=== PATIENT | female | born 1965 | race Caucasian/White ===

== ENCOUNTER 2024-02-28 16:25 | Inpatient (IN) | payer MEDICAID, SELFPAY ==
[2024-02-28] VITALS (52 sets, daily range): BP systolic 127–161; BP diastolic 83–102; PULSE 94–124; RESP 15–41; TEMP 36.7–37.4; O2SAT 88–98; BMI 26.1
--- NOTE | 2024-02-28 16:35 | XRR_ITS ---
PROCEDURE INFORMATION: Exam: XR Chest Exam date and time: 02/28/2024 4:40 PM Age: 58 years old Clinical indication: Shortness of breath; Additional info: SOB TECHNIQUE: Imaging protocol: Radiologic exam of the chest. Views: 1 view. COMPARISON: No relevant prior studies available. FINDINGS: Tubes, catheters and devices: PEG tube in the left abdomen. Lungs: Shallow inspiration. Consolidation in the medial left lung base. The right lung is clear. Pleural spaces: Unremarkable. No pleural effusion. No pneumothorax. Heart/Mediastinum: Unremarkable. No cardiomegaly. Bones/joints: Mild thoracolumbar curvature. No fracture. XR/XR chest 1V portable [id number] IMPRESSION: 1. Atelectasis and possible pneumonia in the left lung base.
[2024-02-28 16:54] LABS: ABG PCO2 46.6 mmHg (35-45); ABG PH Result 7.42 (7.35-7.45); Base Excess ABG 4.8 mmol/L (-2.0-2.0); Blood Gas Operator Identificat GD; Blood Gas Sample Site Brachial, right; Blood Gas Sample Type Arterial; Carboxyhemoglobin 1.2 %THgb (0.4-20.1); HCO3 ABG 30.1 mmol/L (22-26); HGB O2 Sat 91.9 % (95-100); Methemoglobin 0.9 % (0.4-1.5); Oxygen Device ROOM AIR; PO2 ABG 67.4 mmHg (80.0-100.0); Total Hemoglobin 12.4 g/dL (12-16)
--- NOTE | 2024-02-28 17:00 | W.ED.AMS ---
HPI - Altered Mental Status General: Chief Complaint: Altered Mental Status Stated Complaint: ams Time Seen by Provider: 02/28/24 16:29 Source: EMS Mode of arrival: EMS Limitations: altered mental status History of Present Illness: 58-year-old female that had a history of a stroke in the past patient's bedbound mute only mouths words currently is on hospice patient was sent here due to the fact that she seemed to have a slightly lower level of consciousness and possible upper respiratory infection. Patient is nonverbal not able to get any history from here she is awake and alert here Related Data Allergies Allergy/AdvReac Type Severity Reaction Status Date / Time Penicillins Allergy Unknown Verified 02/28/24 18:23 Review of Systems General: Reports: ROS unobtainable due to mental status Physical Exam Const: COMMON NORMALS: negative for patient oriented x3 HENMT: COMMON NORMALS: normocephalic and atraumatic HEAD & SCALP: normocephalic and atraumatic Eye: COMMON NORMALS: Equal, round and reactive pupils present and EOMs intact bilaterally PUPIL: Yes Equal, round and reactive pupils present Neck/C-Spine: COMMON NORMALS: full ROM and supple Chest: COMMONS NORMALS: normal inspection of the chest Resp: COMMON NORMALS: normal respiratory effort, No retractions, No use of accessory muscles and clear to auscultation bilaterally AUSCULTATION: clear to auscultation bilaterally Cardio: COMMON NORMALS: regular rhythm and No murmurs present (Cardio) RATE: tachycardic RHYTHM: regular rhythm GI: COMMON NORMALS: Normal to inspection, nondistended, normoactive bowel sounds present, Soft to palpation, non-tender and no masses PALPATION: Yes Soft to palpation Extremity: COMMON NORMALS: normal to inspection and full ROM Neuro: COMMON NORMALS: negative for patient oriented x3 Psych: COMMON NORMALS: negative for mental status grossly normal Skin: COMMON NORMALS: no rashes or lesions noted and no wounds GENERAL SKIN EXAM: no rashes or lesions noted Course Vital Signs: Vital signs: Vital Signs Temperature 98.1 F 02/28/24 16:29 Pulse Rate 115 H 02/28/24 19:00 Respiratory Rate 22 H 02/28/24 19:00 Blood Pressure 139/89 02/28/24 19:00 Pulse Oximetry 95 02/28/24 19:00 Oxygen Delivery Me thod Room Air 02/28/24 17:30 MDM - Altered Mental Status Medical Decision Making Patient presents here with pneumonia she does have an elevated lactate and white count as well patient given sepsis bolus down here along with antibiotics. I spoke to the hospitalist will admit at this time. Medical Records I reviewed the patient's medical records. Lab Data I reviewed the patient's lab results. 02/28/24 17:10 02/28/24 17:10 Radiology Impressions Chest X-Ray 02/28/24 16:35 IMPRESSION: 1. Atelectasis and possible pneumonia in the left lung base. Laboratory Results WBC 16.08 10^3/uL (3.29-11.43) H 02/28/24 17:10 RBC 4.57 10^6/uL (3.85-5.65) 02/28/24 17:10 Hgb 12.20 g/dL (11.27-16.99) 02/28/24 17:10 Hct 41.3 % (36-47) 02/28/24 17:10 MCV 90.4 fl (85-98) 02/28/24 17:10 MCH 26.7 pg (27-33) L 02/28/24 17:10 MCHC 29.5 g/dL (30-55) L 02/28/24 17:10 RDW 17.1 % (12.1-15.1) H 02/28/24 17:10 Plt Count 252 10^3/cmm (157-399) 02/28/24 17:10 MPV 13.6 fL (7.4-10.4) H 02/28/24 17:10 Neut % (Auto) 74.0 % 02/28/24 17:10 Lymph % (Auto) 11.3 % 02/28/24 17:10 Bibb % (Auto) 13.4 % 02/28/24 17:10 Eos % (Auto) 0.5 % 02/28/24 17:10 Baso % (Auto) 0.4 % 02/28/24 17:10 Neut # (Auto) 11.89 10^3/uL (1.8-7.7) H 02/28/24 17:10 Lymph # (Auto) 1.8 10^3/uL (0.8-4.8) 02/28/24 17:10 Bibb # (Auto) 2.2 10^3/uL (0.2-0.9) H 02/28/24 17:10 Eos # (Auto) 0.1 10^3/uL (0.0-0.8) 02/28/24 17:10 Baso # (Auto) 0.1 10^3/uL (0.0-0.1) 02/28/24 17:10 Nucleated RBC % (auto) 0 % 02/28/24 17:10 Nucleated RBCs # 0.0 /100WBC 02/28/24 17:10 Specimen Type Arterial 02/28/24 16:40 Sample Site Brachial, right 02/28/24 16:40 ABG pH 7.42 (7.35-7.45) 02/28/24 16:40 ABG pCO2 46.6 mmHg (35-45) H 02/28/24 16:40 ABG pO2 67.4 mmHg (80.0-100.0) L 02/28/24 16:40 ABG HCO3 30.1 mmol/L (22-26) H 02/28/24 16:40 ABG Base Excess 4.8 mmol/L (-2.0-2.0) H 02/28/24 16:40 Aditya Test N/a 02/28/24 16:40 Hematocrit 38.0 % (37-47) 02/28/24 16:40 Hgb O2 Saturation 91.9 % (95-100) L 02/28/24 16:40 Carboxyhemoglobin 1.2 %THgb (0.4-20.1) 02/28/24 16:40 Methemoglobin 0.9 % (0.4-1.5) 02/28/24 16:40 Total Hemoglobin 12.4 g/dL (12-16) 02/28/24 16:40 O2 Delivery Device Room air 02/28/24 16:40 Director Of Labor Relations ID Gd 02/28/24 16:40 Sodium 145 mmol/L (136-145) 02/28/24 17:10 Potassium 5.4 mmol/L (3.5-5.1) H 02/28/24 17:10 Chloride 100 mmol/L (98-107) 02/28/24 17:10 Carbon Dioxide 31 mmol/L (22-29) H 02/28/24 17:10 Anion Gap 19.4 (5-19) H 02/28/24 17:10 BUN 40 mg/dL (6-20) H 02/28/24 17:10 Creatinine 0.9 mg/dL (0.5-0.9) 02/28/24 17:10 GFR Calculation 64.3 mL/min (90-130) L 02/28/24 17:10 Glucose 112 mg/dL (65-115) 02/28/24 17:10 Calculated Osmolality 311 mOsm/kg (285-295) H 02/28/24 17:10 Lactic Acid 5.3 mmol/L (0.5-2.2) H* 02/28/24 17:10 Calcium 10.5 mg/dL (8.5-10.5) 02/28/24 17:10 Total Bilirubin 0.3 mg/dL (0.15-1.2) 02/28/24 17:10 AST 10 U/L (0-32) 02/28/24 17:10 ALT 8 U/L (0-33) 02/28/24 17:10 Alkaline Phosphatase 42 U/L (35-105) 02/28/24 17:10 NT-Pro-B Natriuret Pep 269 pg/mL (0-125) H 02/28/24 17:10 Total Protein 7.5 g/dL (6.6-8.7) 02/28/24 17:10 Albumin 4.1 g/dL (3.5-5.2) 02/28/24 17:10 Globulin 3.4 g/dL (1.3-4.6) 02/28/24 17:10 Coronavirus (PCR) Negative (Negative) 02/28/24 17:12 Influenza A (PCR) Negative (Negative) 02/28/24 17:12 Influenza Type B (PCR) Negative (Negative) 02/28/24 17:12 RSV (PCR) Negative (Negative) 02/28/24 17:12 All radiology interpretation(s) finalized by discharge Critical Care Time Critical Care Time: Critical Care Time: Yes Total Critical Care Time: 40 Attestation: The high probability of a clinically significant, sudden or life threatening deterioration of the patient's resp system(s) required my full and direct attention, intervention and personal management. The critical care time is as shown. This time is in addition to time spent performing any reported procedures but includes the following: [x] Data and vital sign review and interpretation [x] Patient assessment, examination and intervention [x] Documentation [x] Medication orders and management Discharge Plan Discharge Patient Disposition: Admitted As Inpatient Clinical Impression: Pneumonia Condition: Stable Patient Instructions: Altered Mental Status (ED) Coding Level of Care Code ED Associate Director Of Biostatistics for Tasha Alva
[2024-02-28 17:19] LABS: Basophils # 0.1 10^3/uL (0.0-0.1); Basophils % 0.4 %; Eosinophils # 0.1 10^3/uL (0.0-0.8); Eosinophils % 0.5 %; Hematocrit 41.3 % (36-47); Lymphocytes # 1.8 10^3/uL (0.8-4.8); Lymphocytes % 11.3 %; Mean Corpuscular HGB Conc 29.5 g/dL (30-55); Mean Corpuscular Hemoglobin 26.7 pg (27-33); Mean Corpuscular Volume 90.4 fl (85-98); Mean Platelet Volume 13.6 fL (7.4-10.4); Monocytes # 2.2 10^3/uL (0.2-0.9); Monocytes % 13.4 %; Neutrophils # 11.89 10^3/uL (1.8-7.7); Nucleated Red Blood Cells % 0 %; Platelet Count 252 10^3/cmm (157-399); Red Blood Count 4.57 10^6/uL (3.85-5.65); Red Cell Distribution Width 17.1 % (12.1-15.1); White Blood Count 16.08 10^3/uL (3.29-11.43)
[2024-02-28 17:27] LABS: Slide Review Slide Review Perform
[2024-02-28 17:52] LABS: Alanine Aminotransferase 8 U/L (0-33); Albumin Level 4.1 g/dL (3.5-5.2); Alkaline Phosphatase 42 U/L (35-105); Anion Gap 19.4 (5-19); Aspartate Amino Transferase 10 U/L (0-32); Blood Urea Nitrogen 40 mg/dL (6-20); Calcium 10.5 mg/dL (8.5-10.5); Carbon Dioxide 31 mmol/L (22-29); Chloride 100 mmol/L (98-107); Globulin 3.4 g/dL (1.3-4.6); Glomerular Filtration Rate 64.3 mL/min (90-130); Glucose 112 mg/dL (65-115); NT Pro B Type Natriuretic Pept 269 pg/mL (0-125); Osmolality Calculated 311 mOsm/kg (285-295); Potassium 5.4 mmol/L (3.5-5.1); Sodium 145 mmol/L (136-145); Total Bilirubin 0.3 mg/dL (0.15-1.2); Total Protein 7.5 g/dL (6.6-8.7)
[2024-02-28 18:10] LABS: Covid PCR NEGATIVE (Negative); Influenza A NEGATIVE (Negative); Influenza B NEGATIVE (Negative); Respiratory Syncytial Virus Ce NEGATIVE (Negative)
[2024-02-28] MEDS: sodium chloride 0.9% 1,000 ML 999 ML IV ×2 (18:27→20:33)
[2024-02-28] MEDS: cefTRIAXone 1,000 mg SDV 1000 MG IVP (18:29)
[2024-02-28] MEDS: azithromycin 500 MG in sodium chloride 0.9% 250 ML 250 MG IV (18:40)
[2024-02-28 18:51] LABS: Lactic Sepsis W/Reflex 5.3 mmol/L (0.5-2.2)
[2024-02-28] MEDS: sodium chloride 0.9% 500 ML 999 ML IV (19:49)
--- NOTE | 2024-02-28 19:56 | CTR_ITS ---
PROCEDURE INFORMATION: Exam: CT Head Without Contrast Exam date and time: 02/28/2024 8:11 PM Age: 58 years old Clinical indication: Altered mental status/memory loss; Additional info: AMS TECHNIQUE: Imaging protocol: Computed tomography of the head without contrast. Radiation optimization: All CT scans at this facility use at least one of these dose optimization techniques: automated exposure control; mA and/or kV adjustment per patient size (includes targeted exams where dose is matched to clinical indication); or iterative reconstruction. COMPARISON: No relevant prior studies available. RADIATION DOSE METRICS: Total DLP (mGy-cm): 1263 FINDINGS: Brain: Large region of encephalomalacia involving the right frontal, temporal, and parietal lobes. Encephalomalacia in the right basal ganglia. Severe patchy hypodensities throughout supratentorial white matter. No intracranial hemorrhage. Wallerian degeneration in the right cerebral peduncle. Cerebral ventricles: Ex vacuo dilatation of the right lateral ventricle. Mild dilatation of the left lateral ventricle and 3rd and 4th ventricles. Paranasal sinuses: Mucosal thickening in the right maxillary and bilateral ethmoid sinuses. No fluid level. Mastoid air cells: Visualized mastoid air cells are well aerated. Bones: Large right temporoparietal craniectomy defect. No acute fracture. Soft tissues: Unremarkable. CT/CT head wo con* [id number] IMPRESSION: 1. No acute intracranial abnormality. 2. Enlargement of the ventricles is a combination of ex vacuo dilatation on the right and central volume loss on the left. 3. 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
--- NOTE | 2024-02-28 19:56 | CTR_ITS ---
PROCEDURE INFORMATION: Exam: CT Abdomen And Pelvis Without Contrast Exam date and time: 02/28/2024 8:14 PM Age: 58 years old Clinical indication: Other: Distention; Additional info: Abdominal distetion, peg tub TECHNIQUE: Imaging protocol: Computed tomography of the abdomen and pelvis without contrast. Radiation optimization: All CT scans at this facility use at least one of these dose optimization techniques: automated exposure control; mA and/or kV adjustment per patient size (includes targeted exams where dose is matched to clinical indication); or iterative reconstruction. COMPARISON: CR XR chest 1V portable [id number] 02/28/2024 4:40 PM RADIATION DOSE METRICS: Total DLP (mGy-cm): 961 FINDINGS: Limitations: Streak artifact in the abdomen due to the patient's arms which were left in the field of view. Tubes, catheters and devices: Peg tube in the anterior mid stomach. Liver: Normal. No mass. Gallbladder and biliary ducts: Layering sludge and/or small calcified stones in the gallbladder. No visible wall thickening. The bile ducts are normal. Pancreas: Normal. No ductal dilation. Spleen: Calcified granulomas in the spleen. Adrenal glands: Adrenal hyperplasia. Kidneys and ureters: Large staghorn calculus in the central left kidney. 2 mm and 3 mm right renal calculi. No ureteral calculus or hydronephrosis. Stomach and bowel: The stomach is decompressed. The small bowel and colon are unremarkable. No obstruction. Appendix: The appendix is visualized and is normal. Intraperitoneal space: Unremarkable. No free air. No significant fluid collection. Vasculature: Mild calcified arterial plaque. No aneurysm. Lymph nodes: Unremarkable. No enlarged lymph nodes. Urinary bladder: Unremarkable as visualized. Reproductive: Unremarkable as visualized. Bones/joints: Mild curvature of the lumbar spine with degenerative changes. No acute fracture. Soft tissues: Unremarkable. CT/CT abdomen pelvis wo con [id number] IMPRESSION: 1. No acute findings. 2. Large left renal staghorn calculus and small right renal calculi. 3. Sludge and/or small stones in the gallbladder.
--- NOTE | 2024-02-28 19:56 | CTR_ITS ---
PROCEDURE INFORMATION: Exam: CTA Chest With Contrast Exam date and time: 02/28/2024 8:16 PM Age: 58 years old Clinical indication: Shortness of breath TECHNIQUE: Imaging protocol: Computed tomographic angiography of the chest with contrast. Exam focused on the arteries. 3D rendering (Not supervised by radiologist): MIP and/or 3D reconstructed images were created by the technologist. Radiation optimization: All CT scans at this facility use at least one of these dose optimization techniques: automated exposure control; mA and/or kV adjustment per patient size (includes targeted exams where dose is matched to clinical indication); or iterative reconstruction. Contrast material: OMNI 350; Contrast volume: 60 ml; Contrast route: INTRAVENOUS (IV); COMPARISON: CR XR chest 1V portable [id number] 02/28/2024 4:40 PM RADIATION DOSE METRICS: Total DLP (mGy-cm): 384 FINDINGS: Pulmonary arteries: Normal. No pulmonary emboli. Aorta: Unremarkable. No aortic aneurysm. No aortic dissection. Thyroid: Possible 1.7 cm right thyroid nodule. Ultrasound follow up suggested. Lungs: Soft tissue density in the left hilum, extending into the infrahilar left lower lobe. Right upper lobe calcified granuloma. Narrowing of the left hilar bronchi involving both the upper and lower lobes. Consolidation and volume loss in the basilar segments of the left lower lobe with loss of air bronchograms. Bronchial wall thickening in the central left upper lobe bronchi. Dependent consolidation in the right lower lobe. 4 mm right lower lobe nodule. Calcified granulomas in the left lower lobe. Pleural spaces: Unremarkable. No pneumothorax. No pleural effusion. Heart: Unremarkable. No cardiomegaly. No pericardial effusion. Lymph nodes: No mediastinal lymphadenopathy. Calcified right hilar lymph node. Bones/joints: Degenerative changes and curvature in the thoracic spine. No acute fracture. Soft tissues: Unremarkable. CT/CT angio chest PE protcl [id number] IMPRESSION: 1. No evidence of pulmonary embolus. 2. Consolidation and volume loss in the left lower lobe extending with loss of bronchi. This could represent bronchial collapse and atelectasis. An obstructing infrahilar left lower lobe neoplasm cannot be excluded. 3. Soft tissue density in the left hilum with narrowing and wall thickening of the left upper and lower lobe central bronchi. A malignant neoplastic process cannot be excluded. Consider follow-up bronchoscopy. 4. Dependent consolidation in the right lower lobe is most likely atelectasis. COMMENTS: Consistent with the [employer]'s Incidental Findings Committee white paper (J Am Anjana Radiol 2015): In patients aged 35 years and older with an incidental thyroid nodule equal to or greater than 1.[address], MRI or extrathyroidal US, further evaluation with dedicated thyroid US is recommended for patients with normal life expectancy and without comorbidities. For smaller nodules without suspicious features, no further evaluation or follow up is recommended.
--- NOTE | 2024-02-28 20:02 | P.HP_ITS ---
Providers/Chief Complaint 2 Chief Complaint: ams History of Present Illness Charito Tse is a 58 year old female with a past medical history of CVA, with residual right-sided Jarocho plegia we will reports improving right arm strength, significant right lower extremity weakness, has movement of left upper and left lower extremity, can carry out conversations, is normally alert oriented x 3, can feed herself, has a PEG tube in place, gets continuous tube feeds bedbound, currently on hospice more for pain control, but is a full code according to lifelong partner and caregiver and guardian at bedside, history of decompressive craniectomy for cerebral edema, continues to have 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 Currently patient is alert oriented x 0, she does open her eyes, but does not speak, she does not follow commands, tells me that she is significantly altered, her GCS score is 8, according to patient's partner, patient has had complaints of cough, fatigue, malaise, for the last few weeks. She has been on multiple rounds of antibiotics and steroids, she has complained of cough, shortness of breath, no chest pain. No complaints of headache or blurry vision, no neck pain complaints. She has intermittently complained of abdominal pain had 1 episode of vomiting, but has had bowel movements, had a bowel movement this morning, she has had decreased oral intake, increased confusion, less responsive according. She is bedbound so no falls, he is not sure if she has any bedsores, her sugars have been running on the lower end for her type 2 diabetes mellitus. No reported fevers. No sick contacts. Blood pressure 144/89, heart rate 105, respiratory rate 20, temperature 98.1, she is 95% on 2 L Review of Systems 2 General: Reports: ROS unobtainable due to medical condition and ROS unobtainable due to mental status Medications/Allergies Allergies Allergy/AdvReac Type Severity Reaction Status Date / Time Penicillins Allergy Unknown Verified 02/28/24 18:23 PFSH Acute 2 PFSH: Medical History (Updated 02/28/24 @ 20:44 by David Hinojosa MD) History of CAD (coronary artery disease) History of type 2 diabetes mellitus History of CVA with residual deficit Surgical History (Updated 02/28/24 @ 20:41 by David Hinojosa MD) Hx of craniotomy Social History (Updated 02/28/24 @ 20:41 by David Hinojosa MD) Smoking and tobacco/nicotine status: never used tobacco/nicotine Alcohol intake: never Substance/Drug Use: never Vitals/I&O/Wt Last Vital Signs Temp 98.1 F 02/28/24 16:29 Pulse 115 H 02/28/24 19:00 Resp 22 H 02/28/24 19:00 BP 139/89 02/28/24 19:00 Pulse Ox 95 02/28/24 19:00 O2 Del Method Room Air 02/28/24 17:30 Weight last 48 hrs Weight 77.111 kg Physical Exam 2 Const: COMMON NORMALS: no acute distress HENMT: OTHER: Right skull has been removed, skin flap on top, right parietal Eye: OTHER: Pupils equal round reactive to light, does withdraw from pain, does spontaneously open her eyes to her name Resp: COMMON NORMALS: normal respiratory effort, No retractions and No use of accessory muscles AUSCULTATION: crackles and wheezes Cardio: COMMON NORMALS: no JVD, regular rate, regular rhythm, S1 normal heart sound present and S2 normal heart sound present RATE: regular rate RHYTHM: regular rhythm HEART SOUNDS: S1 normal heart sound present and S2 normal heart sound present GI: COMMON NORMALS: Normal to inspection, nondistended, normoactive bowel sounds present, Soft to palpation and non-tender OTHER: PEG tube in place Extremity: COMMON NORMALS: no pedal edema Neuro: OTHER: Does not follow neurologic testing Sepsis: Is patient septic: Yes Focused sepsis exam performed: Yes F ocused sepsis exam: DP PT pulses diminished, bilaterally, cap refill greater than 2 seconds no mottling Date exam was performed: 02/28/24 Time exam was performed: 20:42 Data 02/28/24 17:10 02/28/24 17:10 Micro: Microbiology 02/28/24 17:10 Blood Culture - Preliminary Blood SPECIMEN COLLECTED 02/28/24 16:50 Blood Culture - Preliminary Blood SPECIMEN COLLECTED A&P Assessment and plan (1) Acute hypoxic respiratory failure: (2) Altered mental status: (3) Pneumonia: (4) Elevated lactic acid level: (5) Sepsis: Plan Altered mental status ? Likely secondary to sepsis, pneumonia -With underlying CVA -Neurochecks # Aspiration precautions Acute hypoxic respiratory failure ? Secondary to pneumonia ? Plan ? Monitor respiratory status closely in the ICU ? Low threshold for intubation ? Broaden antibiotic coverage, with failure of outpatient antibiotics and steroids ? Start vancomycin ? Start meropenem ? CT angiogram of the chest ? DuoNeb ? Blood cultures ? Sputum cultures ? Monitor respiratory status closely Pneumonia as above Sepsis secondary to pneumonia ? Sepsis features met given altered mental status, respiratory failure, lactic acid 5.3, leukocytosis, elevated CRP ? Await urinalysis ? Await CT chest abdomen pelvis ? Follow blood cultures, urine cultures Type 2 diabetes mellitus, low-dose sliding scale History of CVA ? History of craniectomy ? Right hemiplegia ? PEG tube in place, will await CT scan abdomen pelvis, if within normal limits will start on PEG tube feeds, patient receives continuous PEG tube feeds at 15 mL an hour Full code # Lovenox for DVT prophylaxis Attestations 2 Medical Necessity Statement*: Patient requires hospitalization, for pneumonia, acute hypoxic respiratory failure, sepsis, altered mental status, inpatient, greater than 2 midnights Diagnoses Acute hypoxic respiratory failure J96.01 Altered mental status R41.82 Pneumonia J18.9 Elevated lactic acid level R79.89 Sepsis A41.9
[2024-02-28 20:05] LABS: Reflex Lactate Order REFLEX LACTIC ORDERD
[2024-02-28 20:21] LABS: Erythrocyte Sedimentation Rate 77 mm/hr (0-15)
[2024-02-28] MEDS: iohexol 350 mg/mL 500 mL Btl (per mL) IV (20:26)
--- NOTE | 2024-02-28 20:35 | ECG_ITS ---
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 Measurements Intervals [place] Rate: 104 P: 62 [place]: 197 QRS: -40 QRSD: 82 T: 24 QT: 355 QTc: 467 Interpretive Statements SINUS TACHYCARDIA LOW QRS VOLTAGE IN PRECORDIAL LEADS [QRS DEFLECTION < 1.0 mV IN CHEST LEADS] MINIMAL VOLTAGE CRITERIA FOR LVH, CONSIDER NORMAL VARIANT [MEETS CRITERIA IN ONE OF: R(aVL), S(V1), R(V5), R(V5/V6)+S(V1)] INFERIOR MYOCARDIAL INFARCTION , PROBABLY OLD [40+ ms Q WAVE AND/OR ST/T ABNORMALITY IN II/aVF] ANTEROLATERAL MYOCARDIAL INFARCTION , PROBABLY OLD [40+ ms Q WAVE IN I/aVL/V3-V6] No previous ECG available for comparison Electronically Signed On 02-28-2024 22:14:54 CDT by Aubrie Roberts M.D. [id number]
[2024-02-28 20:40] LABS: C Reactive Protein 13.8 mg/L (0.0-4.9)
[2024-02-28 20:46] LABS: Procalcitonin 0.34 ng/mL (0-0.5)
[2024-02-28] MEDS: vancomycin 1,500 MG/300 ML PIGGYBACK 200 MG IV (21:00)
[2024-02-28 21:08] LABS: INR 1.43 (0.8-1.2)
[2024-02-28 21:11] LABS: Troponin(5th) Baseline 53 ng/L (0-10)
[2024-02-28 21:12] LABS: Lactic Acid level (Lactate) 2.4 mmol/L (0.5-2.2)
--- NOTE | 2024-02-28 21:58 | ECG_ITS ---
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 Measurements Intervals [place] Rate: 103 P: 79 [place]: 210 QRS: -31 QRSD: 77 T: 22 QT: 360 QTc: 473 Interpretive Statements SINUS TACHYCARDIA WITH FIRST DEGREE AV BLOCK WITH OCCASIONAL VENTRICULAR PREMATURE COMPLEXES LOW QRS VOLTAGE IN PRECORDIAL LEADS [QRS DEFLECTION < 1.0 mV IN CHEST LEADS] INFERIOR MYOCARDIAL INFARCTION , PROBABLY OLD [40+ ms Q WAVE AND/OR ST/T ABNORMALITY IN II/aVF] ANTEROSEPTAL MYOCARDIAL INFARCTION , PROBABLY OLD [40+ ms Q WAVE IN V1-V4] Compared to ECG 02/28/2024 20:35:37 Ventricular premature complex(es) now present First degree AV block now present Myocardial infarct finding still present Electronically Signed On 02-28-2024 22:22:28 CDT by Aubrie Roberts M.D. [id number]
[2024-02-28 22:20] LABS: Bilirubin Urine Negative (Negative); Blood Urine 3+ (Negative); Glucose Urine UA Negative (Normal); Ketones Urine Negative (Negative); Leukocyte Esterase Urine 3+ (Negative); Nitrate Urine Positive (Negative); Protein Urine 1+ (Negative); Urine Appearance Cloudy (CLEAR); Urine Color Yellow (Yellow)
[2024-02-28 22:22] LABS: Add Urine Microscopic? YES; Bacteria Urine 1+ /hpf; Hyaline Casts Urine 34.74 /lpf; RBC Urine >100 /hpf (0-2); Squamous Epithelial Cell Urine 0-5 /hpf (0-5); WBC Urine >100 /hpf (0-5)
[2024-02-28] MEDS: pantoprazole 40 mg SDV IVP (22:22)
[2024-02-28] MEDS: enoxaparin 40 mg/0.4 mL Syringe SUBCUT (22:22)
[2024-02-28] MEDS: meropenem 500 mg SDV IVP (22:22)
[2024-02-28] MEDS: sodium chloride 0.9% 1,000 ML 50 ML IV (22:23)
[2024-02-28 22:30] LABS: Chol HDL Ratio 4.72 mg/dL (0.0-4.40); Cholesterol 137 mg/dL (0-200); HDL Cholesterol 29 mg/dL (60-100); LDL Cholesterol Calculated 73 mg/dL (50-129); LDL HDL Ratio 2.52 RATIO (0.00-3.22); Thyroid Stimulating Hormone 0.14 uIU/mL (0.27-4.20); Triglycerides 175 mg/dL (0-150)
[2024-02-28 22:38] LABS: Add Urine Culture? Yes; Specific Gravity, Urine 1.039 (1.005-1.030); UA Slide Review UA Slide Review Perf
[2024-02-29] VITALS (28 sets, daily range): BP systolic 125–160; BP diastolic 78–103; PULSE 79–96; RESP 0–27; TEMP 36.6–37.4; O2SAT 90–100; BMI 26.9
[2024-02-29 00:43] LABS: MRSA PCR OZH (swab) NOT DETECTED (Not Detecte)
--- NOTE | 2024-02-29 02:06 | ECG_ITS ---
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 Measurements Intervals [place] Rate: 95 P: 64 [place]: 203 QRS: -31 QRSD: 86 T: 30 QT: 375 QTc: 473 Interpretive Statements SINUS RHYTHM WITH FREQUENT VENTRICULAR PREMATURE COMPLEXES LEFT AXIS DEVIATION [QRS AXIS < -30] ANTEROSEPTAL MYOCARDIAL INFARCTION , PROBABLY OLD [40+ ms Q WAVE IN V1-V4] Compared to ECG 02/28/2024 22:13:17 Left-axis deviation now present Sinus tachycardia no longer present First degree AV block no longer present Myocardial infarct finding still present Electronically Signed On 02-29-2024 08:38:30 CDT by Jeffy Maldonado M.D. [id number]
[2024-02-29 02:58] LABS: Basophils # 0.1 10^3/uL (0.0-0.1); Basophils % 0.5 %; Eosinophils # 0.1 10^3/uL (0.0-0.8); Eosinophils % 0.9 %; Hematocrit 34.8 % (36-47); Lymphocytes # 1.7 10^3/uL (0.8-4.8); Lymphocytes % 11.5 %; Mean Platelet Volume 13.4 fL (7.4-10.4); Monocytes # 2.1 10^3/uL (0.2-0.9); Monocytes % 13.8 %; Neutrophils # 10.86 10^3/uL (1.8-7.7); Neutrophils % 72.8 %; Nucleated Red Blood Cells % 0 %; Platelet Count 174 10^3/cmm (157-399); Red Blood Count 3.74 10^6/uL (3.85-5.65); Red Cell Distribution Width 16.9 % (12.1-15.1); White Blood Count 14.92 10^3/uL (3.29-11.43)
[2024-02-29 03:16] LABS: Anion Gap 11.1 (5-19); Blood Urea Nitrogen 34 mg/dL (6-20); Calcium 8.8 mg/dL (8.5-10.5); Carbon Dioxide 28 mmol/L (22-29); Chloride 109 mmol/L (98-107); Creatinine Clr Calc Pharmacy 89.8632; Glomerular Filtration Rate 85.9 mL/min (90-130); Glucose 68 mg/dL (65-115); Osmolality Calculated 304 mOsm/kg (285-295); Potassium 4.1 mmol/L (3.5-5.1); Sodium 144 mmol/L (136-145)
[2024-02-29 03:28] LABS: Estmated Average Glucose 94; Hemoglobin A1C 4.9 % (4.0-6.0)
[2024-02-29 05:17] LABS: Troponin 5 6HR 61.01 ng/L (0-10); Troponin 5 6HR Delta 8.01 ng/L (0-12)
[2024-02-29] MEDS: meropenem 500 mg SDV IVP (06:37)
--- NOTE | 2024-02-29 07:24 | PHA.VACGOAL ---
Vancomycin Goal - Goal Vancomycin Goal:: 15-20 mg/L Vancomycin Indication:: Pneumonia - Therapy Current therapy:: Meropenem (500 mg q8h) Day of therpy:: Day []of [] . Actual body weight (kg): 75.5 kg [place] body weight: 59.3 kg Dosing weight (kg): 75.5 kg - Data Labs: WBC 14.92 10^3/uL (3.29-11.43) H 02/29/24 02:27 RBC 3.74 10^6/uL (3.85-5.65) L 02/29/24 02:27 Hgb 10.10 g/dL (11.27-16.99) L 02/29/24 02:27 Hct 34.8 % (36-47) L 02/29/24 02:27 MCV 93.0 fl (85-98) 02/29/24 02:27 MCH 27.0 pg (27-33) 02/29/24 02:27 MCHC 29.0 g/dL (30-55) L 02/29/24 02:27 RDW 16.9 % (12.1-15.1) H 02/29/24 02:27 Sodium 144 mmol/L (136-145) 02/29/24 02:27 Potassium 4.1 mmol/L (3.5-5.1) 02/29/24 02:27 Chloride 109 mmol/L (98-107) H 02/29/24 02:27 Carbon Dioxide 28 mmol/L (22-29) 02/29/24 02:27 Anion Gap 11.1 (5-19) 02/29/24 02:27 BUN 34 mg/dL (6-20) H 02/29/24 02:27 Creatinine 0.7 mg/dL (0.5-0.9) 02/29/24 02:27 GFR Calculation 85.9 mL/min (90-130) L 02/29/24 02:27 Last dialysis session:: N/A Drug administration history:: Medications Meropenem (Meropenem 500 Mg Sdv) 500 mg IVP Q8H FAVIOLA; Protocol Last Admin: 02/29/24 06:37 Dose: 500 mg Vancomycin HCl 1,000 mg/ (Sodium Chloride) 250 mls @ 250 mls/hr IV Q12H FAVIOLA Discontinued Medications Vancomycin HCl (Vancocin) 1,500 mg in 300 mls @ 200 mls/hr IV ONCE ONE Stop: 02/28/24 22:59 Last Admin: 02/28/24 21:00 Dose: 200 mls/hr Treatment plan:: new consult Regimen:: Vancomycin load 1500mg IVPB Vancomycin 1gm Q12h Follow up:: will monitory SCR daily in the AM Vancomycin Trough before 4th dose Additional Comments:: dosed by Telepharmacy
[2024-02-29 08:10] LABS: Glucose Point of Care 73 mg/dL (70-110)
--- NOTE | 2024-02-29 08:27 | PC.PHAR ---
Pt unable to verify medications. Will follow up with [facility] and request current med list from Bayron Davila 02/29/24
--- NOTE | 2024-02-29 09:04 | USCV_ITS ---
Charito Tse Age: 58 Gender: F : 1965 Exam Date: 02/29/2024 14:33 Ordering Phys: Bret Weaver MD Technologist: Exam Location: [facility] [place] Indication: sob cp BP: 158 / 94 HR: 77 Rhythm: Sinus Technical Quality: Adequate MEASUREMENTS (Male / Female) Normal Values 2D ECHO LV Diastolic Diameter PLAX 3.3 cm 4.2 - 5.9 / 3.9 - 5.3 cm IVS Diastolic Thickness 1.0 cm 0.6 - 1.0 / 0.6 - 0.9 cm IVS Systolic Thickness 1.1 cm LVPW Diastolic Thickness 1.1 cm 0.6 - 1.0 / 0.6 - 0.9 cm LVPW Systolic Thickness 1.2 cm LVOT Diameter 2.1 cm LV Ejection Fraction 2D Teich 62.2 % LV Ejection Fraction MOD 4C 44.9 % LV Ejection Fraction MOD 2C 61.8 % LV Ejection Fraction 2C AL 59.8 % LA Diameter 3.6 cm RA Systolic Volume 4C AL 71.1 ml RA Systolic Volume 4C MOD 66.6 ml Aorta at Sinotubular Diameter 2.4 cm M-MODE LA Ao Ratio MM 1.4 AV Cusp Separation MM 1.7 cm DOPPLER AV Peak Velocity 160.0 cm/s LVOT Peak Velocity 111.0 cm/s AV Area Cont Eq vti 2.5 cm squared AV Area Cont Eq pk 2.3 cm squared MV Area PHT 4.9 cm squared Mitral E to A Ratio 0.9 TV Peak Velocity 232.5 cm/s TR Peak Velocity 251.0 cm/s TR Peak Gradient 25.2 mmHg TV Peak E Velocity 81.0 cm/s Right Atrial Pressure 3.0 mmHg Pulmonary Artery Systolic Pressu 28.2 mmHg PV Peak Velocity 95.0 cm/s FINDINGS Left Ventricle Normal left ventricular size and systolic function, EF 62%. Mild left ventricular hypertrophy. No regional wall motion abnormalities. Right Ventricle The right ventricle is normal in size and function. Right Atrium The right atrium is normal in size. Left Atrium The left atrium is normal in size. Mitral Valve No gross abnormalities noted Aortic Valve Minimally thickened noncoronary cusp of the aortic valve Tricuspid Valve Trace tricuspid valve regurgitation. Pulmonic Valve No gross abnormalities noted Pericardium Normal pericardium without effusion. Aorta Normal ascending aorta dimension. IVC Inferior vena cava not visualized. CONCLUSIONS Normal left ventricular size and systolic function, EF 62%. Mild left ventricular hypertrophy. No regional wall motion abnormalities. Minimally thickened noncoronary cusp of the aortic valve. Trace tricuspid valve regurgitation. There is no pericardial effusion. There are no intracardiac masses. No similar previous studies are available for comparison Dr Aubrie Roberts MD FAC (Electronically Signed) Final Date: 29 February 2024 17:54 S
[2024-02-29] MEDS: ipratropium-albuterol 3 mL Neb INHALATION ×3 (09:10→21:20)
--- NOTE | 2024-02-29 09:41 | P.PN_ITS ---
Subjective 2 Subjective: Admitted overnight. H&P and labs appreciated. Examination patient is awake and alert. Seems to be back to her baseline. She is speaking very softly but is able to reply yes or no she is able to tell me her name and being in the hospital. She denies any abdominal pain. Complaining of mild difficulty in breathing. Vitals/I&O/Wt Last Vital Signs Temp 98.2 F 02/29/24 08:00 Pulse 83 02/29/24 09:14 Resp 16 02/29/24 09:12 BP 146/96 02/29/24 08:00 Pulse Ox 94 02/29/24 09:12 O2 Del Method Nasal Cannula 02/29/24 09:12 O2 Flow Rate 2 02/29/24 09:12 02/28/24 02/29/24 02/29/24 22:59 06:59 14:59 Intake Total 250 / 250 Output Total 750 / 750 Balance 250 / 250 -750 / -500 Weight last 48 hrs Weight 75.5 kg Weight 73.5 kg Weight 77.111 kg Physical Exam 2 Const: COMMON NORMALS: no acute distress HENMT: OTHER: Right skull has been removed, skin flap on top, right parietal Eye: OTHER: Pupils equal round reactive to light, does withdraw from pain, does spontaneously open her eyes to her name Neck/C-Spine: COMMON NORMALS: no JVD Resp: COMMON NORMALS: normal respiratory effort, No retractions and No use of accessory muscles AUSCULTATION: crackles and wheezes Cardio: COMMON NORMALS: no JVD, regular rate, regular rhythm, S1 normal heart sound present and S2 normal heart sound present RATE: regular rate RHYTHM: regular rhythm HEART SOUNDS: S1 normal heart sound present and S2 normal heart sound present GI: COMMON NORMALS: Normal to inspection, nondistended, normoactive bowel sounds present, Soft to palpation and non-tender PALPATION: Yes Soft to palpation OTHER: PEG tube in place Extremity: COMMON NORMALS: no pedal edema Neuro: OTHER: Does not follow neurologic testing Urinary Catheter Management: Ford: Cath Placed During This Visit: yes Reason for Continuing Indwelling Catheter: Accurate Measurement of Urinary Output in Critically Ill Patients Urinary Catheter Date of Insertion: 02/28/24 Urinary Catheter Time of Insertion: 21:45 Quick SOFA Score: Respiratory Rate: 16 Blood Pressure: 159/86 [place] Coma Scale: 15 qSOFA Score: 0 If qSOFA score 2 or greater, continue: Blood Pressure Mean: 110 Bilirubin (mg/dl): 0.3 Platelets (x10?/ml): 174 Creatinine (mg/dl): 0.7 Evaluation: Current stage of sepsis: sepsis Sepsis stage criteria used: [facility] Sep-1 and Sepsis-3 Focused Exam: Vital signs: Temp Pulse Resp BP Pulse Ox O2 Del Method O2 Flow Rate 02/29/24 09:14 83 02/29/24 09:12 84 16 94 Nasal Cannula 2 02/29/24 08:00 98.2 F 84 27 H 146/96 100 Nasal Cannula 2 02/29/24 08:00 84 02/29/24 07:00 87 24 H 150/90 100 Nasal Cannula 3 02/29/24 06:00 84 02/29/24 04:00 99.1 F 87 139/80 98 Nasal Cannula 3 02/29/24 03:00 91 133/84 98 02/29/24 02:00 143/103 02/29/24 01:00 95 6 L 134/83 96 Nasal Cannula 3 02/29/24 00:00 99.3 F 96 15 150/87 90 Nasal Cannula 3 02/28/24 23:00 94 20 H 161/93 97 Nasal Cannula 3 02/28/24 22:30 96 22 H 158/98 96 Nasal Cannula 3 02/28/24 22:15 99.4 F 99 25 H 158/98 97 Nasal Cannula 3 02/28/24 22:06 107 H 15 144/89 96 02/28/24 22:02 Nasal Cannula 2 02/28/24 22:02 Nasal Cannula 02/28/24 22:00 96 02/28/24 22:00 98 41 H 158/95 88 L 02/28/24 21:51 91 Respiratory exam: crackles present and positive wheezes Cardiovascular exam: regular rate, regular rhythm, S1 normal heart sound and S2 normal heart sound Date exam was performed: 02/29/24 Time exam was performed: 16:33 2 Sepsis Screen No Definite Risk 02/28/24 22:00 Respiratory Rate 16 breaths/min (12 - 18) 02/29/24 13:32 Blood Pressure 159/86 mmHg 02/29/24 12:00 Nany Coma Scale Score 15 02/29/24 11:49 Quick SOFA Score 0 02/29/24 15:11 SOFA Score: 2 Nany Coma Scale Score 15 02/29/24 11:49 Blood Pressure Mean 110 mmHg 02/29/24 12:00 Total Bilirubin 0.3 mg/dL (0.15-1.2) 02/28/24 17:10 Platelet Count 174 10^3/cmm (157-399) 02/29/24 02:27 Creatinine 0.7 mg/dL (0.5-0.9) 02/29/24 02:27 SOFA Score 4 02/29/24 09:42 Data 02/29/24 02:27 02/29/24 02:27 Micro: Microbiology 02/28/24 17:10 Blood Culture - Preliminary Blood SPECIMEN COLLECTED 02/28/24 16:50 Blood Culture - Preliminary Blood SPECIMEN COLLECTED A&P Assessment and plan (1) Sepsis: SIRS: Tachycardic, Leukocytosis Source: Pneumonia End organ damage: Acute infectious encephalopathy Elevated lactate patient did receive a full 30 mg Did receive 30 mL/kg body weight fluid bolus in the ER. Continue normal saline 75 cc/h. Repeat lactate. Monitor blood pressures. Keep mean artery pressure 65 mmHg. Follow-up blood culture, urine culture, trend procalcitonin, check urine Legionella, bacterial antigen. Check MRSA swab. For now continue with broad-spectrum IV antibiotics with IV vancomycin, dosed meropenem for Pseudomonas, add azithromycin 500 mg IV daily for atypical coverage. De-escalate antibiotics as per culture results. (2) Acute hypoxic respiratory failure: In setting of left lower lobe pneumonia with concerns for postobstructive pneumonia. Appreciate CTA chest results. No pulm embolism. Concern for left hilar mass with postobstructive changes. Patient would most likely need a bronchoscopy for further evaluation of possible mass to rule out malignancy. Will discuss further with patient's caregiver. Maintain oxygen saturation over 90%. Start on Pulmicort twice daily, DuoNeb every 6 hour. Chest vest if needed. (3) Altered mental status: Most likely infectious encephalopathy. Resolving. Monitor regularly. Frequent redirection. Sitter if needed. (4) S/P percutaneous endoscopic gastrostomy (PEG) tube placement: Restart tube feeds as per home settings. Dietary consultation. Patient having frequent episodes of hypoglycemia. Most likely need to change from Osmolite to a higher calorie tube feeds. (5) Type 2 diabetes mellitus: A1c- 4.9 Hypoglycemic protocol Due to frequent hypoglycemia hold off on any insulin for now. (6) Hypoglycemia: (7) Postobstructive pneumonia: (8) Hilar mass: (9) Hospice care: As a family member she is on hospice care for pain control. Otherwise she is full code. (10) Elevated lactic acid level: Most likely in setting of sepsis. Recheck. Continue with IV fluid as above. Plan Hypertension: Goal blood pressure less than 140/90 mmHg. At home she is on amlodipine 10 mg daily, labetalol 200 mg twice daily, lisinopril 20 mg oral daily. For now hold off on antihypertensive. Monitor blood pressures. Will restart as per goal blood pressures. Paroxysmal A-fib: Continue with home dose of amiodarone. Currently in sinus rhythm. Continue with home dose of Eliquis 5 mg twice daily. Check echocardiogram ? History of craniectomy ? Right hemiplegia ? PEG tube in place, will await CT scan abdomen pelvis, if within normal limits will start on PEG tube feeds, patient receives continuous PEG tube feeds at 15 mL an hour Full code Eliquis will be sufficient for DVT prophylaxis Restart tube feeds Protonix OPD prophylaxis Restart other home medications including amiodarone, baclofen, duloxetine, gabapentin, trazodone. Medical reconciliation appreciated. [facility] Attestations 2 Medical Necessity Statement*: Requires further hospitalization for management of hypoxic respiratory failure, sepsis in setting of postobstructive pneumonia with left hilar mass in a patient with PEG tube in place postcraniotomy for CVA Diagnoses Acute hypoxic respiratory failure J96.01 Altered mental status R41.82 Elevated lactic acid level R79.89 Sepsis A41.9 S/P percutaneous endoscopic gastrostomy (PEG) tube placement Z93.1 Hospice care Z51.5 Type 2 diabetes mellitus E11.9 Hypoglycemia E16.2 Postobstructive pneumonia J18.9 Hilar mass R91.8
[2024-02-29 09:44] LABS: T3 Free 1.1 PG/ML (2.0-4.4)
[2024-02-29] MEDS: vancomycin 1,000 MG in sodium chloride 0.9% 250 ML 250 MG IV ×2 (09:57→21:09)
[2024-02-29] MEDS: duloxetine 60 mg Capsule PO (09:58)
[2024-02-29] MEDS: amiodarone 200 mg Tablet PO (09:58)
[2024-02-29 10:03] LABS: Iron 17 ug/dL (37-145); Percent Saturation 12.4 % (20-50); Total Iron Binding Capacity 137 mcg/dl; Unsaturated Iron Binding 120 ug/dL (112-347)
[2024-02-29 10:20] LABS: Procalcitonin 0.31 ng/mL (0-0.5); Vitamin B12 559 pg/mL (232-1245)
[2024-02-29 12:49] LABS: Glucose Point of Care 68 mg/dL (70-110)
--- NOTE | 2024-02-29 12:57 | PC.NURSE ---
Blood sugar 68mg/dl. Pt denies nausea, dizziness or other sysmptoms with shaking head no. Admin. OJ 40z per PEG as previously discussed with Dr Lorenz, if her sugar should go lower than the 73mg/dl it was earlier this am.
[2024-02-29 13:31] LABS: Glucose Point of Care 72 mg/dL (70-110)
--- NOTE | 2024-02-29 13:56 | PC.NURSE ---
Blood sugar recheck 72mg/dl. Pt nodded head yes to feeling better. Notified Dr Lorenz , via secure messaging, of blood sugars and OJ . Orders to consult lead miner blasting for tube feeding type received.
--- NOTE | 2024-02-29 14:35 | PC.NUTR ---
switch TF regimen of osmolite 1.2 @50 ml/hr to Jevity 1.5 @ 40 ml/hr x24hrs -FWF of 120 ml q4 (provides 1440 kcals (100% of needs) and 61 g/pro (100% of needs) daily) see most recent RD note for full details.
--- NOTE | 2024-02-29 15:17 | PC.NURSE ---
Tube feeding switched to Jevity 1.2 at 40ml/hr as [employer] footballer recommended, due to her low blood sugars.
[2024-02-29] MEDS: baclofen 10 mg Tablet PO ×2 (15:20→21:03)
[2024-02-29] MEDS: gabapentin 300 mg Capsule PO ×2 (15:20→21:03)
[2024-02-29] MEDS: meropenem 1,000 mg SDV 1000 MG IVP ×2 (15:20→23:34)
[2024-02-29 16:26] LABS: Lactic Sepsis W/Reflex 1.4 mmol/L (0.5-2.2)
--- NOTE | 2024-02-29 17:25 | PC.NURSE ---
Mr Henry Viera called and notified of tube feeding changes, blood sugars and impending transfer to [facility]
[2024-02-29] MEDS: sodium chloride 0.9% 1,000 ML 50 ML IV (18:00)
[2024-02-29] MEDS: azithromycin 500 MG in sodium chloride 0.9% 250 ML 250 MG IV (18:00)
[2024-02-29 18:19] LABS: Glucose Point of Care 161 mg/dL (70-110)
--- NOTE | 2024-02-29 18:20 | PC.NURSE ---
Report called to [facility] for bed 276-2. Report given to SANDRA Brown.
--- NOTE | 2024-02-29 18:43 | PC.NURSE ---
Pt transferred to [facility].
[2024-02-29] MEDS: trazodone 100 mg Tablet PO (21:03)
[2024-02-29] MEDS: apixaban 5 mg Tablet PO (21:03)
[2024-02-29] MEDS: budesonide 0.5 mg/2 mL Neb INHALATION (21:21)
[2024-02-29] MEDS: pantoprazole 40 mg SDV IVP (21:51)
[2024-02-29 23:43] LABS: Glucose Point of Care 139 mg/dL (70-110)
[2024-03-01] VITALS (14 sets, daily range): BP systolic 99–136; BP diastolic 65–84; PULSE 72–97; RESP 14–18; TEMP 36.6–37; O2SAT 91–98
[2024-03-01] MEDS: ipratropium-albuterol 3 mL Neb INHALATION ×4 (02:22→20:14)
[2024-03-01 05:37] LABS: Basophils # 0.1 10^3/uL (0.0-0.1); Basophils % 0.5 %; Eosinophils # 0.5 10^3/uL (0.0-0.8); Eosinophils % 4.7 %; Hematocrit 32.3 % (36-47); Lymphocytes # 0.8 10^3/uL (0.8-4.8); Lymphocytes % 7.7 %; Mean Corpuscular HGB Conc 29.4 g/dL (30-55); Mean Corpuscular Hemoglobin 26.8 pg (27-33); Mean Platelet Volume 13.8 fL (7.4-10.4); Monocytes # 1.1 10^3/uL (0.2-0.9); Monocytes % 10.3 %; Neutrophils # 8.19 10^3/uL (1.8-7.7); Neutrophils % 76.4 %; Nucleated Red Blood Cells % 0 %; Platelet Count 145 10^3/cmm (157-399); Red Blood Count 3.55 10^6/uL (3.85-5.65); Red Cell Distribution Width 17.1 % (12.1-15.1)
[2024-03-01 05:55] LABS: Alanine Aminotransferase < 5 U/L (0-33); Alkaline Phosphatase 34 U/L (35-105); Aspartate Amino Transferase 7 U/L (0-32); Blood Urea Nitrogen 25 mg/dL (6-20); Calcium 9.2 mg/dL (8.5-10.5); Carbon Dioxide 29 mmol/L (22-29); Chloride 110 mmol/L (98-107); Creatinine Clr Calc Pharmacy 109.3296; Globulin 2.3 g/dL (1.3-4.6); Glomerular Filtration Rate 102.7 mL/min (90-130); Glucose 212 mg/dL (65-115); Magnesium 1.9 mg/dL (1.7-2.3); Osmolality Calculated 313 mOsm/kg (285-295); Sodium 146 mmol/L (136-145); Total Bilirubin 0.2 mg/dL (0.15-1.2); Total Protein 5.3 g/dL (6.6-8.7)
[2024-03-01] MEDS: meropenem 1,000 mg SDV 1000 MG IVP ×3 (06:11→22:48)
[2024-03-01 06:24] LABS: Folate Level 13.8 ng/mL (4.8-37.3)
[2024-03-01] MEDS: budesonide 0.5 mg/2 mL Neb INHALATION ×2 (07:47→20:14)
[2024-03-01 08:11] LABS: Vancomycin Trough 24.8 ug/mL (10-15)
[2024-03-01] MEDS: gabapentin 300 mg Capsule PO ×3 (09:31→20:37)
[2024-03-01] MEDS: duloxetine 60 mg Capsule PO (09:31)
[2024-03-01] MEDS: apixaban 5 mg Tablet PO (09:31)
[2024-03-01] MEDS: amiodarone 200 mg Tablet PO (09:31)
[2024-03-01] MEDS: baclofen 10 mg Tablet PO ×3 (09:31→20:37)
[2024-03-01 11:40] LABS: Glucose Point of Care 258 mg/dL (70-110)
--- NOTE | 2024-03-01 14:16 | P.PN_ITS ---
Subjective 2 Subjective: Admitted overnight. H&P and labs appreciated. Examination patient is awake and alert. Seems to be back to her baseline. She is speaking very softly but is able to reply yes or no she is able to tell me her name and being in the hospital. She denies any abdominal pain. Complaining of mild difficulty in breathing. Vitals/I&O/Wt Last Vital Signs Temp 98.3 F 03/01/24 12:00 Pulse 97 03/01/24 12:00 Resp 16 03/01/24 12:00 BP 132/84 03/01/24 12:00 Pulse Ox 98 03/01/24 12:00 O2 Del Method Room Air 03/01/24 12:00 O2 Flow Rate 2 02/29/24 14:00 FiO2 21 02/29/24 21:24 02/29/24 03/01/24 03/01/24 22:59 06:59 14:59 Intake Total 1888.833 / 2288.833 1000 / 1000 Output Total 750 / 750 550 / 1300 Balance 1138.833 / 1538.833 -550 / 978.025 2194 / 1000 Weight last 48 hrs Weight 80.456 kg Weight 75.5 kg Weight 73.5 kg Weight 77.111 kg Physical Exam 2 Const: COMMON NORMALS: no acute distress HENMT: OTHER: Right skull has been removed, skin flap on top, right parietal Eye: OTHER: Pupils equal round reactive to light, does withdraw from pain, does spontaneously open her eyes to her name Neck/C-Spine: COMMON NORMALS: no JVD Resp: COMMON NORMALS: normal respiratory effort, No retractions and No use of accessory muscles AUSCULTATION: crackles and wheezes Cardio: COMMON NORMALS: no JVD, regular rate, regular rhythm, S1 normal heart sound present and S2 normal heart sound present RATE: regular rate RHYTHM: regular rhythm HEART SOUNDS: S1 normal heart sound present and S2 normal heart sound present GI: COMMON NORMALS: Normal to inspection, nondistended, normoactive bowel sounds present, Soft to palpation and non-tender PALPATION: Yes Soft to palpation OTHER: PEG tube in place Extremity: COMMON NORMALS: no pedal edema Neuro: OTHER: Does not follow neurologic testing Urinary Catheter Management: Ford: Cath Placed During This Visit: yes Reason for Continuing Indwelling Catheter: Chronic Indwelling Urinary Catheter on Admission Urinary Catheter Date of Insertion: 02/28/24 Urinary Catheter Time of Insertion: 21:45 Data 03/01/24 05:29 03/01/24 05:29 Micro: Microbiology 02/28/24 09:03 Urine Culture - Preliminary Urine,Clean Catch Gram Negative Rods 02/28/24 17:10 Blood Culture - Preliminary Blood NEGATIVE TO DATE 02/28/24 16:50 Blood Culture - Preliminary Blood NEGATIVE TO DATE 02/28/24 09:03 Legionella Urinary Antigen - Final Unknown Source A&P Assessment and plan (1) Acute hypoxic respiratory failure: In setting of left lower lobe pneumonia with concerns for postobstructive pneumonia. Appreciate CTA chest results. No pulm embolism. Concern for left hilar mass with postobstructive changes. Patient would most likely need a bronchoscopy for further evaluation of possible mass to rule out malignancy. Will discuss further with patient's caregiver. Maintain oxygen saturation over 90%. Start on Pulmicort twice daily, DuoNeb every 6 hour. Chest vest if needed. (2) Altered mental status: Most likely infectious encephalopathy. Resolving. Monitor regularly. Frequent redirection. Sitter if needed. (3) Elevated lactic acid level: Most likely in setting of sepsis. Recheck. Continue with IV fluid as above. (4) Sepsis: SIRS: Tachycardic, Leukocytosis Source: Pneumonia End organ damage: Acute infectious encephalopathy Elevated lactate patient did receive a full 30 mg Did receive 30 mL/kg body weight fluid bolus in the ER. Continue normal saline 75 cc/h. Repeat lactate. Monitor blood pressures. Keep mean artery pressure 65 mmHg. Follow-up blood culture, urine culture, trend procalcitonin, check urine Legionella, bacterial antigen. Check MRSA swab. For now continue with broad-spectrum IV antibiotics with IV vancomycin, dosed meropenem for Pseudomonas, add azithromycin 500 mg IV daily for atypical coverage. De-escalate antibiotics as per culture results. (5) S/P percutaneous endoscopic gastrostomy (PEG) tube placement: Restart tube feeds as per home settings. Dietary consultation. Patient having frequent episodes of hypoglycemia. Most likely need to change from Osmolite to a higher calorie tube feeds. (6) Hospice care: As a family member she is on hospice care for pain control. Otherwise she is full code. (7) Type 2 diabetes mellitus: A1c- 4.9 Hypoglycemic protocol Due to frequent hypoglycemia hold off on any insulin for now. (8) Hypoglycemia: (9) Postobstructive pneumonia: (10) Hilar mass: Plan Hypertension: Goal blood pressure less than 140/90 mmHg. At home she is on amlodipine 10 mg daily, labetalol 200 mg twice daily, lisinopril 20 mg oral daily. For now hold off on antihypertensive. Monitor blood pressures. Will restart as per goal blood pressures. Paroxysmal A-fib: Continue with home dose of amiodarone. Currently in sinus rhythm. Continue with home dose of Eliquis 5 mg twice daily. Check echocardiogram ? History of craniectomy ? Right hemiplegia ? PEG tube in place, will await CT scan abdomen pelvis, if within normal limits will start on PEG tube feeds, patient receives continuous PEG tube feeds at 15 mL an hour Full code Eliquis will be sufficient for DVT prophylaxis Restart tube feeds Protonix OPD prophylaxis Plan for the day: Patient is back on room air. Follow-up blood culture. Sputum culture not available. MRSA swab negative. Discontinue vancomycin. Continue with meropenem. Continue with 3-day course of azithromycin. Most likely will need to continue long course of antibiotic for at least 10 days given concerns for postobstructive pneumonia. Patient did fail multiple antibiotics as an outpatient. Should get bronchoscopy for further evaluation of the left hilar mass. Will need to see if pulmonary team is available next week for possible inpatient bronchoscopy. Continue with current tube feeds. Goal blood pressure less than 140/90 mmHg. Continue to hold off on antihypertensives for now. If needed will restart amlodipine and then lisinopril. Patient has mild hypernatremia today. Increase free water flushes to 250 every 6 hours. Repeat BMP in evening. Discontinue IV fluids. Possible history of paroxysmal A-fib. Continue with amiodarone. Holding off on Eliquis to see if pulmonary team is available early next week for bronchoscopy. Last dose on 03/01 morning. Patient's care discussed in detail with caregiver Mr. Figueroa over the phone. All the questions were answered. Attestations 2 Medical Necessity Statement*: Requires further hospitalization for management of hypoxic respiratory failure in setting of postobstructive pneumonia, left hilar mass while further evaluation is needed in a patient on peg tube feeds in setting of CVA postcraniotomy Diagnoses Acute hypoxic respiratory failure J96.01 Altered mental status R41.82 Elevated lactic acid level R79.89 Sepsis A41.9 S/P percutaneous endoscopic gastrostomy (PEG) tube placement Z93.1 Hospice care Z51.5 Type 2 diabetes mellitus E11.9 Hypoglycemia E16.2 Postobstructive pneumonia J18.9 Hilar mass R91.8
[2024-03-01] MEDS: vancomycin 1,250 MG/250 ML PIGGYBACK 166.67 MG IV (15:15)
[2024-03-01] MEDS: azithromycin 500 MG in sodium chloride 0.9% 250 ML 250 MG IV (17:57)
[2024-03-01 18:39] LABS: Anion Gap 11.1 (5-19); Blood Urea Nitrogen 22 mg/dL (6-20); Carbon Dioxide 27 mmol/L (22-29); Chloride 108 mmol/L (98-107); Creatinine Clr Calc Pharmacy 109.3296; Glomerular Filtration Rate 102.7 mL/min (90-130); Glucose 240 mg/dL (65-115); Osmolality Calculated 305 mOsm/kg (285-295); Potassium 4.1 mmol/L (3.5-5.1); Sodium 142 mmol/L (136-145)
[2024-03-01 19:13] LABS: Glucose Point of Care 259 mg/dL (70-110)
[2024-03-01] MEDS: trazodone 100 mg Tablet PO (20:37)
[2024-03-01] MEDS: pantoprazole 40 mg SDV IVP (21:40)
[2024-03-02] VITALS (13 sets, daily range): BP systolic 105–165; BP diastolic 72–88; PULSE 68–90; RESP 13–19; TEMP 36.4–36.8; O2SAT 94–97
[2024-03-02] MEDS: ipratropium-albuterol 3 mL Neb INHALATION ×4 (02:34→20:12)
[2024-03-02 04:41] LABS: Basophils # 0.1 10^3/uL (0.0-0.1); Basophils % 0.7 %; Eosinophils # 0.6 10^3/uL (0.0-0.8); Eosinophils % 7.3 %; Hematocrit 31.7 % (36-47); Lymphocytes # 1.2 10^3/uL (0.8-4.8); Lymphocytes % 15.9 %; Mean Corpuscular HGB Conc 28.7 g/dL (30-55); Mean Corpuscular Hemoglobin 26.6 pg (27-33); Mean Corpuscular Volume 92.7 fl (85-98); Mean Platelet Volume 13.8 fL (7.4-10.4); Monocytes # 0.8 10^3/uL (0.2-0.9); Monocytes % 10.8 %; Neutrophils # 4.98 10^3/uL (1.8-7.7); Nucleated Red Blood Cells % 0 %; Platelet Count 149 10^3/cmm (157-399); Red Blood Count 3.42 10^6/uL (3.85-5.65); Red Cell Distribution Width 17.2 % (12.1-15.1); White Blood Count 7.66 10^3/uL (3.29-11.43)
[2024-03-02 05:01] LABS: Alanine Aminotransferase 6 U/L (0-33); Alkaline Phosphatase 37 U/L (35-105); Anion Gap 12.2 (5-19); Aspartate Amino Transferase 12 U/L (0-32); Blood Urea Nitrogen 19 mg/dL (6-20); Calcium 9.2 mg/dL (8.5-10.5); Carbon Dioxide 27 mmol/L (22-29); Chloride 109 mmol/L (98-107); Creatinine Clr Calc Pharmacy 109.3296; Globulin 2.4 g/dL (1.3-4.6); Glomerular Filtration Rate 102.7 mL/min (90-130); Glucose 226 mg/dL (65-115); Magnesium 2.1 mg/dL (1.7-2.3); Osmolality Calculated 307 mOsm/kg (285-295); Potassium 4.2 mmol/L (3.5-5.1); Sodium 144 mmol/L (136-145); Total Bilirubin 0.2 mg/dL (0.15-1.2); Total Protein 5.4 g/dL (6.6-8.7)
[2024-03-02 05:24] LABS: Slide Review Slide Review Perform
[2024-03-02] MEDS: meropenem 1,000 mg SDV 1000 MG IVP ×3 (06:00→22:06)
[2024-03-02 06:30] LABS: Glucose Point of Care 228 mg/dL (70-110)
[2024-03-02 06:46] LABS: Glucose Point of Care 260 mg/dL (70-110)
[2024-03-02] MEDS: budesonide 0.5 mg/2 mL Neb INHALATION ×2 (08:02→20:12)
[2024-03-02] MEDS: amiodarone 200 mg Tablet PO (10:06)
[2024-03-02] MEDS: baclofen 10 mg Tablet PO ×3 (10:06→20:01)
[2024-03-02] MEDS: gabapentin 300 mg Capsule PO ×3 (10:06→20:01)
[2024-03-02] MEDS: duloxetine 60 mg Capsule PO (10:06)
[2024-03-02 11:50] LABS: Glucose Point of Care 223 mg/dL (70-110)
[2024-03-02 11:50] LABS: Glucose Point of Care 213 mg/dL (70-110)
--- NOTE | 2024-03-02 13:24 | P.PN_ITS ---
Subjective 2 Subjective: No acute events overnight. Today morning patient seen comfortably sitting up in bed. Remains on room air. Blood pressures better than mildly elevated. Patient asking when can she start eating by mouth. Vitals/I&O/Wt Last Vital Signs Temp 97.5 F L 03/02/24 12:07 Pulse 69 03/02/24 12:07 Resp 19 H 03/02/24 12:07 BP 146/83 03/02/24 12:07 Pulse Ox 97 03/02/24 12:07 O2 Del Method Room Air 03/02/24 12:07 O2 Flow Rate 2 02/29/24 14:00 FiO2 21 02/29/24 21:24 03/01/24 03/02/24 03/02/24 22:59 06:59 14:59 Intake Total 750 / 1750 Output Total 500 / 500 350 / 850 Balance 250 / 1250 -350 / 900 Weight last 48 hrs Weight 81.964 kg Weight 80.456 kg Physical Exam 2 Const: COMMON NORMALS: no acute distress HENMT: OTHER: Right skull has been removed, skin flap on top, right parietal Eye: OTHER: Pupils equal round reactive to light, does withdraw from pain, does spontaneously open her eyes to her name Neck/C-Spine: COMMON NORMALS: no JVD Resp: COMMON NORMALS: normal respiratory effort, No retractions and No use of accessory muscles AUSCULTATION: crackles and wheezes Cardio: COMMON NORMALS: no JVD, regular rate, regular rhythm, S1 normal heart sound present and S2 normal heart sound present RATE: regular rate RHYTHM: regular rhythm HEART SOUNDS: S1 normal heart sound present and S2 normal heart sound present GI: COMMON NORMALS: Normal to inspection, nondistended, normoactive bowel sounds present, Soft to palpation and non-tender PALPATION: Yes Soft to palpation OTHER: PEG tube in place Extremity: COMMON NORMALS: no pedal edema Neuro: OTHER: Does not follow neurologic testing Urinary Catheter Management: Ford: Cath Placed During This Visit: yes Reason for Continuing Indwelling Catheter: Chronic Indwelling Urinary Catheter on Admission Urinary Catheter Date of Insertion: 02/28/24 Urinary Catheter Time of Insertion: 21:45 Data 03/02/24 04:22 03/02/24 04:22 Micro: Microbiology 02/28/24 09:03 Urine Culture - Final Urine,Clean Catch A&P Assessment and plan (1) Acute hypoxic respiratory failure: In setting of left lower lobe pneumonia with concerns for postobstructive pneumonia. Appreciate CTA chest results. No pulm embolism. Concern for left hilar mass with postobstructive changes. Patient would most likely need a bronchoscopy for further evaluation of possible mass to rule out malignancy. Will discuss further with patient's caregiver. Maintain oxygen saturation over 90%. Start on Pulmicort twice daily, DuoNeb every 6 hour. Chest vest if needed. (2) Altered mental status: Most likely infectious encephalopathy. Resolving. Monitor regularly. Frequent redirection. Sitter if needed. (3) Elevated lactic acid level: Most likely in setting of sepsis. Recheck. Continue with IV fluid as above. (4) Sepsis: SIRS: Tachycardic, Leukocytosis Source: Pneumonia End organ damage: Acute infectious encephalopathy Elevated lactate patient did receive a full 30 mg Did receive 30 mL/kg body weight fluid bolus in the ER. Continue normal saline 75 cc/h. Repeat lactate. Monitor blood pressures. Keep mean artery pressure 65 mmHg. Follow-up blood culture, urine culture, trend procalcitonin, check urine Legionella, bacterial antigen. Check MRSA swab. For now continue with broad-spectrum IV antibiotics with IV vancomycin, dosed meropenem for Pseudomonas, add azithromycin 500 mg IV daily for atypical coverage. De-escalate antibiotics as per culture results. (5) S/P percutaneous endoscopic gastrostomy (PEG) tube placement: Restart tube feeds as per home settings. Dietary consultation. Patient having frequent episodes of hypoglycemia. Most likely need to change from Osmolite to a higher calorie tube feeds. (6) Hospice care: As a family member she is on hospice care for pain control. Otherwise she is full code. (7) Type 2 diabetes mellitus: A1c- 4.9 Hypoglycemic protocol Due to frequent hypoglycemia hold off on any insulin for now. (8) Hypoglycemia: (9) Postobstructive pneumonia: (10) Hilar mass: Plan Hypertension: Goal blood pressure less than 140/90 mmHg. At home she is on amlodipine 10 mg daily, labetalol 200 mg twice daily, lisinopril 20 mg oral daily. For now hold off on antihypertensive. Monitor blood pressures. Will restart as per goal blood pressures. Paroxysmal A-fib: Continue with home dose of amiodarone. Currently in sinus rhythm. Continue with home dose of Eliquis 5 mg twice daily. Echocardiogram showed a normal EF of 62% with mild LVH ? History of craniectomy ? Right hemiplegia ? PEG tube in place, will await CT scan abdomen pelvis, if within normal limits will start on PEG tube feeds, patient receives continuous PEG tube feeds at 15 mL an hour Full code Eliquis will be sufficient for DVT prophylaxis Restart tube feeds Protonix OPD prophylaxis Plan for the day: Follow-up blood culture. Continue with IV meropenem. Azithromycin last day today. Urine Legionella and bacterial [place] negative. Concern for postobstructive pneumonia. Most likely will need a longer IV antibiotic course given failure of multiple outpatient oral antibiotic treatment. Discussed in detail with patient's caregiver yesterday and patient at bedside today about possible left hilar mass for which she would need a bronchoscopy for further evaluation. Both of them are agreeable and want to go ahead with the procedure. Patient's caregiver states given her condition it is difficult for him to transport her and requesting if it could be done while hospitalized. We discussed we will have to see if pulmonary team is available tomorrow or next week for the procedure. For now continue to hold off on Eliquis. Last dose on 03/01. Can restart Eliquis if no plans for bronchoscopy. Blood pressure is better. Goal blood pressure less than 146/90 mmHg. Restart home dose of amlodipine for now. Hold off on all other antihypertensive. Uptitrate as per goal blood pressure. Speech evaluation and advance oral diet accordingly. Continue with current PEG tube feeds. Restart home dose of Protonix. Oral care. Patient's care discussed in detail with caregiver Mr. Figueroa over the phone. All the questions were answered. Attestations 2 Medical Necessity Statement*: Requires further hospitalization for management of left-sided postobstructive pneumonia, new left hilar mass in a patient postcraniotomy, CVA on PEG tube feeds while further evaluation Diagnoses Acute hypoxic respiratory failure J96.01 Altered mental status R41.82 Elevated lactic acid level R79.89 Sepsis A41.9 S/P percutaneous endoscopic gastrostomy (PEG) tube placement Z93.1 Hospice care Z51.5 Type 2 diabetes mellitus E11.9 Hypoglycemia E16.2 Postobstructive pneumonia J18.9 Hilar mass R91.8
[2024-03-02] MEDS: amlodipine 10 mg Tablet PO (16:00)
[2024-03-02 16:18] LABS: Glucose Point of Care 199 mg/dL (70-110)
[2024-03-02] MEDS: chlorhexidine gluconate 0.12% Btl 473 mL 15 ML MUCOUS MEM (17:34)
[2024-03-02] MEDS: azithromycin 500 MG in sodium chloride 0.9% 250 ML 250 MG IV (17:34)
[2024-03-02] MEDS: pantoprazole DR 40 mg Tablet PO (17:34)
[2024-03-02] MEDS: trazodone 100 mg Tablet PO (20:01)
[2024-03-02 21:03] LABS: Glucose Point of Care 178 mg/dL (70-110)
[2024-03-03] VITALS (13 sets, daily range): BP systolic 108–168; BP diastolic 70–95; PULSE 63–78; RESP 16–19; TEMP 36.5–37.2; O2SAT 93–98
[2024-03-03 04:00] LABS: Alanine Aminotransferase 7 U/L (0-33); Alkaline Phosphatase 37 U/L (35-105); Aspartate Amino Transferase 11 U/L (0-32); Blood Urea Nitrogen 16 mg/dL (6-20); Calcium 9.2 mg/dL (8.5-10.5); Carbon Dioxide 29 mmol/L (22-29); Chloride 107 mmol/L (98-107); Creatinine Clr Calc Pharmacy 132.3634; Globulin 2.1 g/dL (1.3-4.6); Glomerular Filtration Rate 126.7 mL/min (90-130); Glucose 183 mg/dL (65-115); Magnesium 2.1 mg/dL (1.7-2.3); Osmolality Calculated 302 mOsm/kg (285-295); Sodium 143 mmol/L (136-145); Total Bilirubin 0.2 mg/dL (0.15-1.2); Total Protein 5.1 g/dL (6.6-8.7)
[2024-03-03 04:23] LABS: Basophils % 0.5 %; Eosinophils # 0.6 10^3/uL (0.0-0.8); Eosinophils % 7.4 %; Hematocrit 30.3 % (36-47); Lymphocytes # 1.3 10^3/uL (0.8-4.8); Lymphocytes % 15.9 %; Mean Corpuscular Hemoglobin 26.5 pg (27-33); Mean Corpuscular Volume 91.3 fl (85-98); Mean Platelet Volume 14.1 fL (7.4-10.4); Monocytes # 0.9 10^3/uL (0.2-0.9); Monocytes % 11.8 %; Neutrophils # 5.07 10^3/uL (1.8-7.7); Neutrophils % 63.9 %; Nucleated Red Blood Cells % 0 %; Platelet Count 151 10^3/cmm (157-399); Red Blood Count 3.32 10^6/uL (3.85-5.65); Red Cell Distribution Width 17.1 % (12.1-15.1); White Blood Count 7.94 10^3/uL (3.29-11.43)
[2024-03-03 04:58] LABS: Slide Review Slide Review Perform
[2024-03-03] MEDS: meropenem 1,000 mg SDV 1000 MG IVP ×2 (06:00→16:16)
[2024-03-03 06:20] LABS: Glucose Point of Care 203 mg/dL (70-110)
[2024-03-03] MEDS: gabapentin 300 mg Capsule PO ×3 (08:03→21:18)
[2024-03-03] MEDS: amiodarone 200 mg Tablet PO (08:03)
[2024-03-03] MEDS: duloxetine 60 mg Capsule PO (08:03)
[2024-03-03] MEDS: baclofen 10 mg Tablet PO ×3 (08:03→21:18)
[2024-03-03] MEDS: pantoprazole DR 40 mg Tablet PO ×2 (08:03→17:55)
[2024-03-03] MEDS: amlodipine 10 mg Tablet PO (08:03)
[2024-03-03] MEDS: chlorhexidine gluconate 0.12% Btl 473 mL 15 ML MUCOUS MEM (08:04)
[2024-03-03] MEDS: ipratropium-albuterol 3 mL Neb INHALATION ×3 (08:07→20:28)
[2024-03-03] MEDS: budesonide 0.5 mg/2 mL Neb INHALATION ×2 (08:07→20:24)
--- NOTE | 2024-03-03 18:49 | PM.PN ---
Subjective Subjective: - Spoke to patient, she is alert to person, not to place, not to time she can answer basic questions, but does most of the answering ? would like me to talk to him outside the room, or not in Charito's present as the news of her hilar mass has significantly impacted Charito - would like us to try to do her bronchoscopy here as he has issues transporting her to the hospital -We unfortunately do not have coverage of pulmonary here at [facility] -Discussed with that as patient is on room air, currently her respiratory status is stable, we can have her follow-up with pulmonary as outpatient likely in [place] for consideration of bronchoscopy Vitals/I&O/Wt Last Vital Signs Temp 98.5 F 03/03/24 17:15 Pulse 76 03/03/24 17:15 Resp 18 03/03/24 17:15 BP 154/87 03/03/24 17:15 Pulse Ox 95 03/03/24 17:15 O2 Del Method Room Air 03/03/24 17:15 O2 Flow Rate 2 02/29/24 14:00 FiO2 21 02/29/24 21:24 03/03/24 03/03/24 03/03/24 06:59 14:59 22:59 Intake Total 980 / 1480 Output Total 150 / 1250 1000 / 1000 Balance 830 / 230 -1000 / -1000 Weight last 48 hrs Weight 83.036 kg Weight 81.964 kg Physical Exam Const: COMMON NORMALS: no acute distress ORIENTATION/CONSCIOUSNESS: Yes awake and Yes oriented to person Resp: COMMON NORMALS: normal respiratory effort, No retractions, No use of accessory muscles and clear to auscultation bilaterally AUSCULTATION: clear to auscultation bilaterally Cardio: COMMON NORMALS: regular rate, regular rhythm, S1 normal heart sound present and S2 normal heart sound present RATE: regular rate RHYTHM: regular rhythm HEART SOUNDS: S1 normal heart sound present and S2 normal heart sound present GI: COMMON NORMALS: Normal to inspection, nondistended, normoactive bowel sounds present and non-tender Extremity: COMMON NORMALS: no pedal edema Neuro: SENSORIUM/ORIENTATION: Yes oriented to person Psych: COMMON NORMALS: mental status grossly normal Urinary Catheter Management: Ford: Cath Placed During This Visit: yes Reason for Continuing Indwelling Catheter: Other Urinary Catheter Date of Insertion: 02/28/24 Urinary Catheter Time of Insertion: 21:45 Data 03/03/24 03:17 03/03/24 03:17 Micro: Microbiology 03/03/24 02:16 Bacterial Antigens - Final Urine Kidney A&P Assessment and plan (1) Acute hypoxic respiratory failure: left lower lobe pneumonia with concerns for postobstructive pneumonia. Concern for left hilar mass with postobstructive changes. Will need to follow-up with pulmonary as outpatient for bronchoscopy Maintain oxygen saturation over 90%. Start on Pulmicort twice daily, DuoNeb every 6 hour. Chest vest if needed. (2) Altered mental status: Resolved Monitor regularly. Frequent redirection. Sitter if needed. (3) Elevated lactic acid level: Resolved (4) Sepsis: SIRS: Tachycardic, Leukocytosis Source: Pneumonia End organ damage: Acute infectious encephalopathy Elevated lactate patient did receive a full 30 mg Did receive 30 mL/kg body weight fluid bolus in the ER. Continue normal saline 75 cc/h. Repeat lactate. Monitor blood pressures. Keep mean artery pressure 65 mmHg. Follow-up blood culture, urine culture, trend procalcitonin, check urine Legionella, bacterial antigen. Check MRSA swab. For now continue with broad-spectrum IV antibiotics with IV vancomycin, dosed meropenem for Pseudomonas, add azithromycin 500 mg IV daily for atypical coverage. (5) S/P percutaneous endoscopic gastrostomy (PEG) tube placement: Restart tube feeds as per home settings. Dietary consultation. Patient having frequent episodes of hypoglycemia. Most likely need to change from Osmolite to a higher calorie tube feeds. (6) Hospice care: As a family member she is on hospice care for pain control. Otherwise she is full code. (7) Type 2 diabetes mellitus: A1c- 4.9 Hypoglycemic protocol Due to frequent hypoglycemia hold off on any insulin for now. (8) Hypoglycemia: (9) Postobstructive pneumonia: (10) Hilar mass: Plan Hypertension: Goal blood pressure less than 140/90 mmHg. At home she is on amlodipine 10 mg daily, labetalol 200 mg twice daily, lisinopril 20 mg oral daily. For now hold off on antihypertensive. Monitor blood pressures. Will restart as per goal blood pressures. Paroxysmal A-fib: Continue with home dose of amiodarone. Currently in sinus rhythm. Continue with home dose of Eliquis 5 mg twice daily. Echocardiogram showed a normal EF of 62% with mild LVH ? History of craniectomy ? Right hemiplegia ? PEG tube in place, Full code Eliquis will be sufficient for DVT prophylaxis Restart tube feeds Protonix OPD prophylaxis Plan for the day: Plan for today continue IV antibiotics Patient's care discussed in detail with caregiver Mr. Figueroa over the phone. All the questions were answered. Attestations Medical Necessity Statement*: Patient requires hospitalization for postobstructive pneumonia Diagnoses Acute hypoxic respiratory failure J96.01 Altered mental status R41.82 Elevated lactic acid level R79.89 Sepsis A41.9 S/P percutaneous endoscopic gastrostomy (PEG) tube placement Z93.1 Hospice care Z51.5 Type 2 diabetes mellitus E11.9 Hypoglycemia E16.2 Postobstructive pneumonia J18.9 Hilar mass R91.8
[2024-03-03] MEDS: trazodone 100 mg Tablet PO (21:18)
[2024-03-03] MEDS: acetaminophen 325 mg Tablet 650 MG PEG-TUBE (21:18)
[2024-03-04] VITALS (8 sets, daily range): BP systolic 136–158; BP diastolic 82–97; PULSE 65–80; RESP 15–19; TEMP 36.4–36.6; O2SAT 92–98
[2024-03-04] MEDS: meropenem 1,000 mg SDV 1000 MG IVP ×2 (00:06→06:40)
[2024-03-04] MEDS: ipratropium-albuterol 3 mL Neb INHALATION ×2 (02:19→07:49)
[2024-03-04 05:30] LABS: Basophils # 0.1 10^3/uL (0.0-0.1); Basophils % 0.8 %; Eosinophils # 0.7 10^3/uL (0.0-0.8); Eosinophils % 6.7 %; Lymphocytes # 1.1 10^3/uL (0.8-4.8); Lymphocytes % 11.5 %; Mean Corpuscular HGB Conc 29.4 g/dL (30-55); Mean Corpuscular Hemoglobin 26.6 pg (27-33); Mean Corpuscular Volume 90.7 fl (85-98); Mean Platelet Volume 13.8 fL (7.4-10.4); Neutrophils # 6.75 10^3/uL (1.8-7.7); Neutrophils % 70.2 %; Nucleated Red Blood Cells % 0 %; Platelet Count 164 10^3/cmm (157-399); Red Blood Count 3.64 10^6/uL (3.85-5.65); White Blood Count 9.63 10^3/uL (3.29-11.43)
[2024-03-04 05:55] LABS: Blood Urea Nitrogen 17 mg/dL (6-20); C Reactive Protein 5.1 mg/L (0.0-4.9); Calcium 9.7 mg/dL (8.5-10.5); Carbon Dioxide 30 mmol/L (22-29); Chloride 99 mmol/L (98-107); Creatinine Clr Calc Pharmacy 110.1273; Glomerular Filtration Rate 102.7 mL/min (90-130); Glucose 186 mg/dL (65-115); Osmolality Calculated 294 mOsm/kg (285-295); Sodium 139 mmol/L (136-145)
[2024-03-04 05:56] LABS: Anion Gap 13.9 (5-19); Potassium 3.9 mmol/L (3.5-5.1); Procalcitonin 0.41 ng/mL (0-0.5)
[2024-03-04 06:03] LABS: Slide Review Slide Review Perform
[2024-03-04] MEDS: budesonide 0.5 mg/2 mL Neb INHALATION (07:49)
[2024-03-04] MEDS: amiodarone 200 mg Tablet PO (09:27)
[2024-03-04] MEDS: baclofen 10 mg Tablet PO (09:28)
[2024-03-04] MEDS: duloxetine 60 mg Capsule PO (09:28)
[2024-03-04] MEDS: gabapentin 300 mg Capsule PO (09:28)
[2024-03-04] MEDS: amlodipine 10 mg Tablet PO (09:37)
[2024-03-04] MEDS: chlorhexidine gluconate 0.12% Btl 473 mL 15 ML MUCOUS MEM (09:40)
--- NOTE | 2024-03-04 11:47 | PM.DCS ---
Discharge Providers Date of Admission: 02/28/24 21:08 Date of Discharge: March 04, 2024 Attending Provider at Admission: David Hinojosa MD Attending Provider at Discharge: David Hinojosa MD Diagnoses at Discharge Discharge Diagnosis (1) Acute hypoxic respiratory failure: Status: Acute (2) Altered mental status: Status: Acute (3) Elevated lactic acid level: Status: Acute (4) Sepsis: Status: Acute (5) S/P percutaneous endoscopic gastrostomy (PEG) tube placement: Status: Acute (6) Hospice care: Status: Acute (7) Type 2 diabetes mellitus: Status: Acute (8) Hypoglycemia: Status: Acute (9) Postobstructive pneumonia: Status: Acute (10) Hilar mass: Status: Acute Permanent problem details: Left-sided with possible pneumonia. CTA on 02/27 Reason for Visit Reason for Visit: [facility] Hospital Course Hospital Course Charito Tse is a 58 year old female with a past medical history of CVA, with residual right-sided Jarocho plegia we will reports improving right arm strength, significant right lower extremity weakness, has movement of left upper and left lower extremity, can carry out conversations, is normally alert oriented x 3, can feed herself, has a PEG tube in place, gets continuous tube feeds bedbound, currently on hospice more for pain control, but is a full code according to lifelong partner and caregiver and guardian at bedside, history of decompressive craniectomy for cerebral edema, 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 Currently patient is alert oriented x 0, she does open her eyes, but does not speak, she does not follow commands, tells me that she is significantly altered, her GCS score is 8, according to patient's partner, patient has had complaints of cough, fatigue, malaise, for the last few weeks. She has been on multiple rounds of antibiotics and steroids, she has complained of cough, shortness of breath, no chest pain. No complaints of headache or blurry vision, no neck pain complaints. She has intermittently complained of abdominal pain had 1 episode of vomiting, but has had bowel movements, had a bowel movement this morning, she has had decreased oral intake, increased confusion, less responsive according. She is bedbound so no falls, he is not sure if she has any bedsores, her sugars have been running on the lower end for her type 2 diabetes mellitus. No reported fevers. No sick contacts. Blood pressure 144/89, heart rate 105, respiratory rate 20, temperature 98.1, she is 95% on 2 L Patient was admitted to [facility] for acute hypoxic respiratory failure secondary to left lower lobe pneumonia with concern for postobstructive pneumonia, received IV antibiotics, required ICU level care due to sepsis, overall patient clinically improved, moved to medical floors, will be discharged on 7 remaining days of p.o. Levaquin Patient was found to have a postobstructive pneumonia with concerns for left hilar mass, will refer patient to follow-up with pulmonary as outpatient, for consideration of bronchoscopy or repeat imaging Patient is on hospice care for pain control, which she will resume For history of craniectomy, right hemiplegia, PEG tube in place, continue her in-home services Patient had altered mental status on admission, likely sec to sepsis, respiratory failure, pneumonia, resolved. On discharge she is alert to person, to place, not to time she can follow commands. Physical Exam Const: COMMON NORMALS: no acute distress ORIENTATION/CONSCIOUSNESS: Yes awake, Yes oriented to person and Yes oriented to place; not oriented to time Resp: COMMON NORMALS: normal respiratory effort, No retractions, No use of accessory muscles and clear to auscultation bilaterally AUSCULTATION: clear to auscultation bilaterally Cardio: COMMON NORMALS: regular rate, regular rhythm, S1 normal heart sound present and S2 normal heart sound present RATE: regular rate RHYTHM: regular rhythm HEART SOUNDS: S1 normal heart sound present and S2 normal heart sound present GI: COMMON NORMALS: Normal to inspection, nondistended, normoactive bowel sounds present and non-tender Extremity: COMMON NORMALS: no pedal edema Neuro: SENSORIUM/ORIENTATION: Yes oriented to person, Yes oriented to place and No oriented to time Urinary Catheter Management: Ford: Cath Placed During This Visit: yes Reason for Continuing Indwelling Catheter: Other Urinary Catheter Date of Insertion: 02/28/24 Urinary Catheter Time of Insertion: 21:45 Discharge Data Studies Completed and Pending Completed Studies During Hospitalization Category Date Time Status CT abdomen pelvis wo con [id number] Stat Cat Scan 02/28/24 19:[address] angio chest PE protcl [id number] Stat Cat Scan 02/28/24 19:[address] head wo con* [id number] Stat Cat Scan 02/28/24 19:56 Completed XR chest 1V portable [id number] Stat Exams 02/28/24 16:35 Completed CV. echo complete* [id number] Routine Ultrasound 02/29/24 09:04 Completed Pending at discharge Category Date Time Status Basic Metabolic Panel AM LABS Lab 03/05/24 04:00 Ordered Basic Metabolic Panel AM LABS Lab 03/06/24 04:00 Ordered Blood Culture Stat Lab 02/28/24 17:10 Results C Reactive Protein AM LABS Lab 03/05/24 04:00 Ordered C Reactive Protein AM LABS Lab 03/06/24 04:00 Ordered Complete Blood Count w/Auto AM LABS Lab 03/05/24 04:00 Ordered Complete Blood Count w/Auto AM LABS Lab 03/06/24 04:00 Ordered Procalcitonin AM LABS Lab 03/05/24 04:00 Ordered Procalcitonin AM LABS Lab 03/06/24 04:00 Ordered Sputum Culture and Gram Stain Stat Lab 02/28/24 19:56 Uncollected Radiology Impressions Chest X-Ray 02/28/24 16:35 IMPRESSION: 1. Atelectasis and possible pneumonia in the left lung base. Abdomen/Pelvis CT 02/28/24 19:56 IMPRESSION: 1. No acute findings. 2. Large left renal staghorn calculus and small right renal calculi. 3. Sludge and/or small stones in the gallbladder. Chest CTA 02/28/24 19:56 IMPRESSION: 1. No evidence of pulmonary embolus. 2. Consolidation and volume loss in the left lower lobe extending with loss of bronchi. This could represent bronchial collapse and atelectasis. An obstructing infrahilar left lower lobe neoplasm cannot be excluded. 3. Soft tissue density in the left hilum with narrowing and wall thickening of the left upper and lower lobe central bronchi. A malignant neoplastic process cannot be excluded. Consider follow-up bronchoscopy. 4. Dependent consolidation in the right lower lobe is most likely atelectasis. COMMENTS: Consistent with the [place] [employer]'s Incidental Findings Committee white paper (J Am Anjana Radiol 2015): In patients aged 35 years and older with an incidental thyroid nodule equal to or greater than 1.[address], MRI or extrathyroidal US, further evaluation with dedicated thyroid US is recommended for patients with normal life expectancy and without comorbidities. For smaller nodules without suspicious features, no further evaluation or follow up is recommended. Head CT 02/28/24 19:56 IMPRESSION: 1. No acute intracranial abnormality. 2. Enlargement of the ventricles is a combination of ex vacuo dilatation on the right and central volume loss on the left. 3. 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 Laboratory Results WBC 9.63 10^3/uL (3.29-11.43) 03/04/24 04:29 RBC 3.64 10^6/uL (3.85-5.65) L 03/04/24 04:29 Hgb 9.70 g/dL (11.27-16.99) L 03/04/24 04:29 Hct 33.0 % (36-47) L 03/04/24 04:29 MCV 90.7 fl (85-98) 03/04/24 04:29 MCH 26.6 pg (27-33) L 03/04/24 04:29 MCHC 29.4 g/dL (30-55) L 03/04/24 04:29 RDW 17.0 % (12.1-15.1) H 03/04/24 04:29 Plt Count 164 10^3/cmm (157-399) 03/04/24 04:29 MPV 13.8 fL (7.4-10.4) H 03/04/24 04:29 Neut % (Auto) 70.2 % 03/04/24 04:29 Lymph % (Auto) 11.5 % 03/04/24 04:29 [place] % (Auto) 10.0 % 03/04/24 04:29 Eos % (Auto) 6.7 % 03/04/24 04:29 Baso % (Auto) 0.8 % 03/04/24 04:29 Neut # (Auto) 6.75 10^3/uL (1.8-7.7) 03/04/24 04:29 Lymph # (Auto) 1.1 10^3/uL (0.8-4.8) 03/04/24 04:29 [place] # (Auto) 1.0 10^3/uL (0.2-0.9) H 03/04/24 04:29 Eos # (Auto) 0.7 10^3/uL (0.0-0.8) 03/04/24 04:29 Baso # (Auto) 0.1 10^3/uL (0.0-0.1) 03/04/24 04:29 Nucleated RBC % (auto) 0 % 03/04/24 04:29 Nucleated RBCs # 0.0 /100WBC 03/04/24 04:29 ESR 77 mm/hr (0-15) H 02/28/24 17:10 PT 17.90 SECONDS (12.1-14.9) H 02/28/24 20:50 INR 1.43 (0.8-1.2) H 02/28/24 20:50 Specimen Type Arterial 02/28/24 16:40 Sample Site Brachial, right 02/28/24 16:40 ABG pH 7.42 (7.35-7.45) 02/28/24 16:40 ABG pCO2 46.6 mmHg (35-45) H 02/28/24 16:40 ABG pO2 67.4 mmHg (80.0-100.0) L 02/28/24 16:40 ABG HCO3 30.1 mmol/L (22-26) H 02/28/24 16:40 ABG Base Excess 4.8 mmol/L (-2.0-2.0) H 02/28/24 16:40 Aditya Test N/a 02/28/24 16:40 Hematocrit 38.0 % (37-47) 02/28/24 16:40 Hgb O2 Saturation 91.9 % (95-100) L 02/28/24 16:40 Carboxyhemoglobin 1.2 %THgb (0.4-20.1) 02/28/24 16:40 Methemoglobin 0.9 % (0.4-1.5) 02/28/24 16:40 Total Hemoglobin 12.4 g/dL (12-16) 02/28/24 16:40 O2 Delivery Device Room air 02/28/24 16:40 Plc Controls Engineer ID [id number] 02/28/24 16:40 Sodium 139 mmol/L (136-145) 03/04/24 04:29 Potassium 3.9 mmol/L (3.5-5.1) 03/04/24 04:29 Chloride 99 mmol/L (98-107) 03/04/24 04:29 Carbon Dioxide 30 mmol/L (22-29) H 03/04/24 04:29 Anion Gap 13.9 (5-19) 03/04/24 04:29 BUN 17 mg/dL (6-20) 03/04/24 04:29 Creatinine 0.6 mg/dL (0.5-0.9) 03/04/24 04:29 GFR Calculation 102.7 mL/min (90-130) 03/04/24 04:29 Glucose 186 mg/dL (65-115) H 03/04/24 04:29 POC Glucose 203 mg/dL (70-110) H 03/03/24 06:17 Estimat Average Glucose 94 02/29/24 02:27 Hemoglobin A1c 4.9 % (4.0-6.0) 02/29/24 02:27 Calculated Osmolality 294 mOsm/kg (285-295) 03/04/24 04:29 Lactic Acid 1.4 mmol/L (0.5-2.2) 02/29/24 15:31 Lactic Acid (Sepsis) 2.4 mmol/L (0.5-2.2) H 02/28/24 20:50 Calcium 9.7 mg/dL (8.5-10.5) 03/04/24 04:29 Magnesium 2.1 mg/dL (1.7-2.3) 03/03/24 03:17 Iron 17 ug/dL (37-145) L 02/29/24 02:27 TIBC 137 mcg/dl 02/29/24 02:27 % Saturation 12.4 % (20-50) L 02/29/24 02:27 Unsat Iron Binding 120 ug/dL (112-347) 02/29/24 02:27 Total Bilirubin 0.2 mg/dL (0.15-1.2) 03/03/24 03:17 AST 11 U/L (0-32) 03/03/24 03:17 ALT 7 U/L (0-33) 03/03/24 03:17 Alkaline Phosphatase 37 U/L (35-105) 03/03/24 03:17 Troponin T Baseline 53 ng/L (0-10) H 02/28/24 20:50 Troponin T Hi Sens 6Hr 61.01 ng/L (0-10) H 02/29/24 02:27 Troponin T Hi Sens 6Hr Delta 8.01 ng/L (0-12) 02/29/24 02:27 C-Reactive Protein 5.1 mg/L (0.0-4.9) H 03/04/24 04:29 NT-Pro-B Natriuret Pep 269 pg/mL (0-125) H 02/28/24 17:10 Total Protein 5.1 g/dL (6.6-8.7) L 03/03/24 03:17 Albumin 3.0 g/dL (3.5-5.2) L 03/03/24 03:17 Globulin 2.1 g/dL (1.3-4.6) 03/03/24 03:17 Triglycerides 175 mg/dL (0-150) H 02/28/24 20:50 Cholesterol 137 mg/dL (0-200) 02/28/24 20:50 LDL Cholesterol, Calc 73 mg/dL (50-129) 02/28/24 20:50 HDL Cholesterol 29 mg/dL (60-100) L 02/28/24 20:50 LDL/HDL Ratio 2.52 RATIO (0.00-3.22) 02/28/24 20:50 Cholesterol/HDL Ratio 4.72 mg/dL (0.0-4.40) H 02/28/24 20:50 Vitamin B12 559 pg/mL (232-1245) 02/29/24 02:27 Folate 13.8 ng/mL (4.8-37.3) 03/01/24 05:29 Procalcitonin 0.41 ng/mL (0-0.5) 03/04/24 04:29 TSH 0.14 uIU/mL (0.27-4.20) L 02/28/24 20:50 Free T4 1.20 ng/dL (0.82-1.77) 02/29/24 02:27 Free T3 1.1 PG/ML (2.0-4.4) L 02/29/24 02:27 Urine Color Yellow (Yellow) 02/28/24 22:00 Urine Appearance Cloudy (CLEAR) A 02/28/24 22:00 Urine pH 8.0 (5-7) A 02/28/24 22:00 Ur Specific [place] 1.039 (1.005-1.030) H 02/28/24 22:00 Urine Protein 1+ (Negative) A 02/28/24 22:00 Urine Glucose (UA) Negative (Normal) 02/28/24 22:00 Urine Ketones Negative (Negative) 02/28/24 22:00 Urine Blood 3+ (Negative) A 02/28/24 22:00 Urine Nitrate Positive (Negative) A 02/28/24 22:00 Urine Bilirubin Negative (Negative) 02/28/24 22:00 Urine Urobilinogen 1.0 mg/dL (Negative) 02/28/24 22:00 Ur Leukocyte Esterase 3+ (Negative) A 02/28/24 22:00 Urine RBC >100 /hpf (0-2) H 02/28/24 22:00 Urine WBC >100 /hpf (0-5) H 02/28/24 22:00 Ur Squamous Epith Cells 0-5 /hpf (0-5) 02/28/24 22:00 Amorphous Sediment Not Reportable 02/28/24 22:00 Urine Bacteria 1+ /hpf (NONE) H 02/28/24 22:00 Hyaline Casts 34.74 /lpf 02/28/24 22:00 Nasal MRSA (PCR) Not detected (Not Detecte) 02/28/24 22:50 Vancomycin Trough 24.8 ug/mL (10-15) H 03/01/24 07:48 Coronavirus (PCR) Negative (Negative) 02/28/24 17:12 Influenza A (PCR) Negative (Negative) 02/28/24 17:12 Influenza Type B (PCR) Negative (Negative) 02/28/24 17:12 RSV (PCR) Negative (Negative) 02/28/24 17:12 MRSA (PCR) Cancelled 02/28/24 22:50 Vitals Last Vital Signs Temp 97.7 F 03/04/24 07:54 Pulse 71 03/04/24 10:02 Resp 18 03/04/24 07:54 BP 154/89 03/04/24 10:02 Pulse Ox 96 03/04/24 10:02 O2 Del Method Room Air 03/04/24 10:02 O2 Flow Rate 2 02/29/24 14:00 FiO2 21 02/29/24 21:24 Discharge Plan Discharge Patient Disposition: Home Condition: Stable Prescriptions: New levofloxacin 750 mg tablet 750 mg PO DAILY 7 Days Qty: 7 0RF albuterol sulfate 90 mcg/actuation HFA aerosol inhaler 1 inh inhalation Q6H PRN (Reason: shortness of breath or wheezing) Qty: 8.5 0RF Continued trazodone 50 mg tablet 100 mg PO BEDTIME morphine concentrate 100 mg/5 mL (20 mg/mL) solution 50 mg PO Q2H MDD 120mg PRN (Reason: Pain, Moderate) amiodarone 200 mg tablet 200 mg PO DAILY benzonatate 200 mg capsule 200 mg PO TID PRN (Reason: Cough) hydrocodone-acetaminophen 5-325 mg tablet 1 tab PO QID PRN (Reason: Pain, Moderate) lisinopril 20 mg tablet 20 mg PO DAILY baclofen 10 mg tablet 10 mg PO TID amlodipine 10 mg tablet 10 mg PO DAILY pantoprazole 40 mg tablet,delayed release (DR/EC) 40 mg PO BID gabapentin 300 mg capsule 300 mg PO TID atropine 1 % drops 2 - 4 drp PO Q2H PRN (Reason: Secretions) lorazepam 2 mg/mL concentrate 0.5 mg PO Q2H PRN (Reason: anxiety or discomfort) desipramine 10 mg tablet 10 mg PO DAILY duloxetine 60 mg capsule,delayed release(DR/EC) 60 mg PO DAILY Jentadueto 2.5-1,000 mg tablet 1 tab PO BID Eliquis 5 mg tablet 5 mg PO BID Discontinued labetalol 200 mg tablet 200 mg PO BID metronidazole 500 mg tablet 500 mg PO TID famotidine 20 mg tablet 20 mg PO BID Discharge Orders: Discharge Order (Routine); Ordered 03/04/24 Ordered By: David Hinojosa Referrals: Denilson Stafford MD, MBBS, MPH [Referring] - 1 week Discharge Diet: As Directed Discharge Activity: Resume usual activity Patient Instructions: Altered Mental Status (ED), Opioid Safety Activity Restrictions/Additional Instructions: - Please take antibiotics as prescribed -See primary care provider in 1 week -Follow-up with pulmonary at [facility] in [place] Discharge Attestations Time Spent in Discharge Care*: greater than 30 min Quality Metrics Clinical Quality Measures [ No reported AMI, CVA or VTE this stay] Coding Level of Care Code 82389 Total time (in minutes) for Discharge: 45 Diagnoses Acute hypoxic respiratory failure J96.01 Altered mental status R41.82 Elevated lactic acid level R79.89 Sepsis A41.9 S/P percutaneous endoscopic gastrostomy (PEG) tube placement Z93.1 Hospice care Z51.5 Type 2 diabetes mellitus E11.9 Hypoglycemia E16.2 Postobstructive pneumonia J18.9 Hilar mass R91.8
== END 2024-03-04 18:23 | disposition hospice, home (50) | DRG 871 ==
LOC: ER 20:09 → ICU 21:11 → MEDSURG 02-29 18:54
PROVIDERS: Student in an Organized Health Care Education/Training Program; Admitting Provider Family Medicine; Emergency Provider Emergency Medicine; Visit Provider Family Medicine
DX: A41.9 Sepsis, unspecified organism (principal); J18.1 Lobar pneumonia, unspecified organism; J96.01 Acute respiratory failure with hypoxia; G93.49 Other encephalopathy; I69.951 Hemiplegia and hemiparesis following unspecified cerebrovascular disease affecting right dominant side; E11.649 Type 2 diabetes mellitus with hypoglycemia without coma; R91.8 Other nonspecific abnormal finding of lung field; I25.10 Atherosclerotic heart disease of native coronary artery without angina pectoris; I48.0 Paroxysmal atrial fibrillation; Z96.89 Presence of other specified functional implants; Z79.84 Long term (current) use of oral hypoglycemic drugs; Z79.01 Long term (current) use of anticoagulants; Z51.5 Encounter for palliative care; Z74.01 Bed confinement status
CPT/HCPCS: 0241U; 36415; 36416; 36600; 51702; 70450; 71045; 71275; 74176; 80048; 80053; 80061; 80202; 81001; 82607; 82746; 82805; 82962; 83036; 83540; 83550; 83605; 83735; 83880; 84145; 84439; 84443; 84481; 84484; 85025; 85610; 85651; 86140; 86403; 87040; 87086; 87449; 92507; 92523; 92526; 92610; 93005; 93306; 94640; 94664; 96365; 96367; 96372; 96375; 99285; J0456; J0696; J1650; J2185; J2470; J3370; J7030; J7040; J7050; J7626

== ENCOUNTER 2024-03-13 10:51 | Inpatient (IN) | payer MEDICAID, SELFPAY ==
[2024-03-13] VITALS (32 sets, daily range): BP systolic 66–142; BP diastolic 38–88; PULSE 90–102; RESP 16–23; TEMP 37.7–38.3; O2SAT 92–100; BMI 29.0; BMI 25.6
--- NOTE | 2024-03-13 11:07 | XR_ITS ---
WS: [id number] Exam: XR chest 1V portable [id number] Date/Time of Exam: 03/13/2024 11:39 AM Reason For Exam: dyspnea/cough Comparison 02/28/2024. Again noted is consolidation in the LEFT lower lobe in the retrocardiac region. Remaining lung mohr are clear no pneumothorax. No pleural effusion. Heart size is normal for technique. The mediastinum is normal in contour. A gastrotomy tube visualized over the upper LEFT abdomen. Bony structures are i ntact. XR/XR chest 1V portable [id number] IMPRESSION: 1. Consolidation of the LEFT lower lobe demonstrating little change since prior study. The remaining lung mohr are clear.
--- NOTE | 2024-03-13 11:15 | PC.NURSE ---
pt family member states pt was dropped from hospice care from [facility] when pt was admitted to hospital.
--- NOTE | 2024-03-13 11:21 | ED_ITS ---
HPI - SOB/Dyspnea 2 General: Chief Complaint: Fever Stated Complaint: resp distress Time Seen by Provider: 03/13/24 11:06 History of Present Illness: HPI Narrative: 58-year-old female with a history of pre vious stroke and craniotomy. She was recently on hospice was admitted for respiratory distress had a postobstructive pneumonia. According to discharge summary from 919 when she was discharged home she went home on hospice according to this family member today at the bedside she is no longer on hospice. She presents complaining of fever and shortness of breath. She is requiring 3 L by nasal cannula to maintain her oxygen sat. Associated symptoms: Deny abdominal pain, chest pain or fever(s) Related Data Home Medications Medication Instructions Recorded Confirmed amiodarone 200 mg tablet 200 mg PO DAILY 02/29/24 03/13/24 amlodipine 10 mg tablet 10 mg PO DAILY 02/29/24 03/13/24 apixaban 5 mg tablet (Eliquis) 5 mg PO BID 02/29/24 03/13/24 atropine 1 % eye drops 2 - 4 drp PO Q2H PRN Secretions 02/29/24 03/13/24 baclofen 10 mg tablet 10 mg PO TID 02/29/24 03/13/24 benzonatate 200 mg capsule 200 mg PO TID PRN Cough 02/29/24 03/13/24 desipramine 10 mg tablet 10 mg PO DAILY 02/29/24 03/13/24 duloxetine 60 mg capsule,delayed 60 mg PO DAILY 02/29/24 03/13/24 release gabapentin 300 mg capsule 300 mg PO TID 02/29/24 03/13/24 hydrocodone 5 mg-acetaminophen 325 1 tab PO QID PRN Pain, Moderate 02/29/24 03/13/24 mg tablet linagliptin 2.5 mg-metformin 1,000 1 tab PO BID 02/29/24 03/13/24 mg tablet (Jentadueto) lisinopril 20 mg tablet 20 mg PO DAILY 02/29/24 03/13/24 lorazepam 2 mg/mL oral concentrate 0.5 mg PO Q2H PRN anxiety or 02/29/24 03/13/24 discomfort morphine concentrate 100 mg/5 mL 50 mg PO Q2H PRN Pain, Moderate 02/29/24 03/13/24 (20 mg/mL) oral solution pantoprazole 40 mg tablet,delayed 40 mg PO BID 02/29/24 03/13/24 release trazodone 50 mg tablet 100 mg PO BEDTIME 02/29/24 03/13/24 Previous Rx's Medication Instructions Recorded albuterol sulfate 90 mcg/actuation 1 inh inhalation Q6H PRN shortness 03/04/24 aerosol inhaler of breath or wheezing #8.5 grams Allergies Allergy/AdvReac Type Severity Reaction Status Date / Time Penicillins Allergy Unknown Verified 02/28/24 18:23 Review of Systems 2 Const: Denies: fever(s) or chills Card: Denies: chest pain Resp: Reports: dyspnea and wheezing GI: Denies: abdominal pain : Denies: dysuria, urinary frequency or urinary urgency Musc: Denies: neck pain or back pain Skin/Breast: Denies: rash PFSH ED 2 PFSH: Medical History Type 2 diabetes mellitus Hospice care History of CAD (coronary artery disease) History of type 2 diabetes mellitus History of CVA with residual deficit Surgical History Hx of craniotomy S/P percutaneous endoscopic gastrostomy (PEG) tube placement Social History Smoking and tobacco/nicotine status: never used tobacco/nicotine Alcohol intake: never Substance/Drug Use: never Physical Exam 2 Const: GENERAL APPEARANCE: lethargic ORIENTATION/CONSCIOUSNESS: Yes lethargic HENMT: COMMON NORMALS: normocephalic, atraumatic and hearing grossly normal bilaterally HEAD & SCALP: normocephalic and atraumatic Resp: COMMON NORMALS: normal respiratory effort, No retractions, No use of accessory muscles and clear to auscultation bilaterally AUSCULTATION: clear to auscultation bilaterally Cardio: COMMON NORMALS: regular rate, regular rhythm and No murmurs present (Cardio) RATE: regular rate RHYTHM: regular rhythm GI: COMMON NORMALS: Soft to palpation and No hepatosplenomegaly present A USCULTATION: Yes normoactive bowel sounds PALPATION: Yes Soft to palpation, No Tenderness to palpation present (GI), No Guarding due to palpation present (GI) and Yes No hepatosplenomegaly present Extremity: COMMON NORMALS: normal to inspection, capillary refill normal, no clubbing, cyanosis or edema, no calf tenderness and no pedal edema Neuro: SENSORIUM/ORIENTATION: Yes lethargic Skin: OTHER: Varicella rash along the pelvis on the left side in the T11 L1 distribution Course 2 Vital Signs: Vital signs: Vital Signs Temperature 97.1 F L 03/15/24 16:00 Pulse Rate 70 03/15/24 16:00 Respiratory Rate 12 03/15/24 16:00 Blood Pressure 103/56 03/15/24 16:00 Pulse Oximetry 100 03/15/24 16:00 Oxygen Delivery Me thod Nasal Cannula 03/15/24 16:00 Oxygen Flow Rate 2 03/15/24 16:00 MDM - SOB/Dyspnea Medical Decision Making Admit for sepsis with recurrent pneumonia as well as anemia. There is also signs of cystitis on the UA. Antibiotics initiated. Reviewed with hospitalist orders written Lab Data 03/15/24 03:09 03/15/24 03:09 Labs/Radiology: Radiology Impressions Abdomen/Pelvis CT 03/13/24 12:36 IMPRESSION: 1. Increased fluid in the small bowel and colon. More extensive liquid feces. May be due to an enterocolitis. No obstruction. 2. Bilateral renal calcifications with no obstruction. Bilateral lower lobe areas of consolidation are most likely areas of atelectasis. Underlying pneumonia not excluded. 3. Osteopenia. Very subtle lucency of the LEFT femoral head is probably related to osteopenia. Appear to be present on the study also from 02/28/2024. With no history of trauma this is not likely a fracture. Head CT 03/14/24 11:51 IMPRESSION: 1. No acute intracranial hemorrhage or edema. 2. Severe volume loss and encephalomalacia involving the RIGHT brain. Overlying craniectomy. 3. Advanced small vessel ischemic disease and multiple lacunar infarcts on the LEFT. 4. Severe ex vacuo dilatation RIGHT lateral ventricle and mild dilatation of the LEFT lateral ventricle. Chest X-Ray 03/14/24 14:03 IMPRESSION: 1. Right-sided PICC line appearing to end in the region of the lower one third of the SVC. 2. No acute process identified. Laboratory Results WBC 18.70 10^3/uL (3.29-11.43) H 03/13/24 12:05 RBC 3.80 10^6/uL (3.85-5.65) L 03/13/24 12:05 Hgb 10.40 g/dL (11.27-16.99) L 03/13/24 12:05 Hct 33.7 % (36-47) L 03/13/24 12:05 MCV 88.7 fl (85-98) 03/13/24 12:05 MCH 27.4 pg (27-33) 03/13/24 12:05 MCHC 30.9 g/dL (30-55) 03/13/24 12:05 RDW 16.5 % (12.1-15.1) H 03/13/24 12:05 Plt Count 197 10^3/cmm (157-399) 03/13/24 12:05 MPV 12.9 fL (7.4-10.4) H 03/13/24 12:05 Neut % (Auto) 86.9 % 03/13/24 12:05 Lymph % (Auto) 6.5 % 03/13/24 12:05 Alcorn % (Auto) 5.5 % 03/13/24 12:05 Eos % (Auto) 0.1 % 03/13/24 12:05 Baso % (Auto) 0.6 % 03/13/24 12:05 Neut # (Auto) 16.24 10^3/uL (1.8-7.7) H 03/13/24 12:05 Lymph # (Auto) 1.2 10^3/uL (0.8-4.8) 03/13/24 12:05 Alcorn # (Auto) 1.0 10^3/uL (0.2-0.9) H 03/13/24 12:05 Eos # (Auto) 0.0 10^3/uL (0.0-0.8) 03/13/24 12:05 Baso # (Auto) 0.1 10^3/uL (0.0-0.1) 03/13/24 12:05 Nucleated RBC % (auto) 0 % 03/13/24 12:05 Nucleated RBCs # 0.0 /100WBC 03/13/24 12:05 Specimen Type Arterial 03/13/24 11:18 Sample Site Brachial, right 03/13/24 11:18 ABG pH 7.43 (7.35-7.45) 03/13/24 11:18 ABG pCO2 45.9 mmHg (35-45) H 03/13/24 11:18 ABG pO2 66.3 mmHg (80.0-100.0) L 03/13/24 11:18 ABG PO2/FiO2 Ratio 195 03/13/24 11:18 ABG HCO3 30.7 mmol/L (22-26) H 03/13/24 11:18 ABG O2 Saturation 94.0 03/13/24 11:18 ABG Base Excess 5.7 mmol/L (-2.0-2.0) H 03/13/24 11:18 Aditya Test N/a 03/13/24 11:18 A-a O2 Gradient 15.6 mmHg (5-10) H 03/13/24 11:18 Hematocrit 34.3 % (37-47) L 03/13/24 11:18 Hgb O2 Saturation 92.7 % (95-100) L 03/13/24 11:18 Carboxyhemoglobin 1.2 %THgb (0.4-20.1) 03/13/24 11:18 Methemoglobin 0.2 % (0.4-1.5) L 03/13/24 11:18 Total Hemoglobin 11.2 g/dL (12-16) L 03/13/24 11:18 Sodium 141.0 mmol/L (131-143) 03/13/24 11:18 Potassium 3.8 mmol/L (3.5-5.0) 03/13/24 11:18 Glucose 113.0 mg/dL (70-115) 03/13/24 11:18 Ionized Calcium 1.3 mmol/L (1.1-1.4) 03/13/24 11:18 O2 Delivery Device Nc 03/13/24 11:18 O2 Liters/Min 3.5 % 03/13/24 11:18 FiO2 34.0 % 03/13/24 11:18 Financing Analyst ID Amh 03/13/24 11:18 Sodium 141 mmol/L (136-145) 03/13/24 12:05 Potassium 4.2 mmol/L (3.5-5.1) 03/13/24 12:05 Chloride 102 mmol/L (98-107) 03/13/24 12:05 Carbon Dioxide 28 mmol/L (22-29) 03/13/24 12:05 Anion Gap 15.2 (5-19) 03/13/24 12:05 BUN 23 mg/dL (6-20) H 03/13/24 12:05 Creatinine 1.0 mg/dL (0.5-0.9) H 03/13/24 12:05 GFR Calculation 56.9 mL/min (90-130) L 03/13/24 12:05 Glucose 111 mg/dL (65-115) 03/13/24 12:05 Calculated Osmolality 296 mOsm/kg (285-295) H 03/13/24 12:05 Lactic Acid 1.7 mmol/L (0.5-2.2) 03/13/24 12:05 Calcium 9.6 mg/dL (8.5-10.5) 03/13/24 12:05 Total Bilirubin 0.3 mg/dL (0.15-1.2) 03/13/24 12:05 AST 11 U/L (0-32) 03/13/24 12:05 ALT < 5 U/L (0-33) 03/13/24 12:05 Alkaline Phosphatase 44 U/L (35-105) 03/13/24 12:05 Total Protein 6.6 g/dL (6.6-8.7) 03/13/24 12:05 Albumin 3.5 g/dL (3.5-5.2) 03/13/24 12:05 Globulin 3.1 g/dL (1.3-4.6) 03/13/24 12:05 Urine Color Yellow (Yellow) 03/13/24 11:42 Urine Appearance Slightly cloudy (CLEAR) 03/13/24 11:42 Urine pH Not Reportable 03/13/24 11:42 Ur Specific Delta Not Reportable 03/13/24 11:42 Urine Protein Not Reportable 03/13/24 11:42 Urine Glucose (UA) Not Reportable 03/13/24 11:42 Urine Ketones Not Reportable 03/13/24 11:42 Urine Blood Not Reportable 03/13/24 11:42 Urine Nitrate Not Reportable 03/13/24 11:42 Urine Bilirubin Not Reportable 03/13/24 11:42 Urine Urobilinogen Not Reportable 03/13/24 11:42 Ur Leukocyte Esterase Not Reportable 03/13/24 11:42 Urine RBC 80-100 /hpf (0-2) H 03/13/24 11:42 Urine WBC 10-15 /hpf (0-5) H 03/13/24 11:42 Ur Squamous Epith Cells 0-4 /hpf (0-5) H 03/13/24 11:42 Amorphous Sediment Not Reportable 03/13/24 11:42 Urine Bacteria Trace /hpf (NONE) 03/13/24 11:42 Hyaline Casts 0-4 /lpf H 03/13/24 11:42 Urine Mucus Trace /hpf 03/13/24 11:42 Coronavirus (PCR) Negative (Negative) 03/13/24 11:15 Influenza A (PCR) Negative (Negative) 03/13/24 11:15 Influenza Type B (PCR) Negative (Negative) 03/13/24 11:15 RSV (PCR) Negative (Negative) 03/13/24 11:15 All radiology interpretation(s) finalized by discharge Discharge Plan Discharge Patient Disposition: Admitted As Inpatient Admit Provider: Yessica Calvo Clinical Impression: Pneumonia, Type 2 diabetes mellitus, Postobstructive pneumonia, VZV (varicella- zoster virus) infection, History of CVA with residual deficit, Acute hypoxemic respiratory failure Condition: Stable Coding Level of Care Code ED Senior Research Project Manager for Tasha Alva
[2024-03-13 11:30] LABS: ABG PCO2 45.9 mmHg (35-45); ABG PH Result 7.43 (7.35-7.45); Alveolar-Arterial Oxygen Gradi 15.6 mmHg (5-10); Arterial Blood Gas Hematocrit 34.3 % (37-47); Base Excess ABG 5.7 mmol/L (-2.0-2.0); Blood Gas LPM 3.5 %; Blood Gas Operator Identificat AMH; Blood Gas Sample Site Brachial, right; Blood Gas Sample Type Arterial; Carboxyhemoglobin 1.2 %THgb (0.4-20.1); HCO3 ABG 30.7 mmol/L (22-26); HGB O2 Sat 92.7 % (95-100); Ionized Calcium Level - ABG 1.3 mmol/L (1.1-1.4); Methemoglobin 0.2 % (0.4-1.5); Oxygen Device NC; PO2 ABG 66.3 mmHg (80.0-100.0); PO2 FiO2 Ratio Arterial Blood 195; Potassium Level - ABG 3.8 mmol/L (3.5-5.0); Total Hemoglobin 11.2 g/dL (12-16)
[2024-03-13 12:10] LABS: Covid PCR NEGATIVE (Negative); Influenza A NEGATIVE (Negative); Influenza B NEGATIVE (Negative); Respiratory Syncytial Virus Ce NEGATIVE (Negative)
[2024-03-13 12:20] LABS: Urine Appearance Slightly Cloudy (CLEAR); Urine Color Yellow (Yellow)
[2024-03-13 12:22] LABS: Add Urine Microscopic? YES; UA Manual Slide Review YES; UA Slide Review UA Slide Review Perf
[2024-03-13 12:24] LABS: Bacteria Urine TRACE /hpf; Mucus Urine TRACE /hpf; RBC Urine 80-100 /hpf (0-2); Squamous Epithelial Cell Urine 0-4 /hpf (0-5)
[2024-03-13 12:25] LABS: Add Urine Culture? Yes; Hyaline Casts Urine 0-4 /lpf
[2024-03-13 12:33] LABS: Basophils # 0.1 10^3/uL (0.0-0.1); Basophils % 0.6 %; Eosinophils % 0.1 %; Hematocrit 33.7 % (36-47); Lymphocytes # 1.2 10^3/uL (0.8-4.8); Lymphocytes % 6.5 %; Mean Corpuscular HGB Conc 30.9 g/dL (30-55); Mean Corpuscular Hemoglobin 27.4 pg (27-33); Mean Corpuscular Volume 88.7 fl (85-98); Mean Platelet Volume 12.9 fL (7.4-10.4); Monocytes % 5.5 %; Neutrophils # 16.24 10^3/uL (1.8-7.7); Neutrophils % 86.9 %; Nucleated Red Blood Cells % 0 %; Platelet Count 197 10^3/cmm (157-399); Red Cell Distribution Width 16.5 % (12.1-15.1)
--- NOTE | 2024-03-13 12:36 | CT_ITS ---
WS: [id number] CT ABDOMEN AND PELVIS NONCONTRAST HISTORY: Abdominal pain TECHNIQUE: Imaging performed through the abdomen and pelvis. Coronal and sagittal reformats are submi tted. All CT scans at [facility] use at least one of these dose optimization techniques: auto mated exposure control; mA and/or kV adjustment per patient size (includes targeted exams where dose is matched to clinical indication); or iterative reconstruction. DLP: 914.06 mGy.cm COMPARISON: 02/28/2024 Lower thorax: Wedge-shaped area of consolidation LEFT lower lobe with mild volume loss. This consolid ation has been previously described in thought to represent atelectasis. There has been no improvemen t. Additional atelectasis at the RIGHT lung base. Heart is slightly enlarged. Liver: Normal size liver. No mass or bile duct dilatation. Gallbladder: Increased density layering the gallbladder from vicarious excretion of contrast. No defi nite stones are identified. No adjacent inflammation. Normal bile duct. Pancreas: Normal size and attenuation. Normal pancreatic duct. No pancreatitis or mass. Spleen: Normal. Adrenal glands: Mild bilateral adrenal thickening. Right kidney: Nonobstructing renal calcifications. Left kidney: Staghorn calcification. No obstruction. Aorta: Mild atherosclerosis abdominal aorta with no aneurysm. No free fluid, intraperitoneal air or significant lymphadenopathy. GI tract: PEG tube present within the stomach in good position. Increased fluid in the small bowel. M ore prominent fluid and liquid feces throughout the colon. There is no obstruction or wall thickening . Normal appendix. Abdominal wall: Negative. No hernia. Pelvis: Atrophic uterus. No mass. Small amount of air in the urinary bladder is probably from recent catheterization. Osseous structures: Lumbar scoliosis. Bones are osteopenic. Very subtle lucency through the LEFT femo ral head was also present on the prior study. Probably related to osteopenia. Cannot confirm fracture . There is a small amount of edema in the soft tissues over the lateral LEFT hip. CT/CT abdomen pelvis wo con [id number] IMPRESSION: 1. Increased fluid in the small bowel and colon. More extensive liquid feces. May be due to an enterocolitis. No obstruction. 2. Bilateral renal calcifications with no obstruction. Bilateral lower lobe ar eas of consolidation are most likely areas of atelectasis. Underlying pneumonia not excluded. 3. Osteopenia. Very subtle lucency of the LEFT femoral head is probably relate d to osteopenia. Appear to be present on the study also from 02/28/2024. With no history of trauma this is not likely a fracture.
[2024-03-13 12:47] LABS: Lactic Sepsis W/Reflex 1.7 mmol/L (0.5-2.2)
[2024-03-13 12:48] LABS: Alanine Aminotransferase < 5 U/L (0-33); Albumin Level 3.5 g/dL (3.5-5.2); Alkaline Phosphatase 44 U/L (35-105); Aspartate Amino Transferase 11 U/L (0-32); Blood Urea Nitrogen 23 mg/dL (6-20); Calcium 9.6 mg/dL (8.5-10.5); Carbon Dioxide 28 mmol/L (22-29); Chloride 102 mmol/L (98-107); Globulin 3.1 g/dL (1.3-4.6); Glomerular Filtration Rate 56.9 mL/min (90-130); Glucose 111 mg/dL (65-115); Osmolality Calculated 296 mOsm/kg (285-295); Sodium 141 mmol/L (136-145); Total Bilirubin 0.3 mg/dL (0.15-1.2); Total Protein 6.6 g/dL (6.6-8.7)
[2024-03-13 12:54] LABS: Creatinine Clr Calc Pharmacy 66.0589
[2024-03-13 12:55] LABS: Anion Gap 15.2 (5-19); Potassium 4.2 mmol/L (3.5-5.1)
[2024-03-13] MEDS: meropenem 1,000 mg SDV 1000 MG IVP (14:52)
[2024-03-13] MEDS: vancomycin 1,000 MG in sodium chloride 0.9% 250 ML 250 MG IV (14:58)
--- NOTE | 2024-03-13 16:02 | PM.HP ---
Providers/Chief Complaint Admitting Physician: Yessica Calvo MD Primary Care Provider: Joleen Hines APN Chief Complaint: resp distress History of Present Illness Charito Tse is a 58 year old female with past medical history of CVA, with residual right-sided hemiplegia, type 2 diabetes mellitus, s/p PEG, gets continuous tube feeds, bedbound, history of decompressive craniectomy for cerebral edema, continues to have a portion of her right parietal skull removed, CAD, is normally alert oriented x 3, can carry out conversations, was brought in by for complaint of persistent worsening cough, fever with Tmax of 101 ?F, vomiting, fatigue, shortness of breath and generalized weakness. Her is the caregiver and guardian further reports that she has not been doing well since discharge 1 week ago. She usually is on 2 L nasal cannula but has been requiring 3-5L since last 2 days. She was recently hospitalized on 02/27 for acute hypoxic respiratory failure, altered mental status, pneumonia and sepsis. He also noticed a rash on the left flank and pelvic area that started during last admission. She is usually able to eat by mouth but since discharge she has been refusing to eat and vomiting her feeds. She has also been constipated and when given suppositories she has mucus discharge per rectum. She was on hospice care prior to last hospitalization, but has not been taking care off well hence she is off hospice and full code for now as per the . He further reports that her bilateral pupils have been dilated which is getting better for the last 2 days. She has been weak to talk but there is no history of altered mental status. Currently she is alert, oriented x 3, slow speech, responding appropriately to questions and following commands. In ER she was found to have WBC count of 18.7 with left shift, hemoglobin 10.4, creatinine of 1.0 lactic acid 1.7, UA showed RBC 8200, WBC 10-15. ABG was 7.4/45/66/30/94% on 3 L nasal cannula Chest x ray IMPRESSION: 1. Consolidation of the LEFT lower lobe demonstrating little change since prior study. The remaining lung mohr are clear. CT abdomen and pelvis without contrast showed 1. Increased fluid in the small bowel and colon. More extensive liquid feces. May be due to an enterocolitis. No obstruction. 2. Bilateral renal calcifications with no obstruction. Bilateral lower lobe areas of consolidation are most likely areas of atelectasis. Underlying pneumonia not excluded. 3. Osteopenia. Very subtle lucency of the LEFT femoral head is probably related to osteopenia. Appear to be present on the study also from 02/28/2024. With no history of trauma this is not likely a fracture. ECHO 02/28 Normal left ventricular size and systolic function, EF 62%. Mild left ventricular hypertrophy. No regional wall motion abnormalities. Minimally thickened noncoronary cusp of the aortic valve. Trace tricuspid valve regurgitation. There is no pericardial effusion. There are no intracardiac masses. No similar previous studies are available for comparison Review of Systems General: Reports: 10 or more systems reviewed and unremarkable except in HPI and below Medications/Allergies Home Medications Medication Instructions Recorded Confirmed Last Taken Type amiodarone 200 mg tablet 200 mg PO DAILY 02/29/24 03/13/24 Unknown History amlodipine 10 mg tablet 10 mg PO DAILY 02/29/24 03/13/24 Unknown History apixaban 5 mg tablet (Eliquis) 5 mg PO BID 02/29/24 03/13/24 Unknown History atropine 1 % eye drops 2 - 4 drp PO Q2H PRN Secretions 02/29/24 03/13/24 Unknown History baclofen 10 mg tablet 10 mg PO TID 02/29/24 03/13/24 Unknown History benzonatate 200 mg capsule 200 mg PO TID PRN Cough 02/29/24 03/13/24 Unknown History desipramine 10 mg tablet 10 mg PO DAILY 02/29/24 03/13/24 Unknown History duloxetine 60 mg capsule,delayed 60 mg PO DAILY 02/29/24 03/13/24 Unknown History release gabapentin 300 mg capsule 300 mg PO TID 02/29/24 03/13/24 Unknown History hydrocodone 5 mg-acetaminophen 325 1 tab PO QID PRN Pain, Moderate 02/29/24 03/13/24 Unknown History mg tablet linagliptin 2.5 mg-metformin 1,000 1 tab PO BID 02/29/24 03/13/24 Unknown History mg tablet (Jentadueto) lisinopril 20 mg tablet 20 mg PO DAILY 02/29/24 03/13/24 Unknown History lorazepam 2 mg/mL oral concentrate 0.5 mg PO Q2H PRN anxiety or 02/29/24 03/13/24 Unknown History discomfort morphine concentrate 100 mg/5 mL 50 mg PO Q2H PRN Pain, Moderate 02/29/24 03/13/24 Unknown History (20 mg/mL) oral solution pantoprazole 40 mg tablet,delayed 40 mg PO BID 02/29/24 03/13/24 Unknown History release trazodone 50 mg tablet 100 mg PO BEDTIME 02/29/24 03/13/24 Unknown History albuterol sulfate 90 mcg/actuation 1 inh inhalation Q6H PRN shortness 03/04/24 03/13/24 Unknown Rx aerosol inhaler of breath or wheezing #8.5 grams Allergies Allergy/AdvReac Type Severity Reaction Status Date / Time Penicillins Allergy Unknown Verified 02/28/24 18:23 PFSH Acute PFSH: Medical History (Updated 03/13/24 @ 16:53 by Yessica Calvo MD) Type 2 diabetes mellitus Hospice care History of CAD (coronary artery disease) History of type 2 diabetes mellitus History of CVA with residual deficit Surgical History S/P percutaneous endoscopic gastrostomy (PEG) tube placement Hx of craniotomy Social History Smoking and tobacco/nicotine status: never used tobacco/nicotine Alcohol intake: never Substance/Drug Use: never Vitals/I&O/Wt Last Vital Signs Temp 100.9 F H 03/13/24 10:54 Pulse 99 03/13/24 15:00 Resp 22 H 03/13/24 15:00 BP 130/88 03/13/24 15:00 Pulse Ox 95 03/13/24 15:00 O2 Del Method Nasal Cannula 03/13/24 15:00 O2 Flow Rate 3 03/13/24 15:00 Weight last 48 hrs Weight 81.647 kg Physical Exam Narrative: She is alert awake oriented x 3, not in acute distress, bilateral pupils dilated, slow speech but responding appropriately and following commands Chest clear to auscultation bilaterally except bases, crackles present Cardiovascular normal heart sounds Abdomen soft nondistended tender in left lumbar and iliac region, normal bowel sounds Extremities no edema noted bilateral lower extremity Skin maculopapular rash in variable stages present in left flank extending to left pelvic region, no signs of secondary infection Data 03/13/24 12:05 03/13/24 12:05 Micro: Microbiology 03/13/24 12:54 Blood Culture - Preliminary Blood SPECIMEN COLLECTED 03/13/24 12:05 Blood Culture - Preliminary Blood SPECIMEN COLLECTED A&P Assessment and plan (1) Enterocolitis: (2) VZV (varicella-zoster virus) infection: (3) Cough: (4) Hypoxia: (5) Hematuria: (6) Atrial fibrillation: (7) Type 2 diabetes mellitus: (8) Hypertension: (9) Depression: (10) Anxiety: (11) History of CVA with residual deficit: (12) S/P percutaneous endoscopic gastrostomy (PEG) tube placement: Plan Charito Tse is a 58 year old female with past medical history of CVA, with residual right-sided hemiplegia, type 2 diabetes mellitus, s/p PEG, gets continuous tube feeds, bedbound, history of decompressive craniectomy for cerebral edema, continues to have a portion of her right parietal skull removed, CAD, is normally alert oriented x 3, can carry out conversations, was brought in by for complaint of persistent worsening cough, fever with Tmax of 101 ?F, vomiting, fatigue, shortness of breath and generalized weakness and found to have skin rash in left flank and pelvic area, left lumbar and lower quadrant tenderness, CT abdomen pelvis consistent with enterocolitis. In ER she was found to have WBC count of 18.7 with left shift, hemoglobin 10.4, creatinine of 1.0 lactic acid 1.7, UA showed RBC 8200, WBC 10-15. ABG was 7.4/45/66/30/94% on 3 L nasal cannula #Acute enterocolitis-WBC count of 18.7 with fever, vomiting and abdominal tenderness We will continue IV vancomycin and meropenem. Admit to ICU Continue IV fluids normal saline at 100 cc/h Will hold PEG feeds for now N.p.o. for now except sips and meds. Will need nutrition and speech and swallow eval in a.m. Follow-up blood cultures # Varicella zoster virus infection-will do p.o. valacyclovir 1 g twice daily Skin care and calamine application 3 times a day Contact precautions # Hematuria-likely secondary to history of renal stones Continue IV fluids for now Mild UTI, continue antibiotics as above Will follow-up urine culture # Hypoxia-likely secondary to generalized weakness Chest x-ray not consistent with improving pneumonia Continue supplemental oxygen to keep saturation more than 90% DuoNebs every 6 hours #Worsening cough- likely secondary to GERD Will do IV Pepcid 20 mg twice daily P.o. Maalox 10 mL 3 times daily Elevate head of bed to 30 degrees Po mucinex 600mg bid Hold PEG feeds for now Nutrition and speech and swallow eval as above # Atrial fibrillation-currently in sinus rhythm, rate controlled Continue TAR DISTRIBUTOR OPERATOR amiodarone and Eliquis # Hypertension-continue TAR DISTRIBUTOR OPERATOR amlodipine and lisinopril #CVA with residual right-sided hemiplegia-no signs of new stroke Continue TAR DISTRIBUTOR OPERATOR baclofen. #Depression/anxiety-continue TAR DISTRIBUTOR OPERATOR duloxetine, lorazepam, trazodone and desipramine. #Type 2 diabetes mellitus-will hold TAR DISTRIBUTOR OPERATOR Jentadueto Do insulin correction scale for now GI prophylaxis with IV Pepcid DVT prophylaxis, she is already on Eliquis CODE STATUS discussed with , who is the science manager and guardian, she is full code for now. Attestations Medical Necessity Statement*: She needs continued hospitalization anticipating crossing 2 midnights for management of acute enterocolitis, herpes zoster virus infection, pneumonia, with IV fluids, antibiotics, antivirals and supportive care. Time Spent in Patient Care: 60 minutes Coding Level of Care Code Acute Code for [facility] Fwd Diagnoses Enterocolitis K52.9 VZV (varicella-zoster virus) infection B02.9 Cough R05.9 Hypoxia R09.02 Hematuria R31.9 Atrial fibrillation I48.91 Type 2 diabetes mellitus E11.9 Hypertension I10 Depression F32.A Anxiety F41.9 History of CVA with residual deficit I69.30 S/P percutaneous endoscopic gastrostomy (PEG) tube placement Z93.1 Time Spent (min) 60
[2024-03-13] MEDS: acyclovir 1,000 MG in sodium chloride 0.9% 250 ML 270 MG IV (17:22)
--- NOTE | 2024-03-13 18:34 | PHA.VACGOAL ---
Vancomycin Goal - Goal Vancomycin Goal:: 15-20 mg/L Vancomycin Indication:: Other - Therapy Day of therpy:: Day []of [] . Actual body weight (kg): 180 lb - Data Labs: WBC 18.70 10^3/uL (3.29-11.43) H 03/13/24 12:05 RBC 3.80 10^6/uL (3.85-5.65) L 03/13/24 12:05 Hgb 10.40 g/dL (11.27-16.99) L 03/13/24 12:05 Hct 33.7 % (36-47) L 03/13/24 12:05 MCV 88.7 fl (85-98) 03/13/24 12:05 MCH 27.4 pg (27-33) 03/13/24 12:05 MCHC 30.9 g/dL (30-55) 03/13/24 12:05 RDW 16.5 % (12.1-15.1) H 03/13/24 12:05 Sodium 141 mmol/L (136-145) 03/13/24 12:05 Potassium 4.2 mmol/L (3.5-5.1) 03/13/24 12:05 Chloride 102 mmol/L (98-107) 03/13/24 12:05 Carbon Dioxide 28 mmol/L (22-29) 03/13/24 12:05 Anion Gap 15.2 (5-19) 03/13/24 12:05 BUN 23 mg/dL (6-20) H 03/13/24 12:05 Creatinine 1.0 mg/dL (0.5-0.9) H 03/13/24 12:05 GFR Calculation 56.9 mL/min (90-130) L 03/13/24 12:05 Treatment plan:: new consult Regimen:: 2500 MG LOAD (1000 MG IN ER 1500MG IN ICU) 1000 MG Q12 H PER PROTOCOL
[2024-03-13] MEDS: sodium chloride 0.9% 1,000 ML 100 ML IV (20:25)
[2024-03-13] MEDS: ipratropium-albuterol 3 mL Neb INHALATION (20:25)
[2024-03-13] MEDS: famotidine 20 mg/2 mL INJ IVP (20:32)
[2024-03-13] MEDS: alum-mag-hydroxide-sime 30 mL UDC 15 ML PO (20:39)
[2024-03-13] MEDS: apixaban 5 mg Tablet PO (20:42)
[2024-03-13] MEDS: baclofen 10 mg Tablet PO (20:42)
[2024-03-13] MEDS: valACYclovir 1,000 mg Tablet 1000 MG PO (20:42)
[2024-03-13] MEDS: vancomycin 1,500 MG/300 ML PIGGYBACK 200 MG IV (20:43)
[2024-03-13 22:12] LABS: Glucose Point of Care 105 mg/dL (70-110)
[2024-03-13] MEDS: trazodone 50 mg Tablet 100 MG PO (22:22)
[2024-03-13] MEDS: gabapentin 300 mg Capsule PO (22:22)
--- NOTE | 2024-03-13 23:14 | PC.NURSE ---
Hypotension Patient's blood pressure slowly decreasing, currently 66/[address] Wood contacted and order received for levophed IV titratable. Additional order received for a mensah catheter.
[2024-03-14] VITALS (90 sets, daily range): BP systolic 87–156; BP diastolic 49–96; PULSE 66–98; RESP 11–22; TEMP 36.2–37.1; O2SAT 95–100; BMI 25.9
[2024-03-14] MEDS: meropenem 1,000 mg SDV 1000 MG IVP ×3 (00:35→15:53)
[2024-03-14] MEDS: ipratropium-albuterol 3 mL Neb INHALATION ×4 (01:31→19:41)
[2024-03-14] MEDS: vancomycin 1,000 MG in sodium chloride 0.9% 250 ML 250 MG IV ×2 (04:47→16:35)
[2024-03-14] MEDS: alum-mag-hydroxide-sime 30 mL UDC 15 ML PO ×3 (04:48→22:56)
[2024-03-14 06:27] LABS: Albumin Level 3.2 g/dL (3.5-5.2); Alkaline Phosphatase 39 U/L (35-105); Blood Urea Nitrogen 25 mg/dL (6-20); Calcium 9.1 mg/dL (8.5-10.5); Carbon Dioxide 24 mmol/L (22-29); Chloride 101 mmol/L (98-107); Creatinine Clr Calc Pharmacy 69.6785; Globulin 3.3 g/dL (1.3-4.6); Glomerular Filtration Rate 64.3 mL/min (90-130); Glucose 93 mg/dL (65-115); Osmolality Calculated 294 mOsm/kg (285-295); Sodium 140 mmol/L (136-145); Total Bilirubin 0.4 mg/dL (0.15-1.2); Total Protein 6.5 g/dL (6.6-8.7)
[2024-03-14] MEDS: sodium chloride 0.9% 1,000 ML 100 ML IV ×2 (06:33→16:36)
[2024-03-14 06:44] LABS: Alanine Aminotransferase 6 U/L (0-33); Anion Gap 19.2 (5-19); Aspartate Amino Transferase 15 U/L (0-32); Potassium 4.2 mmol/L (3.5-5.1)
--- NOTE | 2024-03-14 06:49 | PC.NURSE ---
Robitussin Mucinex unable to be crushed for peg tube; Dr. Wood contacted and order received for 600 mg robitussin liquid through peg tube BID scheduled.
[2024-03-14] MEDS: gabapentin 300 mg Capsule PO ×3 (09:21→21:30)
[2024-03-14] MEDS: baclofen 10 mg Tablet PO ×3 (09:21→21:30)
[2024-03-14] MEDS: apixaban 5 mg Tablet PO ×2 (09:21→17:00)
[2024-03-14] MEDS: duloxetine 60 mg Capsule PO (09:21)
[2024-03-14] MEDS: valACYclovir 1,000 mg Tablet 1000 MG PO ×2 (09:21→17:00)
[2024-03-14] MEDS: amiodarone 200 mg Tablet PO (09:21)
[2024-03-14] MEDS: famotidine 20 mg/2 mL INJ IVP ×2 (09:22→19:32)
[2024-03-14] MEDS: guaiFENesin 100 mg/5 mL UDC 10 mL 600 MG PO ×2 (09:22→17:00)
[2024-03-14 09:27] LABS: Glucose Point of Care 84 mg/dL (70-110)
--- NOTE | 2024-03-14 11:51 | CT_ITS ---
WS: [id number] CT HEAD NONCONTRAST HISTORY: pupillary dilatation, h/o CVA and decompressive craniectomy TECHNIQUE: Contiguous axial imaging performed through the brain. Bone and soft tissue windows. Sagitt al and coronal reformats reviewed. All CT scans at [facility] use at least one of these dose optimization techniques: automated exposure control; mA and/or kV adjustment per patient size (includ es targeted exams where dose is matched to clinical indication); or iterative reconstruction. DLP: 1164.48 mGy.cm COMPARISON: 02/28/2024 There is significant volume loss of the RIGHT brain with marked encephalomalacia and ex vacuo dilatat ion of the RIGHT lateral ventricle. There is very little RIGHT brain tissue is identified. Extensive bilateral small vessel ischemic disease and prior lacunar infarcts on the LEFT. Extent of the white m atter disease is similar to the most recent study of 02/28/2024. No acute area of ischemia. There is a lso moderate cerebellar atrophy. No inferior displacement of the cerebellar tonsils. Paranasal sinuses: RIGHT maxillary sinus disease. Mastoid air cells: Well pneumatized. Calvarium and scalp: Large RIGHT craniectomy. No acute adverse changes along the frontotemporoparieta l craniectomy. CT/CT head wo con* [id number] IMPRESSION: 1. No acute intracranial hemorrhage or edema. 2. Severe volume loss and encephalomalacia involving the RIGHT brain. Overlying craniectomy. 3. Advanced small vessel ischemic disease and multiple lacunar infarcts on the LEFT. 4. Severe ex vacuo dilatation RIGHT lateral ventricle and mild dilatation of th e LEFT lateral ventricle.
--- NOTE | 2024-03-14 11:54 | P.PN_ITS ---
Subjective 2 Subjective: Overnight events noted. Seen at bedside this morning, she is still soft-spoken not able to hear but answering questions appropriately. Denies any complaint of chest pain, or abdominal pain Medications: Reviewed: Yes Vitals/I&O/Wt Last Vital Signs Temp 98.5 F 03/14/24 09:00 Pulse 83 03/14/24 10:30 Resp 17 03/14/24 10:30 BP 147/83 03/14/24 10:30 Pulse Ox 100 03/14/24 10:30 O2 Del Method Nasal Cannula 03/14/24 08:15 O2 Flow Rate 2 03/14/24 08:15 03/13/24 03/14/24 03/14/24 22:59 06:59 14:59 Intake Total 620 / 620 1580 / 2200 Output Total 475 / 475 Balance 620 / 620 1105 / 1725 Weight last 48 hrs Weight 73 kg Weight 72 kg Weight 81.647 kg Physical Exam 2 Narrative: She is alert awake oriented x 3, not in acute distress, bilateral pupils dilated, slow speech but responding appropriately and following commands Chest clear to auscultation bilaterally except bases, crackles present Cardiovascular normal heart sounds Abdomen soft nondistended tender in left lumbar and iliac region, normal bowel sounds Extremities no edema noted bilateral lower extremity Skin maculopapular rash in variable stages present in left flank extending to left pelvic region, no signs of secondary infection Urinary Catheter Management: Ford: Cath Placed During This Visit: yes Reason for Continuing Indwelling Catheter: Accurate Measurement of Urinary Output in Critically Ill Patients Urinary Catheter Date of Insertion: 03/14/24 Urinary Catheter Time of Insertion: 00:30 Data 03/13/24 12:05 03/14/24 05:56 Micro: Microbiology 03/13/24 12:54 Blood Culture - Preliminary Blood SPECIMEN COLLECTED 03/13/24 12:05 Blood Culture - Preliminary Blood SPECIMEN COLLECTED A&P Assessment and plan (1) Enterocolitis: (2) VZV (varicella-zoster virus) infection: (3) Cough: (4) Hypoxia: (5) Hematuria: (6) Atrial fibrillation: (7) Type 2 diabetes mellitus: (8) Hypertension: (9) Depression: (10) Anxiety: (11) History of CVA with residual deficit: (12) S/P percutaneous endoscopic gastrostomy (PEG) tube placement: Plan Charito Tse is a 58 year old female with past medical history of CVA, with residual right-sided hemiplegia, type 2 diabetes mellitus, s/p PEG, gets continuous tube feeds, bedbound, history of decompressive craniectomy for cerebral edema, continues to have a portion of her right parietal skull removed, CAD, is normally alert oriented x 3, can carry out conversations, was brought in by for complaint of persistent worsening cough, fever with Tmax of 101 ?F, vomiting, fatigue, shortness of breath and generalized weakness and found to have skin rash in left flank and pelvic area, left lumbar and lower quadrant tenderness, CT abdomen pelvis consistent with enterocolitis. In ER she was found to have WBC count of 18.7 with left shift, hemoglobin 10.4, creatinine of 1.0 lactic acid 1.7, UA showed RBC 8200, WBC 10-15. ABG was 7.4/45/66/30/94% on 3 L nasal cannula #Acute enterocolitis-WBC count of 18.7 with fever, vomiting and abdominal tenderness We will continue IV vancomycin and meropenem. Admit to ICU Continue IV fluids normal saline at 100 cc/h Will hold PEG feeds for now N.p.o. for now except sips and meds. Will need nutrition and speech and swallow eval in a.m. Follow-up blood cultures # Varicella zoster virus infection-will do p.o. valacyclovir 1 g twice daily Skin care and calamine application 3 times a day Contact precautions # Hematuria-likely secondary to history of renal stones Continue IV fluids for now Mild UTI, continue antibiotics as above Will follow-up urine culture # Hypoxia-likely secondary to generalized weakness Chest x-ray not consistent with improving pneumonia Continue supplemental oxygen to keep saturation more than 90% DuoNebs every 6 hours #Worsening cough- likely secondary to GERD Will do IV Pepcid 20 mg twice daily P.o. Maalox 10 mL 3 times daily Elevate head of bed to 30 degrees Po mucinex 600mg bid Hold PEG feeds for now Nutrition and speech and swallow eval as above # Atrial fibrillation-currently in sinus rhythm, rate controlled Continue BREEDER SERVICE TECHNICIAN amiodarone and Eliquis # Hypertension-continue BREEDER SERVICE TECHNICIAN amlodipine and lisinopril #CVA with residual right-sided hemiplegia-no signs of new stroke Continue BREEDER SERVICE TECHNICIAN baclofen. #Depression/anxiety-continue BREEDER SERVICE TECHNICIAN duloxetine, lorazepam, trazodone and desipramine. #Type 2 diabetes mellitus-will hold BREEDER SERVICE TECHNICIAN Jentadueto Do insulin correction scale for now GI prophylaxis with IV Pepcid DVT prophylaxis, she is already on Eliquis CODE STATUS discussed with , who is the logistics support and guardian, she is full code for now. 03/14--given history of stroke and decompressive craniectomy, in view of bilateral dilated pupils will check CT head to rule out any acute findings. She is hemodynamically and respiratory segovia stable. Continue current antibiotics vancomycin and meropenem. Continue valacyclovir and local skin care for zoster infection. Case management consulted for discharge planning. Follow-up nutrition and speech and swallow recommendations. Attestations 2 Medical Necessity Statement*: She needs continued hospitalization anticipating crossing 2 midnights for management of acute enterocolitis, herpes zoster virus infection, pneumonia, with IV fluids, antibiotics, antivirals and supportive care. Time Spent in Patient Care: 20 minutes Coding Level of Care Code Acute Code for [facility] Diagnoses Enterocolitis K52.9 VZV (varicella-zoster virus) infection B02.9 Cough R05.9 Hypoxia R09.02 Hematuria R31.9 Atrial fibrillation I48.91 Type 2 diabetes mellitus E11.9 Hypertension I10 Depression F32.A Anxiety F41.9 History of CVA with residual deficit I69.30 S/P percutaneous endoscopic gastrostomy (PEG) tube placement Z93.1 Time Spent (min) 20
[2024-03-14 13:19] LABS: Glucose Point of Care 99 mg/dL (70-110)
[2024-03-14 13:21] LABS: Basophils # 0.2 10^3/uL (0.0-0.1); Basophils % 0.8 %; Eosinophils # 0.2 10^3/uL (0.0-0.8); Eosinophils % 0.9 %; Hematocrit 29.1 % (36-47); Lymphocytes # 0.9 10^3/uL (0.8-4.8); Lymphocytes % 4.8 %; Mean Corpuscular HGB Conc 30.6 g/dL (30-55); Mean Corpuscular Hemoglobin 27.4 pg (27-33); Mean Corpuscular Volume 89.5 fl (85-98); Mean Platelet Volume 12.2 fL (7.4-10.4); Monocytes # 1.2 10^3/uL (0.2-0.9); Monocytes % 6.7 %; Neutrophils # 15.85 10^3/uL (1.8-7.7); Neutrophils % 86.4 %; Nucleated Red Blood Cells % 0 %; Platelet Count 146 10^3/cmm (157-399); Red Blood Count 3.25 10^6/uL (3.85-5.65); Red Cell Distribution Width 16.3 % (12.1-15.1); White Blood Count 18.36 10^3/uL (3.29-11.43)
--- NOTE | 2024-03-14 13:52 | PC.NUTR ---
Initiate Jevity 1.5 @ 20 ml/hr and adv 20 ml/hr q8 until goal of 40 ml/hr x24hrs FWF of 115 ml q4 (provides 1440 kcals (100% of needs) and 61 g/pro (100% of needs) daily) ---at last hospitalization and RD visit on 02/28, pt was switched home TF regimen of osmolite 1.2 @50 ml/hr to Jevity 1.5 due to hypoglycemic episodes. if hyperglycemia noted with Jevity this admission, will switch Glucerna 1.5 at same rate. See most recent RD note for details. RD remote. voalte or call [phone] for questions [ End ]
--- NOTE | 2024-03-14 14:03 | XR_ITS ---
WS: [id number] Exam: XR chest 1V portable [id number] Date/Time of Exam: 03/14/2024 2:43 PM Reason For Exam: Post PICC insertion Comparison 03/13/2024. A right-sided PICC line has been placed and appears to end in the lower one third of the SVC. The pamela gs are clear and fully inflated as visualized. Heart size is normal. No infiltrates or pleural effusi ons. Visualized bony structures are intact. XR/XR chest 1V portable [id number] IMPRESSION: 1. Right-sided PICC line appearing to end in the region of the lower one third of the SVC. 2. No acute process identified.
[2024-03-14 14:19] LABS: Bilirubin Urine Negative (Negative); Blood Urine 1+ (Negative); Glucose Urine UA Negative (Normal); Ketones Urine 1+ (Negative); Leukocyte Esterase Urine 2+ (Negative); Nitrate Urine Negative (Negative); Protein Urine Negative (Negative); Specific Gravity, Urine 1.014 (1.005-1.030); Urine Appearance Cloudy (CLEAR); Urine Color Yellow (Yellow); Urobilinogen Urine 0.2 mg/dL (Negative); pH Urine 5.5 (5-7)
[2024-03-14 14:24] LABS: Bacteria Urine None Seen /hpf; Hyaline Casts Urine 8.67 /lpf; Squamous Epithelial Cell Urine 0-5 /hpf (0-5); WBC Urine >100 /hpf (0-5)
[2024-03-14] MEDS: morphine 4 mg/mL SDV 1 mL 2 MG IVP (15:52)
--- NOTE | 2024-03-14 16:00 | PICC.NOTE ---
Double lumen PICC placed to right brachial vein. Referred to vascular access nurse for PICC placement due to poor access. Risks and benefits discussed and informed consent obtained from patient spouse. Right arm assessed with right brachial vein measuring 3.2 mm, straight, and apparent best choice for placement. Using sterile technique and MST, right brachial vein accessed x 1 stick. Unable to thread catheter. Needle removed. New needle used and access attempted proximal to original site. Access obtained and able to thread catheter. Mid-arm circumference measured 10 cm from right AC 33 cm. Trimmed cath 35 cm with 0 cm external length noted. CXR shows tip in distal third of the SVC, in good position for use per radiologist. Line secured with stat-lock. Insertion site covered with Biopatch and TSM. Report given to bedside nurse, SANDRA Shields.
[2024-03-14 17:28] LABS: Glucose Point of Care 73 mg/dL (70-110)
[2024-03-14] MEDS: trazodone 50 mg Tablet 100 MG PO (21:30)
[2024-03-14 23:42] LABS: Glucose Point of Care 96 mg/dL (70-110)
[2024-03-15] VITALS (56 sets, daily range): BP systolic 85–139; BP diastolic 48–85; PULSE 64–95; RESP 10–29; TEMP 36.2–36.8; O2SAT 95–100; BMI 27.0
[2024-03-15] MEDS: meropenem 1,000 mg SDV 1000 MG IVP ×4 (00:49→23:55)
[2024-03-15] MEDS: ipratropium-albuterol 3 mL Neb INHALATION ×4 (02:35→19:42)
[2024-03-15 02:41] LABS: Glucose Point of Care 100 mg/dL (70-110)
[2024-03-15] MEDS: sodium chloride 0.9% 1,000 ML 100 ML IV ×3 (03:10→22:55)
[2024-03-15 03:43] LABS: Basophils # 0.1 10^3/uL (0.0-0.1); Basophils % 0.9 %; Eosinophils # 0.5 10^3/uL (0.0-0.8); Eosinophils % 3.4 %; Lymphocytes # 1.1 10^3/uL (0.8-4.8); Lymphocytes % 8.1 %; Mean Corpuscular Hemoglobin 27.4 pg (27-33); Mean Corpuscular Volume 91.2 fl (85-98); Mean Platelet Volume 12.2 fL (7.4-10.4); Monocytes # 0.9 10^3/uL (0.2-0.9); Monocytes % 6.4 %; Neutrophils # 11.29 10^3/uL (1.8-7.7); Neutrophils % 80.8 %; Nucleated Red Blood Cells % 0 %; Platelet Count 125 10^3/cmm (157-399); Red Blood Count 2.85 10^6/uL (3.85-5.65); Red Cell Distribution Width 16.4 % (12.1-15.1); White Blood Count 13.97 10^3/uL (3.29-11.43)
[2024-03-15 04:09] LABS: Alanine Aminotransferase < 5 U/L (0-33); Albumin Level 2.9 g/dL (3.5-5.2); Alkaline Phosphatase 35 U/L (35-105); Blood Urea Nitrogen 16 mg/dL (6-20); Calcium 8.3 mg/dL (8.5-10.5); Carbon Dioxide 28 mmol/L (22-29); Chloride 109 mmol/L (98-107); Creatinine Clr Calc Pharmacy 104.5177; Globulin 2.2 g/dL (1.3-4.6); Glomerular Filtration Rate 102.7 mL/min (90-130); Glucose 124 mg/dL (65-115); Magnesium 1.8 mg/dL (1.7-2.3); Osmolality Calculated 303 mOsm/kg (285-295); Sodium 145 mmol/L (136-145); Total Bilirubin 0.2 mg/dL (0.15-1.2); Total Protein 5.1 g/dL (6.6-8.7)
[2024-03-15 04:10] LABS: Anion Gap 11.7 (5-19); Aspartate Amino Transferase 11 U/L (0-32); Potassium 3.7 mmol/L (3.5-5.1)
[2024-03-15] MEDS: vancomycin 1,000 MG in sodium chloride 0.9% 250 ML 250 MG IV (06:06)
[2024-03-15] MEDS: alum-mag-hydroxide-sime 30 mL UDC 15 ML PO ×3 (06:13→20:17)
[2024-03-15 06:49] LABS: C.Diff PCR (Lab) NEGATIVE (Negative)
[2024-03-15] MEDS: apixaban 5 mg Tablet PO ×2 (08:44→17:38)
[2024-03-15] MEDS: valACYclovir 1,000 mg Tablet 1000 MG PO ×2 (08:44→17:38)
[2024-03-15] MEDS: amiodarone 200 mg Tablet PO (08:44)
[2024-03-15] MEDS: baclofen 10 mg Tablet PO ×3 (08:44→20:18)
[2024-03-15] MEDS: duloxetine 60 mg Capsule PO (08:44)
[2024-03-15] MEDS: gabapentin 300 mg Capsule PO ×3 (08:44→20:18)
[2024-03-15] MEDS: guaiFENesin 100 mg/5 mL UDC 10 mL 600 MG PO ×2 (08:45→17:38)
[2024-03-15] MEDS: famotidine 20 mg/2 mL INJ IVP ×2 (08:45→20:18)
[2024-03-15] MEDS: insulin lispro 100 unit/1 mL SUBCUT ×4 (09:27→20:58)
[2024-03-15 10:54] LABS: Glucose Point of Care 157 mg/dL (70-110)
--- NOTE | 2024-03-15 11:27 | PM.PN ---
Subjective Subjective: No acute overnight events noted. Seen her at bedside this morning. Mental status still the same, nodding for answering the questions but denies any complaint of pain at this time. Medications: Reviewed: Yes Vitals/I&O/Wt Last Vital Signs Temp 98.2 F 03/15/24 08:30 Pulse 70 03/15/24 10:00 Resp 15 03/15/24 10:00 BP 118/65 03/15/24 10:00 Pulse Ox 100 03/15/24 10:00 O2 Del Method Nasal Cannula 03/15/24 08:30 O2 Flow Rate 2 03/15/24 08:30 03/14/24 03/15/24 03/15/24 22:59 06:59 14:59 Intake Total 1425 / 1425 1560 / 2985 350 / 350 Output Total 950 / 950 650 / 1600 Balance 475 / 475 910 / 1385 350 / 350 Weight last 48 hrs Weight 76 kg Weight 73 kg Weight 72 kg Physical Exam Narrative: She is alert awake oriented x 3, not in acute distress, bilateral pupils dilated, slow speech but responding appropriately and following commands Chest clear to auscultation bilaterally except bases, crackles present Cardiovascular normal heart sounds Abdomen soft nondistended tender in left lumbar and iliac region, normal bowel sounds Extremities no edema noted bilateral lower extremity Skin maculopapular rash in variable stages present in left flank extending to left pelvic region, no signs of secondary infection and flattening. Erythema improved as compared to admission Urinary Catheter Management: Ford: Cath Placed During This Visit: yes Reason for Continuing Indwelling Catheter: Accurate Measurement of Urinary Output in Critically Ill Patients Urinary Catheter Date of Insertion: 03/14/24 Urinary Catheter Time of Insertion: 00:30 Data 03/15/24 03:09 03/15/24 03:09 Micro: Microbiology 03/15/24 04:25 Stool Lactoferrin - Final Stool Occult Blood (FIT) - Final 03/13/24 12:54 Blood Culture - Preliminary Blood NEGATIVE TO DATE 03/13/24 12:05 Blood Culture - Preliminary Blood NEGATIVE TO DATE A&P Assessment and plan (1) Enterocolitis: (2) VZV (varicella-zoster virus) infection: (3) Cough: (4) Hypoxia: (5) Hematuria: (6) Atrial fibrillation: (7) Type 2 diabetes mellitus: (8) Hypertension: (9) Depression: (10) Anxiety: (11) History of CVA with residual deficit: (12) S/P percutaneous endoscopic gastrostomy (PEG) tube placement: (13) UTI (urinary tract infection): Plan Charito Tse is a 58 year old female with past medical history of CVA, with residual right-sided hemiplegia, type 2 diabetes mellitus, s/p PEG, gets continuous tube feeds, bedbound, history of decompressive craniectomy for cerebral edema, continues to have a portion of her right parietal skull removed, CAD, is normally alert oriented x 3, can carry out conversations, was brought in by for complaint of persistent worsening cough, fever with Tmax of 101 ?F, vomiting, fatigue, shortness of breath and generalized weakness and found to have skin rash in left flank and pelvic area, left lumbar and lower quadrant tenderness, CT abdomen pelvis consistent with enterocolitis. In ER she was found to have WBC count of 18.7 with left shift, hemoglobin 10.4, creatinine of 1.0 lactic acid 1.7, UA showed RBC 8200, WBC 10-15. ABG was 7.4/45/66/30/94% on 3 L nasal cannula #Acute enterocolitis-WBC count of 18.7 with fever, vomiting and abdominal tenderness We will continue IV vancomycin and meropenem. Admit to ICU Continue IV fluids normal saline at 100 cc/h Will hold PEG feeds for now N.p.o. for now except sips and meds. Will need nutrition and speech and swallow eval in a.m. Follow-up blood cultures # Varicella zoster virus infection-will do p.o. valacyclovir 1 g twice daily Skin care and calamine application 3 times a day Contact precautions # Hematuria-likely secondary to history of renal stones Continue IV fluids for now Mild UTI, continue antibiotics as above Will follow-up urine culture # Hypoxia-likely secondary to generalized weakness Chest x-ray not consistent with improving pneumonia Continue supplemental oxygen to keep saturation more than 90% DuoNebs every 6 hours #Worsening cough- likely secondary to GERD Will do IV Pepcid 20 mg twice daily P.o. Maalox 10 mL 3 times daily Elevate head of bed to 30 degrees Po mucinex 600mg bid Hold PEG feeds for now Nutrition and speech and swallow eval as above # Atrial fibrillation-currently in sinus rhythm, rate controlled Continue POLICE RADIO DISPATCHER amiodarone and Eliquis # Hypertension-continue POLICE RADIO DISPATCHER amlodipine and lisinopril #CVA with residual right-sided hemiplegia-no signs of new stroke Continue POLICE RADIO DISPATCHER baclofen. #Depression/anxiety-continue POLICE RADIO DISPATCHER duloxetine, lorazepam, trazodone and desipramine. #Type 2 diabetes mellitus-will hold POLICE RADIO DISPATCHER Jentadueto Do insulin correction scale for now GI prophylaxis with IV Pepcid DVT prophylaxis, she is already on Eliquis CODE STATUS discussed with , who is the ocean import representative and guardian, she is full code for now. 03/14--given history of stroke and decompressive craniectomy, in view of bilateral dilated pupils will check CT head to rule out any acute findings. She is hemodynamically and respiratory segovia stable. Continue current antibiotics vancomycin and meropenem. Continue valacyclovir and local skin care for zoster infection. Case management consulted for discharge planning. Follow-up nutrition and speech and swallow recommendations. 03/15--Labs reviewed this morning WBC count trended down from 18.3-13.9. VZV skin rash improving as compared to admission. UA strongly positive with WBC more than 50-100. Continue IV vancomycin and meropenem and valacyclovir with calamine as needed and skin care. Started on continuous tube feeds yesterday, tolerating well, had only 1 episode of vomiting overnight. Had extensive discussion with the case management about home hospice versus palliative care. Patient's who is the ocean import representative and guardian, does not want to opt for the same. He is willing to take care of her at home. Due to insurance issues, no option for home nurse or home health aide available at this time. Patient's understands, hence no social needs on discharge and she will be discharged home with no services on board. Will monitor him in ICU for day and transfer to medical floor in a.m. Attestations Medical Necessity Statement*: She needs continued hospitalization anticipating crossing 2 midnights for management of acute enterocolitis, herpes zoster virus infection, pneumonia, UTI with IV fluids, antibiotics, antivirals and supportive care. Time Spent in Patient Care: 25minutes Coding Level of Care Code Acute Code for g Fwd Diagnoses Enterocolitis K52.9 VZV (varicella-zoster virus) infection B02.9 Cough R05.9 Hypoxia R09.02 Hematuria R31.9 Atrial fibrillation I48.91 Type 2 diabetes mellitus E11.9 Hypertension I10 Depression F32.A Anxiety F41.9 History of CVA with residual deficit I69.30 S/P percutaneous endoscopic gastrostomy (PEG) tube placement Z93.1 UTI (urinary tract infection) N39.0 Time Spent (min) 25
[2024-03-15 13:04] LABS: Glucose Point of Care 159 mg/dL (70-110)
[2024-03-15 16:27] LABS: Vancomycin Trough 30.7 ug/mL (10-15)
[2024-03-15 18:10] LABS: Glucose Point of Care 171 mg/dL (70-110)
[2024-03-15] MEDS: trazodone 50 mg Tablet 100 MG PO (20:17)
[2024-03-15 20:53] LABS: Glucose Point of Care 150 mg/dL (70-110)
[2024-03-16] VITALS (31 sets, daily range): BP systolic 92–160; BP diastolic 59–96; PULSE 69–90; RESP 12–16; TEMP 36.3–37.2; O2SAT 97–100
[2024-03-16] MEDS: ipratropium-albuterol 3 mL Neb INHALATION ×4 (01:59→19:21)
[2024-03-16 03:33] LABS: Basophils # 0.1 10^3/uL (0.0-0.1); Basophils % 0.7 %; Eosinophils % 9.3 %; Hematocrit 27.9 % (36-47); Lymphocytes # 0.7 10^3/uL (0.8-4.8); Lymphocytes % 6.7 %; Mean Corpuscular HGB Conc 29.7 g/dL (30-55); Mean Corpuscular Hemoglobin 27.2 pg (27-33); Mean Corpuscular Volume 91.5 fl (85-98); Mean Platelet Volume 12.3 fL (7.4-10.4); Monocytes # 0.9 10^3/uL (0.2-0.9); Neutrophils # 8.19 10^3/uL (1.8-7.7); Neutrophils % 74.8 %; Nucleated Red Blood Cells % 0 %; Platelet Count 130 10^3/cmm (157-399); Red Blood Count 3.05 10^6/uL (3.85-5.65); Red Cell Distribution Width 16.4 % (12.1-15.1); White Blood Count 10.95 10^3/uL (3.29-11.43)
[2024-03-16 03:52] LABS: Alanine Aminotransferase < 5 U/L (0-33); Albumin Level 2.7 g/dL (3.5-5.2); Alkaline Phosphatase 47 U/L (35-105); Blood Urea Nitrogen 14 mg/dL (6-20); Calcium 8.5 mg/dL (8.5-10.5); Carbon Dioxide 28 mmol/L (22-29); Chloride 112 mmol/L (98-107); Creatinine Clr Calc Pharmacy 127.7446; Globulin 2.5 g/dL (1.3-4.6); Glomerular Filtration Rate 126.7 mL/min (90-130); Glucose 170 mg/dL (65-115); Magnesium 1.9 mg/dL (1.7-2.3); Osmolality Calculated 306 mOsm/kg (285-295); Sodium 146 mmol/L (136-145); Total Bilirubin 0.2 mg/dL (0.15-1.2); Total Protein 5.2 g/dL (6.6-8.7)
[2024-03-16 03:58] LABS: Anion Gap 10.6 (5-19); Aspartate Amino Transferase 19 U/L (0-32); Potassium 4.6 mmol/L (3.5-5.1)
[2024-03-16] MEDS: alum-mag-hydroxide-sime 30 mL UDC 15 ML PO ×3 (05:14→20:16)
[2024-03-16] MEDS: vancomycin 1,000 MG in sodium chloride 0.9% 250 ML 250 MG IV (05:14)
[2024-03-16 08:58] LABS: Glucose Point of Care 182 mg/dL (70-110)
[2024-03-16] MEDS: insulin lispro 100 unit/1 mL SUBCUT ×3 (08:58→20:16)
[2024-03-16] MEDS: famotidine 20 mg/2 mL INJ IVP ×2 (08:58→19:33)
[2024-03-16] MEDS: meropenem 1,000 mg SDV 1000 MG IVP ×2 (08:59→15:34)
[2024-03-16] MEDS: sodium chloride 0.9% 1,000 ML 100 ML IV (09:12)
[2024-03-16] MEDS: water for injection-sterile 20 ML 100 ML ×2 (09:19→15:35)
[2024-03-16] MEDS: guaiFENesin 100 mg/5 mL UDC 10 mL 600 MG PO ×2 (09:55→17:00)
[2024-03-16] MEDS: gabapentin 300 mg Capsule PO ×3 (09:55→20:16)
[2024-03-16] MEDS: amiodarone 200 mg Tablet PO (09:55)
[2024-03-16] MEDS: baclofen 10 mg Tablet PO ×3 (09:55→20:16)
[2024-03-16] MEDS: valACYclovir 1,000 mg Tablet 1000 MG PO ×2 (09:55→17:00)
[2024-03-16] MEDS: duloxetine 60 mg Capsule PO (09:55)
[2024-03-16] MEDS: apixaban 5 mg Tablet PO ×2 (09:55→17:00)
[2024-03-16] MEDS: DESIPRAMINE 10 MG 10 EACH PO (10:51)
--- NOTE | 2024-03-16 11:47 | P.PN_ITS ---
Subjective 2 Subjective: No acute overnight events noted. Seen her at bedside this morning, she looks more awake and alert. at bedside, educated and counseled about plan of care. As per the she looks better as compared to admission. Medications: Reviewed: Yes Vitals/I&O/Wt Last Vital Signs Temp 97.4 F L 03/16/24 08:00 Pulse 77 03/16/24 10:00 Resp 14 03/16/24 10:00 BP 144/92 03/16/24 10:00 Pulse Ox 100 03/16/24 10:00 O2 Del Method Nasal Cannula 03/16/24 08:00 O2 Flow Rate 2 03/16/24 08:00 03/15/24 03/16/24 03/16/24 22:59 06:59 14:59 Intake Total 1727 / 3045.333 910 / 3955.333 1000 / 1000 Output Total 375 / 375 450 / 825 Balance 1352 / 2670.333 460 / 3130.333 1000 / 1000 Weight last 48 hrs Weight 79.832 kg Weight 76 kg Physical Exam 2 Narrative: She is alert awake oriented x 3, not in acute distress, bilateral pupils dilated, slow speech but responding appropriately and following commands Chest clear to auscultation bilaterally except bases, crackles present Cardiovascular normal heart sounds Abdomen soft nondistended tender in left lumbar and iliac region, normal bowel sounds Extremities no edema noted bilateral lower extremity Skin maculopapular rash in variable stages present in left flank extending to left pelvic region, no signs of secondary infection and flattening. Erythema improved as compared to admission Urinary Catheter Management: Ford: Cath Placed During This Visit: yes Reason for Continuing Indwelling Catheter: Accurate Measurement of Urinary Output in Critically Ill Patients Urinary Catheter Date of Insertion: 03/14/24 Urinary Catheter Time of Insertion: 00:30 Data 03/16/24 03:03 03/16/24 03:03 Micro: Microbiology 03/13/24 11:42 Urine Culture - Preliminary Urine,Clean Catch Yeast species 03/15/24 04:25 Stool Lactoferrin - Final Stool Occult Blood (FIT) - Final A&P Assessment and plan (1) Enterocolitis: (2) VZV (varicella-zoster virus) infection: (3) Cough: (4) Hypoxia: (5) Hematuria: (6) Atrial fibrillation: (7) Type 2 diabetes mellitus: (8) Hypertension: (9) Depression: (10) Anxiety: (11) History of CVA with residual deficit: (12) S/P percutaneous endoscopic gastrostomy (PEG) tube placement: (13) UTI (urinary tract infection): Plan Charito Tse is a 58 year old female with past medical history of CVA, with residual right-sided hemiplegia, type 2 diabetes mellitus, s/p PEG, gets continuous tube feeds, bedbound, history of decompressive craniectomy for cerebral edema, continues to have a portion of her right parietal skull removed, CAD, is normally alert oriented x 3, can carry out conversations, was brought in by for complaint of persistent worsening cough, fever with Tmax of 101 ?F, vomiting, fatigue, shortness of breath and generalized weakness and found to have skin rash in left flank and pelvic area, left lumbar and lower quadrant tenderness, CT abdomen pelvis consistent with enterocolitis. In ER she was found to have WBC count of 18.7 with left shift, hemoglobin 10.4, creatinine of 1.0 lactic acid 1.7, UA showed RBC 8200, WBC 10-15. ABG was 7.4/45/66/30/94% on 3 L nasal cannula #Acute enterocolitis-WBC count of 18.7 with fever, vomiting and abdominal tenderness We will continue IV vancomycin and meropenem. Admit to ICU Continue IV fluids normal saline at 100 cc/h Will hold PEG feeds for now N.p.o. for now except sips and meds. Will need nutrition and speech and swallow eval in a.m. Follow-up blood cultures # Varicella zoster virus infection-will do p.o. valacyclovir 1 g twice daily Skin care and calamine application 3 times a day Contact precautions # Hematuria-likely secondary to history of renal stones Continue IV fluids for now Mild UTI, continue antibiotics as above Will follow-up urine culture # Hypoxia-likely secondary to generalized weakness Chest x-ray not consistent with improving pneumonia Continue supplemental oxygen to keep saturation more than 90% DuoNebs every 6 hours #Worsening cough- likely secondary to GERD Will do IV Pepcid 20 mg twice daily P.o. Maalox 10 mL 3 times daily Elevate head of bed to 30 degrees Po mucinex 600mg bid Hold PEG feeds for now Nutrition and speech and swallow eval as above # Atrial fibrillation-currently in sinus rhythm, rate controlled Continue MEDICAL SOCIAL CONSULTANT amiodarone and Eliquis # Hypertension-continue MEDICAL SOCIAL CONSULTANT amlodipine and lisinopril #CVA with residual right-sided hemiplegia-no signs of new stroke Continue MEDICAL SOCIAL CONSULTANT baclofen. #Depression/anxiety-continue MEDICAL SOCIAL CONSULTANT duloxetine, lorazepam, trazodone and desipramine. #Type 2 diabetes mellitus-will hold MEDICAL SOCIAL CONSULTANT Jentadueto Do insulin correction scale for now GI prophylaxis with IV Pepcid DVT prophylaxis, she is already on Eliquis CODE STATUS discussed with , who is the straight line press setter and guardian, she is full code for now. 03/14--given history of stroke and decompressive craniectomy, in view of bilateral dilated pupils will check CT head to rule out any acute findings. She is hemodynamically and respiratory [place] stable. Continue current antibiotics vancomycin and meropenem. Continue valacyclovir and local skin care for zoster infection. Case management consulted for discharge planning. Follow-up nutrition and speech and swallow recommendations. 03/15--Labs reviewed this morning WBC count trended down from 18.3-13.9. VZV skin rash improving as compared to admission. UA strongly positive with WBC more than 50-100. Continue IV vancomycin and meropenem and valacyclovir with calamine as needed and skin care. Started on continuous tube feeds yesterday, tolerating well, had only 1 episode of vomiting overnight. Had extensive discussion with the case management about home hospice versus palliative care. Patient's who is the straight line press setter and guardian, does not want to opt for the same. He is willing to take care of her at home. Due to insurance issues, no option for home nurse or home health aide available at this time. Patient's understands, hence no social needs on discharge and she will be discharged home with no services on board. Will monitor him in ICU for day and transfer to medical floor in a.m. 03/16--Labs reviewed, WBC count trending down to normal 10.9, platelets 130, hemoglobin 8.3 stable. Varicella-zoster virus skin rash improving. Continue current management. Needs probable discharge on Sunday. Will transfer to medical surgical floor for further care. aware of plan of care and all questions answered. Attestations 2 Medical Necessity Statement*: She needs continued hospitalization anticipating crossing 2 midnights for management of acute enterocolitis, herpes zoster virus infection, UTI with IV fluids, antibiotics, antivirals and supportive care. Medical condition improving as compared to admission and anticipating discharge on Sunday Time Spent in Patient Care: 25minutes Coding Level of Care Code Acute Code for Chg Fwd Diagnoses Enterocolitis K52.9 VZV (varicella-zoster virus) infection B02.9 Cough R05.9 Hypoxia R09.02 Hematuria R31.9 Atrial fibrillation I48.91 Type 2 diabetes mellitus E11.9 Hypertension I10 Depression F32.A Anxiety F41.9 History of CVA with residual deficit I69.30 S/P percutaneous endoscopic gastrostomy (PEG) tube placement Z93.1 UTI (urinary tract infection) N39.0 Time Spent (min) 25
[2024-03-16 12:54] LABS: Glucose Point of Care 155 mg/dL (70-110)
[2024-03-16 16:55] LABS: Glucose Point of Care 134 mg/dL (70-110)
[2024-03-16 19:43] LABS: Glucose Point of Care 160 mg/dL (70-110)
[2024-03-16] MEDS: trazodone 50 mg Tablet 100 MG PO (20:16)
[2024-03-17] VITALS (25 sets, daily range): BP systolic 112–174; BP diastolic 68–102; PULSE 73–99; RESP 14–18; TEMP 36.4–37.1; O2SAT 95–100
[2024-03-17] MEDS: vancomycin 1,000 MG in sodium chloride 0.9% 250 ML 250 MG IV (00:07)
[2024-03-17] MEDS: meropenem 1,000 mg SDV 1000 MG IVP ×3 (00:07→15:26)
[2024-03-17] MEDS: ipratropium-albuterol 3 mL Neb INHALATION ×4 (02:04→20:48)
[2024-03-17] MEDS: alum-mag-hydroxide-sime 30 mL UDC 15 ML PO ×3 (04:15→20:18)
[2024-03-17 06:02] LABS: Basophils # 0.1 10^3/uL (0.0-0.1); Basophils % 0.6 %; Eosinophils # 1.1 10^3/uL (0.0-0.8); Eosinophils % 9.4 %; Hematocrit 28.4 % (36-47); Lymphocytes % 9.1 %; Mean Corpuscular HGB Conc 29.2 g/dL (30-55); Mean Corpuscular Hemoglobin 26.8 pg (27-33); Mean Corpuscular Volume 91.6 fl (85-98); Mean Platelet Volume 12.2 fL (7.4-10.4); Monocytes % 8.5 %; Neutrophils # 8.26 10^3/uL (1.8-7.7); Nucleated Red Blood Cells % 0 %; Platelet Count 154 10^3/cmm (157-399); Red Cell Distribution Width 16.4 % (12.1-15.1); White Blood Count 11.48 10^3/uL (3.29-11.43)
[2024-03-17 06:20] LABS: Blood Urea Nitrogen 12 mg/dL (6-20); Calcium 8.4 mg/dL (8.5-10.5); Carbon Dioxide 31 mmol/L (22-29); Chloride 106 mmol/L (98-107); Creatinine Clr Calc Pharmacy 131.4852; Glomerular Filtration Rate 126.7 mL/min (90-130); Glucose 165 mg/dL (65-115); Osmolality Calculated 295 mOsm/kg (285-295); Sodium 141 mmol/L (136-145)
[2024-03-17 06:35] LABS: Anion Gap 7.7 (5-19); Potassium 3.7 mmol/L (3.5-5.1)
[2024-03-17] MEDS: guaiFENesin 100 mg/5 mL UDC 10 mL 600 MG PO ×2 (08:16→17:43)
[2024-03-17] MEDS: amiodarone 200 mg Tablet PO (08:17)
[2024-03-17] MEDS: famotidine 20 mg/2 mL INJ IVP ×2 (08:17→20:18)
[2024-03-17] MEDS: apixaban 5 mg Tablet PO ×2 (08:17→17:43)
[2024-03-17] MEDS: baclofen 10 mg Tablet PO ×3 (08:17→20:18)
[2024-03-17] MEDS: valACYclovir 1,000 mg Tablet 1000 MG PO ×2 (08:17→17:44)
[2024-03-17] MEDS: duloxetine 60 mg Capsule PO (08:17)
[2024-03-17] MEDS: gabapentin 300 mg Capsule PO ×3 (08:17→20:18)
[2024-03-17] MEDS: insulin lispro 100 unit/1 mL SUBCUT ×3 (08:31→17:44)
[2024-03-17] MEDS: DESIPRAMINE 10 MG 10 EACH PO (08:31)
[2024-03-17 11:51] LABS: Glucose Point of Care 153 mg/dL (70-110)
[2024-03-17 11:51] LABS: Glucose Point of Care 153 mg/dL (70-110)
--- NOTE | 2024-03-17 12:22 | P.PN_ITS ---
Subjective 2 Subjective: No overnight events Afebrile CBC BMP unremarkable On 2 L nasal cannula Vitals/I&O/Wt Last Vital Signs Temp 98.2 F 03/17/24 04:13 Pulse 83 03/17/24 09:17 Resp 15 03/17/24 09:17 BP 149/89 03/17/24 06:00 Pulse Ox 100 03/17/24 09:17 O2 Del Method Nasal Cannula 03/17/24 09:17 O2 Flow Rate 2 03/17/24 09:17 03/16/24 03/17/24 03/17/24 22:59 06:59 14:59 Intake Total 660.667 / 8693.623 5270 / 2746.333 Output Total 850 / 850 1000 / 1850 Balance -189.333 / 892.333 4 / 896.333 Weight last 48 hrs Weight 80.83 kg Weight 79.832 kg Physical Exam 2 Narrative: Sacral and ankle ulcers Buttocks ulcer present Upper extremity edema Left flank area crusting lesion not traversing the midline Indwelling catheter Looks lethargic and fatigued S1, S2 Urinary Catheter Management: Ford: Cath Placed During This Visit: yes Reason for Continuing Indwelling Catheter: Accurate Measurement of Urinary Output in Critically Ill Patients Urinary Catheter Date of Insertion: 03/14/24 Urinary Catheter Time of Insertion: 00:30 Data 03/17/24 05:07 03/17/24 05:07 A&P Assessment and plan (1) Enterocolitis: (2) VZV (varicella-zoster virus) infection: (3) Cough: (4) Hypoxia: (5) Hematuria: (6) Atrial fibrillation: (7) Type 2 diabetes mellitus: (8) Hypertension: (9) Depression: (10) Anxiety: (11) History of CVA with residual deficit: (12) S/P percutaneous endoscopic gastrostomy (PEG) tube placement: (13) UTI (urinary tract infection): Plan Charito Tse is a 58 year old female with past medical history of CVA, with residual right-sided hemiplegia, type 2 diabetes mellitus, s/p PEG, gets continuous tube feeds, bedbound, history of decompressive craniectomy for cerebral edema, continues to have a portion of her right parietal skull removed, CAD, is normally alert oriented x 3, can carry out conversations, was brought in by for complaint of persistent worsening cough, fever with Tmax of 101 ?F, vomiting, fatigue, shortness of breath and generalized weakness and found to have skin rash in left flank and pelvic area, left lumbar and lower quadrant tenderness, CT abdomen pelvis consistent with enterocolitis. Shingles Continue valacyclovir Contact isolation no need of airborne isolation as it is noted disseminated at this point Aspiration pneumonia? Will request dietitian to see if we can switch to bolus feed instead of continuous PEG tube feeding No signs of gastric retention as of now as per the nursing staff Enterocolitis Blood cultures negative, afebrile Continue meropenem antibiotics, discontinue vancomycin Hypoxia, acute related to hypoventilation and aspiration pneumonia Currently on 2 L Worsening cough: Aspiration Will follow podiatry recommendations Would most likely use bolus feed instead of continuous Most likely will be transferred out of ICU to [facility] today Possible discharge by Sunday to home I will try to get in touch with her Chronic anemia: Hemoglobin stable Chronic thrombocytopenia stable Hypernatremia related dehydration: Resolved A-fib without RVR continue Eliquis and amiodarone Attestations 2 Medical Necessity Statement*: Transfer out of ICU Diagnoses Enterocolitis K52.9 VZV (varicella-zoster virus) infection B02.9 Cough R05.9 Hypoxia R09.02 Hematuria R31.9 Atrial fibrillation I48.91 Type 2 diabetes mellitus E11.9 Hypertension I10 Depression F32.A Anxiety F41.9 History of CVA with residual deficit I69.30 S/P percutaneous endoscopic gastrostomy (PEG) tube placement Z93.1 UTI (urinary tract infection) N39.0
[2024-03-17] MEDS: lisinopril 20 mg Tablet PO (15:26)
[2024-03-17 17:16] LABS: Glucose Point of Care 176 mg/dL (70-110)
[2024-03-17] MEDS: amlodipine 10 mg Tablet PO (17:44)
[2024-03-17] MEDS: trazodone 50 mg Tablet 100 MG PO (20:18)
[2024-03-17 22:12] LABS: Glucose Point of Care 124 mg/dL (70-110)
[2024-03-18] VITALS (8 sets, daily range): BP systolic 122–157; BP diastolic 75–98; PULSE 82–109; RESP 12–17; TEMP 36.4–36.7; O2SAT 92–99
[2024-03-18] MEDS: meropenem 1,000 mg SDV 1000 MG IVP ×3 (00:29→16:14)
[2024-03-18] MEDS: ipratropium-albuterol 3 mL Neb INHALATION (02:22)
[2024-03-18] MEDS: alum-mag-hydroxide-sime 30 mL UDC 15 ML PO ×3 (04:45→20:45)
[2024-03-18 05:21] LABS: Basophils # 0.1 10^3/uL (0.0-0.1); Basophils % 0.6 %; Eosinophils # 0.7 10^3/uL (0.0-0.8); Eosinophils % 6.6 %; Hematocrit 28.5 % (36-47); Lymphocytes # 1.2 10^3/uL (0.8-4.8); Lymphocytes % 11.5 %; Mean Corpuscular HGB Conc 29.8 g/dL (30-55); Mean Corpuscular Hemoglobin 27.2 pg (27-33); Mean Corpuscular Volume 91.1 fl (85-98); Mean Platelet Volume 11.9 fL (7.4-10.4); Monocytes # 0.9 10^3/uL (0.2-0.9); Monocytes % 8.9 %; Neutrophils # 7.52 10^3/uL (1.8-7.7); Neutrophils % 71.5 %; Nucleated Red Blood Cells % 0 %; Platelet Count 161 10^3/cmm (157-399); Red Blood Count 3.13 10^6/uL (3.85-5.65); Red Cell Distribution Width 16.3 % (12.1-15.1); White Blood Count 10.51 10^3/uL (3.29-11.43)
[2024-03-18 05:44] LABS: Blood Urea Nitrogen 14 mg/dL (6-20); Calcium 8.3 mg/dL (8.5-10.5); Carbon Dioxide 33 mmol/L (22-29); Chloride 103 mmol/L (98-107); Creatinine Clr Calc Pharmacy 131.4852; Glomerular Filtration Rate 126.7 mL/min (90-130); Glucose 186 mg/dL (65-115); Osmolality Calculated 299 mOsm/kg (285-295); Sodium 142 mmol/L (136-145)
[2024-03-18 05:46] LABS: Anion Gap 10.4 (5-19); Potassium 4.4 mmol/L (3.5-5.1)
[2024-03-18 06:35] LABS: Glucose Point of Care 173 mg/dL (70-110)
[2024-03-18] MEDS: apixaban 5 mg Tablet PO ×2 (09:04→17:56)
[2024-03-18] MEDS: guaiFENesin 100 mg/5 mL UDC 10 mL 600 MG PO ×2 (09:04→17:56)
[2024-03-18] MEDS: famotidine 20 mg/2 mL INJ IVP ×2 (09:04→20:46)
[2024-03-18] MEDS: amiodarone 200 mg Tablet PO (09:04)
[2024-03-18] MEDS: lisinopril 20 mg Tablet PO (09:04)
[2024-03-18] MEDS: amlodipine 10 mg Tablet PO (09:04)
[2024-03-18] MEDS: baclofen 10 mg Tablet PO ×3 (09:05→20:46)
[2024-03-18] MEDS: insulin lispro 100 unit/1 mL SUBCUT ×4 (09:05→20:50)
[2024-03-18] MEDS: valACYclovir 1,000 mg Tablet 1000 MG PO ×2 (09:05→17:56)
[2024-03-18] MEDS: gabapentin 300 mg Capsule PO ×3 (09:05→20:46)
[2024-03-18] MEDS: duloxetine 60 mg Capsule PO (09:05)
[2024-03-18 11:35] LABS: Glucose Point of Care 180 mg/dL (70-110)
--- NOTE | 2024-03-18 12:50 | P.PN_ITS ---
Subjective 2 Subjective: Spoke with her legal guardian today who is planning to come in on Sunday he has recently got an access to a van with a wheelchair access, I did tell him that I am plan to discharge her by tomorrow He will be here by noon Patient was drowsy, Afebrile, Legal guardian is stating that he is not planning to put her back on hospice care and hospice company has fired them, he is planning to speak with Joleen Hines nurse practitioner in [place] to use palliative care instead I spoke with Joleen Hines to give her heads up, she has not seen this patient for a year but stating that Charito has very poor outcome and would help the family with palliative care Vitals/I&O/Wt Last Vital Signs Temp 97.6 F 03/18/24 11:32 Pulse 93 03/18/24 11:32 Resp 16 03/18/24 11:32 BP 130/80 03/18/24 11:32 Pulse Ox 96 03/18/24 11:32 O2 Del Method Room Air 03/18/24 11:32 O2 Flow Rate 2 03/17/24 09:17 03/17/24 03/18/24 03/18/24 22:59 06:59 14:59 Intake Total 746 / 746 Output Total 350 / 1250 1000 / 2250 550 / 550 Balance 396 / -504 -1000 / -1504 -550 / -550 Weight last 48 hrs Weight 84.595 kg Weight 80.83 kg Physical Exam 2 Narrative: Patient is drowsy Able to protect airway Currently on room air Hemodynamically stable Blisters noted flank area with minimal crusting of vesicles Ford catheter in place Feeding tube running at 40 mL/h Left gluteal and ankle ulcer without acute worsening S1, S2 No audible stridor or wheezing Urinary Catheter Management: Ford: Cath Placed During This Visit: yes Reason for Continuing Indwelling Catheter: Acute Urinary Retention or Obstruction Urinary Catheter Date of Insertion: 03/14/24 Urinary Catheter Time of Insertion: 00:30 Data 03/18/24 04:45 03/18/24 04:45 Micro: Microbiology 03/13/24 12:05 Blood Culture - Final Blood NO GROWTH AFTER 5 DAYS 03/13/24 11:42 Urine Culture - Final Urine,Clean Catch Rhodotorula glutinis A&P Assessment and plan (1) Enterocolitis: (2) VZV (varicella-zoster virus) infection: (3) Cough: (4) Hypoxia: (5) Hematuria: (6) Atrial fibrillation: (7) Type 2 diabetes mellitus: (8) Hypertension: (9) Depression: (10) Anxiety: (11) History of CVA with residual deficit: (12) S/P percutaneous endoscopic gastrostomy (PEG) tube placement: (13) UTI (urinary tract infection): Plan Charito Tse is a 58 year old female with past medical history of CVA, with residual right-sided hemiplegia, type 2 diabetes mellitus, s/p PEG, gets continuous tube feeds, bedbound, history of decompressive craniectomy for cerebral edema, continues to have a portion of her right parietal skull removed, CAD, is normally alert oriented x 3, can carry out conversations, was brought in by for complaint of persistent worsening cough, fever with Tmax of 101 ?F, vomiting, fatigue, shortness of breath and generalized weakness and found to have skin rash in left flank and pelvic area, left lumbar and lower quadrant tenderness, CT abdomen pelvis consistent with enterocolitis. Shingles Continue valacyclovir Contact isolation no need of airborne isolation as it is noted disseminated at this point Aspiration pneumonia Appreciate dietary recommendations Enterocolitis Switch to Augmentin discontinue IV antibiotics Hypoxia, acute related to hypoventilation and aspiration pneumonia currently doing well on room air Discharge tomorrow Chronic anemia: Hemoglobin stable Chronic thrombocytopenia stable Hypernatremia related dehydration: Resolved A-fib without RVR continue Eliquis and amiodarone Spoke with her nurse practitioner Joleen Hines, spoke with guardian today Attestations 2 Medical Necessity Statement*: Continue medical management Diagnoses Enterocolitis K52.9 VZV (varicella-zoster virus) infection B02.9 Cough R05.9 Hypoxia R09.02 Hematuria R31.9 Atrial fibrillation I48.91 Type 2 diabetes mellitus E11.9 Hypertension I10 Depression F32.A Anxiety F41.9 History of CVA with residual deficit I69.30 S/P percutaneous endoscopic gastrostomy (PEG) tube placement Z93.1 UTI (urinary tract infection) N39.0
[2024-03-18] MEDS: DESIPRAMINE 10 MG 10 EACH PO (12:55)
[2024-03-18 17:04] LABS: Glucose Point of Care 148 mg/dL (70-110)
[2024-03-18 20:24] LABS: Glucose Point of Care 172 mg/dL (70-110)
[2024-03-18] MEDS: trazodone 50 mg Tablet 100 MG PO (20:45)
[2024-03-19] VITALS (8 sets, daily range): BP systolic 114–151; BP diastolic 74–95; PULSE 80–100; RESP 16–22; TEMP 36.6–37.4; O2SAT 91–100
[2024-03-19] MEDS: meropenem 1,000 mg SDV 1000 MG IVP ×3 (00:16→16:19)
[2024-03-19] MEDS: alum-mag-hydroxide-sime 30 mL UDC 15 ML PO ×3 (04:23→22:13)
[2024-03-19 06:35] LABS: Glucose Point of Care 180 mg/dL (70-110)
[2024-03-19] MEDS: insulin lispro 100 unit/1 mL SUBCUT ×4 (08:25→22:13)
[2024-03-19] MEDS: famotidine 20 mg/2 mL INJ IVP ×2 (08:25→22:14)
[2024-03-19] MEDS: guaiFENesin 100 mg/5 mL UDC 10 mL 600 MG PO ×2 (10:46→18:25)
[2024-03-19] MEDS: gabapentin 300 mg Capsule PO ×3 (10:47→22:14)
[2024-03-19] MEDS: baclofen 10 mg Tablet PO (10:47)
[2024-03-19] MEDS: amlodipine 10 mg Tablet PO (10:47)
[2024-03-19] MEDS: amiodarone 200 mg Tablet PO (10:47)
[2024-03-19] MEDS: duloxetine 60 mg Capsule PO (10:47)
[2024-03-19] MEDS: valACYclovir 1,000 mg Tablet 1000 MG PO ×2 (10:47→18:25)
[2024-03-19] MEDS: lisinopril 20 mg Tablet PO (10:47)
[2024-03-19] MEDS: apixaban 5 mg Tablet PO ×2 (10:48→18:25)
--- NOTE | 2024-03-19 11:41 | PC.NUTR ---
Pt currently receiving Jevity 1.5 with goal rate of 40mls/hr and FWF 115mls Q4H. If initiating bolus feeds, recommend 4 cartons Jevity 1.5/ day, 1 carton to be given at 8am/ noon/ 4pm/ 8pm with 60mls FWF before and after feeds. If hyperglycemia noted with Jevity 1.5, recommend switching back to Glucerna 1.5 at same rate for both continuous and bolus feeds. Details in RD assessment.
[2024-03-19 11:49] LABS: Glucose Point of Care 186 mg/dL (70-110)
--- NOTE | 2024-03-19 12:41 | CT_ITS ---
WS: [id number] CT HEAD TECHNIQUE: Noncontrast CT of the head obtained from the skullbase to the vertex. CLINICAL INFORMATION: AMS COMPARISON: 03/14/2024 DLP: 1310.[address] scans at [facility] use at least one of these dose optimization techniques: automated e xposure control; mA and/or kV adjustment per patient size (includes targeted exams where dose is matc hed to clinical indication); or iterative reconstruction. FINDINGS: No evidence of intracranial hemorrhage or mass effect. Prior RIGHT craniectomy. Diffuse volume loss i n the RIGHT hemisphere with chronic encephalomalacia. Ex-vacuo dilatation RIGHT lateral ventricle is unchanged. Advanced small vessel changes with brainstem atrophy unchanged compared to the prior studi es. Moderate cerebellar parenchymal volume loss. Dystrophic calcification along the falx. Chronic inf arct LEFT rodriguez radiata. Overall no significant changes since 03/14/2024 RIGHT maxillary sinusitis. Mastoid air cells are well aerated. RIGHT sphenoid sinusitis. Mucosal thic kening in the frontal sinuses and ethmoid air cells. CT/CT head wo con* [id number] IMPRESSION: 1. No evidence of intracranial hemorrhage or mass effect. 2. RIGHT maxillary and sphenoid sinusitis 3. No significant changes since 03/14/2024
--- NOTE | 2024-03-19 12:45 | P.PN_ITS ---
Subjective 2 Subjective: Patient was examined twice today, spoke with the legal guardian This morning patient is very drowsy, needing sternal rub, I have requested ABG, CT head without contrast, I have discontinued her baclofen, trazodone and desipramine Henry stating that he will not be able to care for like this because he was more energetic and in good mood on Sunday when he saw her last time, Vitals/I&O/Wt Last Vital Signs Temp 98.3 F 03/19/24 11:42 Pulse 83 03/19/24 11:51 Resp 16 03/19/24 11:51 BP 151/95 03/19/24 11:42 Pulse Ox 96 03/19/24 11:51 O2 Del Method Room Air 03/19/24 11:51 O2 Flow Rate 2 03/17/24 09:17 03/18/24 03/19/24 03/19/24 22:59 06:59 14:59 Output Total 1550 / 2100 250 / 2350 200 / 200 Balance -1550 / -2100 -250 / -2350 -200 / -200 Weight last 48 hrs Weight 82.129 kg Weight 84.595 kg Physical Exam 2 Narrative: Patient is needing sternal rub to get a response She is aware that legal guardian is at the bedside but she was not able to give a thumbs up when he asked if she is willing to go home today Extremely fatigued and lethargic Feeding tube 40 mL/h No worsening of left ankle rash, left gluteal area rash Bilateral breath sounds with rhonchi Currently on room air She is not requiring oxygen Hypertensive Abdomen distended but soft Urinary Catheter Management: Ford: Cath Placed During This Visit: yes Reason for Continuing Indwelling Catheter: Acute Urinary Retention or Obstruction Urinary Catheter Date of Insertion: 03/14/24 Urinary Catheter Time of Insertion: 00:30 Data 03/18/24 04:45 03/18/24 04:45 Micro: Microbiology 03/13/24 12:54 Blood Culture - Final Blood NO GROWTH AFTER 5 DAYS 03/13/24 12:05 Blood Culture - Final Blood NO GROWTH AFTER 5 DAYS A&P Assessment and plan (1) Enterocolitis: (2) VZV (varicella-zoster virus) infection: (3) Cough: (4) Hypoxia: (5) Hematuria: (6) Atrial fibrillation: (7) Type 2 diabetes mellitus: (8) Hypertension: (9) Depression: (10) Anxiety: (11) History of CVA with residual deficit: (12) S/P percutaneous endoscopic gastrostomy (PEG) tube placement: (13) UTI (urinary tract infection): Plan Charito Tse is a 58 year old female with past medical history of CVA, with residual right-sided hemiplegia, type 2 diabetes mellitus, s/p PEG, gets continuous tube feeds, bedbound, history of decompressive craniectomy for cerebral edema, continues to have a portion of her right parietal skull removed, CAD, is normally alert oriented x 3, can carry out conversations, was brought in by for complaint of persistent worsening cough, fever with Tmax of 101 ?F, vomiting, fatigue, shortness of breath and generalized weakness and found to have skin rash in left flank and pelvic area, left lumbar and lower quadrant tenderness, CT abdomen pelvis consistent with enterocolitis. Shingles Continue antiviral medication Contact isolation only Metabolic encephalopathy Rule out hypercapnia will request ABG, request another CT head Patient has right-sided hemiplegia It is very hard to assess her neurologically She is aware that Henry is in the room but she is extremely fatigued and lethargic Hold off on baclofen, trazodone and desipramine PEG tube feeding 40 mL/h appreciate dietary recommendations Aspiration pneumonia Appreciate dietary recommendations Currently on meropenem and valacyclovir Enterocolitis Switch to Augmentin at discharge when we discontinue IV antibiotics Hypoxia, acute related to hypoventilation and aspiration pneumonia currently doing well on room air Chronic anemia: Hemoglobin stable Chronic thrombocytopenia stable Hypernatremia related dehydration: Resolved A-fib without RVR continue Eliquis and amiodarone Spoke with Henry legal guardian, she is stating that he would like to wait till Sunday to make final decision whether he will opt for palliative care in case there is no improvement at all Attestations 2 Medical Necessity Statement*: Wait till Sunday to assist family to make a decision Diagnoses Enterocolitis K52.9 VZV (varicella-zoster virus) infection B02.9 Cough R05.9 Hypoxia R09.02 Hematuria R31.9 Atrial fibrillation I48.91 Type 2 diabetes mellitus E11.9 Hypertension I10 Depression F32.A Anxiety F41.9 History of CVA with residual deficit I69.30 S/P percutaneous endoscopic gastrostomy (PEG) tube placement Z93.1 UTI (urinary tract infection) N39.0
--- NOTE | 2024-03-19 13:18 | XRR_ITS ---
PROCEDURE INFORMATION: Exam: XR Abdomen Exam date and time: 03/19/2024 2:02 PM Age: 58 years old Clinical indication: Abdominal pain; Generalized; Additional info: R/O obstruction TECHNIQUE: Imaging protocol: Radiologic exam of the abdomen. Views: Frontal supine view of the abdomen. 1 View. COMPARISON: CT abdomen pelvis con [id number] 03/13/2024 1:33 PM FINDINGS: Gastrointestinal tract: There is no obvious bowel obstruction or free air on this plain radiographic examination with the patient in the supine position. Organs: The known left staghorn renal calculus is not obvious on this plain x-ray, possibly obscured by overlying electrodes. Vasculature: Several small calcifications in the pelvis are highly likely to be phleboliths. However, in the proper clinical setting a distal ureteral calculus may need to be considered. Bones/joints: Mild scoliosis. Otherwise, unremarkable. XR/XR KUB portable [id number] IMPRESSION: 1. Several small calcifications in the pelvis are highly likely to be phleboliths. However, in the proper clinical setting a distal ureteral calculus may need to be considered. 2. No other acute findings.
[2024-03-19 13:24] LABS: ABG PCO2 49.8 mmHg (35-45); ABG PH Result 7.49 (7.35-7.45); Arterial Blood Gas Hematocrit 31.4 % (37-47); Base Excess ABG 12.9 mmol/L (-2.0-2.0); Blood Gas Allen Test Pos; Blood Gas Operator Identificat GD; Blood Gas Sample Site Radial, right; Blood Gas Sample Type Arterial; HCO3 ABG 37.9 mmol/L (22-26); Oxygen Device ROOM AIR; PO2 ABG 69.8 mmHg (80.0-100.0); PO2 FiO2 Ratio Arterial Blood 332
[2024-03-19] MEDS: lactulose oral liq 20 gm/30 mL UDC 10 GM PO (14:24)
[2024-03-19 16:58] LABS: Glucose Point of Care 145 mg/dL (70-110)
[2024-03-19 21:45] LABS: Glucose Point of Care 148 mg/dL (70-110)
[2024-03-20] VITALS (9 sets, daily range): BP systolic 142–151; BP diastolic 84–99; PULSE 85–113; RESP 17–18; TEMP 36.7–37.1; O2SAT 90–96
[2024-03-20] MEDS: meropenem 1,000 mg SDV 1000 MG IVP ×4 (00:08→23:50)
[2024-03-20] MEDS: alum-mag-hydroxide-sime 30 mL UDC 15 ML PO ×3 (04:29→20:25)
[2024-03-20 05:23] LABS: Basophils # 0.1 10^3/uL (0.0-0.1); Basophils % 0.7 %; Eosinophils # 0.9 10^3/uL (0.0-0.8); Eosinophils % 6.3 %; Hematocrit 32.1 % (36-47); Lymphocytes # 1.9 10^3/uL (0.8-4.8); Lymphocytes % 13.9 %; Mean Corpuscular HGB Conc 30.2 g/dL (30-55); Mean Corpuscular Hemoglobin 26.9 pg (27-33); Mean Corpuscular Volume 89.2 fl (85-98); Mean Platelet Volume 11.4 fL (7.4-10.4); Monocytes # 1.5 10^3/uL (0.2-0.9); Monocytes % 11.3 %; Neutrophils # 9.02 10^3/uL (1.8-7.7); Neutrophils % 66.8 %; Nucleated Red Blood Cells % 0 %; Platelet Count 227 10^3/cmm (157-399)
[2024-03-20 05:49] LABS: Blood Urea Nitrogen 19 mg/dL (6-20); Calcium 9.1 mg/dL (8.5-10.5); Carbon Dioxide 35 mmol/L (22-29); Chloride 97 mmol/L (98-107); Creatinine Clr Calc Pharmacy 93.4129; Glomerular Filtration Rate 85.9 mL/min (90-130); Glucose 171 mg/dL (65-115); Osmolality Calculated 290 mOsm/kg (285-295); Sodium 137 mmol/L (136-145)
[2024-03-20 05:52] LABS: Anion Gap 9.6 (5-19); Potassium 4.6 mmol/L (3.5-5.1)
[2024-03-20 06:32] LABS: Glucose Point of Care 195 mg/dL (70-110)
[2024-03-20] MEDS: valACYclovir 1,000 mg Tablet 1000 MG PO (08:41)
[2024-03-20] MEDS: lisinopril 20 mg Tablet PO (08:41)
[2024-03-20] MEDS: amiodarone 200 mg Tablet PO (08:41)
[2024-03-20] MEDS: gabapentin 300 mg Capsule PO ×3 (08:41→20:25)
[2024-03-20] MEDS: amlodipine 10 mg Tablet PO (08:41)
[2024-03-20] MEDS: duloxetine 60 mg Capsule PO (08:41)
[2024-03-20] MEDS: guaiFENesin 100 mg/5 mL UDC 10 mL 600 MG PO ×2 (08:41→17:20)
[2024-03-20] MEDS: apixaban 5 mg Tablet PO (08:41)
[2024-03-20] MEDS: insulin lispro 100 unit/1 mL SUBCUT ×4 (08:42→21:59)
[2024-03-20] MEDS: famotidine 20 mg/2 mL INJ IVP ×2 (09:02→20:25)
--- NOTE | 2024-03-20 12:03 | P.PN_ITS ---
Subjective 2 Subjective: Patient had 1 episode of vomiting yesterday after she came back from the CT scan of the head, head CT is unremarkable, KUB was requested which showed no signs of obstruction, She has been afebrile, creatinine has been normal, ABG did not show any signs of hypercapnia This morning patient open her eyes on verbal command She is not able to show any other response other than opening her eyes and blinking accordingly according to the verbal command Vitals/I&O/Wt Last Vital Signs Temp 98.3 F 03/20/24 11:53 Pulse 85 03/20/24 11:53 Resp 17 03/20/24 11:53 BP 148/88 03/20/24 11:53 Pulse Ox 93 03/20/24 11:53 O2 Del Method Room Air 03/20/24 09:16 O2 Flow Rate 2 03/17/24 09:17 03/19/24 03/20/24 03/20/24 22:59 06:59 14:59 Output Total 1300 / 1500 450 / 1950 Balance -1300 / -1500 -450 / -1950 Weight last 48 hrs Weight 79.917 kg Weight 82.129 kg Physical Exam 2 Narrative: Fatigued and lethargic Able to blink eyes appropriately to verbal command Extremity contractures Right-sided weakness more than the left according to the tone of the body Ford catheter in place Left ankle ulcer does not show any sign of worsening Left gluteal cleft ulcer no significant worsening PEG tube feeds running at 40 mL/h Hemodynamically stable Currently on room air Urinary Catheter Management: Ford: Cath Placed During This Visit: yes Reason for Continuing Indwelling Catheter: Chronic Indwelling Urinary Catheter on Admission Urinary Catheter Date of Insertion: 03/14/24 Urinary Catheter Time of Insertion: 00:30 Data 03/20/24 05:14 03/20/24 05:14 A&P Assessment and plan (1) Enterocolitis: (2) VZV (varicella-zoster virus) infection: (3) Cough: (4) Hypoxia: (5) Hematuria: (6) Atrial fibrillation: (7) Type 2 diabetes mellitus: (8) Hypertension: (9) Depression: (10) Anxiety: (11) History of CVA with residual deficit: (12) S/P percutaneous endoscopic gastrostomy (PEG) tube placement: (13) UTI (urinary tract infection): Plan Charito Tse is a 58 year old female with past medical history of CVA, with residual right-sided hemiplegia, type 2 diabetes mellitus, s/p PEG, gets continuous tube feeds, bedbound, history of decompressive craniectomy for cerebral edema, continues to have a portion of her right parietal skull removed, CAD, is normally alert oriented x 3, can carry out conversations, was brought in by for complaint of persistent worsening cough, fever with Tmax of 101 ?F, vomiting, fatigue, shortness of breath and generalized weakness and found to have skin rash in left flank and pelvic area, left lumbar and lower quadrant tenderness, CT abdomen pelvis consistent with enterocolitis. Shingles Will continue treatment for at least 2 weeks considering immunocompromise state, her vesicles are crusting now no signs of disseminated herpes/shingles Metabolic encephalopathy Patient opens her eyes and blinks according to the verbal command CT head unremarkable, ABG not showing hypercapnia No fever, leukocytosis noted, she had 1 episode of vomiting yesterday, aspiration pneumonitis? Patient is n.p.o. PEG tube feeding 40 mL/h appreciate dietary recommendations Aspiration pneumonia Appreciate dietary recommendations Currently on meropenem and valacyclovir Hypernatremia improved with hydration and PEG tube continuous feeds Enterocolitis Switch to levofloxacin Hypoxia, acute related to hypoventilation and aspiration pneumonia currently doing well on room air A-fib without RVR continue Eliquis and amiodarone At this point I do believe patient carries a guarded prognosis, Joleen Hines nurse practitioner also agreed with my assessment and stated that she would probably recommend palliative care if Herny is against hospice Attestations 2 Medical Necessity Statement*: Continue medical management Diagnoses Enterocolitis K52.9 VZV (varicella-zoster virus) infection B02.9 Cough R05.9 Hypoxia R09.02 Hematuria R31.9 Atrial fibrillation I48.91 Type 2 diabetes mellitus E11.9 Hypertension I10 Depression F32.A Anxiety F41.9 History of CVA with residual deficit I69.30 S/P percutaneous endoscopic gastrostomy (PEG) tube placement Z93.1 UTI (urinary tract infection) N39.0
[2024-03-20 12:07] LABS: Glucose Point of Care 168 mg/dL (70-110)
[2024-03-20] MEDS: acyclovir 800 MG in sodium chloride 0.9% (100 ml) 100 ML 110 MG IV ×2 (14:42→21:59)
[2024-03-20] MEDS: lactulose oral liq 20 gm/30 mL UDC 10 GM PEG-TUBE (14:43)
[2024-03-20] MEDS: levETIRAcetam 500 mg Tablet PEG-TUBE ×2 (14:43→17:21)
[2024-03-20 16:45] LABS: Glucose Point of Care 156 mg/dL (70-110)
[2024-03-20 21:25] LABS: Glucose Point of Care 176 mg/dL (70-110)
[2024-03-20 22:49] LABS: Prolactin 17.41 ng/mL (4.8-23.3)
[2024-03-21] VITALS (11 sets, daily range): BP systolic 125–165; BP diastolic 81–98; PULSE 87–118; RESP 16–26; TEMP 36.9–37.2; O2SAT 90–95
--- NOTE | 2024-03-21 | FL_ITS ---
WS: [id number] LUMBAR PUNCTURE CLINICAL INFORMATION: csf for herpes encephalitis TECHNIQUE: Informed consent: The procedure and its potential risk and complications were discussed with the cady ent's . Verbal and written consent was obtained. Timeout: A timeout was performed to confirm correct patient, procedure, and site. Patient was prepped and draped in the usual sterile fashion. Lidocaine 1% was used for local anesthes ia. Utilizing fluoroscopic guidance, a 3.5 inch 22-gauge spinal needle was advanced into the subarach noid space at L3-L4 via right oblique sublaminar approach. Free flow of clear CSF was obtained. 13 cc of CSF was collected and sent the lab for further analysis. FLUOROSCOPIC TIME: 0min [id number] # of spot films: 1 FL/FL guided lumbarpunc dx* [id number] IMPRESSION: Fluoroscopically guided lumbar puncture. No immediate complications
[2024-03-21] MEDS: acyclovir 800 MG in sodium chloride 0.9% (100 ml) 100 ML 110 MG IV ×3 (05:11→21:55)
[2024-03-21] MEDS: alum-mag-hydroxide-sime 30 mL UDC 15 ML PO ×2 (05:11→13:02)
[2024-03-21 06:00] LABS: Basophils # 0.1 10^3/uL (0.0-0.1); Basophils % 0.7 %; Eosinophils # 0.8 10^3/uL (0.0-0.8); Eosinophils % 4.2 %; Hematocrit 31.2 % (36-47); Lymphocytes # 1.8 10^3/uL (0.8-4.8); Lymphocytes % 9.7 %; Mean Corpuscular HGB Conc 30.4 g/dL (30-55); Mean Corpuscular Hemoglobin 26.9 pg (27-33); Mean Corpuscular Volume 88.4 fl (85-98); Mean Platelet Volume 11.4 fL (7.4-10.4); Monocytes # 1.9 10^3/uL (0.2-0.9); Monocytes % 10.2 %; Neutrophils # 13.46 10^3/uL (1.8-7.7); Neutrophils % 74.4 %; Nucleated Red Blood Cells % 0 %; Platelet Count 233 10^3/cmm (157-399); Red Blood Count 3.53 10^6/uL (3.85-5.65); Red Cell Distribution Width 16.2 % (12.1-15.1); White Blood Count 18.11 10^3/uL (3.29-11.43)
[2024-03-21 06:19] LABS: Blood Urea Nitrogen 21 mg/dL (6-20); Calcium 9.1 mg/dL (8.5-10.5); Carbon Dioxide 33 mmol/L (22-29); Chloride 98 mmol/L (98-107); Creatinine Clr Calc Pharmacy 81.0364; Glomerular Filtration Rate 73.7 mL/min (90-130); Glucose 199 mg/dL (65-115); Osmolality Calculated 293 mOsm/kg (285-295); Sodium 137 mmol/L (136-145)
[2024-03-21 06:20] LABS: Lactic Sepsis W/Reflex 1.9 mmol/L (0.5-2.2)
[2024-03-21 06:21] LABS: Anion Gap 10.2 (5-19); Potassium 4.2 mmol/L (3.5-5.1)
[2024-03-21 06:30] LABS: Glucose Point of Care 201 mg/dL (70-110)
[2024-03-21] MEDS: meropenem 1,000 mg SDV 1000 MG IVP ×3 (08:33→23:40)
[2024-03-21] MEDS: insulin lispro 100 unit/1 mL SUBCUT ×3 (08:33→18:06)
[2024-03-21] MEDS: famotidine 20 mg/2 mL INJ IVP ×2 (08:33→21:14)
[2024-03-21] MEDS: levETIRAcetam 500 mg Tablet PEG-TUBE (08:34)
[2024-03-21] MEDS: duloxetine 60 mg Capsule PO (08:34)
[2024-03-21] MEDS: guaiFENesin 100 mg/5 mL UDC 10 mL 600 MG PO ×2 (08:34→18:06)
[2024-03-21] MEDS: amlodipine 10 mg Tablet PO (08:34)
[2024-03-21] MEDS: lisinopril 20 mg Tablet PO (08:34)
[2024-03-21] MEDS: gabapentin 300 mg Capsule PO ×2 (08:34→16:40)
[2024-03-21] MEDS: amiodarone 200 mg Tablet PO (08:34)
--- NOTE | 2024-03-21 12:18 | PC.SLP ---
Patient not alert for therapy. Will continue to follow patient.
--- NOTE | 2024-03-21 12:31 | P.PN_ITS ---
Subjective 2 Subjective: Patient is snoring at the time of evaluation Tried to wake her up, she did not respond much at the bedside Spoke with Dr. Ambrocio for lumbar puncture and MRI Vitals/I&O/Wt Last Vital Signs Temp 98.4 F 03/21/24 08:00 Pulse 100 03/21/24 09:26 Resp 16 03/21/24 09:26 BP 165/98 03/21/24 08:00 Pulse Ox 94 03/21/24 09:26 O2 Del Method Room Air 03/21/24 09:26 O2 Flow Rate 2 03/17/24 09:17 03/20/24 03/21/24 03/21/24 22:59 06:59 14:59 Intake Total 116 / 116 116 / 232 116 / 116 Output Total 1050 / 1050 300 / 300 Balance 116 / 116 -934 / -818 -184 / -184 Weight last 48 hrs Weight 78.471 kg Weight 79.917 kg Physical Exam 2 Narrative: Patient not responding to verbal command and sternal rub Snoring at this point Crusting noted around visible rash left flank area Nondistended abdomen PEG tube feeding 40 mL/h Patient currently on room air Left venous stasis ulcer no significant worsening Hypertensive Urinary Catheter Management: Ford: Cath Placed During This Visit: yes Reason for Continuing Indwelling Catheter: Hospice/Comfort/Palliative Care Urinary Catheter Date of Insertion: 03/14/24 Urinary Catheter Time of Insertion: 00:30 Data 03/21/24 05:41 03/21/24 05:41 A&P Assessment and plan (1) Enterocolitis: (2) VZV (varicella-zoster virus) infection: (3) Cough: (4) Hypoxia: (5) Hematuria: (6) Atrial fibrillation: (7) Type 2 diabetes mellitus: (8) Hypertension: (9) Depression: (10) Anxiety: (11) History of CVA with residual deficit: (12) S/P percutaneous endoscopic gastrostomy (PEG) tube placement: (13) UTI (urinary tract infection): Plan Charito Tse is a 58 year old female with past medical history of CVA, with residual right-sided hemiplegia, type 2 diabetes mellitus, s/p PEG, gets continuous tube feeds, bedbound, history of decompressive craniectomy for cerebral edema, continues to have a portion of her right parietal skull removed, CAD, is normally alert oriented x 3, can carry out conversations, was brought in by for complaint of persistent worsening cough, fever with Tmax of 101 ?F, vomiting, fatigue, shortness of breath and generalized weakness and found to have skin rash in left flank and pelvic area, left lumbar and lower quadrant tenderness, CT abdomen pelvis consistent with enterocolitis. Shingles Patient has been switched to IV acyclovir Crusting noted on vesicles I do not see any midline crusting or more than 2 cutaneous dermatome involvement to suspect dissemination Altered mental status Start acyclovir Possibility for herpes and cephalitis Requested MRI and CSF panel Eliquis on hold Metabolic encephalopathy hard to establish baseline mental status, No fever, leukocytosis noted, she had 1 episode of vomiting , Patient is n.p.o. PEG tube feeding 40 mL/h appreciate dietary recommendations Will request chest x-ray Aspiration pneumonia Appreciate dietary recommendations Currently on meropenem and valacyclovir X-ray today Hypernatremia improved with hydration and PEG tube continuous feeds Enterocolitis Continue antibiotics Hypoxia, acute related to hypoventilation and aspiration pneumonia currently doing well on room air A-fib without RVR continue Eliquis and amiodarone At this point I do believe patient carries a guarded prognosis, Joleen Hines nurse practitioner also agreed with my assessment and stated that she would probably recommend palliative care if Henry is against hospice Attestations 2 Medical Necessity Statement*: Continue medical management Diagnoses Enterocolitis K52.9 VZV (varicella-zoster virus) infection B02.9 Cough R05.9 Hypoxia R09.02 Hematuria R31.9 Atrial fibrillation I48.91 Type 2 diabetes mellitus E11.9 Hypertension I10 Depression F32.A Anxiety F41.9 History of CVA with residual deficit I69.30 S/P percutaneous endoscopic gastrostomy (PEG) tube placement Z93.1 UTI (urinary tract infection) N39.0
--- NOTE | 2024-03-21 12:41 | XRR_ITS ---
PROCEDURE INFORMATION: Exam: XR Chest Exam date and time: 03/21/2024 1:23 PM Age: 58 years old Clinical indication: Shortness of breath; Additional info: Aspiration TECHNIQUE: Imaging protocol: Radiologic exam of the chest. Views: 1 view. COMPARISON: CR XR chest 1V portable [id number] 03/14/2024 3:21 PM FINDINGS: Tubes, catheters and devices: Right PICC line terminates near the atrial caval junction. Lungs: Unremarkable. No consolidation. Pleural spaces: Unremarkable. No pleural effusion. No pneumothorax. Heart/Mediastinum: Unremarkable. No cardiomegaly. Bones/joints: Unremarkable. XR/XR chest 1V portable [id number] IMPRESSION: No acute findings.
--- NOTE | 2024-03-21 13:05 | P.PHAVANC_ITS ---
Vancomycin Goal - Goal Vancomycin Goal:: 10-15 mg/L Vancomycin Indication:: Other (ENTEROCOLITIS) - Therapy Current therapy:: Meropenem, Other Antibiotic (ACYCLOVIR) Day of therpy:: Day []of [] . Actual body weight (kg): 173 lb [place] body weight: 59.3 Dosing weight (kg): 78.4 - Data Labs: WBC 18.11 10^3/uL (3.29-11.43) H 03/21/24 05:41 Corrected WBC Cancelled 03/14/24 03:58 RBC 3.53 10^6/uL (3.85-5.65) L 03/21/24 05:41 Hgb 9.50 g/dL (11.27-16.99) L 03/21/24 05:41 Hct 31.2 % (36-47) L 03/21/24 05:41 MCV 88.4 fl (85-98) 03/21/24 05:41 MCH 26.9 pg (27-33) L 03/21/24 05:41 MCHC 30.4 g/dL (30-55) 03/21/24 05:41 RDW 16.2 % (12.1-15.1) H 03/21/24 05:41 Sodium 137 mmol/L (136-145) 03/21/24 05:41 Potassium 4.2 mmol/L (3.5-5.1) 03/21/24 05:41 Chloride 98 mmol/L (98-107) 03/21/24 05:41 Carbon Dioxide 33 mmol/L (22-29) H 03/21/24 05:41 Anion Gap 10.2 (5-19) 03/21/24 05:41 BUN 21 mg/dL (6-20) H 03/21/24 05:41 Creatinine 0.8 mg/dL (0.5-0.9) 03/21/24 05:41 GFR Calculation 73.7 mL/min (90-130) L 03/21/24 05:41 Last dialysis session:: N/A Treatment plan:: new consult Regimen:: INITIAL DOSE 1250 MG Q12H Follow up:: WILL CONTINUE TO MONITOR AND FOLLOW UP DAILY
[2024-03-21 13:20] LABS: Glucose Point of Care 182 mg/dL (70-110)
[2024-03-21] MEDS: vancomycin 1,250 MG/250 ML PIGGYBACK 166.67 MG IV (13:32)
--- NOTE | 2024-03-21 13:45 | MR_ITS ---
WS: [id number] MRI HEAD WITHOUT CONTRAST TECHNIQUE: Sagittal T1, T2 axial, T2 axial FLAIR, axial and coronal T1 images, axial susceptibility w eighted imaging, axial diffusion weighted images, and coronal T2 images were obtained. CLINICAL INFORMATION: AMS, COMPARISON: CT 03/19/24 FINDINGS: No evidence of restricted diffusion to suggest acute ischemia. Prior postoperative changes RIGHT craniectomy with diffuse encephalomalacia and gliosis RIGHT hemisph ere. Ex vacuo dilatation RIGHT lateral ventricle. Moderate to advanced brainstem atrophy with chronic lacunar infarcts involving the midbrain and yusef. Wallerian degeneration RIGHT cerebral peduncle. Ch ronic lacunar infarcts in the LEFT centrum semiovale and rodriguez radiata extending into the LEFT basal ganglia. Tiny chronic lacunar infarct LEFT thalamus. Moderate parenchymal volume loss involving the cerebellum. Chronic scattered hemosiderin in the RIGHT hemisphere deep to the craniectomy. No acute appearing sig nal abnormalities in the mesial temporal lobes. Normal optic chiasm and pituitary infundibulum. Mucos al thickening with inspissated secretions in the RIGHT maxillary sinus. Mild mucosal thickening in th e paranasal sinuses. Partial opacification LEFT mastoid air cells. MR/MR head wo con* [id number] IMPRESSION: 1. No evidence of restricted diffusion to suggest acute ischemia. 2. Prior postoperative changes RIGHT frontal parietal craniectomy. Ex vacuo di latation RIGHT lateral ventricle with encephalomalacia in the RIGHT hemisphere. 3. Moderate to advanced small vessel changes with moderate parenchymal volume loss. 4. Moderate to advanced brainstem atrophy. Wallerian degeneration RIGHT midbra in. Multiple chronic lacunar infarcts involving the midbrain and yusef. 5. Chronic lacunar infarcts in the LEFT centrum semiovale and rodriguez radiata e xtending into the LEFT basal ganglia. 6. Diffuse opacification of the RIGHT maxillary sinus with inspissated secreti ons and mucosal thickening. 7. No acute appearing signal abnormalities in the mesial temporal lobes.
[2024-03-21] MEDS: levETIRAcetam 500 MG/100 ML PREMIX 400 MG IV (16:40)
[2024-03-21 16:50] LABS: Glucose CSF 93 mg/dL (40-70); Total Protein CSF 102 mg/dL (15-45)
[2024-03-21 17:50] LABS: Glucose Point of Care 141 mg/dL (70-110)
[2024-03-21] MEDS: lisinopril 20 mg Tablet PEG-TUBE (18:06)
[2024-03-21 21:08] LABS: Glucose Point of Care 134 mg/dL (70-110)
[2024-03-22] VITALS (9 sets, daily range): BP systolic 123–146; BP diastolic 73–81; PULSE 79–96; RESP 20–26; TEMP 36.8–37.2; O2SAT 91–95
[2024-03-22] MEDS: vancomycin 1,250 MG/250 ML PIGGYBACK 166.67 MG IV (01:40)
[2024-03-22] MEDS: levETIRAcetam 500 MG/100 ML PREMIX 400 MG IV ×2 (03:10→15:44)
[2024-03-22] MEDS: alum-mag-hydroxide-sime 30 mL UDC 15 ML PO ×3 (05:24→20:21)
[2024-03-22] MEDS: acyclovir 800 MG in sodium chloride 0.9% (100 ml) 100 ML 110 MG IV ×2 (05:25→17:29)
[2024-03-22 05:45] LABS: Basophils # 0.1 10^3/uL (0.0-0.1); Basophils % 0.7 %; Eosinophils # 1.1 10^3/uL (0.0-0.8); Eosinophils % 7.9 %; Hematocrit 30.4 % (36-47); Lymphocytes # 1.6 10^3/uL (0.8-4.8); Lymphocytes % 11.6 %; Mean Corpuscular HGB Conc 29.9 g/dL (30-55); Mean Corpuscular Hemoglobin 26.3 pg (27-33); Mean Corpuscular Volume 87.9 fl (85-98); Mean Platelet Volume 11.9 fL (7.4-10.4); Monocytes # 1.6 10^3/uL (0.2-0.9); Monocytes % 11.7 %; Neutrophils # 9.51 10^3/uL (1.8-7.7); Neutrophils % 67.5 %; Nucleated Red Blood Cells % 0 %; Platelet Count 191 10^3/cmm (157-399); Red Blood Count 3.46 10^6/uL (3.85-5.65); Red Cell Distribution Width 16.1 % (12.1-15.1); White Blood Count 14.07 10^3/uL (3.29-11.43)
[2024-03-22 06:43] LABS: Glucose Point of Care 182 mg/dL (70-110)
[2024-03-22 08:23] LABS: Anion Gap 13.5 (5-19); Blood Urea Nitrogen 28 mg/dL (6-20); Carbon Dioxide 32 mmol/L (22-29); Chloride 97 mmol/L (98-107); Creatinine Clr Calc Pharmacy 54.3173; Glomerular Filtration Rate 46.1 mL/min (90-130); Glucose 190 mg/dL (65-115); Osmolality Calculated 297 mOsm/kg (285-295); Potassium 4.5 mmol/L (3.5-5.1); Sodium 138 mmol/L (136-145)
--- NOTE | 2024-03-22 09:19 | P.PN_ITS ---
Subjective 2 Subjective: Afebrile Patient is still snoring at this point Not responding to sternal rub MRI did not show any temporal lobe signaling CSF received PEG tube running at 40 mL/h Vitals/I&O/Wt Last Vital Signs Temp 98.4 F 03/22/24 07:19 Pulse 80 03/22/24 07:19 Resp 23 H 03/22/24 04:00 BP 146/80 03/22/24 07:19 Pulse Ox 94 03/22/24 07:19 O2 Del Method Room Air 03/22/24 07:19 O2 Flow Rate 2 03/17/24 09:17 03/21/24 03/22/24 03/22/24 22:59 06:59 14:59 Intake Total 466 / 582 582 / 1164 Output Total 550 / 850 650 / 1500 Balance -84 / -268 -68 / -336 Weight last 48 hrs Weight 79.379 kg Weight 78.471 kg Physical Exam 2 Narrative: Patient snoring at the time of evaluation Currently on room air PEG tube in place 40 mL/h Lower extremity mild edema No worsening of pressure ulcer Abdomen distended but soft Neuroexam is limited Patient does not respond to sternal rub which has not changed in last 4 days Urinary Catheter Management: Ford: Cath Placed During This Visit: yes Reason for Continuing Indwelling Catheter: Chronic Indwelling Urinary Catheter on Admission Urinary Catheter Date of Insertion: 03/14/24 Urinary Catheter Time of Insertion: 00:30 Data 03/22/24 04:45 03/22/24 07:57 Micro: Microbiology 03/21/24 15:28 Gram Stain - Final Cerebrospinal Fluid A&P Assessment and plan (1) Enterocolitis: (2) VZV (varicella-zoster virus) infection: (3) Cough: (4) Hypoxia: (5) Hematuria: (6) Atrial fibrillation: (7) Type 2 diabetes mellitus: (8) Hypertension: (9) Depression: (10) Anxiety: (11) History of CVA with residual deficit: (12) S/P percutaneous endoscopic gastrostomy (PEG) tube placement: (13) UTI (urinary tract infection): Plan Charito Tse is a 58 year old female with past medical history of CVA, with residual right-sided hemiplegia, type 2 diabetes mellitus, s/p PEG, gets continuous tube feeds, bedbound, history of decompressive craniectomy for cerebral edema, continues to have a portion of her right parietal skull removed, CAD, is normally alert oriented x 3, can carry out conversations, was brought in by for complaint of persistent worsening cough, fever with Tmax of 101 ?F, vomiting, fatigue, shortness of breath and generalized weakness and found to have skin rash in left flank and pelvic area, left lumbar and lower quadrant tenderness, CT abdomen pelvis consistent with enterocolitis. Shingles Continue antibiotics and acyclovir CSF panel received MRI head did not show any acute CVA or temporal lobe signaling Crusting noted around her vesicles Altered mental status No significant improvement in last 6 days No hypercapnia No sign of stroke on MRI CSF received She was on hospice at 1 Metabolic encephalopathy hard to establish baseline mental status, No fever, leukocytosis noted, she had 1 episode of vomiting , Patient is n.p.o. PEG tube feeding 40 mL/h appreciate dietary recommendations Aspiration pneumonia Leukocytosis improved with antibiotics Hypernatremia improved with hydration and PEG tube continuous feeds Enterocolitis Continue antibiotics Hypoxia, acute related to hypoventilation and aspiration pneumonia currently doing well on room air A-fib without RVR continue Eliquis and amiodarone At this point I do believe patient carries a guarded prognosis, Attestations 2 Medical Necessity Statement*: Continue medical/current management for now Diagnoses Enterocolitis K52.9 VZV (varicella-zoster virus) infection B02.9 Cough R05.9 Hypoxia R09.02 Hematuria R31.9 Atrial fibrillation I48.91 Type 2 diabetes mellitus E11.9 Hypertension I10 Depression F32.A Anxiety F41.9 History of CVA with residual deficit I69.30 S/P percutaneous endoscopic gastrostomy (PEG) tube placement Z93.1 UTI (urinary tract infection) N39.0
[2024-03-22] MEDS: famotidine 20 mg/2 mL INJ IVP ×2 (09:20→20:21)
[2024-03-22] MEDS: amiodarone 200 mg Tablet PO (09:20)
[2024-03-22] MEDS: meropenem 1,000 mg SDV 1000 MG IVP ×2 (09:20→15:44)
[2024-03-22] MEDS: amlodipine 10 mg Tablet PO (09:20)
[2024-03-22] MEDS: insulin lispro 100 unit/1 mL SUBCUT ×3 (09:20→17:11)
[2024-03-22] MEDS: guaiFENesin 100 mg/5 mL UDC 10 mL 600 MG PO ×2 (09:20→17:12)
[2024-03-22] MEDS: duloxetine 60 mg Capsule PO (09:20)
[2024-03-22] MEDS: gabapentin 300 mg Capsule PO ×3 (09:20→20:22)
[2024-03-22] MEDS: lisinopril 20 mg Tablet PEG-TUBE ×2 (09:21→17:12)
[2024-03-22 09:28] LABS: Appearance CSF CLEAR (CLEAR); CSF Mononuclear # 0.235 10^3/uL (50-90); Mononuclear WBC CSF % 99 % (50-90); Polynuclear Cells ,CSF # 0.002 10^3/uL (0-10); Polynuclear WBC CSF % 1 % (0-10); Red Blood Cell CSF 0 10^3/uL (0-0); White Blood Cell CSF 237 /uL (0-5)
[2024-03-22 09:29] LABS: Color CSF COLORLESS (COLORLESS); Pathology Referral Yes
[2024-03-22] MEDS: ipratropium-albuterol 3 mL Neb INHALATION (11:38)
[2024-03-22 12:36] LABS: Glucose Point of Care 198 mg/dL (70-110)
[2024-03-22 14:02] LABS: Vancomycin Trough 36.4 ug/mL (10-15)
[2024-03-22 17:00] LABS: Glucose Point of Care 182 mg/dL (70-110)
[2024-03-22 21:05] LABS: Glucose Point of Care 139 mg/dL (70-110)
[2024-03-23] VITALS (10 sets, daily range): BP systolic 106–144; BP diastolic 52–88; PULSE 77–106; RESP 16–24; TEMP 36.8–37.1; O2SAT 92–96
[2024-03-23] MEDS: meropenem 1,000 mg SDV 1000 MG IVP ×4 (00:08→23:36)
[2024-03-23 01:18] LABS: Vancomycin Trough 31.5 ug/mL (10-15)
[2024-03-23] MEDS: levETIRAcetam 500 MG/100 ML PREMIX 400 MG IV ×2 (04:17→17:54)
[2024-03-23] MEDS: alum-mag-hydroxide-sime 30 mL UDC 15 ML PO ×3 (05:31→20:06)
[2024-03-23 05:38] LABS: Basophils # 0.1 10^3/uL (0.0-0.1); Basophils % 0.9 %; Eosinophils # 1.5 10^3/uL (0.0-0.8); Eosinophils % 11.8 %; Hematocrit 29.9 % (36-47); Lymphocytes # 1.6 10^3/uL (0.8-4.8); Lymphocytes % 12.5 %; Mean Corpuscular HGB Conc 29.4 g/dL (30-55); Mean Corpuscular Hemoglobin 26.2 pg (27-33); Mean Platelet Volume 12.1 fL (7.4-10.4); Monocytes # 1.3 10^3/uL (0.2-0.9); Monocytes % 10.2 %; Neutrophils # 8.22 10^3/uL (1.8-7.7); Neutrophils % 64.1 %; Nucleated Red Blood Cells % 0 %; Platelet Count 265 10^3/cmm (157-399); Red Blood Count 3.36 10^6/uL (3.85-5.65); Red Cell Distribution Width 16.2 % (12.1-15.1); White Blood Count 12.83 10^3/uL (3.29-11.43)
[2024-03-23 06:09] LABS: Blood Urea Nitrogen 31 mg/dL (6-20); Carbon Dioxide 33 mmol/L (22-29); Chloride 97 mmol/L (98-107); Creatinine Clr Calc Pharmacy 50.0985; Glomerular Filtration Rate 42.1 mL/min (90-130); Glucose 187 mg/dL (65-115); Osmolality Calculated 299 mOsm/kg (285-295); Sodium 139 mmol/L (136-145)
[2024-03-23 06:20] LABS: Glucose Point of Care 188 mg/dL (70-110)
[2024-03-23 06:20] LABS: Anion Gap 14.4 (5-19); Potassium 5.4 mmol/L (3.5-5.1)
[2024-03-23] MEDS: acyclovir 800 MG in sodium chloride 0.9% (100 ml) 100 ML 110 MG IV ×2 (06:27→17:53)
[2024-03-23] MEDS: insulin lispro 100 unit/1 mL SUBCUT ×3 (09:27→17:53)
[2024-03-23] MEDS: famotidine 20 mg/2 mL INJ IVP ×2 (09:28→20:07)
[2024-03-23] MEDS: amiodarone 200 mg Tablet PO (09:28)
[2024-03-23] MEDS: gabapentin 300 mg Capsule PO ×3 (09:28→20:07)
[2024-03-23] MEDS: duloxetine 60 mg Capsule PO (09:28)
[2024-03-23] MEDS: guaiFENesin 100 mg/5 mL UDC 10 mL 600 MG PO ×2 (09:28→17:53)
[2024-03-23] MEDS: amlodipine 10 mg Tablet PO (09:28)
[2024-03-23] MEDS: lisinopril 20 mg Tablet PEG-TUBE ×2 (09:28→17:53)
[2024-03-23 12:19] LABS: Glucose Point of Care 175 mg/dL (70-110)
[2024-03-23] MEDS: sodium chloride 0.9% 1,000 ML 50 ML IV (12:31)
--- NOTE | 2024-03-23 13:30 | P.PN_ITS ---
Subjective 2 Subjective: Not getting any response from the patient Sternal rub patient still no response Will request ABG Leukocytosis improving Creatinine worsening noted Added IV fluids along PEG tube feeding 40 mL/h Vitals/I&O/Wt Last Vital Signs Temp 98.5 F 03/23/24 12:22 Pulse 94 03/23/24 12:22 Resp 18 03/23/24 12:22 BP 128/76 03/23/24 12:22 Pulse Ox 96 03/23/24 12:22 O2 Del Method Room Air 03/23/24 12:22 O2 Flow Rate 2 03/17/24 09:17 03/22/24 03/23/24 03/23/24 22:59 06:59 14:59 Intake Total 216 / 216 100 / 316 116 / 116 Output Total 1000 / 1000 875 / 1875 Balance -784 / -784 -775 / -1559 116 / 116 Weight last 48 hrs Weight 79.243 kg Weight 79.379 kg Physical Exam 2 Narrative: I am not getting any response even on sternal rub Neuroexam is limited PEG tube running at 40 mL/h Patient is on room air Abdomen distended nontender Mild swelling of lower extremities/edema Urinary Catheter Management: Ford: Cath Placed During This Visit: yes Reason for Continuing Indwelling Catheter: Hospice/Comfort/Palliative Care Urinary Catheter Date of Insertion: 03/14/24 Urinary Catheter Time of Insertion: 00:30 Data 03/23/24 05:05 03/23/24 05:05 Micro: Microbiology 03/21/24 15:28 Gram Stain - Final Cerebrospinal Fluid CSF Culture - Preliminary A&P Assessment and plan (1) Enterocolitis: (2) VZV (varicella-zoster virus) infection: (3) Cough: (4) Hypoxia: (5) Hematuria: (6) Atrial fibrillation: (7) Type 2 diabetes mellitus: (8) Hypertension: (9) Depression: (10) Anxiety: (11) History of CVA with residual deficit: (12) S/P percutaneous endoscopic gastrostomy (PEG) tube placement: (13) UTI (urinary tract infection): Plan Charito Tse is a 58 year old female with past medical history of CVA, with residual right-sided hemiplegia, type 2 diabetes mellitus, s/p PEG, gets continuous tube feeds, bedbound, history of decompressive craniectomy for cerebral edema, continues to have a portion of her right parietal skull removed, CAD, is normally alert oriented x 3, can carry out conversations, was brought in by for complaint of persistent worsening cough, fever with Tmax of 101 ?F, vomiting, fatigue, shortness of breath and generalized weakness and found to have skin rash in left flank and pelvic area, left lumbar and lower quadrant tenderness, CT abdomen pelvis consistent with enterocolitis. Shingles No signs of dissemination Crusting of vesicles noted Altered mental status No significant improvement in last 7 days Will request another ABG Metabolic encephalopathy MRI did not show temporal lobe signaling Afebrile Leukocytosis improving Repeat ABG Patient is also on Keppra Aspiration pneumonia Leukocytosis improved with antibiotics Guarded prognosis, will discuss hospice care/palliative care with the guardian Attestations 2 Medical Necessity Statement*: Continue medical management Diagnoses Enterocolitis K52.9 VZV (varicella-zoster virus) infection B02.9 Cough R05.9 Hypoxia R09.02 Hematuria R31.9 Atrial fibrillation I48.91 Type 2 diabetes mellitus E11.9 Hypertension I10 Depression F32.A Anxiety F41.9 History of CVA with residual deficit I69.30 S/P percutaneous endoscopic gastrostomy (PEG) tube placement Z93.1 UTI (urinary tract infection) N39.0
[2024-03-23 13:44] LABS: ABG PCO2 50.3 mmHg (35-45); ABG PH Result 7.48 (7.35-7.45); Arterial Blood Gas Hematocrit 29.1 % (37-47); Base Excess ABG 12.7 mmol/L (-2.0-2.0); Blood Gas Allen Test Pos; Blood Gas Operator Identificat CAK; Blood Gas Sample Site Radial, left; Blood Gas Sample Type Arterial; HCO3 ABG 37.7 mmol/L (22-26); Oxygen Device ROOM AIR; PO2 FiO2 Ratio Arterial Blood 304
[2024-03-23 16:32] LABS: Glucose Point of Care 171 mg/dL (70-110)
--- NOTE | 2024-03-23 20:30 | ECG_ITS ---
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 Measurements Intervals [place] Rate: 106 P: 0 MO: 0 QRS: -29 QRSD: 86 T: 64 QT: 283 QTc: 377 Interpretive Statements ATRIAL FLUTTER/TACHYCARDIA WITH RAPID VENTRICULAR RESPONSE WITH ABERRANT CONDUCTION OR VENTRICULAR PREMATURE COMPLEXES LOW QRS VOLTAGE IN PRECORDIAL LEADS [QRS DEFLECTION < 1.0 mV IN CHEST LEADS] ANTEROSEPTAL MYOCARDIAL INFARCTION , PROBABLY OLD [40+ ms Q WAVE IN V1-V4] Compared to ECG 02/29/2024 02:06:11 Aberrant conduction of supraventricular beat(s) now present Low QRS voltage now present Sinus rhythm no longer present Left-axis deviation no longer present Myocardial infarct finding still present Electronically Signed On 03-24-2024 14:15:15 CDT by Jeffy Maldonado M.D. [id number]
[2024-03-23 20:54] LABS: Glucose Point of Care 120 mg/dL (70-110)
[2024-03-23 21:17] LABS: Magnesium 3.1 mg/dL (1.7-2.3)
[2024-03-24] VITALS (8 sets, daily range): BP systolic 141–166; BP diastolic 75–97; PULSE 86–103; RESP 16–26; TEMP 36.8–36.9; O2SAT 94–97
--- NOTE | 2024-03-24 02:00 | PC.NURSE ---
Patient had a nine beat run of v-tach on telemetry confirmed in multiple leads at 03/23. Patient appeared mostly asymptomatic, with flushing on her cheeks and some diaphoresis. Vitals at this time were HR 105, RR 22, BP 128/83. Notified Dr Ross via [employer] messenger at 1930, with patient status and pictures of telemetry strips. He ordered repeat magnesium test and EKG at 2030. EKG machine interpreted result as a-flutter with RVR. Mag level came back 3.1. Notified Dr. Ross of these results, received no new orders.
[2024-03-24] MEDS: sodium chloride 0.9% 1,000 ML 50 ML IV (05:00)
[2024-03-24] MEDS: levETIRAcetam 500 MG/100 ML PREMIX 400 MG IV ×2 (05:00→16:25)
[2024-03-24] MEDS: alum-mag-hydroxide-sime 30 mL UDC 15 ML PO ×2 (05:01→20:17)
[2024-03-24 06:36] LABS: Glucose Point of Care 164 mg/dL (70-110)
[2024-03-24 07:49] LABS: Basophils # 0.1 10^3/uL (0.0-0.1); Eosinophils # 1.3 10^3/uL (0.0-0.8); Eosinophils % 10.3 %; Hematocrit 29.7 % (36-47); Lymphocytes # 1.6 10^3/uL (0.8-4.8); Lymphocytes % 12.9 %; Mean Corpuscular HGB Conc 30.3 g/dL (30-55); Mean Corpuscular Hemoglobin 26.4 pg (27-33); Mean Corpuscular Volume 87.1 fl (85-98); Mean Platelet Volume 11.6 fL (7.4-10.4); Monocytes # 1.2 10^3/uL (0.2-0.9); Monocytes % 9.3 %; Neutrophils # 8.18 10^3/uL (1.8-7.7); Nucleated Red Blood Cells % 0 %; Platelet Count 237 10^3/cmm (157-399); Red Blood Count 3.41 10^6/uL (3.85-5.65); Red Cell Distribution Width 15.9 % (12.1-15.1); White Blood Count 12.39 10^3/uL (3.29-11.43)
[2024-03-24 08:08] LABS: Vancomycin Random 20.4 ug/mL (20.0-40.0)
[2024-03-24 08:10] LABS: Blood Urea Nitrogen 32 mg/dL (6-20); Calcium 9.7 mg/dL (8.5-10.5); Carbon Dioxide 34 mmol/L (22-29); Chloride 99 mmol/L (98-107); Creatinine Clr Calc Pharmacy 46.2188; Glomerular Filtration Rate 38.6 mL/min (90-130); Glucose 173 mg/dL (65-115); Osmolality Calculated 299 mOsm/kg (285-295); Sodium 139 mmol/L (136-145)
[2024-03-24] MEDS: gabapentin 300 mg Capsule PO ×3 (08:43→20:17)
[2024-03-24] MEDS: lisinopril 20 mg Tablet PEG-TUBE (08:43)
[2024-03-24] MEDS: duloxetine 60 mg Capsule PO (08:43)
[2024-03-24] MEDS: amlodipine 10 mg Tablet PO (08:43)
[2024-03-24] MEDS: famotidine 20 mg/2 mL INJ IVP ×2 (08:43→20:17)
[2024-03-24] MEDS: amiodarone 200 mg Tablet PO (08:43)
[2024-03-24] MEDS: acyclovir 800 MG in sodium chloride 0.9% (100 ml) 100 ML 110 MG IV (08:44)
[2024-03-24] MEDS: guaiFENesin 100 mg/5 mL UDC 10 mL 600 MG PO ×2 (08:44→18:11)
[2024-03-24] MEDS: meropenem 1,000 mg SDV 1000 MG IVP ×2 (08:44→16:25)
[2024-03-24] MEDS: insulin lispro 100 unit/1 mL SUBCUT ×3 (08:44→22:41)
--- NOTE | 2024-03-24 10:39 | P.PN_ITS ---
Subjective 2 Subjective: This morning patient is only able to shrug her right shoulder which she is doing intermittently, she is still not responding to verbal command, I was not able to get her to open her eyes even to sternal rub is stating that she responded to him better than the nursing staff We discussed prognostication of herpes and cephalitis which is about 30% mortality even with the treatment, we have decided to keep her on IV antibiotics until Sunday, guarding might be able to take her home on Sunday Leukocytosis improved Worsening of creatinine noted continue fluid hydration Vitals/I&O/Wt Last Vital Signs Temp 98.3 F 03/24/24 07:43 Pulse 92 03/24/24 07:51 Resp 19 H 03/24/24 07:43 BP 161/97 03/24/24 07:43 Pulse Ox 94 03/24/24 07:43 O2 Del Method Room Air 03/24/24 07:43 O2 Flow Rate 2 03/17/24 09:17 03/23/24 03/24/24 03/24/24 22:59 06:59 14:59 Intake Total 216 / 332 924.167 / 1256.167 359.333 / 359.333 Output Total 1200 / 1200 925 / 2125 Balance -984 / -868 -0.833 / -868.833 359.333 / 359.333 Weight last 48 hrs Weight 78.154 kg Weight 79.243 kg Physical Exam 2 Narrative: I do not get a significant response on sternal rub Distended abdomen PEG tube running at 40 mill per hour Lower extremity nonpitting edema Pressure ulcer left ankle does not seem to be worsening Currently patient is on room air Hemodynamically stable Hypertensive Urinary Catheter Management: Ford: Cath Placed During This Visit: yes Reason for Continuing Indwelling Catheter: Other Urinary Catheter Date of Insertion: 03/14/24 Urinary Catheter Time of Insertion: 00:30 Data 03/24/24 07:35 03/24/24 07:35 Micro: Microbiology 03/21/24 15:28 Gram Stain - Final Cerebrospinal Fluid CSF Culture - Preliminary A&P Assessment and plan (1) Enterocolitis: (2) VZV (varicella-zoster virus) infection: (3) Cough: (4) Hypoxia: (5) Hematuria: (6) Atrial fibrillation: (7) Type 2 diabetes mellitus: (8) Hypertension: (9) Depression: (10) Anxiety: (11) History of CVA with residual deficit: (12) S/P percutaneous endoscopic gastrostomy (PEG) tube placement: (13) UTI (urinary tract infection): Plan Charito Tse is a 58 year old female with past medical history of CVA, with residual right-sided hemiplegia, type 2 diabetes mellitus, s/p PEG, gets continuous tube feeds, bedbound, history of decompressive craniectomy for cerebral edema, continues to have a portion of her right parietal skull removed, CAD, is normally alert oriented x 3, can carry out conversations, was brought in by for complaint of persistent worsening cough, fever with Tmax of 101 ?F, vomiting, fatigue, shortness of breath and generalized weakness and found to have skin rash in left flank and pelvic area, left lumbar and lower quadrant tenderness, CT abdomen pelvis consistent with enterocolitis. 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 and IV hydralazine Discontinued lisinopril because of worsening creatinine Aspiration pneumonia Leukocytosis improved with antibiotics Guarded prognosis Attestations 2 Medical Necessity Statement*: Continue medical management till Sunday Diagnoses Enterocolitis K52.9 VZV (varicella-zoster virus) infection B02.9 Cough R05.9 Hypoxia R09.02 Hematuria R31.9 Atrial fibrillation I48.91 Type 2 diabetes mellitus E11.9 Hypertension I10 Depression F32.A Anxiety F41.9 History of CVA with residual deficit I69.30 S/P percutaneous endoscopic gastrostomy (PEG) tube placement Z93.1 UTI (urinary tract infection) N39.0
[2024-03-24 11:41] LABS: Glucose Point of Care 184 mg/dL (70-110)
[2024-03-24] MEDS: FUROsemide 10 mg/mL SDV 4mL 40 MG IVP (12:23)
[2024-03-24] MEDS: vancomycin 1,000 MG in sodium chloride 0.9% 250 ML 250 MG IV (12:24)
[2024-03-24] MEDS: sodium chloride 0.9% 1,000 ML 30 ML IV (12:25)
[2024-03-24 17:20] LABS: Glucose Point of Care 138 mg/dL (70-110)
[2024-03-24] MEDS: hyDRALAzine 25 mg Tablet PEG-TUBE (18:11)
[2024-03-24 22:35] LABS: Glucose Point of Care 150 mg/dL (70-110)
[2024-03-25] VITALS (10 sets, daily range): BP systolic 120–148; BP diastolic 76–88; PULSE 85–102; RESP 16–19; TEMP 36.5–36.9; O2SAT 94–100
--- NOTE | 2024-03-25 02:39 | PC.NURSE ---
This nurse and HADLEY Walker bathed the patient using warm water, soap, and washcloths. Her hair was washed with shampoo and water and braided. Linens were changed as well as telemetry stickers. Heel protectors and socks were applied and pillows used to support both arms and legs. Oral care performed with mouth swabs dipped in mouthwash. During this, the patient spontaneously opened her eyes, but did not track and follow staff around the room or respond to verbal commands. The patient did moan twice during movement.
[2024-03-25] MEDS: alum-mag-hydroxide-sime 30 mL UDC 15 ML PO ×3 (04:34→20:33)
[2024-03-25] MEDS: meropenem 1,000 mg SDV 1000 MG IVP ×2 (04:35→16:39)
[2024-03-25] MEDS: levETIRAcetam 500 MG/100 ML PREMIX 400 MG IV ×2 (04:36→16:38)
[2024-03-25 05:20] LABS: Basophils # 0.1 10^3/uL (0.0-0.1); Basophils % 0.7 %; Eosinophils # 1.1 10^3/uL (0.0-0.8); Eosinophils % 7.4 %; Hematocrit 29.7 % (36-47); Lymphocytes # 1.5 10^3/uL (0.8-4.8); Lymphocytes % 10.4 %; Mean Corpuscular HGB Conc 30.3 g/dL (30-55); Mean Corpuscular Hemoglobin 26.5 pg (27-33); Mean Corpuscular Volume 87.4 fl (85-98); Mean Platelet Volume 11.8 fL (7.4-10.4); Monocytes # 1.1 10^3/uL (0.2-0.9); Monocytes % 7.9 %; Neutrophils # 10.54 10^3/uL (1.8-7.7); Neutrophils % 73.3 %; Nucleated Red Blood Cells % 0 %; Platelet Count 273 10^3/cmm (157-399); White Blood Count 14.39 10^3/uL (3.29-11.43)
[2024-03-25 05:42] LABS: Anion Gap 13.3 (5-19); Blood Urea Nitrogen 34 mg/dL (6-20); Calcium 9.3 mg/dL (8.5-10.5); Carbon Dioxide 33 mmol/L (22-29); Chloride 96 mmol/L (98-107); Creatinine Clr Calc Pharmacy 46.2188; Glomerular Filtration Rate 38.6 mL/min (90-130); Glucose 165 mg/dL (65-115); Osmolality Calculated 295 mOsm/kg (285-295); Potassium 5.3 mmol/L (3.5-5.1); Sodium 137 mmol/L (136-145)
[2024-03-25] MEDS: guaiFENesin 100 mg/5 mL UDC 10 mL 600 MG PO ×2 (11:01→17:34)
[2024-03-25] MEDS: gabapentin 300 mg Capsule PO ×3 (11:03→20:33)
[2024-03-25] MEDS: hyDRALAzine 25 mg Tablet PEG-TUBE ×2 (11:03→17:35)
[2024-03-25] MEDS: famotidine 20 mg/2 mL INJ IVP ×2 (11:03→20:33)
[2024-03-25] MEDS: amlodipine 10 mg Tablet PO (11:03)
[2024-03-25] MEDS: amiodarone 200 mg Tablet PO (11:03)
[2024-03-25] MEDS: insulin lispro 100 unit/1 mL SUBCUT ×3 (11:04→23:17)
[2024-03-25] MEDS: acetaminophen 325 mg Tablet 650 MG PO (11:04)
[2024-03-25 11:48] LABS: Glucose Point of Care 195 mg/dL (70-110)
--- NOTE | 2024-03-25 12:09 | P.PN_ITS ---
Subjective 2 Subjective: Patient is still not responding to sternal rub Vitals/I&O/Wt Last Vital Signs Temp 98.3 F 03/25/24 07:40 Pulse 85 03/25/24 10:48 Resp 16 03/25/24 10:48 BP 127/81 03/25/24 07:40 Pulse Ox 95 03/25/24 10:48 O2 Del Method Room Air 03/25/24 10:48 O2 Flow Rate 2 03/17/24 09:17 03/24/24 03/25/24 03/25/24 22:59 06:59 14:59 Intake Total 366 / 975.333 100 / 1075.333 Output Total 3045 / 3045 650 / 3695 Balance -2679 / -2069.667 -550 / -2619.667 Weight last 48 hrs Weight 78.698 kg Weight 78.154 kg Physical Exam 2 Narrative: No significant change from Sunday She is not opening eyes to sternal rub PEG tube running 40 mL/h IV fluids running as well Ford catheter in place Shingles rash with crusting now Urinary Catheter Management: Ford: Cath Placed During This Visit: yes Reason for Continuing Indwelling Catheter: Other Urinary Catheter Date of Insertion: 03/14/24 Urinary Catheter Time of Insertion: 00:30 Data 03/25/24 04:23 03/25/24 04:23 Micro: Microbiology 03/21/24 15:28 Gram Stain - Final Cerebrospinal Fluid CSF Culture - Final A&P Assessment and plan (1) Enterocolitis: (2) VZV (varicella-zoster virus) infection: (3) Cough: (4) Hypoxia: (5) Hematuria: (6) Atrial fibrillation: (7) Type 2 diabetes mellitus: (8) Hypertension: (9) Depression: (10) Anxiety: (11) History of CVA with residual deficit: (12) S/P percutaneous endoscopic gastrostomy (PEG) tube placement: (13) UTI (urinary tract infection): Plan Charito Tse is a 58 year old female with past medical history of CVA, with residual right-sided hemiplegia, type 2 diabetes mellitus, s/p PEG, gets continuous tube feeds, bedbound, history of decompressive craniectomy for cerebral edema, continues to have a portion of her right parietal skull removed, CAD, is normally alert oriented x 3, can carry out conversations, was brought in by for complaint of persistent worsening cough, fever with Tmax of 101 ?F, vomiting, fatigue, shortness of breath and generalized weakness and found to have skin rash in left flank and pelvic area, left lumbar and lower quadrant tenderness, CT abdomen pelvis consistent with enterocolitis. Herpes encephalitis Continue acyclovir with IV fluids Plan to discharge her by Sunday I do not think patient will have a very good outcome considering her immunocompromise state and active herpes and cephalitis/meningitis BERNABE: Could be related to antimicrobials added IV fluids Hypertension: I have added p.o. and IV hydralazine Discontinued lisinopril because of worsening creatinine Aspiration pneumonia Leukocytosis improved with antibiotics Vancomycin discontinued Continue acyclovir and meropenem for aspiration Guarded prognosis Attestations 2 Medical Necessity Statement*: Discharge on Sunday Diagnoses Enterocolitis K52.9 VZV (varicella-zoster virus) infection B02.9 Cough R05.9 Hypoxia R09.02 Hematuria R31.9 Atrial fibrillation I48.91 Type 2 diabetes mellitus E11.9 Hypertension I10 Depression F32.A Anxiety F41.9 History of CVA with residual deficit I69.30 S/P percutaneous endoscopic gastrostomy (PEG) tube placement Z93.1 UTI (urinary tract infection) N39.0
[2024-03-25 16:57] LABS: Glucose Point of Care 208 mg/dL (70-110)
[2024-03-25] MEDS: sodium chloride 0.9% 1,000 ML 30 ML IV (20:35)
[2024-03-25 21:43] LABS: Glucose Point of Care 193 mg/dL (70-110)
--- NOTE | 2024-03-25 22:11 | CTR_ITS ---
PROCEDURE INFORMATION: Exam: CT Head Without Contrast Exam date and time: 03/25/2024 10:54 PM Age: 58 years old Clinical indication: Stroke-like symptoms; Left facial droop; Additional info: New facial droop, on treatment for encephalitis, new facial droop, assess for TECHNIQUE: Imaging protocol: Computed tomography of the head without contrast. Radiation optimization: All CT scans at this facility use at least one of these dose optimization techniques: automated exposure control; mA and/or kV adjustment per patient size (includes targeted exams where dose is matched to clinical indication); or iterative reconstruction. Other technique: STROKE PROTOCOL was implemented. COMPARISON: MR head wo con* [id number] 03/21/2024 3:46 PM RADIATION DOSE METRICS: Total DLP (mGy-cm): 1312.78 FINDINGS: Brain: Right cerebral hemispheric volume loss and chronic encephalomalacia is unchanged. Chronic left rodriguez radiata lacunar type infarct unchanged. Involutional white matter changes are stable. No midline shift. Chronic lacunar type infarcts in the yusef and midbrain are unchanged. No acute ischemic infarct visualized by CT. Cerebral ventricles: Ex vacuo dilatation of the right lateral ventricle is unchanged. Mild ex vacuo prominence of the left lateral ventricle is also unchanged. No significant interval enlargement. Paranasal sinuses: Unchanged chronic right maxillary sinus opacification. Mastoid air cells: No significant inflammation. Bones: Right-sided craniectomy changes are stable. Soft tissues: Unremarkable. CT/CT head wo con* [id number] IMPRESSION: No acute intracranial abnormality. ASSESSMENT: ASPECTS (Agnes Stroke Program Early CT Score) is 10.
[2024-03-25 22:24] LABS: Glucose Point of Care 212 mg/dL (70-110)
--- NOTE | 2024-03-25 23:50 | PC.NURSE ---
Received report from SANDRA Albright at 1909 and rounded on patient who was resting in bed. At 2029 this nurse to room to administer meds and perform assessment. Meds were administered at 2032 and the bottle of tube feed. water bag, and tubing were changed out. Assessment performed at 2099. This nurse noticed the patient's breathing pattern had changed from the last two nights, and was having periods of breathing very slowly and shallowly, and then quickly and sonorously. The patient's pupils were reactive to light but reactivity was barely detectable. The patient the previous two nights had been breathing with her mouth open and drooling out of the left side of the mouth, but now appeared to have a facial droop on the left side. This nurse notified charge nurse SANDRA Magdaleno of new findings, and SANDRA Magdaleno accompanied this nurse to the patient's room for further assessment. SANDRA Magdaleno agreed with findings, this nurse contacted Dr. Wood via phone call and notified her of findings. Dr. Wood requested repeat blood sugar check and head CT. This nurse and HADLEY Omalley transported patient to CT suite. Patient now returned to room.
[2024-03-26] VITALS (7 sets, daily range): BP systolic 125–147; BP diastolic 72–92; PULSE 94–100; RESP 15–18; TEMP 36.8–36.9; O2SAT 93–95
[2024-03-26] MEDS: meropenem 1,000 mg SDV 1000 MG IVP (04:55)
[2024-03-26] MEDS: levETIRAcetam 500 MG/100 ML PREMIX 400 MG IV (04:55)
[2024-03-26] MEDS: alum-mag-hydroxide-sime 30 mL UDC 15 ML PO (04:55)
[2024-03-26 06:18] LABS: Glucose Point of Care 189 mg/dL (70-110)
[2024-03-26] MEDS: gabapentin 300 mg Capsule PO (09:02)
[2024-03-26] MEDS: amiodarone 200 mg Tablet PO (09:02)
[2024-03-26] MEDS: amlodipine 10 mg Tablet PO (09:02)
[2024-03-26] MEDS: insulin lispro 100 unit/1 mL SUBCUT ×2 (09:03→12:13)
[2024-03-26] MEDS: famotidine 20 mg/2 mL INJ IVP (09:03)
[2024-03-26] MEDS: guaiFENesin 100 mg/5 mL UDC 10 mL 600 MG PO (09:03)
[2024-03-26] MEDS: hyDRALAzine 25 mg Tablet PEG-TUBE (09:03)
[2024-03-26] MEDS: acetaminophen 325 mg Tablet 650 MG PO (09:03)
--- NOTE | 2024-03-26 11:23 | P.DS_ITS ---
Discharge Providers Date of Admission: 03/13/24 15:08 Date of Discharge: March 26, 2024 Attending Provider at Admission: Yessica Calvo MD Attending Provider at Discharge: Yong Foss MD Primary Care Provider: Joleen Hines APN Diagnoses at Discharge Discharge Diagnosis (1) Enterocolitis: Status: Acute (2) VZV (varicella-zoster virus) infection: Status: Acute (3) Cough: Status: Acute (4) Hypoxia: Status: Acute (5) Hematuria: Status: Acute (6) Atrial fibrillation: Status: Acute (7) Type 2 diabetes mellitus: Status: Acute (8) Hypertension: Status: Acute (9) Depression: Status: Acute (10) Anxiety: Status: Acute (11) History of CVA with residual deficit: Status: Acute (12) S/P percutaneous endoscopic gastrostomy (PEG) tube placement: Status: Acute (13) UTI (urinary tract infection): Status: Acute Reason for Visit Reason for Visit: resp distress Hospital Course Hospital Course Charito Tse is a 58 year old female with past medical history of CVA, with residual right-sided hemiplegia, type 2 diabetes mellitus, s/p PEG, gets continuous tube feeds, bedbound, history of decompressive craniectomy for cerebral edema, continues to have a portion of her right parietal skull removed, CAD, is normally alert oriented x 3, can carry out conversations, was brought in by for complaint of persistent worsening cough, fever with Tmax of 101 ?F, vomiting, fatigue, shortness of breath and generalized weakness and found to have skin rash in left flank and pelvic area, left lumbar and lower quadrant tenderness, CT abdomen pelvis consistent with enterocolitis. Patient was kept in the ICU initially, she was put on valacyclovir, broad-spectrum antibiotics, dietary recommended PEG tube feeding continue to be at 40 mL/h, During hospitalization it was hard to define her baseline mentation however on further interviewing the legal guardian and reviewing previous charts we found out that she was able to carry out simple conversation which she was not able to do so, this prompted us to look for herpes and cephalitis, MRI head and CSF studies were done which were consistent with high lymphocyte high protein glucose and lymphocytes consistent with viral infection she was kept on IV acyclovir along IV fluids and PEG tube. Patient's mentation unfortunately did not improve despite use of antimicrobials and Keppra. She is not respond to sternal rub she is not hypercapnic, multiple brain imaging did not show any signs of stroke. I did discuss this case with ethics committee and nurse practitioner Joleen Hines, we do agree that at this point she carries guarded prognosis and palliative care might be more reasonable however legal guardian is against hospice care stating that she was strongly diagnosed by a hospice nurse and not willing to pursue hospice care at this point however he is open to discussion after getting in touch with Joleen Hines who is a nurse practitioner at [facility]. I have called Joleen Hines and discussed this case with her as well. She is also recommending palliative care at this point. Legal guardian is planning to take her home stating that he will pay 2 nurses to come help her out which he was doing since last March. Legal guardian is stating that he is optimistic for her full recovery because she does the same thing every time she gets sick she will take a lot of time to recover and then 1 day she will open eyes and start talking. He is not interesting in group home placement. At the time of discharge I will give patient Augmentin which she will take via PEG tube along acyclovir will do meds to beds Patient has received a lot of fluids she is in positive fluid balance we will also give her Lasix Patient spent 13 days and throughout her hospitalization she has remained on antiviral and antibiotics. Her cultures are negative to date, pending culture at this point his CSF herpes PCR Physical Exam Narrative: Left ankle ulcer without any sign of infection Left gluteal cleft ulcer no active infection Currently on room air Does not respond to sternal rub PEG tube running at 40 mL/h Urinary Catheter Management: Ford: Cath Placed During This Visit: yes Reason for Continuing Indwelling Catheter: Other Urinary Catheter Date of Insertion: 03/14/24 Urinary Catheter Time of Insertion: 00:30 Discharge Data Studies Completed and Pending Completed Studies During Hospitalization Category Date Time Status CT abdomen pelvis wo con [id number] Stat Cat Scan 03/13/24 12:[address] head wo con* [id number] Routine Cat Scan 03/19/24 12:[address] head wo con* [id number] Routine Cat Scan 03/25/24 22:[address] head wo con* [id number] Stat Cat Scan 03/14/24 11:51 Completed CXRP [XR chest 1V portable [id number]] Routine Exams 03/14/24 14:03 Completed FL guided lumbarpunc dx* [id number] Routine Exams 03/21/24 Completed XR KUB portable [id number] Stat Exams 03/19/24 13:18 Completed XR chest 1V portable [id number] Routine Exams 03/21/24 12:41 Completed XR chest 1V portable [id number] Stat Exams 03/13/24 11:07 Completed MR head wo con* [id number] Routine MRI 03/21/24 13:45 Completed Pending at discharge Category Date Time Status Herpes Simplex Virus DNA Routine Lab 03/20/24 13:48 Received OVA and Parasites, Conc and PE Routine Lab 03/15/24 05:56 Received Salmonella / Shigella / Campy Routine Lab 03/15/24 05:56 Received Radiology Impressions Abdomen/Pelvis CT 03/13/24 12:36 IMPRESSION: 1. Increased fluid in the small bowel and colon. More extensive liquid feces. May be due to an enterocolitis. No obstruction. 2. Bilateral renal calcifications with no obstruction. Bilateral lower lobe areas of consolidation are most likely areas of atelectasis. Underlying pneumonia not excluded. 3. Osteopenia. Very subtle lucency of the LEFT femoral head is probably related to osteopenia. Appear to be present on the study also from 02/28/2024. With no history of trauma this is not likely a fracture. KUB X-Ray 03/19/24 13:18 IMPRESSION: 1. Several small calcifications in the pelvis are highly likely to be phleboliths. However, in the proper clinical setting a distal ureteral calculus may need to be considered. 2. No other acute findings. Lumbar Puncture Fluoroscopy 03/21/24 00:00 IMPRESSION: Fluoroscopically guided lumbar puncture. No immediate complications Chest X-Ray 03/21/24 12:41 IMPRESSION: No acute findings. Head MRI 03/21/24 13:45 IMPRESSION: 1. No evidence of restricted diffusion to suggest acute ischemia. 2. Prior postoperative changes RIGHT frontal parietal craniectomy. Ex vacuo dilatation RIGHT lateral ventricle with encephalomalacia in the RIGHT hemisphere. 3. Moderate to advanced small vessel changes with moderate parenchymal volume loss. 4. Moderate to advanced brainstem atrophy. Wallerian degeneration RIGHT midbrain. Multiple chronic lacunar infarcts involving the midbrain and yusef. 5. Chronic lacunar infarcts in the LEFT centrum semiovale and rodriguez radiata extending into the LEFT basal ganglia. 6. Diffuse opacification of the RIGHT maxillary sinus with inspissated secretions and mucosal thickening. 7. No acute appearing signal abnormalities in the mesial temporal lobes. Head CT 03/25/24 22:11 IMPRESSION: No acute intracranial abnormality. ASSESSMENT: ASPECTS (Agnes Stroke Program Early CT Score) is 10. Laboratory Results WBC 14.39 10^3/uL (3.29-11.43) H 03/25/24 04:23 Corrected WBC Cancelled 03/14/24 03:58 RBC 3.40 10^6/uL (3.85-5.65) L 03/25/24 04:23 Hgb 9.00 g/dL (11.27-16.99) L 03/25/24 04:23 Hct 29.7 % (36-47) L 03/25/24 04:23 MCV 87.4 fl (85-98) 03/25/24 04:23 MCH 26.5 pg (27-33) L 03/25/24 04:23 MCHC 30.3 g/dL (30-55) 03/25/24 04:23 RDW 16.0 % (12.1-15.1) H 03/25/24 04:23 Plt Count 273 10^3/cmm (157-399) 03/25/24 04:23 MPV 11.8 fL (7.4-10.4) H 03/25/24 04:23 Gran % Cancelled 03/14/24 03:58 Neut % (Auto) 73.3 % 03/25/24 04:23 Lymph % (Auto) 10.4 % 03/25/24 04:23 [place] % (Auto) 7.9 % 03/25/24 04:23 Eos % (Auto) 7.4 % 03/25/24 04:23 Baso % (Auto) 0.7 % 03/25/24 04:23 Neut # (Auto) 10.54 10^3/uL (1.8-7.7) H 03/25/24 04:23 Lymph # (Auto) 1.5 10^3/uL (0.8-4.8) 03/25/24 04:23 [place] # (Auto) 1.1 10^3/uL (0.2-0.9) H 03/25/24 04:23 Eos # (Auto) 1.1 10^3/uL (0.0-0.8) H 03/25/24 04:23 Baso # (Auto) 0.1 10^3/uL (0.0-0.1) 03/25/24 04:23 Absolute Gran (auto) Cancelled 03/14/24 03:58 Nucleated RBC % (auto) 0 % 03/25/24 04:23 Nucleated RBCs # 0.0 /100WBC 03/25/24 04:23 Specimen Type Arterial 03/23/24 13:33 Sample Site Radial, left 03/23/24 13:33 ABG pH 7.48 (7.35-7.45) H 03/23/24 13:33 ABG pCO2 50.3 mmHg (35-45) H 03/23/24 13:33 ABG pO2 64.0 mmHg (80.0-100.0) L 03/23/24 13:33 ABG PO2/FiO2 Ratio 304 03/23/24 13:33 ABG HCO3 37.7 mmol/L (22-26) H 03/23/24 13:33 ABG O2 Saturation 94.0 03/13/24 11:18 ABG Base Excess 12.7 mmol/L (-2.0-2.0) H 03/23/24 13:33 Aditya Test Pos 03/23/24 13:33 A-a O2 Gradient 15.6 mmHg (5-10) H 03/13/24 11:18 Hematocrit 29.1 % (37-47) L 03/23/24 13:33 Hgb O2 Saturation 92.7 % (95-100) L 03/13/24 11:18 Carboxyhemoglobin 1.2 %THgb (0.4-20.1) 03/13/24 11:18 Methemoglobin 0.2 % (0.4-1.5) L 03/13/24 11:18 Total Hemoglobin 11.2 g/dL (12-16) L 03/13/24 11:18 Sodium 141.0 mmol/L (131-143) 03/13/24 11:18 Potassium 3.8 mmol/L (3.5-5.0) 03/13/24 11:18 Glucose 113.0 mg/dL (70-115) 03/13/24 11:18 Ionized Calcium 1.3 mmol/L (1.1-1.4) 03/13/24 11:18 O2 Delivery Device Room air 03/23/24 13:33 O2 Liters/Min 3.5 % 03/13/24 11:18 FiO2 21.0 % 03/23/24 13:33 [employer] ID Cak 03/23/24 13:33 Sodium 137 mmol/L (136-145) 03/25/24 04:23 Potassium 5.3 mmol/L (3.5-5.1) H 03/25/24 04:23 Chloride 96 mmol/L (98-107) L 03/25/24 04:23 Carbon Dioxide 33 mmol/L (22-29) H 03/25/24 04:23 Anion Gap 13.3 (5-19) 03/25/24 04:23 BUN 34 mg/dL (6-20) H 03/25/24 04:23 Creatinine 1.4 mg/dL (0.5-0.9) H 03/25/24 04:23 GFR Calculation 38.6 mL/min (90-130) L 03/25/24 04:23 Glucose 165 mg/dL (65-115) H 03/25/24 04:23 POC Glucose 189 mg/dL (70-110) H 03/26/24 06:14 Calculated Osmolality 295 mOsm/kg (285-295) 03/25/24 04:23 Lactic Acid 1.9 mmol/L (0.5-2.2) 03/21/24 05:41 Calcium 9.3 mg/dL (8.5-10.5) 03/25/24 04:23 Magnesium 3.1 mg/dL (1.7-2.3) H 03/23/24 20:56 Total Bilirubin 0.2 mg/dL (0.15-1.2) 03/16/24 03:03 AST 19 U/L (0-32) 03/16/24 03:03 ALT < 5 U/L (0-33) 03/16/24 03:03 Alkaline Phosphatase 47 U/L (35-105) 03/16/24 03:03 Total Protein 5.2 g/dL (6.6-8.7) L 03/16/24 03:03 Albumin 2.7 g/dL (3.5-5.2) L 03/16/24 03:03 Globulin 2.5 g/dL (1.3-4.6) 03/16/24 03:03 Prolactin 17.41 ng/mL (4.8-23.3) 03/20/24 05:14 Urine Color Yellow (Yellow) 03/14/24 14:00 Urine Appearance Cloudy (CLEAR) A 03/14/24 14:00 Urine pH 5.5 (5-7) 03/14/24 14:00 Ur [address] [place] 1.014 (1.005-1.030) 03/14/24 14:00 Urine Protein Negative (Negative) 03/14/24 14:00 Urine Glucose (UA) Negative (Normal) 03/14/24 14:00 Urine Ketones 1+ (Negative) H 03/14/24 14:00 Urine Blood 1+ (Negative) A 03/14/24 14:00 Urine Nitrate Negative (Negative) 03/14/24 14:00 Urine Bilirubin Negative (Negative) 03/14/24 14:00 Urine Urobilinogen 0.2 mg/dL (Negative) 03/14/24 14:00 Ur Leukocyte Esterase 2+ (Negative) A 03/14/24 14:00 Urine RBC 11-20 /hpf (0-2) H 03/14/24 14:00 Urine WBC >100 /hpf (0-5) H 03/14/24 14:00 Ur Squamous Epith Cells 0-5 /hpf (0-5) 03/14/24 14:00 Amorphous Sediment Not Reportable 03/14/24 14:00 Urine Bacteria None seen /hpf (NONE) 03/14/24 14:00 Hyaline Casts 8.67 /lpf 03/14/24 14:00 Urine Mucus Trace /hpf 03/13/24 11:42 Urine Yeast 1+ /hpf H 03/14/24 14:00 CSF Appearance Clear (CLEAR) 03/21/24 15:28 CSF Color Colorless (COLORLESS) 03/21/24 15:28 CSF WBC 237 /uL (0-5) H 03/21/24 15:28 CSF RBC 0 10^3/uL (0-0) 03/21/24 15:28 CSF Mononuclear # Auto 0.235 10^3/uL (50-90) L 03/21/24 15:28 CSF Mononuclear WBCs % 99 % (50-90) H 03/21/24 15:28 CSF Polynuclear WBCs # 0.002 10^3/uL (0-10) 03/21/24 15:28 CSF Polynuclear WBCs % 1 % (0-10) 03/21/24 15:28 CSF Diff Comment Yes 03/21/24 15:28 CSF Glucose 93 mg/dL (40-70) H 03/21/24 15:28 CSF Total Protein 102 mg/dL (15-45) H 03/21/24 15:28 Vancomycin Trough 31.5 ug/mL (10-15) H* 03/23/24 00:47 Random Vancomycin 20.4 ug/mL (20.0-40.0) 03/24/24 07:35 C. difficile (PCR) Negative (Negative) 03/15/24 04:25 Coronavirus (PCR) Negative (Negative) 03/13/24 11:15 Influenza A (PCR) Negative (Negative) 03/13/24 11:15 Influenza Type B (PCR) Negative (Negative) 03/13/24 11:15 RSV (PCR) Negative (Negative) 03/13/24 11:15 Vitals Last Vital Signs Temp 98.5 F 03/26/24 07:46 Pulse 95 03/26/24 10:21 Resp 18 03/26/24 10:21 BP 133/85 03/26/24 07:46 Pulse Ox 94 03/26/24 10:21 O2 Del Method Room Air 03/26/24 10:21 O2 Flow Rate 2 03/17/24 09:17 Discharge Plan Discharge Patient Disposition: Home Condition: Good Prescriptions: New amlodipine 10 mg Tablet 10 mg PO DAILY Qty: 60 1RF acyclovir 800 mg tablet 800 mg PO Q6H 7 Days Qty: 28 0RF furosemide [Lasix] 20 mg tablet 20 mg PO DAILY Qty: 30 0RF Continued trazodone 50 mg tablet 100 mg PO BEDTIME morphine concentrate 100 mg/5 mL (20 mg/mL) solution 50 mg PO Q2H MDD 120mg PRN (Reason: Pain, Moderate) amiodarone 200 mg tablet 200 mg PO DAILY benzonatate 200 mg capsule 200 mg PO TID PRN (Reason: Cough) hydrocodone-acetaminophen 5-325 mg tablet 1 tab PO QID PRN (Reason: Pain, Moderate) baclofen 10 mg tablet 10 mg PO TID amlodipine 10 mg tablet 10 mg PO DAILY pantoprazole 40 mg tablet,delayed release (DR/EC) 40 mg PO BID gabapentin 300 mg capsule 300 mg PO TID atropine 1 % drops 2 - 4 drp PO Q2H PRN (Reason: Secretions) lorazepam 2 mg/mL concentrate 0.5 mg PO Q2H PRN (Reason: anxiety or discomfort) desipramine 10 mg tablet 10 mg PO DAILY duloxetine 60 mg capsule,delayed release(DR/EC) 60 mg PO DAILY Jentadueto 2.5-1,000 mg tablet 1 tab PO BID Eliquis 5 mg tablet 5 mg PO BID albuterol sulfate 90 mcg/actuation HFA aerosol inhaler 1 inh inhalation Q6H PRN (Reason: shortness of breath or wheezing) Qty: 8.5 0RF Discontinued lisinopril 20 mg tablet 20 mg PO DAILY Discharge Orders: Discharge Order (Routine); Ordered 03/26/24 Ordered By: Yong Foss Other Ambulatory Orders: DME: Enteral Nutrition (Order) Location: None Selected Ordered By: Yong Foss DME: Hospital Bed (Order) Location: None Selected Ordered By: Yong Foss DME: Miscellaneous (Order) Location: None Selected Ordered By: Yong Foss DME: Miscellaneous (Order) Location: None Selected Ordered By: Yong Foss DME: Miscellaneous (Order) Location: None Selected Ordered By: Yong Foss DME: Nebulizer with Neb Kit (Order) Location: None Selected Ordered By: Yong Foss Referrals: Joleen Hines APN [Primary Care Provider] - Patient Instructions: Opioid Safety Discharge Attestations Time Spent in Discharge Care*: greater than 30 min Quality Metrics Clinical Quality Measures [ No reported AMI, CVA or VTE this stay] Coding Level of Care Code Acute Code for Chg Fwd Diagnoses Enterocolitis K52.9 VZV (varicella-zoster virus) infection B02.9 Cough R05.9 Hypoxia R09.02 Hematuria R31.9 Atrial fibrillation I48.91 Type 2 diabetes mellitus E11.9 Hypertension I10 Depression F32.A Anxiety F41.9 History of CVA with residual deficit I69.30 S/P percutaneous endoscopic gastrostomy (PEG) tube placement Z93.1 UTI (urinary tract infection) N39.0
[2024-03-26 11:57] LABS: Glucose Point of Care 208 mg/dL (70-110)
--- NOTE | 2024-03-26 13:45 | PC.NURSE ---
PICC line removed per doctors order. Pressure dressing applied. Patient tolerated well.
[2024-03-26 20:59] LABS: HSV 1 DNA Not Detected (Not Detected); HSV 2 DNA Not Detected (Not Detected); HSV Source Results Below
== END 2024-03-26 13:48 | disposition home or self-care (01) | DRG 391 ==
LOC: ER 11:25 → MEDSURG 15:08 → ICU 16:32 → MEDSURG 03-17 15:47
PROVIDERS: Internal Medicine; Admitting Provider Internal Medicine; Emergency Provider Family Medicine; PCP Nurse Practitioner Family; Visit Provider Internal Medicine
DX: K52.9 Noninfective gastroenteritis and colitis, unspecified (principal); G93.41 Metabolic encephalopathy; J69.0 Pneumonitis due to inhalation of food and vomit; B02.0 Zoster encephalitis; N39.0 Urinary tract infection, site not specified; E87.0 Hyperosmolality and hypernatremia; N17.9 Acute kidney failure, unspecified; D84.9 Immunodeficiency, unspecified; I69.951 Hemiplegia and hemiparesis following unspecified cerebrovascular disease affecting right dominant side; R09.02 Hypoxemia; I48.91 Unspecified atrial fibrillation; E11.9 Type 2 diabetes mellitus without complications; I10 Essential (primary) hypertension; F32.A Depression, unspecified; F41.9 Anxiety disorder, unspecified; K21.9 Gastro-esophageal reflux disease without esophagitis; I25.10 Atherosclerotic heart disease of native coronary artery without angina pectoris; D53.9 Nutritional anemia, unspecified; D69.6 Thrombocytopenia, unspecified; E86.0 Dehydration; Z74.01 Bed confinement status; Z93.1 Gastrostomy status; Z99.81 Dependence on supplemental oxygen; Z79.01 Long term (current) use of anticoagulants; Z79.891 Long term (current) use of opiate analgesic; Z79.84 Long term (current) use of oral hypoglycemic drugs; Z87.442 Personal history of urinary calculi
CPT/HCPCS: 0241U; 36415; 36416; 36573; 36592; 36600; 51702; 62328; 70450; 70551; 71045; 74018; 74176; 80048; 80051; 80053; 80202; 80503; 81001; 82274; 82330; 82803; 82805; 82945; 82962; 83605; 83630; 83735; 84146; 84157; 85025; 87040; 87045; 87070; 87075; 87086; 87106; 87177; 87205; 87209; 87427; 87449; 87493; 87530; 89050; 92507; 92526; 92610; 93005; 94640; 96365; 96367; 96372; 96374; 96375; 96376; 99285; J0133; J1815; J1940; J1953; J2185; J2270; J3370; J3490; J7030; J7050

== ENCOUNTER 2024-05-24 17:45 | Inpatient (IN) | payer MEDICAID, SELFPAY ==
[2024-05-24] VITALS (40 sets, daily range): BP systolic 70–117; BP diastolic 30–71; PULSE 78–123; RESP 16–30; TEMP 37.6–37.9; O2SAT 92–100; BMI 25.7
--- NOTE | 2024-05-24 17:48 | CTR_ITS ---
PROCEDURE INFORMATION: Exam: CT Head Without Contrast Exam date and time: 05/24/2024 10:53 PM Age: 58 years old Clinical indication: Altered mental status/memory loss and fever; Prior surgery; Surgery date: 6+ months; Surgery type: Craniectomy; Patient HX: Lethargy/unresponsiveness with fever. History of RT CVA. ; Additional info: Encephalopathy, altered mental status TECHNIQUE: Imaging protocol: Computed tomography of the head without contrast. Radiation optimization: All CT scans at this facility use at least one of these dose optimization techniques: automated exposure control; mA and/or kV adjustment per patient size (includes targeted exams where dose is matched to clinical indication); or iterative reconstruction. COMPARISON: CT head wo con* [id number] 03/25/2024 10:54 PM RADIATION DOSE METRICS: Total DLP (mGy-cm): 1640.81 FINDINGS: Brain: Encephalomalacia and gliosis representing chronic infarction is again noted in the left rodriguez radiata. No acute intra- or extra axial fluid collections are identified. The basal cisterns are patent. No mass effect or midline shift is seen. The weber-white matter differentiation is normal. Periventricular hypoattenuation are nonspecific but likely the sequela of chronic small vessel ischemic disease. Cerebral ventricles: Extensive ex vacuo dilation of the right lateral ventricle as outlined above. Radames volume loss and ex vacuo dilatation of the ventricles. Ventricular prominence is disproportionate to sulcal dilation.. Paranasal sinuses: Retained secretions with hyperdensity within the right sphenoid sinus concerning for chronic or fungal sinusitis. There are suspected postoperative findings of right a maxillary antrostomy. Periosteal thickening of the bilateral maxillary sinuses. Mastoid air cells: Mild opacification in the left mastoid air cells. The remaining mastoid air cells appear grossly clear. Orbital cavities: The orbits appear normal. Bones: Redemonstration of postoperative findings of right-sided decompressive craniectomy and underlying chronic encephalomalacia in the right cerebellar hemisphere, grossly unchanged from prior. Extra-axial collection along the anterior aspect of the craniectomy measuring approximately 1.4 cm, (series 12, image 54). Extensive ex vacuo dilation of the left lateral ventricle compatible with chronic porencephaly. No acute calvarial fracture is identified. Soft tissues: No soft tissue abnormalities identified. Vasculature: There are atherosclerotic calcifications of the carotid siphons and the V4 segments of the vertebral arteries. re again noted in the basal ganglia and bilateral thalami. CT/CT head wo con* [id number] IMPRESSION: 1. No evidence of acute intracranial hemorrhage, significant mass effect or midline shift. 2. Right sided decompressive craniectomy with small volume extra-axial collection measuring approximately 1.4 cm). 3. Extensive encephalomalacia in the right cerebellar hemisphere with severe ex vacuo dilation of the right lateral ventricle. 4. Additional chronic findings as outlined above. 5. Please note that CT is insensitive to hemorrhagic strokes and MRIs of the brain should be considered, if there is clinical concern for acute cerebral infarction. 6. Paranasal sinus disease as outlined.
--- NOTE | 2024-05-24 17:48 | XRR_ITS ---
PROCEDURE INFORMATION: Exam: XR Chest Exam date and time: 05/24/2024 7:26 PM Age: 58 years old Clinical indication: Device placement; Ett placement (vent status); Patient HX: Ett confirmation TECHNIQUE: Imaging protocol: Radiologic exam of the chest. Views: 1 view. COMPARISON: CR XR chest 1V portable [id number] 03/21/2024 1:23 PM FINDINGS: Tubes, catheters and devices: Interval placement of the endotracheal tube terminating approximately 2 cm above the carinal angle. Retraction by 1-2 cm could be performed for optimal positioning. Lungs: Low lung volumes and bronchovascular crowding. Increased pulmonary vascularity and interstitial septal thickening. Findings are nonspecific however concerning for mild pulmonary edema. Atypical infection can give a similar appearance. Patchy airspace opacity in the right mid lung could represent underlying pneumonia. Pleural spaces: Trace layering pleural effusions cannot be excluded. No large pleural effusion. No pneumothorax. Heart/Mediastinum: The cardiomediastinal silhouette is stable in appearance. The thoracic aorta is tortuous and atherosclerotic. Bones/joints: There are degenerative changes of the spine and shoulder joints.. Soft tissues: These are viable and pads are seen overlying the chest. padmini. XR/XR chest 1V portable [id number] IMPRESSION: Interval placement of the endotracheal tube terminating approximately 2 cm above the carinal angle. Retraction by 1-2 cm could be performed for optimal positioning.
--- NOTE | 2024-05-24 17:48 | ECG_ITS ---
[email or web address] Test Date: 2024-05-24 Pat Name: Charito Tse Department: Room: Gender: Female Relish Blender: : 1965 Requested By: Rhiannon Crystal Order Number: [id number] Salas MD: Aubrie Roberts M.D. Measurements Intervals [place] Rate: 93 P: 240 NC: 248 QRS: -47 QRSD: 185 T: 47 QT: 415 QTc: 517 Interpretive Statements ECTOPIC ATRIAL RHYTHM WITH FIRST DEGREE AV BLOCK LEFT AXIS DEVIATION [QRS AXIS < -30] LEFT BUNDLE BRANCH BLOCK [120+ ms QRS DURATION, 80+ ms Q/S IN V1/V2, 85+ ms R IN I/aVL/V5/V6] Compared to ECG 03/23/2024 22:20:43 Ectopic atrial rhythm now present. First degree AV block now present.Left-axis deviation now present wide QRS complexes, consider electrolyte abnormalities Left bundle-branch block now present.Atrial flutter no longer present Ventricular premature complex(es) no longer present.Aberrant conduction of supraventricular beat(s) no longer present. Myocardial infarct finding no longer present Electronically Signed On 05-25-2024 22:36:42 DESKIDDING MACHINE OPERATOR by Aubrie Roberts M.D. [email or web address]
--- NOTE | 2024-05-24 17:56 | ED_ITS ---
HPI - Altered Mental Status 2 General: Chief Complaint: Altered Mental Status Stated Complaint: ams Time Seen by Provider: 05/24/24 17:46 History of Present Illness: 58 year old female with past medical his tory (from previous amdission note) of CVA, with residual right-sided hemiplegia, type 2 diabetes mellitus, s/p PEG, gets continuous tube feeds, bedbound, history of decompressive craniectomy for cerebral edema, continues to have a portion of her right parietal skull removed, CAD, is normally alert oriented x 3, can carry out conversations who presents emergency room today with altered mental status, hypoxemia, fever and decreased responsiveness. She is requiring very large amount of oxygen. She is on a nonrebreather at 15 L with a sat of 92% on presentation. Related Data Home Medications Medication Instructions Recorded Confirmed amiodarone 200 mg tablet 200 mg PO DAILY 02/29/24 03/13/24 amlodipine 10 mg tablet 10 mg PO DAILY 02/29/24 03/13/24 apixaban 5 mg tablet (Eliquis) 5 mg PO BID 02/29/24 03/13/24 atropine 1 % eye drops 2 - 4 drp PO Q2H PRN Secretions 02/29/24 03/13/24 baclofen 10 mg tablet 10 mg PO TID 02/29/24 03/13/24 benzonatate 200 mg capsule 200 mg PO TID PRN Cough 02/29/24 03/13/24 desipramine 10 mg tablet 10 mg PO DAILY 02/29/24 03/13/24 duloxetine 60 mg capsule,delayed 60 mg PO DAILY 02/29/24 03/13/24 release gabapentin 300 mg capsule 300 mg PO TID 02/29/24 03/13/24 hydrocodone 5 mg-acetaminophen 325 1 tab PO QID PRN Pain, Moderate 02/29/24 03/13/24 mg tablet linagliptin 2.5 mg-metformin 1,000 1 tab PO BID 02/29/24 03/13/24 mg tablet (Jentadueto) lorazepam 2 mg/mL oral concentrate 0.5 mg PO Q2H PRN anxiety or 02/29/24 03/13/24 discomfort morphine concentrate 100 mg/5 mL 50 mg PO Q2H PRN Pain, Moderate 02/29/24 03/13/24 (20 mg/mL) oral solution pantoprazole 40 mg tablet,delayed 40 mg PO BID 02/29/24 03/13/24 release trazodone 50 mg tablet 100 mg PO BEDTIME 02/29/24 03/13/24 Previous Rx's Medication Instructions Recorded albuterol sulfate 90 mcg/actuation 1 inh inhalation Q6H PRN shortness 03/04/24 aerosol inhaler of breath or wheezing #8.5 grams amlodipine 10 mg tablet 10 mg PO DAILY #60 tabs 03/26/24 furosemide 20 mg tablet (Lasix) 20 mg PO DAILY #30 tabs 03/26/24 Allergies Allergy/AdvReac Type Severity Reaction Status Date / Time Penicillins Allergy Unknown Verified 02/28/24 18:23 Review of Systems 2 General: Reports: ROS unobtainable due to medical condition PFSH ED 2 PFSH: Medical History Type 2 diabetes mellitus Hospice care History of CAD (coronary artery disease) History of type 2 diabetes mellitus History of CVA with residual deficit Surgical History Hx of craniotomy S/P percutaneous endoscopic gastrostomy (PEG) tube placement Social History Smoking and tobacco/nicotine status: never used tobacco/nicotine Alcohol intake: never Substance/Drug Use: never Physical Exam 2 Narrative: General: responds minimally to painful stimuli. Patient is generally in poor condition. She has bedsores. She has contractures on the right. Skin: Warm, dry Head: Indention of the right skull where she had craniotomy Neck: Supple, trachea midline. Eye: Extraocular movements are intact. Ears, nose, mouth and throat: Dry oral mucosa. Cardiovascular: Regular rate and rhythm, Normal peripheral perfusion. Respiratory: Lungs are clear to auscultation, respirations are non-labored, breath sounds are equal, Symmetrical chest wall expansion. Gastrointestinal: Soft, Non distended, Normal bowel sounds. Musculoskeletal: no deformity. Neurological: Not Alert and oriented, chronic right-sided weakness and contractures Psychiatric: unable to assess. Course 2 Vital Signs: Vital signs: Vital Signs Temperature 100.3 F H 05/24/24 17:46 Pulse Rate 90 05/24/24 18:56 Respiratory Rate 18 05/24/24 19:43 Blood Pressure 98/55 05/24/24 18:56 Pulse Oximetry 98 05/24/24 18:56 Oxygen Delivery Me thod Non-Rebreather 05/24/24 18:56 Oxygen Flow Rate 15 05/24/24 18:56 MDM - Altered Mental Status Medical Decision Making Medical decision making: Differential diagnosis including but not limited to and based on the above HPI, review of systems and physical exam: In this patient with altered mental status: Stroke. Hypoglycemia. Metabolic encephalopathy. Infections such as pneumonia, urinary tract infection, Covid-19, Influenza. Electrolyte abnormalities such as hypernatremia. Renal failure / uremia. Hepatic encephalopathy. Hypoxemia. Hypercapnic respiratory failure. Psychosis. Drug or alcohol intoxication. Medication overdose. Orders placed to evaluate differential diagnosis based on the above differential, HPI and physical exam EKG: Time 180. Rate 93. Normal sinus rhythm, No ST-T changes, no ectopy, new onset left bundle branch block, This was reviewed and interpreted by myself the ER physician at 1804. MDM: I spoke with the man who says he is her legal guardian. He says he spoke with her just in the last week and that she had said she wants everything done. That she would not want full invasive measures and she wants to try to move forward. I discussed that her condition is extremely tentative right now and that she is going to require dialysis and intubation and she may not survive all of this anyway. He says she would want it all done. Endotracheal intubation Time: 1929. Confirmed: Patient, procedure, and site correct. Consent: , Emergent. Indication: Respiratory failure. Procedural sedation: etomidate initially. Could not use succinylcholine. She continued to breathe on her own and actually became more alert than she had been. She was then given a dose of rocuronium, still awake then another dose of etomidate and then a dose of vecuronium. She still continued to [place] the vent slightly after she was intubated.. Monitoring: Cardiac, blood pressure, continuous pulse oximetry. Preparation: Pre oxygenated, Inline stabilization of cervical spine maintained, Ensured proper cuff inflation. Technique: Oral intubation: A 8 ET tube was inserted, glydescope, visualized cords and ett passing through cords. . Confirmation of tube placement: Bilateral chest rise, Positive color change indicated on end title CO2. Of note there was a large amount of purulent appearing secretions from her lungs. She most definitely has a pneumonia. Post procedure exam: Equal breath sounds. Complications: None. Performed by: Self. Total time: 10 minutes. Lab Review: Laboratory results were reviewed and interpreted by myself the emergency room physician. Significant leukocytosis with a white count of 25,000. Lactate is 3.0. BUN and creatinine are 111 and 2.1. Another very significant lab abnormality is a potassium of 9.2. It was 7.8 on her blood gas. So this is likely real. She has a new left bundle branch block that was not present on her previous admission. Cardiac markers are slightly elevated at 70 and 65 which is not a significant change and this is likely secondary to her renal failure. I reviewed the patient's medical record. Consultation: I spoke with Dr. Horn who is telemedicine nephrology. She will consult on the patient who likely will require emergent dialysis. She agrees with Kayexalate, D10, insulin, calcium gluconate. Reexamination: Patient is now on a vent and blood pressure is more stable but she is requiring quite a bit of Levophed. She has had a right sided dialysis catheter placed in her groin. She is satting well on a ventilator. Consultation: I spoke with Dr. Ram who is familiar with the patient and saw her on previous visit. He says that she had gone home on hospice. He is seen the patient in the emergency room. Patient is being admitted to the ICU. Assessment and plan: Sepsis Pneumonia Acute on chronic renal failure Hyperkalemia Dehydration Leukocytosis Fever Decubitus ulcers History of CVA Acute hypoxemic respiratory failure -3 L normal saline bolus. Fluid volumes based on ideal body weight. -Now requiring Levophed. -Meropenem and Zyvox given. -Broad-spectrum antibiotics were administered. -Sepsis quality measures. -Lactic acid with a reflex was ordered. -Blood cultures were ordered. ?Nephrology consulted -Dialysis catheter placed by surgery. ? IV calcium gluconate, insulin, D50. Kayexalate down the NG tube ?Patient was intubated secondary to respiratory failure and decreased mentation for airway protection. She had obvious copious purulent secretions coming from her airway at the time of intubation. -I discussed the patient with the hospitalist on-call who is admitting the patient. - Discussed findings and plan with patient's caregiver. Answered any questions. - All laboratory values were reviewed and interpreted personally by myself, the ER physician - All imaging was reviewed and interpreted personally by myself, the ER physician. - Evaluation and treatment of this problem were appropriate in the emergency setting Critical care -I spent a total of >75 minutes of critical care time managing the patient, independent of any other practitioner. -The time involved in the performance of separately reportable procedures was not counted towards critical care time. Lab Data 05/24/24 17:52 05/24/24 17:52 Radiology Impressions Chest X-Ray 05/24/24 17:48 IMPRESSION: Interval placement of the endotracheal tube terminating approximately 2 cm above the carinal angle. Retraction by 1-2 cm could be performed for optimal positioning. Laboratory Results WBC 24.48 10^3/uL (3.29-11.43) H 05/24/24 17:52 RBC 3.31 10^6/uL (3.85-5.65) L 05/24/24 17:52 Hgb 9.10 g/dL (11.27-16.99) L 05/24/24 17:52 Hct 31.8 % (36-47) L 05/24/24 17:52 MCV 96.1 fl (85-98) 05/24/24 17:52 MCH 27.5 pg (27-33) 05/24/24 17:52 MCHC 28.6 g/dL (30-55) L 05/24/24 17:52 RDW 15.6 % (12.1-15.1) H 05/24/24 17:52 Plt Count 331 10^3/cmm (157-399) 05/24/24 17:52 MPV 13.1 fL (7.4-10.4) H 05/24/24 17:52 Neut % (Auto) 88.0 % 05/24/24 17:52 Lymph % (Auto) 4.0 % 05/24/24 17:52 [place] % (Auto) 6.2 % 05/24/24 17:52 Eos % (Auto) 0.0 % 05/24/24 17:52 Baso % (Auto) 0.3 % 05/24/24 17:52 Neut # (Auto) 21.53 10^3/uL (1.8-7.7) H 05/24/24 17:52 Lymph # (Auto) 1.0 10^3/uL (0.8-4.8) 05/24/24 17:52 [place] # (Auto) 1.5 10^3/uL (0.2-0.9) H 05/24/24 17:52 Eos # (Auto) 0.0 10^3/uL (0.0-0.8) 05/24/24 17:52 Baso # (Auto) 0.1 10^3/uL (0.0-0.1) 05/24/24 17:52 Nucleated RBC % (auto) 0 % 05/24/24 17:52 Nucleated RBCs # 0.0 /100WBC 05/24/24 17:52 Specimen Type Arterial 05/24/24 17:51 Sample Site Brachial, left 05/24/24 17:51 ABG pH 7.28 (7.35-7.45) L 05/24/24 17:51 ABG pCO2 61.1 mmHg (35-45) H* 05/24/24 17:51 ABG pO2 68.4 mmHg (80.0-100.0) L 05/24/24 17:51 ABG PO2/FiO2 Ratio 68 05/24/24 17:51 ABG HCO3 28.5 mmol/L (22-26) H 05/24/24 17:51 ABG O2 Saturation 92.2 05/24/24 17:51 ABG Base Excess 1.1 mmol/L (-2.0-2.0) 05/24/24 17:51 Aditya Test N/a 05/24/24 17:51 A-a O2 Gradient 74.7 mmHg (5-10) H 05/24/24 17:51 Hematocrit 25.5 % (37-47) L 05/24/24 17:51 Hgb O2 Saturation 90.6 % (95-100) L 05/24/24 17:51 Carboxyhemoglobin 1.1 %THgb (0.4-20.1) 05/24/24 17:51 Methemoglobin 0.7 % (0.4-1.5) 05/24/24 17:51 Total Hemoglobin 8.3 g/dL (12-16) L 05/24/24 17:51 Sodium 146.0 mmol/L (131-143) H 05/24/24 17:51 Potassium 8.7 mmol/L (3.5-5.0) H 05/24/24 17:51 Glucose mg/dL (70-115) 05/24/24 17:51 Ionized Calcium 1.4 mmol/L (1.1-1.4) 05/24/24 17:51 O2 Delivery Device Nrb 05/24/24 17:51 O2 Liters/Min 15.0 % 05/24/24 17:51 FiO2 100.0 % 05/24/24 17:51 Technical Assistance Consultant ID Amh 05/24/24 17:51 Sodium 144 mmol/L (136-145) 05/24/24 17:52 Potassium 9.2 mmol/L (3.5-5.1) H* 05/24/24 17:52 Chloride 106 mmol/L (98-107) 05/24/24 17:52 Carbon Dioxide 26 mmol/L (22-29) 05/24/24 17:52 Anion Gap 21.2 (5-19) H 05/24/24 17:52 BUN 111 mg/dL (6-20) H* D 05/24/24 17:52 Creatinine 2.1 mg/dL (0.5-0.9) H 05/24/24 17:52 GFR Calculation 24.2 mL/min (90-130) L 05/24/24 17:52 Glucose 114 mg/dL (65-115) 05/24/24 17:52 Calculated Osmolality 334 mOsm/kg (285-295) H 05/24/24 17:52 Lactic Acid 2.9 mmol/L (0.5-2.2) H 05/24/24 17:52 Calcium 10.5 mg/dL (8.5-10.5) 05/24/24 17:52 Phosphorus 4.4 mg/dL (2.5-4.5) 05/24/24 17:52 Magnesium 2.9 mg/dL (1.7-2.3) H 05/24/24 17:52 Total Bilirubin 0.2 mg/dL (0.15-1.2) 05/24/24 17:52 AST 9 U/L (0-32) 05/24/24 17:52 ALT 6 U/L (0-33) 05/24/24 17:52 Alkaline Phosphatase 53 U/L (35-105) 05/24/24 17:52 Troponin T Baseline 70 ng/L (0-10) H 05/24/24 17:52 Troponin T 120 Minute 65.05 ng/L (0-10) H 05/24/24 19:20 Delta Troponin T -4.95 ABS# (0-10) L 05/24/24 19:20 NT-Pro-B Natriuret Pep 1705 pg/mL (0-125) H 05/24/24 17:52 Total Protein 6.9 g/dL (6.6-8.7) 05/24/24 17:52 Albumin 3.4 g/dL (3.5-5.2) L 05/24/24 17:52 Globulin 3.5 g/dL (1.3-4.6) 05/24/24 17:52 Coronavirus (PCR) Negative (Negative) 05/24/24 17:57 Hep Bs Antigen Non-reactive (Nonreactive) 05/24/24 17:52 Hep Bs Antibody < 3.5 (11.5-1000) L 05/24/24 17:52 Hep B Core Total Ab Non-reactive (Nonreactive) 05/24/24 17:52 Influenza A (PCR) Negative (Negative) 05/24/24 17:57 Influenza Type B (PCR) Negative (Negative) 05/24/24 17:57 RSV (PCR) Negative (Negative) 05/24/24 17:57 All radiology interpretation(s) finalized by discharge Discharge Plan Discharge Patient Disposition: Admitted As Inpatient Clinical Impression: Sepsis, Pneumonia, Acute metabolic encephalopathy, Acute on chronic renal insufficiency, Hyperkalemia, Hypotension Condition: Stable Coding Level of Care Code ED Human Resources Operations Director for Tasha Alva
[2024-05-24 18:02] LABS: ABG PH Result 7.28 (7.35-7.45); Alveolar-Arterial Oxygen Gradi 74.7 mmHg (5-10); Arterial Blood Gas Hematocrit 25.5 % (37-47); Base Excess ABG 1.1 mmol/L (-2.0-2.0); Blood Gas Operator Identificat AMH; Blood Gas Sample Site Brachial, left; Blood Gas Sample Type Arterial; Carboxyhemoglobin 1.1 %THgb (0.4-20.1); HCO3 ABG 28.5 mmol/L (22-26); HGB O2 Sat 90.6 % (95-100); Ionized Calcium Level - ABG 1.4 mmol/L (1.1-1.4); Methemoglobin 0.7 % (0.4-1.5); Oxygen Device NRB; Oxygen Saturation ABG 92.2; PO2 ABG 68.4 mmHg (80.0-100.0); PO2 FiO2 Ratio Arterial Blood 68; Potassium Level - ABG 8.7 mmol/L (3.5-5.0); Total Hemoglobin 8.3 g/dL (12-16)
[2024-05-24 18:03] LABS: ABG PCO2 61.1 mmHg (35-45)
[2024-05-24 18:11] LABS: Hematocrit 31.8 % (36-47); Mean Corpuscular HGB Conc 28.6 g/dL (30-55); Mean Platelet Volume 13.1 fL (7.4-10.4); Nucleated Red Blood Cells % 0 %
[2024-05-24 18:15] LABS: Basophils # 0.1 10^3/uL (0.0-0.1); Basophils % 0.3 %; Mean Corpuscular Hemoglobin 27.5 pg (27-33); Mean Corpuscular Volume 96.1 fl (85-98); Monocytes # 1.5 10^3/uL (0.2-0.9); Monocytes % 6.2 %; Neutrophils # 21.53 10^3/uL (1.8-7.7); Platelet Count 331 10^3/cmm (157-399); Red Blood Count 3.31 10^6/uL (3.85-5.65); Red Cell Distribution Width 15.6 % (12.1-15.1); White Blood Count 24.48 10^3/uL (3.29-11.43)
[2024-05-24 18:32] LABS: Troponin(5th) Baseline 70 ng/L (0-10)
[2024-05-24 18:35] LABS: Lactic Sepsis W/Reflex 2.9 mmol/L (0.5-2.2)
[2024-05-24 18:41] LABS: Covid PCR NEGATIVE (Negative); Influenza A NEGATIVE (Negative); Influenza B NEGATIVE (Negative); Respiratory Syncytial Virus Ce NEGATIVE (Negative)
[2024-05-24 18:45] LABS: Alanine Aminotransferase 6 U/L (0-33); Albumin Level 3.4 g/dL (3.5-5.2); Alkaline Phosphatase 53 U/L (35-105); Anion Gap 21.2 (5-19); Aspartate Amino Transferase 9 U/L (0-32); Calcium 10.5 mg/dL (8.5-10.5); Carbon Dioxide 26 mmol/L (22-29); Chloride 106 mmol/L (98-107); Creatinine Clr Calc Pharmacy 29.5329; Globulin 3.5 g/dL (1.3-4.6); Glomerular Filtration Rate 24.2 mL/min (90-130); Glucose 114 mg/dL (65-115); NT Pro B Type Natriuretic Pept 1705 pg/mL (0-125); Osmolality Calculated 334 mOsm/kg (285-295); Sodium 144 mmol/L (136-145); Total Bilirubin 0.2 mg/dL (0.15-1.2); Total Protein 6.9 g/dL (6.6-8.7)
[2024-05-24 18:46] LABS: Blood Urea Nitrogen 111 mg/dL (6-20); Potassium 9.2 mmol/L (3.5-5.1)
[2024-05-24] MEDS: sodium chloride 0.9% 1,000 ML 999 ML IV ×3 (18:55→20:20)
[2024-05-24] MEDS: etomidate 2 mg/mL INJ SDV 10 mL 20 MG IVP (19:28)
[2024-05-24] MEDS: rocuronium 10 mg/mL INJ 5mL 100 MG IVP (19:30)
[2024-05-24] MEDS: norepinephrine 4 MG/250 ML BAG 22.5 MG IV (19:40)
[2024-05-24 19:48] LABS: Troponin 5 2HR 65.05 ng/L (0-10)
--- NOTE | 2024-05-24 19:48 | ECG_ITS ---
[employer] Test Date: 2024-05-24 Pat Name: Charito Tse Department: Room: [facility] Gender: Female Embed[employer] Processor: : 1965 Requested By: Rhiannon Crystal Order Number: [id number] Salas MD: Aubrie Roberts M.D. Measurements Intervals [place] Rate: 116 P: 0 MS: 0 QRS: 89 QRSD: 126 T: 165 QT: 357 QTc: 497 Interpretive Statements ATRIAL FLUTTER/TACHYCARDIA WITH RAPID VENTRICULAR RESPONSE MODERATE INTRAVENTRICULAR CONDUCTION DELAY [110+ ms QRS DURATION] MODERATE T-WAVE ABNORMALITY, CONSIDER INFERIOR ISCHEMIA [-0.1+ mV T-WAVE IN II/aVF] Compared to ECG 05/24/2024 18:01:27 Intraventricular conduction delay now present T-wave abnormality now present Possible ischemia now present Ectopic atrial rhythm no longer present First degree AV block no longer present Left-axis deviation no longer present Left bundle-branch block no longer present Electronically Signed On 05-25-2024 22:42:42 STRATEGY ANALYST by Aubrie Roberts M.D. [email or web address]
--- NOTE | 2024-05-24 19:49 | P.CONIM_ITS ---
Providers/Reason For Consult 2 Consulting Physician/Specialty*: kommaana/Nephrology Reason for Consult*: BERNABE , hyperkalemia Primary Care Provider: Joleen Hines APN History of Present Illness History of Present Illness Charito Tse is a 58 year old female Patient is a 58-year-old male with past medical history significant for CVA and bedbound status, status post PEG tube history of prior decompressive craniotomy altered mental status, not responding well per caregiver. Patient was intubated in the emergency department for airway protection, lab data significant for potassium more than 9 creatinine of 2.8. Temporary HD catheter was placed in the ER. Review of Systems 2 Narrative: Cannot obtain from patient Medications/Allergies Home Medications Medication Instructions Recorded Confirmed Last Taken Type amiodarone 200 mg tablet 200 mg PO DAILY 02/29/24 03/13/24 Unknown History amlodipine 10 mg tablet 10 mg PO DAILY 02/29/24 03/13/24 Unknown History apixaban 5 mg tablet (Eliquis) 5 mg PO BID 02/29/24 03/13/24 Unknown History atropine 1 % eye drops 2 - 4 drp PO Q2H PRN Secretions 02/29/24 03/13/24 Unknown History baclofen 10 mg tablet 10 mg PO TID 02/29/24 03/13/24 Unknown History benzonatate 200 mg capsule 200 mg PO TID PRN Cough 02/29/24 03/13/24 Unknown History desipramine 10 mg tablet 10 mg PO DAILY 02/29/24 03/13/24 Unknown History duloxetine 60 mg capsule,delayed 60 mg PO DAILY 02/29/24 03/13/24 Unknown History release gabapentin 300 mg capsule 300 mg PO TID 02/29/24 03/13/24 Unknown History hydrocodone 5 mg-acetaminophen 325 1 tab PO QID PRN Pain, Moderate 02/29/24 03/13/24 Unknown History mg tablet linagliptin 2.5 mg-metformin 1,000 1 tab PO BID 02/29/24 03/13/24 Unknown History mg tablet (Jentadueto) lorazepam 2 mg/mL oral concentrate 0.5 mg PO Q2H PRN anxiety or 02/29/24 03/13/24 Unknown History discomfort morphine concentrate 100 mg/5 mL 50 mg PO Q2H PRN Pain, Moderate 02/29/24 03/13/24 Unknown History (20 mg/mL) oral solution pantoprazole 40 mg tablet,delayed 40 mg PO BID 02/29/24 03/13/24 Unknown History release trazodone 50 mg tablet 100 mg PO BEDTIME 02/29/24 03/13/24 Unknown History albuterol sulfate 90 mcg/actuation 1 inh inhalation Q6H PRN shortness 03/04/24 03/13/24 Unknown Rx aerosol inhaler of breath or wheezing #8.5 grams amlodipine 10 mg tablet 10 mg PO DAILY #60 tabs 03/26/24 Unknown Rx furosemide 20 mg tablet (Lasix) 20 mg PO DAILY #30 tabs 03/26/24 Unknown Rx Allergies Allergy/AdvReac Type Severity Reaction Status Date / Time Penicillins Allergy Unknown Verified 02/28/24 18:23 PFSH Acute 2 PFSH: Medical History (Updated 05/24/24 @ 21:23 by Yong Foss MD) Hilar mass Left-sided with possible pneumonia. CTA on 02/27 UTI (urinary tract infection) Acute hypoxemic respiratory failure Pneumonia Anxiety Depression Hypertension Atrial fibrillation Hematuria Hypoxia Cough VZV (varicella-zoster virus) infection Enterocolitis Postobstructive pneumonia Type 2 diabetes mellitus Hospice care History of CAD (coronary artery disease) History of type 2 diabetes mellitus History of CVA with residual deficit Surgical History Hx of craniotomy S/P percutaneous endoscopic gastrostomy (PEG) tube placement Social History Smoking and tobacco/nicotine status: never used tobacco/nicotine Alcohol intake: never Substance/Drug Use: never Vitals/I&O/Wt Last Vital Signs Temp 100.3 F H 05/24/24 17:46 Pulse 90 05/24/24 18:56 Resp 18 05/24/24 19:43 BP 98/55 05/24/24 18:56 Pulse Ox 98 05/24/24 18:56 O2 Del Method Non-Rebreather 05/24/24 18:56 O2 Flow Rate 15 05/24/24 18:56 Weight last 48 hrs Weight 71.214 kg Physical Exam 2 Narrative: pt intubated , no distress Data 05/25/24 05:02 05/25/24 05:02 Micro: Microbiology 05/24/24 17:55 Blood Culture - Preliminary Blood SPECIMEN COLLECTED 05/24/24 17:52 Blood Culture - Preliminary Blood SPECIMEN COLLECTED A&P Assessment and plan (1) Acute on chronic renal insufficiency: 1. Acute on chronic kidney disease: Most recent baseline creatinine in the 1 range, patient now presented with a creatinine of 2.1-etiology likely prerenal/ATN due to sepsis. -Status post emergent HD due to severe hyperkalemia, patient now making urine, and renal function improved but has persistent hyperkalemia. 2. Hyperkalemia: HD as above, renal function has improved but has rebound hyperkalemia, will medically manage for now 3. Severe sepsis: On Levophed, likely from pneumonia, 4. Acute respiratory failure: On ventilator, from pulmonary edema and aspiration pneumonia likely 5. History of prior craniotomy, history of CVA-patient bedbound and has PEG tube at baseline Overall poor prognosis Patient evaluated using audiovisual cart. Time spent 40 minutes. Consult Attestations 2 Medical Necessity Statement: per medicine team Coding Level of Care Code Acute Code for Chg Fwd Diagnoses Acute on chronic renal insufficiency N28.9; N18.9
[2024-05-24] MEDS: insulin regular-human 100 units/1 mL 10 UNIT IVP (19:50)
[2024-05-24] MEDS: calcium gluconate 0.1 gm/mL 10% SDV 10mL 1 GM IVP (19:50)
[2024-05-24 19:54] LABS: Troponin 5 2HR Delta -4.95 ABS# (0-10)
[2024-05-24 19:57] LABS: Reflex Lactate Order REFLEX LACTIC ORDERD
[2024-05-24] MEDS: midazolam 1 mg/mL INJ 2 mL 2 MG IVP (20:00)
[2024-05-24] MEDS: meropenem 500 mg SDV IVP (20:31)
[2024-05-24 20:37] LABS: Magnesium 2.9 mg/dL (1.7-2.3); Phosphorus 4.4 mg/dL (2.5-4.5)
--- NOTE | 2024-05-24 20:41 | P.CONIM_ITS ---
Providers/Reason For Consult 2 Consulting Physician/Specialty*: General Surgery Reason for Consult*: Need for dialysis catheter Primary Care Provider: Joleen Hines APN History of Present Illness History of Present Illness Charito Tse is a 58 year old female With history of stroke who presents to the ER with altered mental status, patient is completely unresponsive, workup in the ED showed evidence of potassium of 9 and BUN of more than 100. I was consulted for temporary dialysis catheter placement. Review of Systems 2 General: Reports: ROS unobtainable due to mental status Medications/Allergies Home Medications Medication Instructions Recorded Confirmed Last Taken Type amiodarone 200 mg tablet 200 mg PO DAILY 02/29/24 03/13/24 Unknown History amlodipine 10 mg tablet 10 mg PO DAILY 02/29/24 03/13/24 Unknown History apixaban 5 mg tablet (Eliquis) 5 mg PO BID 02/29/24 03/13/24 Unknown History atropine 1 % eye drops 2 - 4 drp PO Q2H PRN Secretions 02/29/24 03/13/24 Unknown History baclofen 10 mg tablet 10 mg PO TID 02/29/24 03/13/24 Unknown History benzonatate 200 mg capsule 200 mg PO TID PRN Cough 02/29/24 03/13/24 Unknown History desipramine 10 mg tablet 10 mg PO DAILY 02/29/24 03/13/24 Unknown History duloxetine 60 mg capsule,delayed 60 mg PO DAILY 02/29/24 03/13/24 Unknown History release gabapentin 300 mg capsule 300 mg PO TID 02/29/24 03/13/24 Unknown History hydrocodone 5 mg-acetaminophen 325 1 tab PO QID PRN Pain, Moderate 02/29/24 03/13/24 Unknown History mg tablet linagliptin 2.5 mg-metformin 1,000 1 tab PO BID 02/29/24 03/13/24 Unknown History mg tablet (Jentadueto) lorazepam 2 mg/mL oral concentrate 0.5 mg PO Q2H PRN anxiety or 02/29/24 03/13/24 Unknown History discomfort morphine concentrate 100 mg/5 mL 50 mg PO Q2H PRN Pain, Moderate 02/29/24 03/13/24 Unknown History (20 mg/mL) oral solution pantoprazole 40 mg tablet,delayed 40 mg PO BID 02/29/24 03/13/24 Unknown History release trazodone 50 mg tablet 100 mg PO BEDTIME 02/29/24 03/13/24 Unknown History albuterol sulfate 90 mcg/actuation 1 inh inhalation Q6H PRN shortness 03/04/24 03/13/24 Unknown Rx aerosol inhaler of breath or wheezing #8.5 grams amlodipine 10 mg tablet 10 mg PO DAILY #60 tabs 03/26/24 Unknown Rx furosemide 20 mg tablet (Lasix) 20 mg PO DAILY #30 tabs 03/26/24 Unknown Rx Allergies Allergy/AdvReac Type Severity Reaction Status Date / Time Penicillins Allergy Unknown Verified 02/28/24 18:23 PFSH Acute 2 PFSH: Medical History Type 2 diabetes mellitus Hospice care History of CAD (coronary artery disease) History of type 2 diabetes mellitus History of CVA with residual deficit Surgical History Hx of craniotomy S/P percutaneous endoscopic gastrostomy (PEG) tube placement Social History Smoking and tobacco/nicotine status: never used tobacco/nicotine Alcohol intake: never Substance/Drug Use: never Vitals/I&O/Wt Last Vital Signs Temp 100.3 F H 05/24/24 17:46 Pulse 90 05/24/24 18:56 Resp 18 05/24/24 19:43 BP 98/55 05/24/24 18:56 Pulse Ox 98 05/24/24 18:56 O2 Del Method Non-Rebreather 05/24/24 18:56 O2 Flow Rate 15 05/24/24 18:56 Weight last 48 hrs Weight 157 lb Physical Exam 2 Narrative: Patient intubated and sedated, abdomen appears to be soft and nontender, the neck is contracted towards the right side making the right IJ almost inaccessible. Ultrasound evaluation of left IJ shows completely collapsed vein likely due to volume depletion, I evaluated bilateral groins with ultrasound right groin with no visible femoral vein, the vein is extremely small and appear to be partially clotted. On the left I was able to visualize the femoral vein, small caliber but good target for cannulation. Data 05/24/24 17:52 05/24/24 17:52 Micro: Microbiology 12/14/24 17:55 Blood Culture - Preliminary Blood SPECIMEN COLLECTED 05/24/24 17:52 Blood Culture - Preliminary Blood SPECIMEN COLLECTED A&P Assessment and plan (1) Hospice care: (2) Sepsis: (3) Hyperkalemia: (4) Acute on chronic renal insufficiency: Plan After complete history, physical examination and review of all available clinical data I agree with the ER assessment that patient will require emergent dialysis due to severe hyperkalemia as well as elevated BUN. I obtained consent for the procedure from the only family member available who identified himself as here at the hospital as her caregiver. Left femoral nontunneled dialysis catheter was placed, this was done without complications. I discussed with the emergency medicine team the possibility of additional access, the time of my evaluation patient has 2 peripheral IV lines as well as an EJ thrombosis line.. They report they also evaluated the neck of the patient and they concur that axis at that level may be extremely challenging due to patient contracture as well as volume depletion. At this time we have agreed that patient can continue use of peripheral IVs I/O for hydration, in the case of additional access needed a PICC line should be obtained. The dialysis catheter in place in the left groin can also be used for emergent access as needed. This was discussed with the emergency medicine team. Coding Level of Care Code 75909 Diagnoses Hospice care Z51.5 Sepsis A41.9 Hyperkalemia E87.5 Acute on chronic renal insufficiency N28.9; N18.9
[2024-05-24 20:47] LABS: Hepatitis B Core AB, Total Non-Reactive (Nonreactive); Hepatitis B Surface AB < 3.5 (11.5-1000); Hepatitis B Surface Antigen Non-Reactive (Nonreactive)
[2024-05-24] MEDS: sodium polystyrene sulfonate 15 gm/60 mL Btl NG-TUBE (20:48)
--- NOTE | 2024-05-24 20:53 | PC.NURSE ---
pt has received a total of 3L of 0.9% NS at this time
[2024-05-24 20:56] LABS: Lactic Acid level (Lactate) 3.6 mmol/L (0.5-2.2)
[2024-05-24] MEDS: linezolid premix 600 MG/300 ML PREMIX 300 MG IV (21:02)
--- NOTE | 2024-05-24 21:06 | PM.ACPR ---
Procedure/Consent Time out: Time Out Performed: Yes Consent: Consent for Procedure: Consent obtained from other (indicate) and Emergency procedure Additional Consent Information: Consent obtained from caregiver Procedure Narrative: After timeout was conducted the left groin was prepped and draped in usual sterile fashion. I then proceeded to Interval with ultrasound the left femoral vein, the femoral vein was then cannulated with indicating gauge needle, a wire was advanced and the needle was removed position of the wire was verified with ultrasound. I then proceeded to make a 0.5 cm incision at the level of the wire insertion site on the skin, the tract was then dilated with sequential sizes of dilators. I then advanced 20 cm double-lumen dialysis catheter, and the wire was removed. Both lumens were patent with good flow, the catheter was fixed in place with #2-0 silk and sterile dressing was applied. At the end of procedure all counts were correct the patient tolerated well the procedure was in critical condition vital stable in the emergency department Acute Procedures Epistaxis Control: Time out performed: Yes
--- NOTE | 2024-05-24 21:06 | PC.NURSE ---
1 amp of d50 given in addition to 10 unit ivp insulin at the same time as listed on MAR
--- NOTE | 2024-05-24 21:10 | P.HP_ITS ---
Providers/Chief Complaint 2 Primary Care Provider: Joleen Hines APN Chief Complaint: ams History of Present Illness Charito Tse is a 58 year old female previous history of CVA significant residual weakness, bedbound, status post PEG tube gets continuous feeds 50 mL/h, diabetes, history of decompressive craniectomy for cerebral edema, right parietal skull removed, coronary disease, was discharged from the hospital 2 months ago when she was treated for possible herpes and cephalitis, however CSF came back negative for HSV, patient remained nonverbal, caregiver stated that he would like to keep her full code because that is what Charito wanted, ethical committee discussion took place as well during last admission in the hospital when caregiver was blaming hospice nurse for her condition, he seems to have very convoluted concept of medical care and blames on hospice nurse for her condition. She was brought in today for worsening of her condition, as per the caregiver she has been getting worse for last 2 weeks, less responsive, he told the ER physician that she was talking and eating but when I confronted him that last time when I discharge the patient she was nonverbal and she was not able to eat at all he changes answer and stated that she would response only with her eyes blinking, she was getting medication for oral thrush and after giving the medication he would suction her. Then again during conversation he mentioned before 2 weeks she was able to communicate and talk. He went back and forth with his answers. During last admission we discussed goals of care patient remain full code but she has very limited quality of life, he wanted to talk with Joleen I personally called Joleen Hines who was also recommending palliative care considering guarded prognosis. Patient was not able to protect airway she was intubated for low GCS by the ER physician, she is not septic shock, dialysis catheter placed by the surgeon, potassium is 9 Endotracheal tube size 8 was placed and during intubation Dr. Vallecillo noticed a lot of purulent secretion coming out through her vocal cords I have explained all the findings to the caregiver who is at the bedside stating that he is still not able to understand how this has happened because he provides such good care, he was suctioning her medications, was trying to give her nursing care, patient has unstageable ulcer on her back, she gets 50 mL/h continuous feed when I questioned him how much water flushes he is using he was not able to answer my question with specifics. When I was leaving the room, caregiver went to the right side of the bed, opened Charito's eyes and stated look she is crying. I questioned him again whether they have seen Joleen Hines because he was planning to talk with her regarding goals of care however he is stating that he has not seen her yet. As per my last discussion with him he had arranged a special van to take Charito to the PCPs office Review of Systems 2 General: Reports: ROS unobtainable due to mental status Medications/Allergies Home Medications Medication Instructions Recorded Confirmed Last Taken Type amiodarone 200 mg tablet 200 mg PO DAILY 02/29/24 03/13/24 Unknown History amlodipine 10 mg tablet 10 mg PO DAILY 02/29/24 03/13/24 Unknown History apixaban 5 mg tablet (Eliquis) 5 mg PO BID 02/29/24 03/13/24 Unknown History atropine 1 % eye drops 2 - 4 drp PO Q2H PRN Secretions 02/29/24 03/13/24 Unknown History baclofen 10 mg tablet 10 mg PO TID 02/29/24 03/13/24 Unknown History benzonatate 200 mg capsule 200 mg PO TID PRN Cough 02/29/24 03/13/24 Unknown History desipramine 10 mg tablet 10 mg PO DAILY 02/29/24 03/13/24 Unknown History duloxetine 60 mg capsule,delayed 60 mg PO DAILY 02/29/24 03/13/24 Unknown History release gabapentin 300 mg capsule 300 mg PO TID 02/29/24 03/13/24 Unknown History hydrocodone 5 mg-acetaminophen 325 1 tab PO QID PRN Pain, Moderate 02/29/24 03/13/24 Unknown History mg tablet linagliptin 2.5 mg-metformin 1,000 1 tab PO BID 02/29/24 03/13/24 Unknown History mg tablet (Jentadueto) lorazepam 2 mg/mL oral concentrate 0.5 mg PO Q2H PRN anxiety or 02/29/24 03/13/24 Unknown History discomfort morphine concentrate 100 mg/5 mL 50 mg PO Q2H PRN Pain, Moderate 02/29/24 03/13/24 Unknown History (20 mg/mL) oral solution pantoprazole 40 mg tablet,delayed 40 mg PO BID 02/29/24 03/13/24 Unknown History release trazodone 50 mg tablet 100 mg PO BEDTIME 02/29/24 03/13/24 Unknown History albuterol sulfate 90 mcg/actuation 1 inh inhalation Q6H PRN shortness 03/04/24 03/13/24 Unknown Rx aerosol inhaler of breath or wheezing #8.5 grams amlodipine 10 mg tablet 10 mg PO DAILY #60 tabs 03/26/24 Unknown Rx furosemide 20 mg tablet (Lasix) 20 mg PO DAILY #30 tabs 03/26/24 Unknown Rx Allergies Allergy/AdvReac Type Severity Reaction Status Date / Time Penicillins Allergy Unknown Verified 02/28/24 18:23 PFSH Acute 2 PFSH: Medical History (Updated 05/24/24 @ 21:23 by Yong Foss MD) Hilar mass Left-sided with possible pneumonia. CTA on 02/27 UTI (urinary tract infection) Acute hypoxemic respiratory failure Pneumonia Anxiety Depression Hypertension Atrial fibrillation Hematuria Hypoxia Cough VZV (varicella-zoster virus) infection Enterocolitis Postobstructive pneumonia Type 2 diabetes mellitus Hospice care History of CAD (coronary artery disease) History of type 2 diabetes mellitus History of CVA with residual deficit Surgical History Hx of craniotomy S/P percutaneous endoscopic gastrostomy (PEG) tube placement Social History Smoking and tobacco/nicotine status: never used tobacco/nicotine Alcohol intake: never Substance/Drug Use: never Vitals/I&O/Wt Last Vital Signs Temp 100.3 F H 05/24/24 17:46 Pulse 90 05/24/24 18:56 Resp 18 05/24/24 19:43 BP 98/55 05/24/24 18:56 Pulse Ox 98 05/24/24 18:56 O2 Del Method Non-Rebreather 05/24/24 18:56 O2 Flow Rate 15 05/24/24 18:56 05/24/24 05/24/24 05/24/24 06:59 14:59 22:59 Intake Total 3000.00 / 3000.00 Balance 3000.00 / 3000.00 Weight last 48 hrs Weight 71.214 kg Physical Exam 2 Narrative: Patient has edematous extremities Unstageable sacral ulcer Left heel ulcer showing signs of healing Pupils are asymmetrically dilated Endotracheal tube size 8 Patient intubated and sedated Abdomen distended, PEG tube in place PEG tube discoloration noted Bilateral assisted breath sounds Neuroexam limited Low-grade fever Low blood pressure 96/56 mmHg Currently on Levophed Data 05/24/24 17:52 05/24/24 17:52 Micro: Microbiology 05/24/24 17:55 Blood Culture - Preliminary Blood SPECIMEN COLLECTED 05/24/24 17:52 Blood Culture - Preliminary Blood SPECIMEN COLLECTED A&P Assessment and plan (1) Hypotension: (2) Acute on chronic renal insufficiency: (3) Hyperkalemia: (4) Sepsis: (5) Acute metabolic encephalopathy: (6) Pneumonia: (7) Septic shock: (8) Aspiration pneumonia: (9) Sacral ulcer: (10) Ankle ulcer: Plan Septic shock Patient currently on Levophed Criteria met with tachypnea tachycardia fever leukocytosis source of infection is aspiration A lot of purulent exudative material aspirated during intubation as per the ER physician Start patient on broad-spectrum antibiotics Other source of infection could be sacral ulcer Metabolic encephalopathy: At baseline patient is only able to communicate with her eyes blinking, she is nonverbal, bedbound, Last time she was treated for herpes and cephalitis however herpes DNA CSF test came back negative Current worsening secondary to septic shock Respiratory failure requiring mechanical ventilation 05/24 Caregiver has rescinded hospice care wants to keep her full code Patient not able to protect airway Intubated and sedated by the ER physician A lot of purulent exudative material aspirated during intubation Acute on chronic kidney disease Hyperkalemia Patient has been given hyperkalemia cocktail Nephro consulted Surgery has placed dialysis catheter, left groin 05/[address] Holding off on feeding tube Accu-Cheks every 4 hours Guarded prognosis Full code Chronic anemia: History of A-fib on Eliquis patient takes amiodarone as well via PEG tube For hypertension she was taking lisinopril and amlodipine Type II diabetic GI prophylaxis: Protonix Please consult dietitian to start PPN versus TPN in next 48 hours, concern related to feeding tube related aspiration versus caregiver trying to give her medication for oral thrush and then failing properly suctioning her Sacral ulcer: Please have general surgery take a look at it as well for debridement Attestations 2 Medical Necessity Statement*: More than 2 midnights anticipated Coding Level of Care Code Critical Care >/= 30 minutes Critical care time (in minutes): 60 The high probability of a clinically significant, sudden or life threatening deterioration, as referenced in this documentation, required my full and direct attention, intervention and personal management. The critical care time shown is in addition to time spent performing any reported separately billable procedures and includes the following: [x] Data and vital sign review and interpretation [x ] Patient assessment, examination and intervention [x] Medication orders and management [x] Patient/Family updates as able [x] Care Coordination and Documentation. Diagnoses Hypotension I95.9 Acute on chronic renal insufficiency N28.9; N18.9 Hyperkalemia E87.5 Sepsis A41.9 Acute metabolic encephalopathy G93.41 Pneumonia J18.9 Septic shock A41.9; R65.21 Aspiration pneumonia J69.0 Sacral ulcer L98.429 Ankle ulcer L97.309
--- NOTE | 2024-05-24 23:00 | PC.NURSE ---
MAR Upon arrival to unit, levophed administering at 18 mcg/min while MAR displayed 6 mcg/min. MAR updated to reflect actual administration.
--- NOTE | 2024-05-24 23:49 | ECG_ITS ---
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 Measurements Intervals [place] Rate: 134 P: 243 MD: 156 QRS: -60 QRSD: 98 T: 77 QT: 297 QTc: 444 Interpretive Statements ECTOPIC ATRIAL TACHYCARDIA LOW QRS VOLTAGE IN PRECORDIAL LEADS [QRS DEFLECTION < 1.0 mV IN CHEST LEADS] LEFT ANTERIOR FASCICULAR BLOCK [QRS AXIS <= -45, QR IN I, RS IN II] MINIMAL ST DEPRESSION [0.025+ mV ST DEPRESSION] Compared to ECG 05/24/2024 21:59:39 Low QRS voltage now present Left anterior fascicular block now present ST (T wave) deviation now present Atrial flutter no longer present Intraventricular conduction delay no longer present T-wave abnormality no longer present Possible ischemia no longer present Electronically Signed On 05-25-2024 22:42:58 [employer] by Aubrie Roberts M.D. [id number]
[2024-05-24] MEDS: heparin, porcine 1,000 unit/mL INJ 10 mL 1000 UNIT IV (23:50)
[2024-05-24] MEDS: heparin, porcine 1,000 unit/mL INJ 10 mL 10000 UNIT INTRACATH (23:51)
[2024-05-24] MEDS: albumin 12.5 GM/50 ML VIAL IV (23:52)
[2024-05-25] VITALS (104 sets, daily range): BP systolic 71–152; BP diastolic 45–93; PULSE 82–133; RESP 12–22; TEMP 37.4–42.3; O2SAT 90–100; BMI 25.9
[2024-05-25] MEDS: albumin 12.5 GM/50 ML VIAL IV (00:08)
[2024-05-25 00:21] LABS: Troponin 5 6HR 54.18 ng/L (0-10); Troponin 5 6HR Delta -15.82 ng/L (0-12)
[2024-05-25 00:23] LABS: Anion Gap 17.8 (5-19); Blood Urea Nitrogen 63 mg/dL (6-20); Calcium 8.9 mg/dL (8.5-10.5); Carbon Dioxide 27 mmol/L (22-29); Chloride 105 mmol/L (98-107); Creatinine Clr Calc Pharmacy 51.6826; Glomerular Filtration Rate 46.1 mL/min (90-130); Glucose 173 mg/dL (65-115); Osmolality Calculated 322 mOsm/kg (285-295); Potassium 4.8 mmol/L (3.5-5.1); Sodium 145 mmol/L (136-145)
[2024-05-25 00:40] LABS: Bilirubin Urine Negative (Negative); Blood Urine 2+ (Negative); Glucose Urine UA Negative (Normal); Ketones Urine Negative (Negative); Leukocyte Esterase Urine 3+ (Negative); Nitrate Urine Negative (Negative); Protein Urine 1+ (Negative); Specific Gravity, Urine 1.014 (1.005-1.030); Urine Appearance Cloudy (CLEAR); Urine Color Yellow (Yellow); Urobilinogen Urine 0.2 mg/dL (Negative); pH Urine 5.5 (5-7)
[2024-05-25 00:45] LABS: Bacteria Urine None Seen /hpf; Hyaline Casts Urine 3.71 /lpf; Squamous Epithelial Cell Urine 0-5 /hpf (0-5); WBC Urine >100 /hpf (0-5)
[2024-05-25 00:48] LABS: Add Urine Culture? Yes
[2024-05-25 01:03] LABS: Potassium, Radom Urine 44 mmol/L; Urine Random Chloride 21 mmol/L; Urine Random Sodium 20 mmol/L
[2024-05-25] MEDS: piperacillin-tazobactam 3.375 GM in sodium chloride 0.9% (plus) 50 ML IV ×3 (01:29→16:34)
[2024-05-25] MEDS: norepinephrine 4 MG/250 ML BAG 67.5 MG IV (02:00)
[2024-05-25] MEDS: ondansetron 2 mg/ML SDV 2 mL 4 MG IVP (02:34)
[2024-05-25 02:52] LABS: Glucose Point of Care 147 mg/dL (70-110)
--- NOTE | 2024-05-25 02:55 | PC.NURSE ---
Emesis Patient noted to have stool like emesis with bright red blood clots coming out of mouth around ET tube. Dr. Foss contacted; order received to place patient's eliquis on hold and to insert NG tube to decompress stomach. Levophed requirements discussed; additional order received for picc line.
--- NOTE | 2024-05-25 03:12 | XRR_ITS ---
PROCEDURE INFORMATION: Exam: XR Chest Exam date and time: 05/25/2024 3:13 AM Age: 58 years old Clinical indication: Device placement; Ng tube; Patient HX: Check S/P ng placement. Intubated. ; Additional info: Ng tube placement TECHNIQUE: Imaging protocol: Radiologic exam of the chest. Views: 1 view. COMPARISON: CR (CHEST, ) 05/24/2024 7:26 PM FINDINGS: Tubes, catheters and devices: Enteric tube tip and side port overlie the stomach. Endotracheal tube tip terminates 2.2 cm above the stephon. Lungs: Similar retrocardiac consolidation/collapse. Increased pulmonary vascularity and septal thickening, suggestive of edema. Pleural spaces: No sizable pleural effusion or pneumothorax. Heart/Mediastinum: No cardiomegaly. Bones/joints: Unremarkable. XR/XR chest 1V portable [id number] IMPRESSION: Enteric tube tip and side port overlie the stomach.
[2024-05-25 04:21] LABS: ABG PCO2 33.4 mmHg (35-45); Arterial Blood Gas Hematocrit 22.4 % (37-47); Base Excess ABG 2.9 mmol/L (-2.0-2.0); Blood Gas Allen Test Pos; Blood Gas Operator Identificat JDB; Blood Gas Sample Site Radial, right; Blood Gas Sample Type Arterial; Blood Gas Tidal Volume 0.46; HCO3 ABG 26.2 mmol/L (22-26); Oxygen Device VENT; PO2 ABG 99.5 mmHg (80.0-100.0); PO2 FiO2 Ratio Arterial Blood 165
[2024-05-25] MEDS: clindamycin 900 MG/50 ML PREMIX 100 MG IV ×3 (04:21→19:37)
[2024-05-25 05:31] LABS: Basophils # 0.1 10^3/uL (0.0-0.1); Basophils % 0.3 %; Eosinophils % 0.1 %; Lymphocytes # 0.7 10^3/uL (0.8-4.8); Lymphocytes % 3.1 %; Mean Corpuscular Volume 93.5 fl (85-98); Mean Platelet Volume 12.7 fL (7.4-10.4); Monocytes # 0.8 10^3/uL (0.2-0.9); Monocytes % 3.6 %; Neutrophils # 20.96 10^3/uL (1.8-7.7); Neutrophils % 91.6 %; Nucleated Red Blood Cells % 0 %; Platelet Count 209 10^3/cmm (157-399); Red Blood Count 2.46 10^6/uL (3.85-5.65); Red Cell Distribution Width 15.1 % (12.1-15.1); White Blood Count 22.89 10^3/uL (3.29-11.43)
[2024-05-25] MEDS: acetaminophen 650 mg/20.3 mL UDC 500 MG PEG-TUBE ×3 (05:37→18:04)
[2024-05-25 05:51] LABS: Alanine Aminotransferase 10 U/L (0-33); Albumin Level 3.1 g/dL (3.5-5.2); Alkaline Phosphatase 48 U/L (35-105); Aspartate Amino Transferase 18 U/L (0-32); Blood Urea Nitrogen 67 mg/dL (6-20); C Reactive Protein 218.4 mg/L (0.0-4.9); Calcium 9.1 mg/dL (8.5-10.5); Carbon Dioxide 23 mmol/L (22-29); Chloride 107 mmol/L (98-107); Globulin 2.6 g/dL (1.3-4.6); Glomerular Filtration Rate 42.1 mL/min (90-130); Glucose 117 mg/dL (65-115); Osmolality Calculated 322 mOsm/kg (285-295); Phosphorus 2.2 mg/dL (2.5-4.5); Sodium 146 mmol/L (136-145); Total Bilirubin 0.4 mg/dL (0.15-1.2); Total Protein 5.7 g/dL (6.6-8.7)
[2024-05-25 05:53] LABS: Anion Gap 21.5 (5-19); Potassium 5.5 mmol/L (3.5-5.1)
[2024-05-25 05:55] LABS: Slide Review Slide Review Perform
--- NOTE | 2024-05-25 06:49 | XRR_ITS ---
PROCEDURE INFORMATION: Exam: XR Abdomen Exam date and time: 05/25/2024 8:53 AM Age: 58 years old Clinical indication: Nausea and vomiting; TECHNIQUE: Imaging protocol: Radiologic exam of the abdomen. Views: Frontal supine view of the abdomen. 1 View. COMPARISON: CR XR KUB portable [id number] 03/19/2024 2:02 PM FINDINGS: Tubes, catheters and devices: Percutaneous G-tube is positioned over the left upper quadrant abdomen in the expected location of the stomach. An NG tube is positioned similarly. Left femoral catheter. Gastrointestinal tract: Normal. No bowel dilation. Bones/joints: There are degenerative changes across the hip joints. XR/XR KUB portable [id number] IMPRESSION: No acute findings.
--- NOTE | 2024-05-25 06:50 | P.PN_ITS ---
Subjective 2 Subjective: Overnight patient had emesis with brown color emesis concern related to high stool burden requested KUB this morning Patient could only finish couple of hours of dialysis before there was some troubleshooting with the machine CRRT This morning hemoglobin 6.9 repeat H&H Potassium improved We were able to wean her down on Levophed to 8 mics this morning Febrile episodes noted Vitals/I&O/Wt Last Vital Signs Temp 99.7 F H 05/25/24 02:20 Pulse 123 H 05/25/24 06:04 Resp 16 05/25/24 03:11 BP 147/82 05/25/24 02:20 Pulse Ox 100 05/24/24 22:30 O2 Del Method Mechanical Ventilation 05/24/24 23:20 O2 Flow Rate 15 05/24/24 18:56 FiO2 80 05/25/24 03:11 05/24/24 05/24/24 05/25/24 14:59 22:59 06:59 Intake Total 3074.625 / 3074.625 1427.625 / 4502.250 Output Total 134 / 134 Balance 3074.625 / 3074.625 1293.625 / 4368.250 Weight last 48 hrs Weight 73 kg Weight 72.5 kg Weight 71.214 kg Physical Exam 2 Narrative: Patient intubated and sedated Signs of fluid overload present Left groin dialysis catheter in place Neuroexam is limited Ford catheter in place Patient is tachycardic, low-grade fever Blood pressure stable Distended nontender abdomen Urinary Catheter Management: Ford: Cath Placed During This Visit: yes Urinary Catheter Date of Insertion: 05/24/24 Urinary Catheter Time of Insertion: 19:15 Data 05/25/24 05:02 05/25/24 05:02 Micro: Microbiology 05/24/24 17:55 Blood Culture - Preliminary Blood SPECIMEN COLLECTED 05/24/24 17:52 Blood Culture - Preliminary Blood SPECIMEN COLLECTED A&P Assessment and plan (1) Acute on chronic renal insufficiency: (2) Hyperkalemia: (3) Sepsis: (4) Septic shock: (5) Sacral ulcer: (6) Ankle ulcer: (7) Acute metabolic encephalopathy: (8) Pneumonia: (9) Aspiration pneumonia: (10) Hypotension: Plan Septic shock Currently being weaned down on Levophed, 8 8 mics this morning Continue broad-spectrum antibiotics Requested KUB Metabolic encephalopathy: Intubated and sedated, at baseline nonverbal communicates with blinking of her eyes Respiratory failure requiring mechanical ventilation 05/24 Decrease FiO2 Acute on chronic kidney disease Status post dialysis for session 05/24 Potassium improved PEG tube in place Holding off on feeding tube Accu-Cheks every 4 hours Requested KUB Sacral ulcer: Will ask general surgery to take a look at her sacral ulcer Guarded prognosis Full code Chronic anemia: History of A-fib on Eliquis patient takes amiodarone as well via PEG tube For hypertension she was taking lisinopril and amlodipine currently on hold Type II diabetic: Accu-Cheks on board GI prophylaxis: Protonix Will consult dietitian to start PPN versus TPN in next 48 hours, concern related to feeding tube related aspiration versus caregiver trying to give her medication for oral thrush and then failing to properly suctioning her Attestations 2 Medical Necessity Statement*: Continue ICU management Coding Level of Care Code Critical Care >/= 30 minutes Critical care time (in minutes): 35 The high probability of a clinically significant, sudden or life threatening deterioration, as referenced in this documentation, required my full and direct attention, intervention and personal management. The critical care time shown is in addition to time spent performing any reported separately billable procedures and includes the following: [x] Data and vital sign review and interpretation [x ] Patient assessment, examination and intervention [x] Medication orders and management [x] Patient/Family updates as able [x] Care Coordination and Documentation. Diagnoses Acute on chronic renal insufficiency N28.9; N18.9 Hyperkalemia E87.5 Sepsis A41.9 Septic shock A41.9; R65.21 Sacral ulcer L98.429 Ankle ulcer L97.309 Acute metabolic encephalopathy G93.41 Pneumonia J18.9 Aspiration pneumonia J69.0 Hypotension I95.9
[2024-05-25 07:01] LABS: Hematocrit 27.2 % (36-47)
--- NOTE | 2024-05-25 08:04 | P.PN_ITS ---
Subjective 2 Subjective: s/p emergent HD last night but had machine failure after 1 and half hours remains on levophed and on vent Medications: Reviewed: Yes Vitals/I&O/Wt Last Vital Signs Temp 101.9 F H 05/25/24 05:00 Pulse 117 H 05/25/24 07:45 Resp 14 05/25/24 07:47 BP 110/64 05/25/24 07:45 Pulse Ox 96 05/25/24 07:47 O2 Del Method Mechanical Ventilation 05/25/24 05:00 O2 Flow Rate 05/24/24 18:56 FiO2 50 05/25/24 07:47 05/24/24 05/25/24 05/25/24 22:59 06:59 14:59 Intake Total 3074.625 / 3074.625 1427.625 / 4502.250 Output Total 984 / 984 Balance 3074.625 / 3074.625 443.625 / 3518.250 Weight last 48 hrs Weight 73 kg Weight 73 kg Weight 72.5 kg Weight 71.214 kg Physical Exam 2 Narrative: Patient intubated and sedated Left groin dialysis catheter in place S1S2 RRR per report Lungs with crackles per report Has G tube in place Neuroexam is limited Ford catheter in place Urinary Catheter Management: Ford: Cath Placed During This Visit: yes Reason for Continuing Indwelling Catheter: Accurate Measurement of Urinary Output in Critically Ill Patients Urinary Catheter Date of Insertion: 05/24/24 Urinary Catheter Time of Insertion: 19:15 Data 05/25/24 06:57 05/25/24 05:02 Micro: Microbiology 05/24/24 17:55 Blood Culture - Preliminary Blood SPECIMEN COLLECTED 05/24/24 17:52 Blood Culture - Preliminary Blood SPECIMEN COLLECTED A&P Assessment and plan (1) Acute on chronic renal insufficiency: 1. Acute on chronic kidney disease: Most recent baseline creatinine in the 1 range, patient now presented with a creatinine of 2.1-etiology likely prerenal/ATN due to sepsis. -Status post emergent HD due to severe hyperkalemia- HD not completed due to machine failure - , patient now making urine, and renal function improved but has persistent hyperkalemia. 2. Hyperkalemia: HD as above, renal function has improved but has rebound hyperkalemia, will medically manage for now, repeat BMP , and if K remains high will do another session of HD today 3. Severe sepsis: On Levophed, likely from pneumonia, 4. Acute respiratory failure: On ventilator, from pulmonary edema and aspiration pneumonia likely 5. History of prior craniotomy, history of CVA-patient bedbound and has PEG tube at baseline Overall poor prognosis Patient evaluated using audiovisual cart. Time spent 40 minutes. Attestations 2 Medical Necessity Statement*: per medicine Coding Level of Care Code Acute Code for Chg Fwd Diagnoses Acute on chronic renal insufficiency N28.9; N18.9
[2024-05-25] MEDS: pantoprazole 40 mg SDV IVP ×2 (08:20→18:04)
[2024-05-25] MEDS: amiodarone 200 mg Tablet PO (08:20)
[2024-05-25] MEDS: lanolin oint 7 gm 1 APPLIC TOPICAL (08:21)
[2024-05-25] MEDS: sodium bicarbonate 8.4% 1 mEq/mL 50mL Syr 50 MEQ IVP (08:24)
--- NOTE | 2024-05-25 09:13 | P.CONIM_ITS ---
Providers/Reason For Consult 2 Consulting Physician/Specialty*: General Surgery Reason for Consult*: Unstageable sacral decubitus ulcer Attending Physician: Silvana Cash MD Primary Care Provider: Joleen Hines APN History of Present Illness History of Present Illness Charito Tse is a 58 year old female with multiple medical comorbidities including history of stroke who is admitted to the hospital with sepsis and hyperkalemia in the setting of uremia. She is currently intubated, nonresponsive. I was asked to see her because of an unstageable sacral decubitus ulcer. Review of Systems 2 General: Reports: ROS unobtainable due to endotracheal tube and ROS unobtainable due to mental status Medications/Allergies Home Medications Medication Instructions Recorded Confirmed Last Taken Type amiodarone 200 mg tablet 200 mg PO DAILY 02/29/24 03/13/24 Unknown History amlodipine 10 mg tablet 10 mg PO DAILY 02/29/24 03/13/24 Unknown History apixaban 5 mg tablet (Eliquis) 5 mg PO BID 02/29/24 03/13/24 Unknown History atropine 1 % eye drops 2 - 4 drp PO Q2H PRN Secretions 02/29/24 03/13/24 Unknown History baclofen 10 mg tablet 10 mg PO TID 02/29/24 03/13/24 Unknown History benzonatate 200 mg capsule 200 mg PO TID PRN Cough 02/29/24 03/13/24 Unknown History desipramine 10 mg tablet 10 mg PO DAILY 02/29/24 03/13/24 Unknown History duloxetine 60 mg capsule,delayed 60 mg PO DAILY 02/29/24 03/13/24 Unknown History release gabapentin 300 mg capsule 300 mg PO TID 02/29/24 03/13/24 Unknown History hydrocodone 5 mg-acetaminophen 325 1 tab PO QID PRN Pain, Moderate 02/29/24 03/13/24 Unknown History mg tablet linagliptin 2.5 mg-metformin 1,000 1 tab PO BID 02/29/24 03/13/24 Unknown History mg tablet (Jentadueto) lorazepam 2 mg/mL oral concentrate 0.5 mg PO Q2H PRN anxiety or 02/29/24 03/13/24 Unknown History discomfort morphine concentrate 100 mg/5 mL 50 mg PO Q2H PRN Pain, Moderate 02/29/24 03/13/24 Unknown History (20 mg/mL) oral solution pantoprazole 40 mg tablet,delayed 40 mg PO BID 02/29/24 03/13/24 Unknown History release trazodone 50 mg tablet 100 mg PO BEDTIME 02/29/24 03/13/24 Unknown History albuterol sulfate 90 mcg/actuation 1 inh inhalation Q6H PRN shortness 03/04/24 03/13/24 Unknown Rx aerosol inhaler of breath or wheezing #8.5 grams amlodipine 10 mg tablet 10 mg PO DAILY #60 tabs 03/26/24 Unknown Rx furosemide 20 mg tablet (Lasix) 20 mg PO DAILY #30 tabs 03/26/24 Unknown Rx Allergies Allergy/AdvReac Type Severity Reaction Status Date / Time Penicillins Allergy Unknown Verified 02/28/24 18:23 Current Medications Generic Name Dose Route Start Last Admin Trade Name Freq PRN Reason Stop Dose Admin Acetaminophen 500 mg 05/25/24 05:17 05/25/24 05:37 Acetaminophen 650 Mg/20.3 Ml Udc PEG-TUBE 500 mg Q4H PRN Administration MILD PAIN OR INCREASE TEMP Amiodarone HCl 200 mg 05/25/24 09:00 05/25/24 08:20 Amiodarone 200 Mg Tablet PO 200 mg DAILY FAVIOLA Administration Furosemide 40 mg 05/24/24 23:19 05/25/24 01:07 Furosemide 10 Mg/Ml Sdv 10ml IVP Not Given Q12H FAVIOLA Norepinephrine Bitartrate 4 mg in 250 mls @ 0 mls/hr 05/24/24 19:45 05/25/24 05:20 Levophed IV 8 mcg/min .Q0M FAVIOLA 30 mls/hr Titration Protocol Per Protocol Sodium Chloride 1,000 mls @ 0 mls/hr 05/24/24 19:47 05/24/24 21:10 Sodium Chloride 0.9% IV Infused .Q0M PRN Infusion hypotension or symptomatic As Directed Albumin Human 12.5 gm in 50 mls @ 60 mls/hr 05/24/24 19:47 05/25/24 04:00 Albumin IV Infused PRN PRN Infusion Hypotension and/or symptomatic Clindamycin HCl/Dextrose 900 mg in 50 mls @ 100 mls/hr 05/25/24 04:00 05/25/24 04:58 Cleocin IV Infused Q8H FAVIOLA Infusion Protocol Piperacillin Sod/Tazobactam 50 mls @ 12.5 mls/hr 05/24/24 23:45 05/25/24 08:28 Sod 3.375 gm/ Sodium Chloride IV 12.5 mls/hr Q8H FAVIOLA Administration Lanolin 1 applic 05/25/24 08:03 05/25/24 08:21 Lanolin Oint 7 Gm TOPICAL 1 applic PRN PRN Administration DRYNESS Ondansetron HCl 4 mg 05/24/24 23:19 05/25/24 02:34 Ondansetron 2 Mg/Ml Sdv 2 Ml IVP 4 mg Q6H PRN Administration NAUSEA AND VOMITING Pantoprazole Sodium 40 mg 05/25/24 09:00 05/25/24 08:20 Pantoprazole 40 Mg Sdv IVP 40 mg BID FAVIOLA Administration PFSH Acute 2 PFSH: Medical History (Updated 05/24/24 @ 21:23 by Yong Foss MD) Hilar mass Left-sided with possible pneumonia. CTA on 02/27 UTI (urinary tract infection) Acute hypoxemic respiratory failure Pneumonia Anxiety Depression Hypertension Atrial fibrillation Hematuria Hypoxia Cough VZV (varicella-zoster virus) infection Enterocolitis Postobstructive pneumonia Type 2 diabetes mellitus Hospice care History of CAD (coronary artery disease) History of type 2 diabetes mellitus History of CVA with residual deficit Surgical History Hx of craniotomy S/P percutaneous endoscopic gastrostomy (PEG) tube placement Social History Smoking and tobacco/nicotine status: never used tobacco/nicotine Alcohol intake: never Substance/Drug Use: never Vitals/I&O/Wt Last Vital Signs Temp 102.3 F H 05/25/24 08:30 Pulse 120 H 05/25/24 09:00 Resp 14 05/25/24 08:30 BP 107/65 05/25/24 09:00 Pulse Ox 96 05/25/24 09:00 O2 Del Method Mechanical Ventilation 05/25/24 08:30 O2 Flow Rate 15 05/24/24 18:56 FiO2 50 05/25/24 08:30 05/24/24 05/25/24 05/25/24 22:59 06:59 14:59 Intake Total 3074.625 / 3074.625 1427.625 / 4502.250 Output Total 984 / 984 175 / 175 Balance 3074.625 / 3074.625 443.625 / 3518.250 -175 / -175 Weight last 48 hrs Weight 160 lb 14.999 oz Weight 160 lb 14.999 oz Weight 159 lb 13.362 oz Weight 157 lb Physical Exam 2 Back/Pelvis: OTHER: At the level of the sacrum there is a 6 x 5 cm unstageable sacral decubitus ulcer with a large scar, no significant purulence noted when pressing on the wound Urinary Catheter Management: Ford: Cath Placed During This Visit: yes Reason for Continuing Indwelling Catheter: Accurate Measurement of Urinary Output in Critically Ill Patients Urinary Catheter Date of Insertion: 05/24/24 Urinary Catheter Time of Insertion: 19:15 Data 05/25/24 06:57 05/25/24 05:02 Micro: Microbiology 05/24/24 17:55 Blood Culture - Preliminary Blood SPECIMEN COLLECTED 05/24/24 17:52 Blood Culture - Preliminary Blood SPECIMEN COLLECTED A&P Assessment and plan (1) Sacral ulcer: (2) Septic shock: Plan after evaluation of the patient and I agree that she will require debridement of her sacral decubitus ulcer. Currently she is not a stable for or debridement, she is on Levophed intubated and unresponsive. The plan is if by tomorrow her hemodynamics improve I can take her to the OR to do debridement of her sacral decubitus ulcer. In the meantime we will continue current management per medical ICU team. Coding Level of Care Code 44792 Diagnoses Sacral ulcer L98.429 Septic shock A41.9; R65.21
[2024-05-25] MEDS: norepinephrine 4 MG/250 ML BAG 22.5 MG IV (09:35)
[2024-05-25] MEDS: FUROsemide 10 mg/mL SDV 10mL 40 MG IVP (12:19)
[2024-05-25 13:04] LABS: Potassium 4.4 mmol/L (3.5-5.1)
[2024-05-25 13:06] LABS: Anion Gap 15.6 (5-19); Blood Urea Nitrogen 65 mg/dL (6-20); Calcium 8.9 mg/dL (8.5-10.5); Carbon Dioxide 28 mmol/L (22-29); Chloride 112 mmol/L (98-107); Creatinine Clr Calc Pharmacy 41.8071; Glomerular Filtration Rate 35.7 mL/min (90-130); Glucose 94 mg/dL (65-115); Osmolality Calculated 330 mOsm/kg (285-295); Potassium 4.6 mmol/L (3.5-5.1); Sodium 151 mmol/L (136-145)
[2024-05-25 17:06] LABS: Glucose Point of Care 136 mg/dL (70-110)
--- NOTE | 2024-05-25 19:00 | PC.NURSE ---
MAR Upon assessment of patient at 1900, levophed paused while MAR displayed administration of 6 mcg/min. MAR updated to reflect paused status.
--- NOTE | 2024-05-25 21:49 | PC.NURSE ---
Stool Sample Patient having multiple loose bowel movements. Dr. Foss contacted; order received to test sample for c diff.
[2024-05-25 22:55] LABS: Glucose Point of Care 140 mg/dL (70-110)
[2024-05-25 23:20] LABS: C.Diff PCR (Lab) NEGATIVE (Negative)
[2024-05-26] VITALS (55 sets, daily range): BP systolic 112–148; BP diastolic 67–88; PULSE 74–116; RESP 12–112; TEMP 36.8–37.6; O2SAT 96–100; BMI 24.9
[2024-05-26] MEDS: FUROsemide 10 mg/mL SDV 10mL 40 MG IVP ×2 (00:05→11:50)
[2024-05-26] MEDS: chlorhexidine gluconate 4% Btl 118 mL 1 APPLIC TOPICAL (01:35)
[2024-05-26] MEDS: piperacillin-tazobactam 3.375 GM in sodium chloride 0.9% (plus) 50 ML IV ×3 (01:35→17:21)
[2024-05-26] MEDS: clindamycin 900 MG/50 ML PREMIX 100 MG IV ×3 (04:11→20:33)
[2024-05-26 04:27] LABS: ABG PH Result 7.51 (7.35-7.45); Arterial Blood Gas Hematocrit 31.8 % (37-47); Base Excess ABG 4.8 mmol/L (-2.0-2.0); Blood Gas Allen Test Pos; Blood Gas Operator Identificat JDB; Blood Gas Sample Site Radial, right; Blood Gas Sample Type Arterial; Blood Gas Tidal Volume 0.46; HCO3 ABG 27.9 mmol/L (22-26); Oxygen Device VENT; PO2 FiO2 Ratio Arterial Blood 337
[2024-05-26 06:19] LABS: Basophils # 0.1 10^3/uL (0.0-0.1); Basophils % 0.2 %; Eosinophils % 0.1 %; Hematocrit 21.3 % (36-47); Lymphocytes # 0.7 10^3/uL (0.8-4.8); Lymphocytes % 2.3 %; Mean Corpuscular Hemoglobin 27.5 pg (27-33); Mean Corpuscular Volume 91.4 fl (85-98); Mean Platelet Volume 12.7 fL (7.4-10.4); Monocytes # 0.8 10^3/uL (0.2-0.9); Monocytes % 2.5 %; Neutrophils # 28.35 10^3/uL (1.8-7.7); Nucleated Red Blood Cells % 0 %; Platelet Count 223 10^3/cmm (157-399); Red Blood Count 2.33 10^6/uL (3.85-5.65); Red Cell Distribution Width 15.2 % (12.1-15.1)
[2024-05-26 06:22] LABS: White Blood Count 30.14 10^3/uL (3.29-11.43)
[2024-05-26 06:34] LABS: Glucose Point of Care 174 mg/dL (70-110)
[2024-05-26 06:37] LABS: Blood Urea Nitrogen 62 mg/dL (6-20); Calcium 8.9 mg/dL (8.5-10.5); Carbon Dioxide 25 mmol/L (22-29); Chloride 108 mmol/L (98-107); Creatinine Clr Calc Pharmacy 38.4681; Glomerular Filtration Rate 33.1 mL/min (90-130); Glucose 147 mg/dL (65-115); Osmolality Calculated 326 mOsm/kg (285-295); Sodium 148 mmol/L (136-145)
--- NOTE | 2024-05-26 06:59 | PC.NURSE ---
Critical Labs Dr. Foss notified of 6.4 hgb as well as 30.14 wbc. Order received to recheck cbc.
--- NOTE | 2024-05-26 08:00 | P.PN_ITS ---
Subjective 2 Subjective: seen and examined. sedated. in bed on vent Medications: Reviewed: Yes Medication Review Details: Current Medications Acetaminophen (Acetaminophen 650 Mg/20.3 Ml Udc) 500 mg PEG-TUBE Q4H PRN PRN Reason: MILD PAIN OR INCREASE TEMP Last Admin: 05/25/24 18:04 Dose: 500 mg Albuterol/Ipratropium (Ipratropium-Albuterol 3 Ml Neb) 3 ml INHALATION Q6H PRN PRN Reason: SHORTNESS OF BREATH Amiodarone HCl (Amiodarone 200 Mg Tablet) 200 mg PO DAILY [facility] Last Admin: 05/25/24 08:20 Dose: 200 mg Apixaban (Apixaban 5 Mg Tablet) 2.5 mg PO BID FAVIOLA Chlorhexidine Gluconate (Chlorhexidine Gluconate 4% Btl 118 Ml) 1 applic TOPICAL Q24H FAVIOLA Last Admin: 05/26/24 01:35 Dose: 1 applic Furosemide (Furosemide 10 Mg/Ml Sdv 10ml) 40 mg IVP Q12H FAVIOLA Last Admin: 05/26/24 00:05 Dose: 40 mg Norepinephrine Bitartrate (Levophed) 4 mg in 250 mls @ 0 mls/hr IV .Q0M FAVIOLA; Protocol Last Titration: 05/26/24 01:45 Dose: 0 mcg/min, 0 mls/hr Sodium Chloride (Sodium Chloride 0.9%) 1,000 mls @ 0 mls/hr IV .Q0M PRN PRN Reason: hypotension or symptomatic Last Infusion: 05/24/24 21:10 Dose: Infused Albumin Human (Albumin) 12.5 gm in 50 mls @ 60 mls/hr IV PRN PRN PRN Reason: Hypotension and/or symptomatic Last Infusion: 05/25/24 04:00 Dose: Infused Clindamycin HCl/Dextrose (Cleocin) 900 mg in 50 mls @ 100 mls/hr IV Q8H FAVIOLA; Protocol Last Infusion: 05/26/24 05:32 Dose: Infused Piperacillin Sod/Tazobactam (Sod 3.375 gm/ Sodium Chloride) 50 mls @ 12.5 mls/hr IV Q8H FAVIOLA Last Infusion: 05/26/24 06:16 Dose: Infused Lanolin (Lanolin Oint 7 Gm) 1 applic TOPICAL PRN PRN PRN Reason: DRYNESS Last Admin: 05/25/24 08:21 Dose: 1 applic Ondansetron HCl (Ondansetron 2 Mg/Ml Sdv 2 Ml) 4 mg IVP Q6H PRN PRN Reason: NAUSEA AND VOMITING Last Admin: 05/25/24 02:34 Dose: 4 mg Pantoprazole Sodium (Pantoprazole 40 Mg Sdv) 40 mg IVP BID FAVIOLA Last Admin: 05/25/24 18:04 Dose: 40 mg Vitals/I&O/Wt Last Vital Signs Temp 99.3 F 05/26/24 04:15 Pulse 93 05/26/24 06:15 Resp 12 05/26/24 06:15 BP 130/72 05/26/24 06:15 Pulse Ox 97 05/26/24 06:15 O2 Del Method Mechanical Ventilation 05/26/24 06:15 O2 Flow Rate 15 05/24/24 18:56 FiO2 30 05/26/24 06:15 05/25/24 05/26/24 05/26/24 22:59 06:59 14:59 Intake Total 261.25 / 433.00 139.375 / 572.375 Output Total 1100 / 1675 1000 / 2675 Balance -838.75 / -1242.00 -860.625 / -2102.625 Weight last 48 hrs Weight 70 kg Weight 73 kg Weight 73 kg Weight 72.5 kg Weight 71.214 kg Physical Exam 2 Narrative: sedated, VSS vent fio2=30%, PEEP 5 rr 12, tv 460 heent- nc/at neck supple lungs b/l crackles heart regular, + s1, s2 abd soft, nt, nd+ bs, +PEG ext + edema neuro sedated Urinary Catheter Management: Ford: Cath Placed During This Visit: yes Reason for Continuing Indwelling Catheter: Accurate Measurement of Urinary Output in Critically Ill Patients Urinary Catheter Date of Insertion: 05/24/24 Urinary Catheter Time of Insertion: 19:15 Data 05/26/24 06:05 05/26/24 06:05 Micro: Microbiology 05/24/24 17:55 Blood Culture - Preliminary Blood NEGATIVE TO DATE 05/24/24 17:52 Blood Culture - Preliminary Blood NEGATIVE TO DATE A&P Assessment and plan (1) Acute on chronic renal insufficiency: 58 year old woman a fib, PEG. Pt here with septic shock 1. BERNABE- cr improving. u/a c/w uti renal dose abx -low ur na - monitor urine output check renal us 2. GI bleed- per medicine consider GI and /or surgery eval transfuse blood 3. hypernatremia- give water vi PEG 4. hypokalemia=replace mag and potassium seen and examined w/ AV equipement with AIDE of RN Plan see above Attestations 2 Medical Necessity Statement*: VDRF, BERNABE, Anemia, electrolyte abnormalities Time Spent in Patient Care: Greater than 35 minutes (>than 50% of time spent in counselling and/or direct pt care on unit) . Coding Level of Care Code Acute Code for Chg Fwd Diagnoses Acute on chronic renal insufficiency N28.9; N18.9
--- NOTE | 2024-05-26 08:10 | US_ITS ---
WS: [id number] ULTRASOUND RENAL TECHNIQUE: Ultrasound examination of both kidneys. CLINICAL INFORMATION: denise FINDINGS: RIGHT: Increased echogenicity RIGHT kidney Echogenicity: Increased Cortical thickness: 1.4 cm; Normal. Hydronephrosis: None. Perinephric fluid: None. Right kidney measures: 11.7 cm x 6.5 cm x 5.8 cm. LEFT: Mixed cystic and solid lesion LEFT kidney measuring 3.2 x 2.2 x 1.5 cm Echogenicity: Normal. Cortical thickness: 1.3 cm; Normal. Hydronephrosis: None. Perinephric fluid: None. Left kidney measures: 9.9 cm x 5.6 cm x 5.0 cm. Normal visualized aorta. US/US renal BI* [id number] IMPRESSION: 1. No hydronephrosis in the kidney. 2. Ford catheter. 3. Increased RIGHT renal echogenicity compatible with medical renal disease. 4. Mixed cystic and solid lesion in LEFT kidney measuring 3.2 x 2.2 x 1.5 cm. This is nonspecific and cystic neoplasm not excluded. This could be followed up with contrast-enhanced CT abdomen pelvis or ultrasound in 3 months.
--- NOTE | 2024-05-26 08:10 | XR_ITS ---
WS: [id number] PORTABLE CHEST HISTORY: Post PICC insertion COMPARISON: None available. Right-sided PICC line in good position. Tip terminates at the cavoatrial junction. Nasogastric and endotracheal tube are in good positions. Scattered opacifications within both lungs. No pneumothorax. No progression of disease. No pleural ef fusion or pneumothorax. Cardiac size: Normal. Mediastinum/Aorta: Mild atherosclerosis aorta. No osseous abnormality seen. XR/XR chest 1V portable [id number] IMPRESSION: 1. Satisfactory placement of a RIGHT PICC line. 2. Endotracheal and nasogastric tubes in good position.
--- NOTE | 2024-05-26 08:45 | PICC.NOTE ---
Right double lumen PICC placed to right brachial vein. Referred to vascular access nurse for PICC placement due to poor access. Risks and benefits discussed and informed consent obtained from pt [facility]. Right arm assessed with right brachial vein measuring 4.0 mm, straight, and apparent best choice for placement. Using sterile technique and MST, right brachial vein accessed x 1 stick. Mid-arm circumference measured 10 cm from right AC 32 cm. Trimmed cath 39 cm with 2.5 cm external length noted. CXR shows tip in cavoatrial junction, in good position for use per radiologist. Line secured with stat-lock. Insertion site covered with Biopatch and TSM. Report given to bedside nurse, SANDRA David.
[2024-05-26] MEDS: amiodarone 200 mg Tablet PO (09:23)
[2024-05-26] MEDS: pantoprazole 40 mg SDV IVP ×2 (09:23→17:20)
[2024-05-26] MEDS: potassium chloride oral liq 20 mEq/15 mL UDC 40 MEQ PO ×2 (09:23→17:20)
[2024-05-26 10:38] LABS: Basophils # 0.1 10^3/uL (0.0-0.1); Basophils % 0.2 %; Hematocrit 20.9 % (36-47); Lymphocytes # 0.6 10^3/uL (0.8-4.8); Lymphocytes % 2.1 %; Mean Corpuscular HGB Conc 30.1 g/dL (30-55); Mean Corpuscular Hemoglobin 27.8 pg (27-33); Mean Corpuscular Volume 92.1 fl (85-98); Mean Platelet Volume 12.6 fL (7.4-10.4); Monocytes # 0.8 10^3/uL (0.2-0.9); Monocytes % 2.5 %; Neutrophils # 28.81 10^3/uL (1.8-7.7); Neutrophils % 94.1 %; Nucleated Red Blood Cells % 0 %; Platelet Count 228 10^3/cmm (157-399); Red Blood Count 2.27 10^6/uL (3.85-5.65); Red Cell Distribution Width 15.1 % (12.1-15.1)
[2024-05-26 10:40] LABS: White Blood Count 30.59 10^3/uL (3.29-11.43)
--- NOTE | 2024-05-26 13:45 | ANES.PREANE2 ---
Pre-Anesthetic Assessment Height/Weight: Height 1.68 m Weight 70 kg Temp Pulse Resp BP Pulse Ox O2 Del Method O2 Flow Rate 98.9 F 88 12 122/75 98 Mechanical Ventilation 15 05/26/24 12:38 05/26/24 12:38 05/26/24 12:38 05/26/24 12:38 05/26/24 12:38 05/26/24 12:00 05/24/24 18:56 FiO2 30 05/26/24 12:00 Operation Date: 05/26/24 14:00 Proposed Procedures p Debridement of sacral decubitus ulcer(Not Applicable) - Conor Dudley MD Familial anesthetic complications: NOne Last intake: > 8 hrs Exam regular rate & rhythm Patient intubated and sedated - history obtained from review of medical record Pulmonary Aspiration pneumonia CV/HEM Anemia Acute renal failure Metabolic septic shock Neuropsych CVA leading to cerebral edema w/ resultant craniectomy - missing part of her parietal skulll Anesthetic Plan ASA status: 5 Anesthesia: General Risk of > 500 ml blood loss (7ml/kg in children): No Medications/Allergies Home Medications Medication Instructions Recorded Confirmed Last Taken Type amiodarone 200 mg tablet 200 mg PO DAILY 02/29/24 05/25/24 Unknown History amlodipine 10 mg tablet 10 mg PO DAILY 02/29/24 05/25/24 Unknown History apixaban 5 mg tablet (Eliquis) 5 mg PO BID 02/29/24 05/25/24 Unknown History atropine 1 % eye drops 2 - 4 drp PO Q2H PRN Secretions 02/29/24 05/25/24 Unknown History baclofen 10 mg tablet 10 mg PO TID 02/29/24 05/25/24 Unknown History benzonatate 200 mg capsule 200 mg PO TID PRN Cough 02/29/24 05/25/24 Unknown History desipramine 10 mg tablet 10 mg PO DAILY 02/29/24 05/25/24 Unknown History duloxetine 60 mg capsule,delayed 60 mg PO DAILY 02/29/24 05/25/24 Unknown History release gabapentin 300 mg capsule 300 mg PO TID 02/29/24 05/25/24 Unknown History hydrocodone 5 mg-acetaminophen 325 1 tab PO QID PRN Pain, Moderate 02/29/24 05/25/24 Unknown History mg tablet linagliptin 2.5 mg-metformin 1,000 1 tab PO BID 02/29/24 05/25/24 Unknown History mg tablet (Jentadueto) lorazepam 2 mg/mL oral concentrate 0.5 mg PO Q2H PRN anxiety or 02/29/24 05/25/24 Unknown History discomfort morphine concentrate 100 mg/5 mL 50 mg PO Q2H PRN Pain, Moderate 02/29/24 05/25/24 Unknown History (20 mg/mL) oral solution pantoprazole 40 mg tablet,delayed 40 mg PO BID 02/29/24 05/25/24 Unknown History release trazodone 50 mg tablet 100 mg PO BEDTIME 02/29/24 05/25/24 Unknown History albuterol sulfate 90 mcg/actuation 1 inh inhalation Q6H PRN shortness 03/04/24 05/25/24 Unknown Rx aerosol inhaler of breath or wheezing #8.5 grams furosemide 20 mg tablet (Lasix) 20 mg PO DAILY #30 tabs 03/26/24 05/25/24 Unknown Rx cefprozil 250 mg/5 mL oral 500 mg PO QID 05/25/24 05/25/24 Unknown History suspension insulin glargine 100 unit/mL (3 See Rx Instructions .Route .COMPLEX 05/25/24 05/25/24 Unknown History mL) subcutaneous pen (Lantus Solostar U-100 Insulin) lisinopril 20 mg tablet 20 mg PO DAILY 05/25/24 05/25/24 Unknown History Allergies Allergy/AdvReac Type Severity Reaction Status Date / Time Penicillins Allergy Unknown Verified 02/28/24 18:23 Current Medications Generic Name Dose Route Start Last Admin Trade Name Freq PRN Reason Stop Dose Admin Acetaminophen 500 mg 05/25/24 05:17 05/25/24 18:04 Acetaminophen 650 Mg/20.3 Ml Udc PEG-TUBE 500 mg Q4H PRN Administration MILD PAIN OR INCREASE TEMP Amiodarone HCl 200 mg 05/25/24 09:00 05/26/24 09:23 Amiodarone 200 Mg Tablet PO 200 mg DAILY FAVIOLA Administration Chlorhexidine Gluconate 1 applic 05/26/24 01:00 05/26/24 01:35 Chlorhexidine Gluconate 4% Btl 118 Ml TOPICAL 1 applic Q24H FAVIOLA Administration Furosemide 40 mg 05/24/24 23:19 05/26/24 11:50 Furosemide 10 Mg/Ml Sdv 10ml IVP 40 mg Q12H FAVIOLA Administration Norepinephrine Bitartrate 4 mg in 250 mls @ 0 mls/hr 05/24/24 19:45 05/26/24 01:45 Levophed IV 0 mcg/min .Q0M FAVIOLA 0 mls/hr Titration Protocol Per Protocol Sodium Chloride 1,000 mls @ 0 mls/hr 05/24/24 19:47 05/24/24 21:10 Sodium Chloride 0.9% IV Infused .Q0M PRN Infusion hypotension or symptomatic As Directed Albumin Human 12.5 gm in 50 mls @ 60 mls/hr 05/24/24 19:47 05/25/24 04:00 Albumin IV Infused PRN PRN Infusion Hypotension and/or symptomatic Clindamycin HCl/Dextrose 900 mg in 50 mls @ 100 mls/hr 05/25/24 04:00 05/26/24 12:31 Cleocin IV Infused Q8H FAVIOLA Infusion Protocol Piperacillin Sod/Tazobactam 50 mls @ 12.5 mls/hr 05/24/24 23:45 05/26/24 09:34 Sod 3.375 gm/ Sodium Chloride IV 12.5 mls/hr Q8H FAVIOLA Administration Lanolin 1 applic 05/25/24 08:03 05/25/24 08:21 Lanolin Oint 7 Gm TOPICAL 1 applic PRN PRN Administration DRYNESS Ondansetron HCl 4 mg 05/24/24 23:19 05/25/24 02:34 Ondansetron 2 Mg/Ml Sdv 2 Ml IVP 4 mg Q6H PRN Administration NAUSEA AND VOMITING Pantoprazole Sodium 40 mg 05/25/24 09:00 05/26/24 09:23 Pantoprazole 40 Mg Sdv IVP 40 mg BID FAVIOLA Administration Potassium Chloride 40 meq 05/26/24 09:00 05/26/24 09:23 Potassium Chloride Oral Liq 20 Meq/15 Ml Udc PO 05/26/24 18:01 40 meq BID FAVIOLA Administration Additional Medication Information Current Medications Acetaminophen (Acetaminophen 650 Mg/20.3 Ml Udc) 500 mg PEG-TUBE Q4H PRN PRN Reason: MILD PAIN OR INCREASE TEMP Last Admin: 05/25/24 18:04 Dose: 500 mg Albuterol/Ipratropium (Ipratropium-Albuterol 3 Ml Neb) 3 ml INHALATION Q6H PRN PRN Reason: SHORTNESS OF BREATH Amiodarone HCl (Amiodarone 200 Mg Tablet) 200 mg PO DAILY [facility] Last Admin: 05/25/24 08:20 Dose: 200 mg Apixaban (Apixaban 5 Mg Tablet) 2.5 mg PO BID [facility] Chlorhexidine Gluconate (Chlorhexidine Gluconate 4% Btl 118 Ml) 1 applic TOPICAL Q24H FAVIOLA Last Admin: 05/26/24 01:35 Dose: 1 applic Furosemide (Furosemide 10 Mg/Ml Sdv 10ml) 40 mg IVP Q12H FAVIOLA Last Admin: 05/26/24 00:05 Dose: 40 mg Norepinephrine Bitartrate (Levophed) 4 mg in 250 mls @ 0 mls/hr IV .Q0M FAVIOLA; Protocol Last Titration: 05/26/24 01:45 Dose: 0 mcg/min, 0 mls/hr Sodium Chloride (Sodium Chloride 0.9%) 1,000 mls @ 0 mls/hr IV .Q0M PRN PRN Reason: hypotension or symptomatic Last Infusion: 05/24/24 21:10 Dose: Infused Albumin Human (Albumin) 12.5 gm in 50 mls @ 60 mls/hr IV PRN PRN PRN Reason: Hypotension and/or symptomatic Last Infusion: 05/25/24 04:00 Dose: Infused Clindamycin HCl/Dextrose (Cleocin) 900 mg in 50 mls @ 100 mls/hr IV Q8H [facility]; Protocol Last Infusion: 05/26/24 05:32 Dose: Infused Piperacillin Sod/Tazobactam (Sod 3.375 gm/ Sodium Chloride) 50 mls @ 12.5 mls/hr IV Q8H [facility] Last Infusion: 05/26/24 06:16 Dose: Infused Lanolin (Lanolin Oint 7 Gm) 1 applic TOPICAL PRN PRN PRN Reason: DRYNESS Last Admin: 05/25/24 08:21 Dose: 1 applic Ondansetron HCl (Ondansetron 2 Mg/Ml Sdv 2 Ml) 4 mg IVP Q6H PRN PRN Reason: NAUSEA AND VOMITING Last Admin: 05/25/24 02:34 Dose: 4 mg Pantoprazole Sodium (Pantoprazole 40 Mg Sdv) 40 mg IVP BID [facility] Last Admin: 05/25/24 18:04 Dose: 40 mg PFSH Anesthesia Medical History (Updated 05/24/24 @ 21:23 by Yong Foss MD) Hilar mass Left-sided with possible pneumonia. CTA on 02/27 UTI (urinary tract infection) Acute hypoxemic respiratory failure Pneumonia Anxiety Depression Hypertension Atrial fibrillation Hematuria Hypoxia Cough VZV (varicella-zoster virus) infection Enterocolitis Postobstructive pneumonia Type 2 diabetes mellitus Hospice care History of CAD (coronary artery disease) History of type 2 diabetes mellitus History of CVA with residual deficit Surgical History Hx of craniotomy S/P percutaneous endoscopic gastrostomy (PEG) tube placement Social History Smoking and tobacco/nicotine status: never used tobacco/nicotine Alcohol intake: never Substance/Drug Use: never Data Anesthesia 05/26/24 10:23 05/26/24 06:05 Short CBC 05/24/24 05/25/24 05/25/24 Range/Units 17:52 05:02 06:57 WBC 24.48 H 22.89 H (3.29-11.43) 10^3/uL Hgb 9.10 L 6.90 L 7.90 L (11.27-16.99) g/dL Hct 31.8 L 23.0 L 27.2 L (36-47) % MCV 96.1 93.5 (85-98) fl Plt Count 331 209 D (157-399) 10^3/cmm Neut % (Auto) 88.0 91.6 % Neut # (Auto) 21.53 H 20.96 H (1.8-7.7) 10^3/uL 05/26/24 05/26/24 Range/Units 06:05 10:23 WBC 30.14 H* 30.59 H* (3.29-11.43) 10^3/uL Hgb 6.40 L* 6.30 L* (11.27-16.99) g/dL Hct 21.3 L 20.9 L (36-47) % MCV 91.4 92.1 (85-98) fl Plt Count 223 228 (157-399) 10^3/cmm Neut % (Auto) 94.0 94.1 % Neut # (Auto) 28.35 H 28.81 H (1.8-7.7) 10^3/uL BMP 05/24/24 05/24/24 05/25/24 17:52 23:30 05:02 Sodium 144 145 146 H Potassium 9.2 H* 4.8 5.5 H Chloride 106 105 107 Carbon Dioxide 26 27 23 BUN 111 H* D 63 H 67 H Creatinine 2.1 H 1.2 H 1.3 H Glucose 114 173 H 117 H Calcium 10.5 8.9 9.1 05/25/24 05/25/24 05/26/24 12:11 12:11 06:05 Sodium 151 H 148 H Potassium 4.4 4.6 3.0 L Chloride 112 H 108 H Carbon Dioxide 28 25 BUN 65 H 62 H Creatinine 1.5 H 1.6 H Glucose 94 147 H Calcium 8.9 8.9 Cardiac Enzymes 05/24/24 05/24/24 05/24/24 Range/Units 17:52 19:20 23:30 Troponin T Baseline 70 H (0-10) ng/L Troponin T 120 Minute 65.05 H (0-10) ng/L Delta Troponin T -4.95 L (0-10) ABS# Troponin T Hi Sens 6Hr 54.18 H (0-10) ng/L Troponin T Hi Sens 6Hr Delta -15.82 L (0-12) ng/L NT-Pro-B Natriuret Pep 1705 H (0-125) pg/mL Liver Function 05/24/24 05/25/24 Range/Units 17:52 05:02 Total Bilirubin 0.2 0.4 (0.15-1.2) mg/dL AST 9 18 (0-32) U/L ALT 6 10 (0-33) U/L Alkaline Phosphatase 53 48 (35-105) U/L Albumin 3.4 L 3.1 L (3.5-5.2) g/dL Urine 05/25/24 Range/Units 00:33 Urine Color Yellow (Yellow) Urine Appearance Cloudy A (CLEAR) Urine pH 5.5 (5-7) Ur Specific Branch 1.014 (1.005-1.030) Urine Protein 1+ A (Negative) Urine Glucose (UA) Negative (Normal) Urine Ketones Negative (Negative) Urine Nitrate Negative (Negative) Urine Bilirubin Negative (Negative) Ur Leukocyte Esterase 3+ A (Negative) Urine RBC 11-20 H (0-2) /hpf Urine WBC >100 H (0-5) /hpf Blood Bank 05/26/24 10:23 Blood Type A Positive Rho(D) Type Rh positive Antibody Screen Negative COVID Results 05/24/24 17:57 Coronavirus (PCR) Negative Coags 05/25/24 05:02 C-Reactive Protein 218.4 H ABG 05/24/24 05/25/24 05/26/24 17:51 04:00 04:00 Specimen Type Arterial Arterial Arterial Sample Site Brachial, left Radial, right Radial, right ABG pH 7.28 L 7.50 H 7.51 H ABG pCO2 61.1 H* 33.4 L 35.0 ABG pO2 68.4 L 99.5 135.0 H ABG PO2/FiO2 Ratio 68 165 337 ABG HCO3 28.5 H 26.2 H 27.9 H ABG O2 Saturation 92.2 ABG Base Excess 1.1 2.9 H 4.8 H A-a O2 Gradient 74.7 H O2 Delivery Device Nrb Vent Vent O2 Liters/Min 15.0 FiO2 100.0 60.0 40.0 Tidal Volume 0.46 0.46 PEEP 5.0 5.0 Microbiology 05/25/24 21:30 Occult Blood (FIT) - Final Stool - Stool Aspirate 05/25/24 00:33 Urine Culture - Preliminary Urine,Clean Catch 05/24/24 17:55 Blood Culture - Preliminary Blood NEGATIVE TO DATE 05/24/24 17:52 Blood Culture - Preliminary Blood NEGATIVE TO DATE Cardiac Studies: Echocardiogram 02/29/24
[2024-05-26 14:01] LABS: Blood Urea Nitrogen 61 mg/dL (6-20); Calcium 9.1 mg/dL (8.5-10.5); Carbon Dioxide 26 mmol/L (22-29); Chloride 109 mmol/L (98-107); Creatinine Clr Calc Pharmacy 38.4681; Glomerular Filtration Rate 33.1 mL/min (90-130); Glucose 162 mg/dL (65-115); Osmolality Calculated 327 mOsm/kg (285-295); Sodium 148 mmol/L (136-145)
[2024-05-26 14:03] LABS: Anion Gap 16.9 (5-19); Potassium 3.9 mmol/L (3.5-5.1)
--- NOTE | 2024-05-26 14:19 | W.PM.OPSUD ---
Surgery/Procedure H&P Update DATE OF PROCEDURE: May 26, 2024 DATE H&P PERFORMED: 05/25/24 H&P UPDATE INFORMATION: I have reviewed H&P completed within last 30 days, I have examined patient prior to procedure, No changes to prior documentation and H&P is in [facility] [place] on date indicated PLANNED PROCEDURE: Operation Date: 05/26/24 14:00 Proposed Procedures p Debridement of sacral decubitus ulcer(Not Applicable) - Conor Dudley MD
--- NOTE | 2024-05-26 14:59 | PM.MISC ---
Miscellaneous Note Purpose of Documentation: update on patient care Note: Patient was scheduled for debridement of sacral decubitus ulcer but unfortunately due to a power outage we are unable to start surgeries this afternoon, in addition patient has become anemic and anticuagulation has been held. we will monitor anemia and if it is stable will plan for OR tomorrow.
[2024-05-26] MEDS: gabapentin 300 mg Capsule PO (20:33)
[2024-05-26 20:58] LABS: Glucose Point of Care 162 mg/dL (70-110)
--- NOTE | 2024-05-26 21:11 | P.PN_ITS ---
Subjective 2 Subjective: She opens her eyes, does not communicate when asked if she can hear me or is in pain or discomfort. Does not appear in any distress or discomfort. Mild although later on reported to be anxious. Vitals/I&O/Wt Last Vital Signs Temp 98.8 F 05/26/24 16:00 Pulse 84 05/26/24 18:00 Resp 12 05/26/24 20:00 BP 121/74 05/26/24 18:00 Pulse Ox 97 05/26/24 20:00 O2 Del Method Mechanical Ventilation 05/26/24 18:00 O2 Flow Rate 15 05/24/24 18:56 FiO2 30 05/26/24 20:00 05/26/24 05/26/24 05/26/24 06:59 14:59 22:59 Intake Total 139.375 / 572.375 300 / 300 600 / 900 Output Total 1000 / 2675 1000 / 1000 Balance -860.625 / -2102.625 300 / 300 -400 / -100 Weight last 48 hrs Weight 70 kg Weight 73 kg Weight 73 kg Weight 72.5 kg Physical Exam 2 Const: GENERAL APPEARANCE: not cooperative ORIENTATION/CONSCIOUSNESS: Yes awake HENMT: COMMON NORMALS: oropharynx normal OTHER: 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 Neck/C-Spine: COMMON NORMALS: no JVD Resp: OTHER: Few rhonchi Cardio: COMMON NORMALS: no JVD, regular rhythm, S1 normal heart sound present, S2 normal heart sound present and No murmurs present (Cardio) RHYTHM: regular rhythm HEART SOUNDS: S1 normal heart sound present and S2 normal heart sound present GI: COMMON NORMALS: Normal to inspection, nondistended, normoactive bowel sounds present, Soft to palpation and non-tender PALPATION: Yes Soft to palpation Extremity: COMMON NORMALS: no joint enlargement and no pedal edema Urinary Catheter Management: Ford: Cath Placed During This Visit: yes Reason for Continuing Indwelling Catheter: Accurate Measurement of Urinary Output in Critically Ill Patients Urinary Catheter Date of Insertion: 05/24/24 Urinary Catheter Time of Insertion: 19:15 Data 05/26/24 10:23 05/26/24 13:29 Micro: Microbiology 05/25/24 21:30 Occult Blood (FIT) - Final Stool - Stool Aspirate 05/25/24 00:33 Urine Culture - Preliminary Urine,Clean Catch 05/24/24 17:55 Blood Culture - Preliminary Blood NEGATIVE TO DATE 05/24/24 17:52 Blood Culture - Preliminary Blood NEGATIVE TO DATE A&P Assessment and plan (1) Acute on chronic renal insufficiency: (2) Hyperkalemia: (3) Sepsis: (4) Septic shock: (5) Sacral ulcer: (6) Ankle ulcer: (7) Acute metabolic encephalopathy: (8) Pneumonia: (9) Aspiration pneumonia: (10) Hypotension: Plan Acute anemia: Hemoglobin down to 6.3 today, reviewed platelets, CBC. WBC up to 30. Reviewed intake and output, noted liquid stool. Requested C. difficile, requested Hemoccult. Hemoccult reviewed, noted positive. Anticoagulation has been held. Requested 1 unit RBC transfusion. Monitor for risk of fluid overload, risk of acute lung injury, transfusion reaction. Reassess blood counts. Continue to hold anticoagulation. Continue PPI IV twice daily. Discussed with surgery. Septic shock: Discussed with nursing, discussed with respite therapist, discussed with bottle caser. So far septic shock is resolved. Weaned off Levophed. Discussed with surgery. Reviewed CXR scattered opacification of both lungs on chest x-ray. Continue Zosyn. Monitor for risk of cytopenia, C. difficile. Stop clindamycin. Will repeat imaging. Discussed with anesthesia. Discussed with surgery, with possible septic shock, additionally has been pending debridement, recommend today with acute anemia, additionally with a power issues in the hospital debridement has been postponed. Will repeat blood counts. Tentatively possibly tomorrow. Continue broad-spectrum antibiotics With worsening leukocytosis up to 30.59, liquid stool, requested C. difficile, requested Salmonella, Shigella, Campylobacter. Metabolic encephalopathy: She is now opening her eyes, although I could not get her to answer whether she could hear me and whether she was any pain or discomfort. Does appear not in distress, though later on reported anxious. Resumed home baclofen, gabapentin, hydrocodone, Ativan, desipramine. Intubated and sedated, at baseline nonverbal communicates with blinking of her eyes Respiratory failure requiring mechanical ventilation Reviewed vitals, ventilatory settings, imaging, discussed with respite therapy. Discussed with bottle caser, concerned that she was not protecting airway and presentation. Unclear whether may be secondary to acute encephalopathy versus progression of her chronic illness. Main dissipate difficult extubation, elevated risk of extubation failure, risk of aspiration. Consideration could be given to further weaning trials at LTAC. Acute on chronic kidney disease Status post dialysis for session 05/24 Potassium improved PEG tube in place Start trophic feeds. Monitor for tolerance. Accu-Cheks every 4 hours Reviewed KUB Sacral ulcer: Discussed with surgery, anesthesia. Appreciate consultation. Guarded prognosis Chronic anemia: History of A-fib was on Eliquis patient takes amiodarone as well via PEG tube For hypertension she was taking lisinopril and amlodipine currently on hold Type II diabetic: Accu-Cheks GI prophylaxis: Protonix Concern related to feeding tube related aspiration versus caregiver trying to give her medication for oral thrush and then failing to properly suctioning her Attestations 2 Medical Necessity Statement*: Continue admission for assessment management of respiratory failure, acute anemia, following septic shock, encephalopathy. Coding Level of Care Code Critical Care >/= 30 minutes Critical care time (in minutes): 50 The high probability of a clinically significant, sudden or life threatening deterioration, as referenced in this documentation, required my full and direct attention, intervention and personal management. The critical care time shown is in addition to time spent performing any reported separately billable procedures and includes the following: [x] Data and vital sign review and interpretation [x ] Patient assessment, examination and intervention [x] Medication orders and management [x] Patient/Family updates as able [x] Care Coordination and Documentation. Diagnoses Acute on chronic renal insufficiency N28.9; N18.9 Hyperkalemia E87.5 Sepsis A41.9 Septic shock A41.9; R65.21 Sacral ulcer L98.429 Ankle ulcer L97.309 Acute metabolic encephalopathy G93.41 Pneumonia J18.9 Aspiration pneumonia J69.0 Hypotension I95.9
[2024-05-27] VITALS (50 sets, daily range): BP systolic 102–146; BP diastolic 62–95; PULSE 61–114; RESP 12–20; TEMP 36.3–37.3; O2SAT 89–100; BMI 24.5
[2024-05-27] MEDS: piperacillin-tazobactam 3.375 GM in sodium chloride 0.9% (plus) 50 ML IV ×3 (00:36→16:53)
[2024-05-27 00:49] LABS: Glucose Point of Care 139 mg/dL (70-110)
[2024-05-27 01:16] LABS: Hematocrit 24.2 % (36-47)
--- NOTE | 2024-05-27 01:36 | PC.NURSE ---
Tube Feed Verification received from Dr. Beebe to hold tube feed for possible wound debridement 05/27/24.
[2024-05-27 03:34] LABS: Basophils # 0.1 10^3/uL (0.0-0.1); Basophils % 0.2 %; Eosinophils # 0.1 10^3/uL (0.0-0.8); Eosinophils % 0.2 %; Hematocrit 25.8 % (36-47); Lymphocytes # 0.9 10^3/uL (0.8-4.8); Mean Corpuscular HGB Conc 30.6 g/dL (30-55); Mean Corpuscular Volume 91.5 fl (85-98); Mean Platelet Volume 12.6 fL (7.4-10.4); Monocytes # 1.1 10^3/uL (0.2-0.9); Monocytes % 3.6 %; Neutrophils # 26.43 10^3/uL (1.8-7.7); Neutrophils % 91.9 %; Nucleated Red Blood Cells % 0 %; Platelet Count 217 10^3/cmm (157-399); Red Blood Count 2.82 10^6/uL (3.85-5.65); Red Cell Distribution Width 15.1 % (12.1-15.1); White Blood Count 28.81 10^3/uL (3.29-11.43)
[2024-05-27 03:58] LABS: Alanine Aminotransferase 7 U/L (0-33); Albumin Level 2.7 g/dL (3.5-5.2); Alkaline Phosphatase 65 U/L (35-105); Anion Gap 16.6 (5-19); Aspartate Amino Transferase 16 U/L (0-32); Blood Urea Nitrogen 56 mg/dL (6-20); Calcium 9.4 mg/dL (8.5-10.5); Carbon Dioxide 25 mmol/L (22-29); Chloride 112 mmol/L (98-107); Creatinine Clr Calc Pharmacy 38.4681; Globulin 3.2 g/dL (1.3-4.6); Glomerular Filtration Rate 33.1 mL/min (90-130); Glucose 131 mg/dL (65-115); Magnesium 1.9 mg/dL (1.7-2.3); Osmolality Calculated 327 mOsm/kg (285-295); Phosphorus 3.4 mg/dL (2.5-4.5); Potassium 3.6 mmol/L (3.5-5.1); Sodium 150 mmol/L (136-145); Total Bilirubin 0.4 mg/dL (0.15-1.2); Total Protein 5.9 g/dL (6.6-8.7)
[2024-05-27] MEDS: chlorhexidine gluconate 4% Btl 118 mL 1 APPLIC TOPICAL (04:36)
[2024-05-27 05:37] LABS: Glucose Point of Care 144 mg/dL (70-110)
--- NOTE | 2024-05-27 06:00 | XRR_ITS ---
PROCEDURE INFORMATION: Exam: XR Chest Exam date and time: 05/27/2024 7:26 AM Age: 58 years old Clinical indication: Other: Hypoxia; Patient HX: AMS TECHNIQUE: Imaging protocol: Radiologic exam of the chest. Views: 1 view. COMPARISON: CR XR chest 1V portable [id number] 05/26/2024 9:05 AM FINDINGS: Tubes, catheters and devices: Endotracheal tube is visualized with its distal tip approximately 2.5 cm above the level of the stephon. Enteric tube is visualized coursing below the level of the diaphragm with its side port noted at the gastroesophageal junction. Distal tip of the enteric tube is collimated from view. Right-sided peripherally inserted central venous catheter is stable in positioning with its distal tip in the lower SVC. Lungs: Mild bronchovascular prominence with redemonstrated stable retrocardiac opacity. Pleural spaces: No significant pleural effusion. No definitive pneumothorax. Heart/Mediastinum: Cardiomediastinal silhouette is stable and within normal limits. Bones/joints: Unremarkable. XR/XR chest 1V portable [id number] IMPRESSION: Enteric tube is visualized with its side port at the gastroesophageal junction. Recommend advancement of enteric tube approximately 2 cm. Stable and satisfactory positioning of right-sided PICC catheter and endotracheal tube.
--- NOTE | 2024-05-27 07:41 | W.PM.OPSUD ---
Surgery/Procedure H&P Update DATE OF PROCEDURE: May 27, 2024 DATE H&P PERFORMED: 05/25/24 H&P UPDATE INFORMATION: I have reviewed H&P completed within last 30 days, I have examined patient prior to procedure, No changes to prior documentation and H&P is in [facility] on date indicated PLANNED PROCEDURE: Operation Date: 05/27/24 14:45 Proposed Procedures p Debridement of sacral decubitus ulcer(Not Applicable) - Conor Dudley MD
[2024-05-27] MEDS: albumin 25 G/100 ML BAG 60 G IV (08:19)
[2024-05-27 08:20] LABS: Glucose Point of Care 142 mg/dL (70-110)
[2024-05-27] MEDS: pantoprazole 40 mg SDV IVP ×2 (08:23→17:05)
[2024-05-27] MEDS: HYDROcodone-acetaminophen 5-325 mg Tablet 1 TAB PO (08:29)
[2024-05-27] MEDS: amiodarone 200 mg Tablet PO (08:29)
[2024-05-27] MEDS: gabapentin 300 mg Capsule PO ×3 (08:29→20:53)
[2024-05-27] MEDS: dextrose 5% 1,000 ML 75 ML IV (09:24)
--- NOTE | 2024-05-27 09:38 | PM.PN ---
Subjective Subjective: seen and examined. sedated on vent. no pressors. for Sacral decubitus debridement today Medications: Reviewed: Yes Medication Review Details: Current Medications Acetaminophen (Acetaminophen 650 Mg/20.3 Ml Udc) 500 mg PEG-TUBE Q4H PRN PRN Reason: MILD PAIN OR INCREASE TEMP Last Admin: 05/25/24 18:04 Dose: 500 mg Hydrocodone Bitart/Acetaminophen (Hydrocodone-Acetaminophen 5-325 Mg Tablet) 1 tab PO QID PRN PRN Reason: Pain, Moderate Last Admin: 05/27/24 08:29 Dose: 1 tab Albuterol/Ipratropium (Ipratropium-Albuterol 3 Ml Neb) 3 ml INHALATION Q6H PRN PRN Reason: SHORTNESS OF BREATH Amiodarone HCl (Amiodarone 200 Mg Tablet) 200 mg PO DAILY [facility] Last Admin: 05/27/24 08:29 Dose: 200 mg Apixaban (Apixaban 5 Mg Tablet) 2.5 mg PO BID [facility] Baclofen (Baclofen 10 Mg Tablet) 10 mg PO TID PRN PRN Reason: SPASMS Chlorhexidine Gluconate (Chlorhexidine Gluconate 4% Btl 118 Ml) 1 applic TOPICAL Q24H [facility] Last Admin: 05/27/24 04:36 Dose: 1 applic Furosemide (Furosemide 10 Mg/Ml Sdv 10ml) 40 mg IVP Q12H [facility] Last Admin: 05/26/24 11:50 Dose: 40 mg Gabapentin (Gabapentin 300 Mg Capsule) 300 mg PO TID [facility] Last Admin: 05/27/24 08:29 Dose: 300 mg Norepinephrine Bitartrate (Levophed) 4 mg in 250 mls @ 0 mls/hr IV .Q0M [facility]; Protocol Last Titration: 05/26/24 01:45 Dose: 0 mcg/min, 0 mls/hr Sodium Chloride (Sodium Chloride 0.9%) 1,000 mls @ 0 mls/hr IV .Q0M PRN PRN Reason: hypotension or symptomatic Last Infusion: 05/24/24 21:10 Dose: Infused Albumin Human (Albumin) 12.5 gm in 50 mls @ 60 mls/hr IV PRN PRN PRN Reason: Hypotension and/or symptomatic Last Infusion: 05/25/24 04:00 Dose: Infused Piperacillin Sod/Tazobactam (Sod 3.375 gm/ Sodium Chloride) 50 mls @ 12.5 mls/hr IV Q8H [facility] Last Admin: 05/27/24 08:29 Dose: 12.5 mls/hr Dextrose (D5w) 1,000 mls @ 75 mls/hr IV .[id number] [facility] Last Admin: 05/27/24 09:24 Dose: 75 mls/hr Lanolin (Lanolin Oint 7 Gm) 1 applic TOPICAL PRN PRN PRN Reason: DRYNESS Last Admin: 05/25/24 08:21 Dose: 1 applic Lorazepam (Lorazepam 2 Mg/Ml Oral Liquid (Ml)) 0.5 mg PO Q2H PRN PRN Reason: anxiety or discomfort Non-Formulary Medication (Desipramine) 10 mg PO DAILY [facility] Ondansetron HCl (Ondansetron 2 Mg/Ml Sdv 2 Ml) 4 mg IVP Q6H PRN PRN Reason: NAUSEA AND VOMITING Last Admin: 05/25/24 02:34 Dose: 4 mg Pantoprazole Sodium (Pantoprazole 40 Mg Sdv) 40 mg IVP BID [facility] Last Admin: 05/27/24 08:23 Dose: 40 mg Vitals/I&O/Wt Last Vital Signs Temp 97.9 F 05/27/24 05:00 Pulse 69 05/27/24 07:47 Resp 12 05/27/24 09:34 BP 110/71 05/27/24 06:00 Pulse Ox 97 05/27/24 09:34 O2 Del Method Mechanical Ventilation 05/27/24 07:47 O2 Flow Rate 15 05/24/24 18:56 FiO2 24 05/27/24 09:34 05/26/24 05/27/24 05/27/24 22:59 06:59 14:59 Intake Total 810 / 1110 250 / 1360 Output Total 1000 / 1000 725 / 1725 Balance -190 / 110 -475 / -365 Weight last 48 hrs Weight 69 kg Weight 70 kg Physical Exam Narrative: sedated, VSS vent fio2=30%, PEEP 5 rr 12, tv 460 heent- nc/at neck supple lungs b/l clear heart regular, + s1, s2 abd soft, nt, nd+ bs, +PEG ext - dec leg edema neuro sedated Urinary Catheter Management: Ford: Cath Placed During This Visit: yes Reason for Continuing Indwelling Catheter: Accurate Measurement of Urinary Output in Critically Ill Patients Urinary Catheter Date of Insertion: 05/24/24 Urinary Catheter Time of Insertion: 19:15 Data 05/27/24 03:10 05/27/24 03:10 Micro: Microbiology 05/25/24 00:33 Urine Culture - Final Urine,Clean Catch 05/25/24 21:30 Occult Blood (FIT) - Final Stool - Stool Aspirate A&P Assessment and plan (1) Acute on chronic renal insufficiency: 58 year old woman a fib, PEG. Pt here with septic shock 1. BERNABE- cr improving. u/a c/w uti renal dose abx -low ur na - monitor urine output renal us- 1. No hydronephrosis in the kidney. 2. Ford catheter. 3. Increased RIGHT renal echogenicity compatible with medical renal disease. 4. Mixed cystic and solid lesion in LEFT kidney measuring 3.2 x 2.2 x 1.5 cm. This is nonspecific and cystic neoplasm not excluded. This could be followed up with contrast-enhanced CT abdomen pelvis or ultrasound in 3 months. SHE NEEDS OUTPT UROLOGY FOLLOW UP 2. GI bleed- per medicine consider GI and /or surgery eval transfuse blood Check iron studies 3. hypernatremia- give water vi PEG, and d5w 4. hypokalemia=replace mag and potassium as needed seen and examined w/ AV equipment with AIDE of RN Plan see above Attestations Medical Necessity Statement*: bernabe, hypernatremia, vdrf Time Spent in Patient Care: 16 - 35 minutes (>than 50% of time spent in counselling and/or direct pt care on unit). Coding Level of Care Code Acute Code for Chg Fwd Diagnoses Acute on chronic renal insufficiency N28.9; N18.9
[2024-05-27] MEDS: fentaNYL 1,000 MCG/100 ML BAG 2.5 MCG IV (11:24)
[2024-05-27 11:28] LABS: Glucose Point of Care 149 mg/dL (70-110)
--- NOTE | 2024-05-27 12:07 | PC.NUTR ---
PEG Tube Feeding consult received. Recommend Jevity 1.5 with goal rate of 55mls/hr with FWF 80mls Q4H or per MD discretion.
[2024-05-27 15:23] LABS: Glucose Point of Care 153 mg/dL (70-110)
[2024-05-27 15:44] LABS: Blood Urea Nitrogen 48 mg/dL (6-20); Calcium 9.3 mg/dL (8.5-10.5); Carbon Dioxide 25 mmol/L (22-29); Chloride 109 mmol/L (98-107); Creatinine Clr Calc Pharmacy 40.7745; Glomerular Filtration Rate 35.7 mL/min (90-130); Glucose 150 mg/dL (65-115); Magnesium 1.8 mg/dL (1.7-2.3); Osmolality Calculated 321 mOsm/kg (285-295); Sodium 148 mmol/L (136-145)
--- NOTE | 2024-05-27 16:15 | ANE.PACU2 ---
Inpatient post-anesthesia follow up: Airway intact: No Vital signs: Temperature 97.9 F Pulse Rate 58 Respiratory Rate 12 Blood Pressure 102/66 Pulse Oximetry 95 Oxygen Delivery Me thod Mechanical Ventila tion Oxygen Flow Rate 15 Fraction of Inspir ed Oxygen 24 Hydration adequate: Yes Nausea and vomiting: No Pain level: 1 Mental status: Baseline
--- NOTE | 2024-05-27 16:46 | P.OP_ITS ---
Operative Report Date of procedure: May 27, 2024 Pre-op diagnosis: Sacral decubitus ulcer Post-op diagnosis: Stage 4 sacral decubitus ulcer Post-op findings: pre debridement measurement 6x7cm, post debridement [id number]. there was a thick eschar covering the ulcer, once removed subcutaneous tissue noted to be devitalized and purulence was drained. ulcer was full thickness to the level of the bone. Procedure done: debridement of sacral decubitus ulcer to the level of the bone Implants: none Specimens removed/disposition: wound culture and tissue culture Surgeon: Conor Dudley MD Hvac Technician: [facility] Brief History: 58 y/o F with history of neurological deficit and admitted with respiratory failure and hyperkalemia, she was noted to have a sacral decubitus ulcer and I was consulted for debridement. Procedure: patient was taken to the OR intubated, she was placed in the left lateral decubitus position. the sacral area was prepped and draped in the usual sterile fashion and a time out was done. a thick eschar was removed with a 10 blade and foreceps. the subcutaneous tissue was devitalized and purulence was drained. cultures were taken. I then sharplly debrided the necrotic tissue, healthy fat was noted on the edges. the base tracked all the way down to the sacral bone. hemostasis was obtained. the wound was irrigated and a compresive dressing was applied. patient tolerated well the procedure and was transferred to the ICU in stable condition.
[2024-05-27] MEDS: magnesium sulfate premix 1 GM/100 ML PIGGYBACK IV (16:56)
[2024-05-27 17:02] LABS: Glucose Point of Care 155 mg/dL (70-110)
--- NOTE | 2024-05-27 17:58 | PC.NURSE ---
Shift Summary: uneventful shift. went to surgery today for sacral debridement. Started on tube feeds and free water flushes. maintenance fluids added. Unsure on mental status today, would often times appear to be trying to communicate through eye blinks, though it was inconsistent and not reliable. Patient appears much more alert to people entering room and will track movement with eyes. .
--- NOTE | 2024-05-27 20:19 | P.PN_ITS ---
Subjective 2 Subjective: She opens her eyes, but does not communicate with me when asked questions, does not seem to have any pattern to her blinking. Communication similarly could not be elicited by her nurse this morning. Respiratory therapist may have elicited an appropriate answer from her brother blinking but difficult to tell, this did not seem to replicate later. Her caregiver/power of assistant district attorney visiting later during the day reported she was blinking response to him speaking with her. We had a 30-minute discussion with him regarding her condition, goals of care. As well as further attempt to communicate with her. She did appear to blink sometimes when he was speaking with her, sometimes once, sometimes twice, although it was difficult to tell whether this was reflexive or truly answering questions. Answers appears to be inconsistent at least at current time. Vitals/I&O/Wt Last Vital Signs Temp 98.2 F 05/27/24 18:00 Pulse 69 05/27/24 18:00 Resp 12 05/27/24 18:26 BP 140/77 05/27/24 18:00 Pulse Ox 98 05/27/24 18:26 O2 Del Method Mechanical Ventilation 05/27/24 18:00 O2 Flow Rate 15 05/24/24 18:56 FiO2 24 05/27/24 19:22 05/27/24 05/27/24 05/27/24 06:59 14:59 22:59 Intake Total 250 / 1360 600 / 600 898.75 / 1498.75 Output Total 725 / 1725 350 / 350 500 / 850 Balance -475 / -365 250 / 250 398.75 / 648.75 Weight last 48 hrs Weight 69 kg Weight 70 kg Physical Exam 2 Const: GENERAL APPEARANCE: not cooperative ORIENTATION/CONSCIOUSNESS: Yes awake HENMT: COMMON NORMALS: oropharynx normal OTHER: 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 Neck/C-Spine: COMMON NORMALS: no JVD Resp: COMMON NORMALS: clear to auscultation bilaterally AUSCULTATION: clear to auscultation bilaterally Cardio: COMMON NORMALS: no JVD, regular rhythm, S1 normal heart sound present, S2 normal heart sound present and No murmurs present (Cardio) RHYTHM: regular rhythm HEART SOUNDS: S1 normal heart sound present and S2 normal heart sound present GI: COMMON NORMALS: Normal to inspection, nondistended, normoactive bowel sounds present, Soft to palpation and non-tender PALPATION: Yes Soft to palpation Extremity: COMMON NORMALS: no joint enlargement and no pedal edema Urinary Catheter Management: Ford: Cath Placed During This Visit: yes Reason for Continuing Indwelling Catheter: Accurate Measurement of Urinary Output in Critically Ill Patients Urinary Catheter Date of Insertion: 05/24/24 Urinary Catheter Time of Insertion: 19:15 Data 05/27/24 03:10 05/27/24 15:15 Micro: Microbiology 05/27/24 15:48 Gram Stain - Final Other Source 05/27/24 16:14 Gram Stain - Final Other Source 05/25/24 00:33 Urine Culture - Final Urine,Clean Catch A&P Assessment and plan (1) Acute on chronic renal insufficiency: (2) Hyperkalemia: (3) Sepsis: (4) Septic shock: (5) Sacral ulcer: (6) Ankle ulcer: (7) Acute metabolic encephalopathy: (8) Pneumonia: (9) Aspiration pneumonia: (10) Hypotension: Plan Metabolic encephalopathy: She is fairly consistently awake and alert, although does make eye contact, able to follow people around the room, but does not follow directions, during my assessment, 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 Blinking appeared to be inconsistent, possibly reflexive. We had a 30-minute conversation with her caregiver/DPOA Mr. Viera who was visiting with her today. He overall finds that it would be consistent with her wishes to continue current medical and supportive care, and does not feel that she would be ready for hospice/comfort measures at least at current time on discussion of options. He does provide an account of her overall gradual decline compared to a year ago, but this seems to have worsened quite significantly over the last 2 weeks. He questions that the more rapid decline may be related to acute factors. He agrees and would like to continue treatment of possible pneumonia, wound debridement by surgery, reassessment of anemia, continued weaning off of the ventilator. We discussed with him concern for lack of protecting her airway, risk of aspiration. He provides history of vocal cord dysfunction and dysphagia due to which she has been made NPO. It seems that up to close to a month ago or so she was able to speak as per history that he provides. Later in the afternoon she is uncomfortable and restless. Anticipating surgical debridement she started on fentanyl. Reviewed vitals, ventilator settings, discussed with nursing, respiratory therapist. Reviewed CBC, CMP, magnesium. Continue home baclofen, gabapentin, hydrocodone, Ativan, desipramine. Once additional possible acute contributors to encephalopathy are under better control, she is done with surgical debridement, anesthesia, etc., further evaluation may be considered with neurology as discussed with DPOA. Intubated and sedated, at baseline nonverbal communicates with blinking of her eyes Acute anemia: Reviewed hemoglobin after transfusion, up to 7.8, today 7.9. Monitor for additional drops in hemoglobin. Reassess blood counts. Hemoccult reviewed, noted positive. Anticoagulation has been held. Requested 1 unit RBC transfusion. Monitor for risk of fluid overload, risk of acute lung injury, transfusion reaction. Reassess blood counts. Continue to hold anticoagulation. Continue PPI IV twice daily. Discussed with surgery. Septic shock: Discussed with nursing, discussed with respite therapist, discussed with onsite case manager. So far septic shock is resolved. Weaned off Levophed. Discussed with surgery. Reviewed CXR scattered opacification of both lungs on chest x-ray. Continue Zosyn. Monitor for risk of cytopenia, C. difficile. Stop clindamycin. Will repeat imaging. Discussed with anesthesia. Discussed with surgery, with possible septic shock, additionally has been pending debridement, recommend today with acute anemia, additionally with a power issues in the hospital debridement has been postponed. Will repeat blood counts. Tentatively possibly tomorrow. Continue broad-spectrum antibiotics With worsening leukocytosis up to 30.59, liquid stool, requested C. difficile, requested Salmonella, Shigella, Campylobacter. Chronic sacral wound: Unstageable wound on presentation. Status post debridement of necrotic tissue had to be debrided down to sacral bone per discussion with surgeon. After surgery start low rate tube feeds. Monitor tolerance. Monitor for any regurgitation which could have contributed to aspiration. Respiratory failure requiring mechanical ventilation: As per above discussion of her condition, goals of care, further options and plans of assessment and management, patient is DPOA would not want her returning to [facility] but is willing to review other LTAC options. Discussed with case management, he will be provided with these. Given respiratory failure on presentation, vocal cord dysfunction, overall possible worsening cognitive decline, functional decline, high risk of aspiration with dysphagia, she would be at elevated risk of unsuccessful weaning and extubation. He understands the risk of aspiration, risk of need for reintubation. Discussed consideration of weaning, extubation and specialized settings and LTAC, in case of failure consideration of tracheostomy versus preemptive consideration of tracheostomy given risk factors. He is considering options, would like to review LTAC's. Continue breathing trials. Concerned that she was not protecting airway and presentation. Unclear whether may be secondary to acute encephalopathy versus progression of her chronic illness. Acute on chronic kidney disease Status post dialysis for session 05/24 Potassium improved PEG tube in place Start trophic feeds. Monitor for tolerance. Accu-Cheks every 4 hours Reviewed KUB Guarded prognosis Chronic anemia: History of A-fib was on Eliquis patient takes amiodarone as well via PEG tube For hypertension she was taking lisinopril and amlodipine currently on hold Type II diabetic: Accu-Cheks GI prophylaxis: Protonix Concern related to feeding tube related aspiration versus caregiver trying to give her medication for oral thrush and then failing to properly suctioning her Attestations 2 Medical Necessity Statement*: Continue admission for assessment management of encephalopathy, respiratory failure, acute anemia, sacral wound. Coding Level of Care Code Critical Care >/= 30 minutes Critical care time (in minutes): 50 The high probability of a clinically significant, sudden or life threatening deterioration, as referenced in this documentation, required my full and direct attention, intervention and personal management. The critical care time shown is in addition to time spent performing any reported separately billable procedures and includes the following: [x] Data and vital sign review and interpretation [x ] Patient assessment, examination and intervention [x] Medication orders and management [x] Patient/Family updates as able [x] Care Coordination and Documentation. Diagnoses Acute on chronic renal insufficiency N28.9; N18.9 Hyperkalemia E87.5 Sepsis A41.9 Septic shock A41.9; R65.21 Sacral ulcer L98.429 Ankle ulcer L97.309 Acute metabolic encephalopathy G93.41 Pneumonia J18.9 Aspiration pneumonia J69.0 Hypotension I95.9
[2024-05-28] VITALS (65 sets, daily range): BP systolic 89–133; BP diastolic 56–82; PULSE 58–88; RESP 12; TEMP 36.4–36.9; O2SAT 93–100; BMI 25.9
[2024-05-28] MEDS: piperacillin-tazobactam 3.375 GM in sodium chloride 0.9% (plus) 50 ML IV ×3 (00:29→17:16)
[2024-05-28 01:31] LABS: Glucose Point of Care 165 mg/dL (70-110)
[2024-05-28] MEDS: chlorhexidine gluconate 4% Btl 118 mL 1 APPLIC TOPICAL (03:38)
[2024-05-28 05:28] LABS: Basophils # 0.1 10^3/uL (0.0-0.1); Basophils % 0.2 %; Eosinophils # 0.3 10^3/uL (0.0-0.8); Hematocrit 26.2 % (36-47); Lymphocytes % 3.5 %; Mean Corpuscular HGB Conc 30.9 g/dL (30-55); Mean Corpuscular Hemoglobin 28.9 pg (27-33); Mean Corpuscular Volume 93.6 fl (85-98); Mean Platelet Volume 12.3 fL (7.4-10.4); Monocytes # 1.1 10^3/uL (0.2-0.9); Monocytes % 4.1 %; Neutrophils # 24.93 10^3/uL (1.8-7.7); Neutrophils % 89.5 %; Nucleated Red Blood Cells % 0.1 %; Platelet Count 196 10^3/cmm (157-399); Red Cell Distribution Width 15.1 % (12.1-15.1); White Blood Count 27.86 10^3/uL (3.29-11.43)
[2024-05-28 06:02] LABS: Alanine Aminotransferase 6 U/L (0-33); Albumin Level 2.9 g/dL (3.5-5.2); Alkaline Phosphatase 61 U/L (35-105); Anion Gap 16.4 (5-19); Aspartate Amino Transferase 11 U/L (0-32); Blood Urea Nitrogen 50 mg/dL (6-20); Carbon Dioxide 25 mmol/L (22-29); Chloride 108 mmol/L (98-107); Creatinine Clr Calc Pharmacy 47.0475; Globulin 2.7 g/dL (1.3-4.6); Glomerular Filtration Rate 42.1 mL/min (90-130); Glucose 167 mg/dL (65-115); Osmolality Calculated 319 mOsm/kg (285-295); Phosphorus 2.7 mg/dL (2.5-4.5); Potassium 3.4 mmol/L (3.5-5.1); Sodium 146 mmol/L (136-145); Total Bilirubin 0.2 mg/dL (0.15-1.2); Total Protein 5.6 g/dL (6.6-8.7)
--- NOTE | 2024-05-28 07:32 | PM.PN ---
Subjective Subjective: The patient was seen and examined. The patient is minimally responsive to pain. Not following commands or interactive. Not able to obtain a review of systems. Medications: Reviewed: Yes Medication Review Details: Current Medications Acetaminophen (Acetaminophen 650 Mg/20.3 Ml Udc) 500 mg PEG-TUBE Q4H PRN PRN Reason: MILD PAIN OR INCREASE TEMP Last Admin: 05/25/24 18:04 Dose: 500 mg Hydrocodone Bitart/Acetaminophen (Hydrocodone-Acetaminophen 5-325 Mg Tablet) 1 tab PO QID PRN PRN Reason: Pain, Moderate Last Admin: 05/27/24 08:29 Dose: 1 tab Albuterol/Ipratropium (Ipratropium-Albuterol 3 Ml Neb) 3 ml INHALATION Q6H PRN PRN Reason: SHORTNESS OF BREATH Amiodarone HCl (Amiodarone 200 Mg Tablet) 200 mg PO DAILY [facility] Last Admin: 05/27/24 08:29 Dose: 200 mg Apixaban (Apixaban 5 Mg Tablet) 2.5 mg PO BID [facility] Baclofen (Baclofen 10 Mg Tablet) 10 mg PO TID PRN PRN Reason: SPASMS Chlorhexidine Gluconate (Chlorhexidine Gluconate 4% Btl 118 Ml) 1 applic TOPICAL Q24H [facility] Last Admin: 05/28/24 03:38 Dose: 1 applic Furosemide (Furosemide 10 Mg/Ml Sdv 10ml) 40 mg IVP Q12H [facility] Last Admin: 05/26/24 11:50 Dose: 40 mg Gabapentin (Gabapentin 300 Mg Capsule) 300 mg PO TID [facility] Last Admin: 05/27/24 20:53 Dose: 300 mg Norepinephrine Bitartrate (Levophed) 4 mg in 250 mls @ 0 mls/hr IV .Q0M [facility]; Protocol Last Titration: 05/26/24 01:45 Dose: 0 mcg/min, 0 mls/hr Sodium Chloride (Sodium Chloride 0.9%) 1,000 mls @ 0 mls/hr IV .Q0M PRN PRN Reason: hypotension or symptomatic Last Infusion: 05/24/24 21:10 Dose: Infused Albumin Human (Albumin) 12.5 gm in 50 mls @ 60 mls/hr IV PRN PRN PRN Reason: Hypotension and/or symptomatic Last Infusion: 05/25/24 04:00 Dose: Infused Piperacillin Sod/Tazobactam (Sod 3.375 gm/ Sodium Chloride) 50 mls @ 12.5 mls/hr IV Q8H [facility] Last Infusion: 05/28/24 04:16 Dose: Infused Fentanyl (Sublimaze) 1,000 mcg in 100 mls @ 0 mls/hr IV .Q0M [facility]; Protocol Last Titration: 05/28/24 02:42 Dose: 25 mcg/hr, 2.5 mls/hr Potassium Chloride 40 meq/ (Sodium Chloride) 1,020 mls @ 100 mls/hr IV .[id number] [facility] Last Infusion: 05/28/24 07:26 Dose: 100 mls/hr Lanolin (Lanolin Oint 7 Gm) 1 applic TOPICAL PRN PRN PRN Reason: DRYNESS Last Admin: 05/25/24 08:21 Dose: 1 applic Lorazepam (Lorazepam 2 Mg/Ml Oral Liquid (Ml)) 0.5 mg PO Q2H PRN PRN Reason: anxiety or discomfort Non-Formulary Medication (Desipramine) 10 mg PO DAILY [facility] Ondansetron HCl (Ondansetron 2 Mg/Ml Sdv 2 Ml) 4 mg IVP Q6H PRN PRN Reason: NAUSEA AND VOMITING Last Admin: 05/25/24 02:34 Dose: 4 mg Pantoprazole Sodium (Pantoprazole 40 Mg Sdv) 40 mg IVP BID [facility] Last Admin: 05/27/24 17:05 Dose: 40 mg Vitals/I&O/Wt Last Vital Signs Temp 97.9 F 05/28/24 04:15 Pulse 58 L 05/28/24 06:00 Resp 12 05/28/24 01:58 BP 102/66 05/28/24 06:00 Pulse Ox 95 05/28/24 06:00 O2 Del Method Mechanical Ventilation 05/28/24 06:00 O2 Flow Rate 15 05/24/24 18:56 FiO2 24 05/28/24 06:00 05/27/24 05/28/24 05/28/24 22:59 06:59 14:59 Intake Total 898.75 / 1498.75 2111.25 / 3610.00 13.75 / 13.75 Output Total 500 / 850 500 / 1350 Balance 398.75 / 648.75 1611.25 / 2260.00 13.75 / 13.75 Weight last 48 hrs Weight 73 kg Weight 69 kg Physical Exam Narrative: sedated, VSS, no pressers vebted vent fio2=24%, PEEP 5 rr 12, tv 430 heent- nc/at neck supple lungs b/l clear heart regular, + s1, s2 abd soft, nt, nd+ bs, +PEG ext - + arms and legs edema neuro minimally responsive to touch. not interactive Urinary Catheter Management: Ford: Cath Placed During This Visit: yes Reason for Continuing Indwelling Catheter: Accurate Measurement of Urinary Output in Critically Ill Patients Urinary Catheter Date of Insertion: 05/24/24 Urinary Catheter Time of Insertion: 19:15 Data 05/28/24 05:05 05/28/24 05:05 Micro: Microbiology 05/27/24 15:48 Gram Stain - Final Other Source 05/27/24 16:14 Gram Stain - Final Other Source 05/25/24 00:33 Urine Culture - Final Urine,Clean Catch A&P Assessment and plan (1) Acute on chronic renal insufficiency: 58 year old woman a fib, PEG. Pt here with septic shock 1. BERNABE- cr improving. u/a c/w uti renal dose abx -low ur na - monitor urine output renal us- 1. No hydronephrosis in the kidney. 2. Ford catheter. 3. Increased RIGHT renal echogenicity compatible with medical renal disease. 4. Mixed cystic and solid lesion in LEFT kidney measuring 3.2 x 2.2 x 1.5 cm. This is nonspecific and cystic neoplasm not excluded. This could be followed up with contrast-enhanced CT abdomen pelvis or ultrasound in 3 months. SHE NEEDS OUTPT UROLOGY FOLLOW UP 2. GI bleed- per medicine consider GI and /or surgery eval transfuse blood Check iron studies 3. hypernatremia- give water vi PEG, and d5w -low ur na- q if prerenal or DI. hard to dx w/ bernabe. will inc ivf and repeat chemistries. 4. hypokalemia=replace mag and potassium as needed please remove femoral dialysis catheter seen and examined w/ AV equipment with AIDE of RN Plan see above Attestations Medical Necessity Statement*: VDRF and PEG, bernabe, electrolyte abnormalities Time Spent in Patient Care: 16 - 35 minutes (>than 50% of time spent in counselling and/or direct pt care on unit). Coding Level of Care Code Acute Code for Chg Fwd Diagnoses Acute on chronic renal insufficiency N28.9; N18.9
[2024-05-28] MEDS: amiodarone 200 mg Tablet PO (08:59)
[2024-05-28] MEDS: pantoprazole 40 mg SDV IVP ×2 (08:59→17:17)
[2024-05-28] MEDS: gabapentin 300 mg Capsule PO ×3 (08:59→20:18)
[2024-05-28] MEDS: potassium chloride oral liq 20 mEq/15 mL UDC PO (08:59)
--- NOTE | 2024-05-28 09:07 | PM.MISC ---
Miscellaneous Note Purpose of Documentation: Update on patient care Note: Patient evaluated this morning no changes from a surgical standpoint. I have discussed with the patient wound care instructions for her sacral decubitus ulcer. We will start with Santyl at the base and then with dry dressing in the case of not being able to obtain the Santyl today we can do wet-to-dry. Patient will require continuous wound care, this can be continued to be done by nursing staff and once she is transferred to an acute care facility she can be evaluated by a wound care team for a long-term plan
[2024-05-28] MEDS: collagenase oint 30 gm 1 APPLIC TOPICAL (09:52)
[2024-05-28] MEDS: fentaNYL 1,000 MCG/100 ML BAG 2.5 MCG IV (19:20)
--- NOTE | 2024-05-28 19:45 | PM.PN ---
Subjective Subjective: She is awake, being visited by her DPOA, although he states she has not been communicating today. Vitals/I&O/Wt Last Vital Signs Temp 97.7 F 05/28/24 16:00 Pulse 69 05/28/24 18:00 Resp 12 05/28/24 18:00 BP 133/74 05/28/24 18:00 Pulse Ox 98 05/28/24 18:00 O2 Del Method Mechanical Ventilation 05/28/24 18:00 O2 Flow Rate 15 05/24/24 18:56 FiO2 30 05/28/24 19:32 05/28/24 05/28/24 05/28/24 06:59 14:59 22:59 Intake Total 2111.25 / 3610.00 123.75 / 123.75 1805.083 / 1928.833 Output Total 500 / 1350 575 / 575 Balance 1611.25 / 2260.00 123.75 / 123.75 1230.083 / 1353.833 Weight last 48 hrs Weight 73 kg Weight 69 kg Physical Exam Const: GENERAL APPEARANCE: not cooperative ORIENTATION/CONSCIOUSNESS: Yes awake HENMT: COMMON NORMALS: oropharynx normal OTHER: 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 Neck/C-Spine: COMMON NORMALS: no JVD Resp: COMMON NORMALS: clear to auscultation bilaterally AUSCULTATION: clear to auscultation bilaterally Cardio: COMMON NORMALS: no JVD, regular rhythm, S1 normal heart sound present, S2 normal heart sound present and No murmurs present (Cardio) RHYTHM: regular rhythm HEART SOUNDS: S1 normal heart sound present and S2 normal heart sound present GI: COMMON NORMALS: Normal to inspection, nondistended, normoactive bowel sounds present, Soft to palpation and non-tender PALPATION: Yes Soft to palpation Extremity: COMMON NORMALS: no joint enlargement and no pedal edema Urinary Catheter Management: Ford: Cath Placed During This Visit: yes Reason for Continuing Indwelling Catheter: Accurate Measurement of Urinary Output in Critically Ill Patients Urinary Catheter Date of Insertion: 05/24/24 Urinary Catheter Time of Insertion: 19:15 Data 05/28/24 05:05 05/28/24 05:05 Micro: Microbiology 05/27/24 16:14 Gram Stain - Final Other Source Tissue Culture - Preliminary 05/27/24 15:48 Gram Stain - Final Other Source Anaerobic Culture - Preliminary Wound Culture - Preliminary A&P Assessment and plan (1) Acute on chronic renal insufficiency: (2) Hyperkalemia: (3) Sepsis: (4) Septic shock: (5) Sacral ulcer: (6) Ankle ulcer: (7) Acute metabolic encephalopathy: (8) Pneumonia: (9) Aspiration pneumonia: (10) Hypotension: Plan Metabolic encephalopathy: She is awake, eyes are open, however, is not communicating, and her DPOA states has not communicated with him today. She had been started on fentanyl yesterday after surgical debridement of her wound with concern for pain. Wean down sedation as tolerating. Reassess mental status. Reviewed vitals, CBC, noted persistent cytosis 27.86, slight improvement. Continue. Antibiotic coverage for possible pneumonia, as well as possible sacral wound infection. Continue mechanical ventilatory support. High risk of failure of extubation. Reassess mental status for any improvement, signs that she may be cooperative, may be able to cooperate with airway protection. Additional consideration of further weaning and care at LTAC, with facilities being considered by DPOA. Discussed with case management manager. Tube feedings have been resumed at lower rate 30 mL/h. Monitor for tolerance. Will advance further if tolerating well. Reviewed automobile damage field appraiser note, appreciate. Goal 55 mL/h. Free water flushes 80 mL every 4 hours. During assessment on 05/27 blinking appeared to be inconsistent, possibly reflexive. We had a 30-minute conversation with her caregiver/DPOA Mr. Viera who was visiting with her today. He overall finds that it would be consistent with her wishes to continue current medical and supportive care, and does not feel that she would be ready for hospice/comfort measures at least at current time on discussion of options. He does provide an account of her overall gradual decline compared to a year ago, but this seems to have worsened quite significantly over the last 2 weeks. He questions that the more rapid decline may be related to acute factors. He agrees and would like to continue treatment of possible pneumonia, wound debridement by surgery, reassessment of anemia, continued weaning off of the ventilator. We discussed with him concern for lack of protecting her airway, risk of aspiration. He provides history of vocal cord dysfunction and dysphagia due to which she has been made NPO. It seems that up to close to a month ago or so she was able to speak as per history that he provides. Later in the afternoon she is uncomfortable and restless. Anticipating surgical debridement she started on fentanyl. Reviewed vitals, ventilator settings, discussed with nursing, respiratory therapist. Reviewed CBC, CMP, magnesium. Continue home baclofen, gabapentin, hydrocodone, Ativan, desipramine. Once additional possible acute contributors to encephalopathy are under better control, she is done with surgical debridement, anesthesia, etc., further evaluation may be considered with neurology as discussed with DPOA. Intubated and sedated, at baseline nonverbal communicates with blinking of her eyes Acute anemia: Reviewed hemoglobin, so far maintaining hemoglobin, today 8.1. Reviewed platelets, normal. Continue PPI. Reassess blood counts. Chronic sacral wound: Status post debridement of deep tissue injury with finding of necrotic tissue down to the bone, requiring deep debridement. Continue antibiotic coverage. After unstageable wound on presentation. Status post debridement of necrotic tissue had to be debrided down to sacral bone per discussion with surgeon. After surgery start low rate tube feeds. Monitor tolerance. Monitor for any regurgitation which could have contributed to aspiration. Discussed with surgery. Septic shock: Discussed with nursing, discussed with respite therapist, discussed with case management manager. So far septic shock is resolved. Weaned off Levophed. Discussed with surgery. Reviewed CXR scattered opacification of both lungs on chest x-ray. Continue Zosyn. Monitor for risk of cytopenia, C. difficile. Stop clindamycin. Will repeat imaging. Discussed with anesthesia. Discussed with surgery, with possible septic shock, additionally has been pending debridement, recommend today with acute anemia, additionally with a power issues in the hospital debridement has been postponed. Will repeat blood counts. Tentatively possibly tomorrow. Continue broad-spectrum antibiotics With worsening leukocytosis up to 30.59, liquid stool, requested C. difficile, requested Salmonella, Shigella, Campylobacter. Respiratory failure requiring mechanical ventilation: Reviewed vitals, ventilatory settings, discussed with respiratory. family services manager. As per above discussion of her condition, goals of care, further options and plans of assessment and management, patient is DPOA would not want her returning to [facility] but is willing to review other LTAC options. Discussed with case management, he will be provided with these. Given respiratory failure on presentation, vocal cord dysfunction, overall possible worsening cognitive decline, functional decline, high risk of aspiration with dysphagia, she would be at elevated risk of unsuccessful weaning and extubation. He understands the risk of aspiration, risk of need for reintubation. Discussed consideration of weaning, extubation and specialized settings and LTAC, in case of failure consideration of tracheostomy versus preemptive consideration of tracheostomy given risk factors. He is considering options, would like to review LTAC's. Continue breathing trials. Concerned that she was not protecting airway and presentation. Unclear whether may be secondary to acute encephalopathy versus progression of her chronic illness. Acute on chronic kidney disease: Reviewed nephrology note. Improving BERNABE. Status post dialysis for session 05/24 Potassium improved PEG tube in place Start trophic feeds. Monitor for tolerance. Accu-Cheks every 4 hours Reviewed KUB Renal mass: Left kidney 3.2 x 2.2 x 1.5 cm cystic solid lesion. Nonspecific, cystic neoplasm not excluded. Will need urology follow-up. Consider follow-up contrast-enhanced CT or ultrasound in 3 months. Previously found possible hilar mass versus pneumonia: Needing follow-up. Guarded prognosis Chronic anemia: History of A-fib was on Eliquis patient takes amiodarone as well via PEG tube For hypertension she was taking lisinopril and amlodipine currently on hold Type II diabetic: Accu-Cheks GI prophylaxis: Protonix Concern related to feeding tube related aspiration versus caregiver trying to give her medication for oral thrush and then failing to properly suctioning her Attestations Medical Necessity Statement*: Continue admission for assessment management of encephalopathy, respiratory failure, acute anemia, sacral wound. Coding Level of Care Code Critical Care >/= 30 minutes Critical care time (in minutes): 35 The high probability of a clinically significant, sudden or life threatening deterioration, as referenced in this documentation, required my full and direct attention, intervention and personal management. The critical care time shown is in addition to time spent performing any reported separately billable procedures and includes the following: [x] Data and vital sign review and interpretation [x] Patient assessment, examination and intervention [x] Medication orders and management [x] Patient/Family updates as able [x] Care Coordination and Documentation. Diagnoses Acute on chronic renal insufficiency N28.9; N18.9 Hyperkalemia E87.5 Sepsis A41.9 Septic shock A41.9; R65.21 Sacral ulcer L98.429 Ankle ulcer L97.309 Acute metabolic encephalopathy G93.41 Pneumonia J18.9 Aspiration pneumonia J69.0 Hypotension I95.9
[2024-05-29] VITALS (91 sets, daily range): BP systolic 95–142; BP diastolic 59–87; PULSE 56–102; RESP 12–15; TEMP 36.6–37.2; O2SAT 91–100; BMI 26.2
[2024-05-29] MEDS: chlorhexidine gluconate 4% Btl 118 mL 1 APPLIC TOPICAL (01:42)
[2024-05-29] MEDS: lanolin oint 7 gm 1 APPLIC TOPICAL (01:42)
[2024-05-29] MEDS: piperacillin-tazobactam 3.375 GM in sodium chloride 0.9% (plus) 50 ML IV ×3 (01:45→17:12)
[2024-05-29] MEDS: sodium chlor 0.45% +KCl 20 mEq 20 MEQ/1,000 ML BAG 75 MEQ IV (04:16)
[2024-05-29 04:31] LABS: Basophils # 0.1 10^3/uL (0.0-0.1); Basophils % 0.3 %; Eosinophils # 0.5 10^3/uL (0.0-0.8); Eosinophils % 2.2 %; Hematocrit 23.9 % (36-47); Lymphocytes # 1.2 10^3/uL (0.8-4.8); Lymphocytes % 6.2 %; Mean Corpuscular HGB Conc 30.1 g/dL (30-55); Mean Corpuscular Hemoglobin 28.3 pg (27-33); Mean Corpuscular Volume 94.1 fl (85-98); Mean Platelet Volume 12.2 fL (7.4-10.4); Monocytes % 4.9 %; Neutrophils # 16.85 10^3/uL (1.8-7.7); Neutrophils % 84.1 %; Nucleated Red Blood Cells % 0 %; Platelet Count 168 10^3/cmm (157-399); Red Blood Count 2.54 10^6/uL (3.85-5.65); White Blood Count 20.05 10^3/uL (3.29-11.43)
[2024-05-29 05:00] LABS: Alanine Aminotransferase 6 U/L (0-33); Albumin Level 2.8 g/dL (3.5-5.2); Alkaline Phosphatase 43 U/L (35-105); Anion Gap 9.7 (5-19); Aspartate Amino Transferase 9 U/L (0-32); Blood Urea Nitrogen 37 mg/dL (6-20); Calcium 8.8 mg/dL (8.5-10.5); Carbon Dioxide 25 mmol/L (22-29); Chloride 110 mmol/L (98-107); Creatinine Clr Calc Pharmacy 52.2589; Globulin 2.7 g/dL (1.3-4.6); Glomerular Filtration Rate 46.1 mL/min (90-130); Glucose 141 mg/dL (65-115); Magnesium 1.9 mg/dL (1.7-2.3); Osmolality Calculated 301 mOsm/kg (285-295); Phosphorus 2.6 mg/dL (2.5-4.5); Potassium 4.7 mmol/L (3.5-5.1); Sodium 140 mmol/L (136-145); Total Bilirubin 0.2 mg/dL (0.15-1.2); Total Protein 5.5 g/dL (6.6-8.7)
[2024-05-29] MEDS: amiodarone 200 mg Tablet PO (08:32)
[2024-05-29] MEDS: gabapentin 300 mg Capsule PO (08:32)
[2024-05-29] MEDS: pantoprazole 40 mg SDV IVP ×2 (08:33→17:11)
[2024-05-29] MEDS: collagenase oint 30 gm 1 APPLIC TOPICAL (08:33)
--- NOTE | 2024-05-29 10:14 | P.PN_ITS ---
Subjective 2 Subjective: seen and examined. not able to geta history. she is not interactive. does move her eyes Medications: Reviewed: Yes Medication Review Details: Current Medications Acetaminophen (Acetaminophen 650 Mg/20.3 Ml Udc) 500 mg PEG-TUBE Q4H PRN PRN Reason: MILD PAIN OR INCREASE TEMP Last Admin: 05/25/24 18:04 Dose: 500 mg Hydrocodone Bitart/Acetaminophen (Hydrocodone-Acetaminophen 5-325 Mg Tablet) 1 tab PO QID PRN PRN Reason: Pain, Moderate Last Admin: 05/27/24 08:29 Dose: 1 tab Albuterol/Ipratropium (Ipratropium-Albuterol 3 Ml Neb) 3 ml INHALATION Q6H PRN PRN Reason: SHORTNESS OF BREATH Amiodarone HCl (Amiodarone 200 Mg Tablet) 200 mg PO DAILY [facility] Last Admin: 05/29/24 08:32 Dose: 200 mg Apixaban (Apixaban 5 Mg Tablet) 2.5 mg PO BID FAVIOLA Baclofen (Baclofen 10 Mg Tablet) 10 mg PO TID PRN PRN Reason: SPASMS Chlorhexidine Gluconate (Chlorhexidine Gluconate 4% Btl 118 Ml) 1 applic TOPICAL Q24H [facility] Last Admin: 05/29/24 01:42 Dose: 1 applic Collagenase (Collagenase Oint 30 Gm) 1 applic TOPICAL DAILY [facility] Last Admin: 05/29/24 08:33 Dose: 1 applic Furosemide (Furosemide 10 Mg/Ml Sdv 10ml) 40 mg IVP Q12H [facility] Last Admin: 05/26/24 11:50 Dose: 40 mg Gabapentin (Gabapentin 300 Mg Capsule) 300 mg PO TID [facility] Last Admin: 05/29/24 08:32 Dose: 300 mg Norepinephrine Bitartrate (Levophed) 4 mg in 250 mls @ 0 mls/hr IV .Q0M [facility]; Protocol Last Titration: 05/26/24 01:45 Dose: 0 mcg/min, 0 mls/hr Sodium Chloride (Sodium Chloride 0.9%) 1,000 mls @ 0 mls/hr IV .Q0M PRN PRN Reason: hypotension or symptomatic Last Infusion: 05/24/24 21:10 Dose: Infused Albumin Human (Albumin) 12.5 gm in 50 mls @ 60 mls/hr IV PRN PRN PRN Reason: Hypotension and/or symptomatic Last Infusion: 05/25/24 04:00 Dose: Infused Piperacillin Sod/Tazobactam (Sod 3.375 gm/ Sodium Chloride) 50 mls @ 12.5 mls/hr IV Q8H [facility] Last Admin: 05/29/24 08:32 Dose: 12.5 mls/hr Fentanyl (Sublimaze) 1,000 mcg in 100 mls @ 0 mls/hr IV .Q0M [facility]; Protocol Last Admin: 05/28/24 19:20 Dose: 25 mcg/hr, 2.5 mls/hr Potassium Chloride 40 meq/ (Sodium Chloride) 1,020 mls @ 100 mls/hr IV .[id number] [facility] Last Admin: 05/29/24 08:20 Dose: Not Given Potassium Chloride/Sodium Chloride (Sodium Chlor 0.45% +Kcl 20 Meq) 20 meq in 1,000 mls @ 75 mls/hr IV .[id number] [facility] Last Infusion: 05/29/24 04:17 Dose: 100 mls/hr Lanolin (Lanolin Oint 7 Gm) 1 applic TOPICAL PRN PRN PRN Reason: DRYNESS Last Admin: 05/29/24 01:42 Dose: 1 applic Lorazepam (Lorazepam 2 Mg/Ml Oral Liquid (Ml)) 0.5 mg PO Q2H PRN PRN Reason: anxiety or discomfort Non-Formulary Medication (Desipramine) 10 mg PO DAILY [facility] Ondansetron HCl (Ondansetron 2 Mg/Ml Sdv 2 Ml) 4 mg IVP Q6H PRN PRN Reason: NAUSEA AND VOMITING Last Admin: 05/25/24 02:34 Dose: 4 mg Pantoprazole Sodium (Pantoprazole 40 Mg Sdv) 40 mg IVP BID [facility] Last Admin: 05/29/24 08:33 Dose: 40 mg Vitals/I&O/Wt Last Vital Signs Temp 97.9 F 05/29/24 08:45 Pulse 64 05/29/24 08:45 Resp 13 05/29/24 08:00 BP 142/81 05/29/24 08:45 Pulse Ox 100 05/29/24 08:45 O2 Del Method Mechanical Ventilation 05/29/24 08:45 O2 Flow Rate 15 05/24/24 18:56 FiO2 30 05/29/24 08:45 05/28/24 05/29/2424 22:59 06:59 14:59 Intake Total 1875.083 / 3289.994 2028.25 / 4032.083 Output Total 575 / 575 900 / 1475 350 / 350 Balance 1300.083 / 9422.016 2337.25 / 2557.083 -350 / -350 Weight last 48 hrs Weight 73.536 kg Weight 73 kg Physical Exam 2 Narrative: minimally reactive, VSS, no pressers vebted vent fio2=24%, PEEP 5 rr 12, tv 430 heent- nc/at neck supple lungs b/l clear heart regular, + s1, s2 abd soft, nt, nd+ bs, +PEG ext - + arms and legs edema neuro minimally responsive to touch. not interactive Urinary Catheter Management: Ford: Cath Placed During This Visit: yes Reason for Continuing Indwelling Catheter: Accurate Measurement of Urinary Output in Critically Ill Patients Urinary Catheter Date of Insertion: 05/24/24 Urinary Catheter Time of Insertion: 19:15 Data 05/29/24 04:09 05/29/24 04:09 Micro: Microbiology 05/27/24 16:14 Gram Stain - Final Other Source Tissue Culture - Preliminary 05/27/24 15:48 Gram Stain - Final Other Source Anaerobic Culture - Preliminary Wound Culture - Preliminary A&P Assessment and plan (1) Acute on chronic renal insufficiency: 58 year old woman a fib, PEG. Pt here with septic shock 1. BERNABE- cr improving. u/a c/w uti renal dose abx -low ur na - monitor urine output renal us- 1. No hydronephrosis in the kidney. 2. Ford catheter. 3. Increased RIGHT renal echogenicity compatible with medical renal disease. 4. Mixed cystic and solid lesion in LEFT kidney measuring 3.2 x 2.2 x 1.5 cm. This is nonspecific and cystic neoplasm not excluded. This could be followed up with contrast-enhanced CT abdomen pelvis or ultrasound in 3 months. SHE NEEDS OUTPT UROLOGY FOLLOW UP 2. GI bleed- per medicine consider GI and /or surgery eval transfuse blood Check iron studies 3. hypernatremia- improved w/ water vi aPEG, and d5w -low ur na- q if prerenal or DI. hard to dx w/ bernabe. 4. hypokalemia - improved AMS- decrease gabapentin to 100 tid- and consider stopping gabapentin will see PRN seen and examined w/ AV equipment with AIDE of RN Plan see above Attestations 2 Medical Necessity Statement*: VDRF, minimally interactive, bernabe improved to cr of 1.2 Time Spent in Patient Care: 16 - 35 minutes (>than 50% of time sp ent in counselling and/or direct pt care on unit) . Coding Level of Care Code Acute Code for Chg Fwd Diagnoses Acute on chronic renal insufficiency N28.9; N18.9
[2024-05-29 11:03] LABS: Ferritin 228 ng/mL (15-150); Iron 13 ug/dL (37-145); Percent Saturation 10.8 % (20-50); Total Iron Binding Capacity 120 mcg/dl; Unsaturated Iron Binding 107 ug/dL (112-347)
[2024-05-29] MEDS: gabapentin 100 mg Capsule PO ×2 (14:31→21:42)
--- NOTE | 2024-05-29 22:01 | P.PN_ITS ---
Subjective 2 Subjective: She is awake, intermittently makes eye contact. Blinks do not appear to correspond to any attempted communication and current time. Vitals/I&O/Wt Last Vital Signs Temp 97.8 F 05/29/24 20:16 Pulse 67 05/29/24 20:00 Resp 12 05/29/24 20:03 BP 119/73 05/29/24 20:00 Pulse Ox 100 05/29/24 20:03 O2 Del Method Mechanical Ventilation 05/29/24 20:00 O2 Flow Rate 15 05/24/24 18:56 FiO2 30 05/29/24 20:16 05/29/24 05/29/24 05/29/24 06:59 14:59 22:59 Intake Total 2033.25 / 4032.083 660 / 660 162.667 / 822.667 Output Total 900 / 1475 800 / 800 475 / 1275 Balance 1133.25 / 2557.083 -140 / -140 -312.333 / -452.333 Weight last 48 hrs Weight 73.536 kg Weight 73 kg Physical Exam 2 Const: GENERAL APPEARANCE: not cooperative ORIENTATION/CONSCIOUSNESS: Yes awake HENMT: COMMON NORMALS: oropharynx normal OTHER: 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 Neck/C-Spine: COMMON NORMALS: no JVD Resp: COMMON NORMALS: clear to auscultation bilaterally AUSCULTATION: clear to auscultation bilaterally Cardio: COMMON NORMALS: no JVD, regular rhythm, S1 normal heart sound present, S2 normal heart sound present and No murmurs present (Cardio) RHYTHM: regular rhythm HEART SOUNDS: S1 normal heart sound present and S2 normal heart sound present GI: COMMON NORMALS: Normal to inspection, nondistended, normoactive bowel sounds present, Soft to palpation and non-tender PALPATION: Yes Soft to palpation Extremity: COMMON NORMALS: no joint enlargement and no pedal edema Urinary Catheter Management: Ford: Cath Placed During This Visit: yes Reason for Continuing Indwelling Catheter: Accurate Measurement of Urinary Output in Critically Ill Patients Urinary Catheter Date of Insertion: 05/24/24 Urinary Catheter Time of Insertion: 19:15 Data 05/29/24 04:09 05/29/24 04:09 Micro: Microbiology 05/24/24 17:55 Blood Culture - Final Blood NO GROWTH AFTER 5 DAYS 05/24/24 17:52 Blood Culture - Final Blood NO GROWTH AFTER 5 DAYS 05/27/24 15:48 Gram Stain - Final Other Source Anaerobic Culture - Preliminary Wound Culture - Preliminary 05/27/24 16:14 Gram Stain - Final Other Source Tissue Culture - Preliminary A&P Assessment and plan (1) Acute on chronic renal insufficiency: (2) Hyperkalemia: (3) Sepsis: (4) Septic shock: (5) Sacral ulcer: (6) Ankle ulcer: (7) Acute metabolic encephalopathy: (8) Pneumonia: (9) Aspiration pneumonia: (10) Hypotension: Plan Metabolic encephalopathy: On reassessment today she is awake, intermittently makes eye contact, but does not appear to communicate. Blinks do not appear to correspond to any appropriate answers. Does not follow directions. Reviewed vitals, CBC, noted persistent cytosis 27.86, slight improvement. Leukocytosis with improvement, but noted some worsening of anemia, hemoglobin down to 7.2. Will repeat CBC. On chemistry BERNABE showing improvement. Creatinine down to 1.2 on review, BUN on review down to 37. She is producing urine. Monitor, reassess chemistry. Reviewed ventilator settings, RT documentation, discussed with RT on rounds. Discussed with assistant case manager, arrangements currently underway to assist her caregiver with choosing an LTAC. Continue antibiotic coverage for possible pneumonia, as well as possible sacral wound infection. Continue mechanical ventilatory support. High risk of failure of extubation. Reassess mental status for any improvement, signs that she may be cooperative, may be able to cooperate with airway protection. Tube feedings have been resumed at lower, So far tolerating. Will increase rate to 40 mL/h. Monitor for tolerance. Will advance further if tolerating well. Reviewed building contractor note, appreciate. Goal 55 mL/h. Free water flushes 80 mL every 4 hours. During assessment on 05/27 blinking appeared to be inconsistent, possibly reflexive. We had a 30-minute conversation with her caregiver/DPOA Mr. Viera who was visiting with her today. He overall finds that it would be consistent with her wishes to continue current medical and supportive care, and does not feel that she would be ready for hospice/comfort measures at least at current time on discussion of options. He does provide an account of her overall gradual decline compared to a year ago, but this seems to have worsened quite significantly over the last 2 weeks. He questions that the more rapid decline may be related to acute factors. He agrees and would like to continue treatment of possible pneumonia, wound debridement by surgery, reassessment of anemia, continued weaning off of the ventilator. We discussed with him concern for lack of protecting her airway, risk of aspiration. He provides history of vocal cord dysfunction and dysphagia due to which she has been made NPO. It seems that up to close to a month ago or so she was able to speak as per history that he provides. Later in the afternoon she is uncomfortable and restless. Anticipating surgical debridement she started on fentanyl. Reviewed vitals, ventilator settings, discussed with nursing, respiratory therapist. Reviewed CBC, CMP, magnesium. Continue home baclofen, gabapentin, hydrocodone, Ativan, desipramine. Once additional possible acute contributors to encephalopathy are under better control, she is done with surgical debridement, anesthesia, etc., further evaluation may be considered with neurology as discussed with TRU. Intubated and sedated, at baseline nonverbal communicates with blinking of her eyes Acute anemia: With noted some worsening of hemoglobin today down to 7.2. Reviewed iron studies, noted iron deficiency anemia. Will add iron supplementation. Anticoagulation on hold. Reassess blood count. Continue SCD for DVT prophylaxis. Reviewed platelets, normal. Continue PPI. Chronic sacral wound: Status post debridement of deep tissue injury with finding of necrotic tissue down to the bone, requiring deep debridement. Continue antibiotic coverage. After unstageable wound on presentation. Status post debridement of necrotic tissue had to be debrided down to sacral bone per discussion with surgeon. After surgery start low rate tube feeds. Monitor tolerance. Monitor for any regurgitation which could have contributed to aspiration. Discussed with surgery. Septic shock: Discussed with nursing, discussed with respite therapist, discussed with assistant case manager. So far septic shock is resolved. Weaned off Levophed. Discussed with surgery. Reviewed CXR scattered opacification of both lungs on chest x-ray. Continue Zosyn. Monitor for risk of cytopenia, C. difficile. Stop clindamycin. Will repeat imaging. Discussed with anesthesia. Discussed with surgery, with possible septic shock, additionally has been pending debridement, recommend today with acute anemia, additionally with a power issues in the hospital debridement has been postponed. Will repeat blood counts. Tentatively possibly tomorrow. Continue broad-spectrum antibiotics With worsening leukocytosis up to 30.59, liquid stool, requested C. difficile, requested Salmonella, Shigella, Campylobacter. Respiratory failure requiring mechanical ventilation: As per above continue ventilatory support, weaning, reassessment of mental status, arrangements for LTAC. Given respiratory failure on presentation, vocal cord dysfunction, overall possible worsening cognitive decline, functional decline, high risk of aspiration with dysphagia, she would be at elevated risk of unsuccessful weaning and extubation. He understands the risk of aspiration, risk of need for reintubation. Discussed consideration of weaning, extubation and specialized settings and LTAC, in case of failure consideration of tracheostomy versus preemptive consideration of tracheostomy given risk factors. He is considering options, would like to review LTAC's. Continue breathing trials. Concerned that she was not protecting airway and presentation. Unclear whether may be secondary to acute encephalopathy versus progression of her chronic illness. Acute on chronic kidney disease: Reviewed nephrology note. Improving BERNABE. IV fluid was discontinued. Status post dialysis for session 05/24 Potassium improved PEG tube in place Advance feeds. Monitor for tolerance. Accu-Cheks every 4 hours Renal mass: Left kidney 3.2 x 2.2 x 1.5 cm cystic solid lesion. Nonspecific, cystic neoplasm not excluded. Will need urology follow-up. Consider follow-up contrast-enhanced CT or ultrasound in 3 months. Previously found possible hilar mass versus pneumonia: Needing follow-up. Guarded prognosis Chronic anemia: History of A-fib was on Eliquis patient takes amiodarone as well via PEG tube For hypertension she was taking lisinopril and amlodipine currently on hold Type II diabetic: Accu-Cheks GI prophylaxis: Protonix Concern related to feeding tube related aspiration versus caregiver trying to give her medication for oral thrush and then failing to properly suctioning her Attestations 2 Medical Necessity Statement*: Continue admission for assessment management of encephalopathy, respiratory failure, acute anemia, sacral wound. Coding Level of Care Code Critical Care >/= 30 minutes Critical care time (in minutes): 45 The high probability of a clinically significant, sudden or life threatening deterioration, as referenced in this documentation, required my full and direct attention, intervention and personal management. The critical care time shown is in addition to time spent performing any reported separately billable procedures and includes the following: [x] Data and vital sign review and interpretation [x ] Patient assessment, examination and intervention [x] Medication orders and management [x] Patient/Family updates as able [x] Care Coordination and Documentation. Diagnoses Acute on chronic renal insufficiency N28.9; N18.9 Hyperkalemia E87.5 Sepsis A41.9 Septic shock A41.9; R65.21 Sacral ulcer L98.429 Ankle ulcer L97.309 Acute metabolic encephalopathy G93.41 Pneumonia J18.9 Aspiration pneumonia J69.0 Hypotension I95.9
[2024-05-30] VITALS (18 sets, daily range): BP systolic 121–161; BP diastolic 73–100; PULSE 61–77; RESP 12; TEMP 37.2–37.8; O2SAT 97–100
[2024-05-30] MEDS: chlorhexidine gluconate 4% Btl 118 mL 1 APPLIC TOPICAL (00:08)
[2024-05-30] MEDS: piperacillin-tazobactam 3.375 GM in sodium chloride 0.9% (plus) 50 ML IV (01:49)
--- NOTE | 2024-05-30 01:58 | PC.NURSE ---
Fentanyl Drip: Approximately 18ml Fentanyl in bag on arrival to shift- Fentanyl infusion to be completed at approximately 0210 05/30/24. MAR edited @1900 to reflect this.
[2024-05-30] MEDS: fentaNYL 1,000 MCG/100 ML BAG 2.5 MCG IV (02:22)
[2024-05-30 05:21] LABS: Alanine Aminotransferase 7 U/L (0-33); Albumin Level 2.8 g/dL (3.5-5.2); Alkaline Phosphatase 53 U/L (35-105); Aspartate Amino Transferase 15 U/L (0-32); Blood Urea Nitrogen 28 mg/dL (6-20); Calcium 8.7 mg/dL (8.5-10.5); Carbon Dioxide 23 mmol/L (22-29); Chloride 107 mmol/L (98-107); Creatinine Clr Calc Pharmacy 62.9182; Globulin 2.9 g/dL (1.3-4.6); Glomerular Filtration Rate 56.9 mL/min (90-130); Glucose 148 mg/dL (65-115); Magnesium 2.2 mg/dL (1.7-2.3); Osmolality Calculated 300 mOsm/kg (285-295); Phosphorus 3.3 mg/dL (2.5-4.5); Sodium 141 mmol/L (136-145); Total Bilirubin 0.2 mg/dL (0.15-1.2); Total Protein 5.7 g/dL (6.6-8.7)
[2024-05-30 05:33] LABS: Anion Gap 15.4 (5-19); Potassium 4.4 mmol/L (3.5-5.1)
--- NOTE | 2024-05-30 08:57 | PC.NUTR ---
Recommend Glucerna 1.5 with goal rate 40mls/hr and FWF 80mls Q4H. Glucerna 1.5 @ 40mls/hr provides 1440 kcals or 100% Pt's estimated calorie needs , 79.7 grams protein or 94% Pt's estimated protein needs and 787.2 mls+480mlsFWF or 87% Pt's estimated fluid needs.
--- NOTE | 2024-05-30 10:04 | PC.NURSE ---
Report was called to [facility] in [facility] [place]. Room number for the patient is 115 and number is [phone]. [facility] was contacted.
--- NOTE | 2024-05-30 10:06 | PC.NURSE ---
[facility] came and picked up the patient at 1000. Patient left with a full bag of fentanyl for pain control while being intubated. Patient was stable upon transfer out of the ICU unit. Henry Viera was contacted and updated.
--- NOTE | 2024-05-30 14:25 | P.TS_ITS ---
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 solution 50 mg PO Q2H PRN Pain, Moderate 02/29/24 [History Confirmed 05/25/24] pantoprazole 40 mg tablet,delayed release 40 mg PO BID 02/29/24 [History Confirmed 05/25/24] trazodone 50 mg tablet 100 mg PO BEDTIME 02/29/24 [History Confirmed 05/25/24] albuterol sulfate 90 mcg/actuation aerosol inhaler 1 inh inhalation Q6H PRN shortness of breath or wheezing #8.5 grams 03/04/24 [Rx Confirmed 05/25/24] furosemide 20 mg tablet (Lasix) 20 mg PO DAILY #30 tabs 03/26/24 [Rx Confirmed 05/25/24] cefprozil 250 mg/5 mL oral suspension 500 mg PO QID 05/25/24 [History Confirmed 05/25/24] insulin glargine 100 unit/mL (3 mL) subcutaneous pen (Lantus Solostar U-100 Insulin) See Rx Instructions .Route .COMPLEX 05/25/24 [History Confirmed 05/25/24] lisinopril 20 mg tablet 20 mg PO DAILY 05/25/24 [History Confirmed 05/25/24] Discharge Plan Discharge Patient Disposition: Xfer Other Condition: Stable Prescriptions: No Action trazodone 50 mg tablet 100 mg PO BEDTIME morphine concentrate 100 mg/5 mL (20 mg/mL) solution 50 mg PO Q2H MDD 120mg PRN (Reason: Pain, Moderate) amiodarone 200 mg tablet 200 mg PO DAILY benzonatate 200 mg capsule 200 mg PO TID PRN (Reason: Cough) hydrocodone-acetaminophen 5-325 mg tablet 1 tab PO QID PRN (Reason: Pain, Moderate) baclofen 10 mg tablet 10 mg PO TID amlodipine 10 mg tablet 10 mg PO DAILY pantoprazole 40 mg tablet,delayed release (DR/EC) 40 mg PO BID gabapentin 300 mg capsule 300 mg PO TID atropine 1 % drops 2 - 4 drp PO Q2H PRN (Reason: Secretions) lorazepam 2 mg/mL concentrate 0.5 mg PO Q2H PRN (Reason: anxiety or discomfort) desipramine 10 mg tablet 10 mg PO DAILY duloxetine 60 mg capsule,delayed release(DR/EC) 60 mg PO DAILY Jentadueto 2.5-1,000 mg tablet 1 tab PO BID Eliquis 5 mg tablet 5 mg PO BID albuterol sulfate 90 mcg/actuation HFA aerosol inhaler 1 inh inhalation Q6H PRN (Reason: shortness of breath or wheezing) Qty: 8.5 0RF furosemide [Lasix] 20 mg tablet 20 mg PO DAILY Qty: 30 0RF lisinopril 20 mg tablet 20 mg PO DAILY cefprozil 250 mg/5 mL suspension for reconstitution 500 mg PO QID insulin glargine [Lantus Solostar U-100 Insulin] 100 unit/mL (3 mL) insulin pen See Rx Instructions .ROUTE .COMPLEX Rx Instructions: Use as directed Discharge Orders: Transfer Out of Facility (Order); Ordered 05/30/24 Ordered By: Elmer Ross Referrals: Joleen Hines APN [Primary Care Provider] - Patient Instructions: Dialysis Nutrition Plan (DC), Acute Wound Care (DC), Altered Mental Status (ED), Hemodialysis (DC), Opioid Safety, Post Anesthesia Care Transfer Attestations Time Spent in Transfer Care: greater than 30 min Quality Metrics Clinical Quality Measures [ No reported AMI, CVA or VTE this stay] Coding Level of Care Code 87448 Total time (in minutes) for Discharge: 55 Diagnoses Acute on chronic renal insufficiency N28.9; N18.9 Hyperkalemia E87.5 Sepsis A41.9 Septic shock A41.9; R65.21 Sacral ulcer L98.429 Ankle ulcer L97.309 Acute metabolic encephalopathy G93.41 Pneumonia J18.9 Aspiration pneumonia J69.0 Hypotension I95.9
== END 2024-05-30 10:00 | DRG 853 ==
LOC: ER 20:58 → ICU 21:37
PROVIDERS: Anesthesiology; Hospitalist; Internal Medicine; Internal Medicine Nephrology; Surgery; Admitting Provider Internal Medicine; Emergency Provider Emergency Medicine; PCP Nurse Practitioner Family; Visit Provider Internal Medicine
PROC: 0QB10ZZ Excision of Sacrum, Open Approach (ICD-10-PCS; principal; 2024-05-27 14:35)
DX: A41.9 Sepsis, unspecified organism (principal); G93.41 Metabolic encephalopathy; L89.154 Pressure ulcer of sacral region, stage 4; J69.0 Pneumonitis due to inhalation of food and vomit; R65.21 Severe sepsis with septic shock; N17.0 Acute kidney failure with tubular necrosis; J96.01 Acute respiratory failure with hypoxia; G93.89 Other specified disorders of brain; D63.1 Anemia in chronic kidney disease; E86.0 Dehydration; E87.5 Hyperkalemia; I25.10 Atherosclerotic heart disease of native coronary artery without angina pectoris; E11.22 Type 2 diabetes mellitus with diabetic chronic kidney disease; I12.9 Hypertensive chronic kidney disease with stage 1 through stage 4 chronic kidney disease, or unspecified chronic kidney disease; N18.9 Chronic kidney disease, unspecified; I48.91 Unspecified atrial fibrillation; F32.A Depression, unspecified; F41.9 Anxiety disorder, unspecified; I69.90 Unspecified sequelae of unspecified cerebrovascular disease; Z74.01 Bed confinement status; Z93.1 Gastrostomy status; Z79.01 Long term (current) use of anticoagulants; Z88.0 Allergy status to penicillin; Z87.440 Personal history of urinary (tract) infections; Z87.01 Personal history of pneumonia (recurrent); Z98.890 Other specified postprocedural states
CPT/HCPCS: 0241U; 36415; 36416; 36430; 36573; 36592; 36600; 51702; 70450; 71045; 74018; 76770; 80048; 80051; 80053; 81001; 82274; 82330; 82436; 82728; 82803; 82805; 82962; 83540; 83550; 83605; 83735; 83880; 84100; 84132; 84133; 84300; 84484; 85014; 85018; 85025; 86140; 86705; 86706; 86850; 86900; 86920; 87040; 87045; 87070; 87075; 87077; 87086; 87176; 87186; 87205; 87340; 87427; 87449; 87493; 90935; 93005; 94002; 94003; 94799; 96365; 96366; 96367; 96374; 96375; 96376; J0612; J1171; J1644; J1815; J1940; J2020; J2185; J2250; J2405; J2470; J2543; J3010; J3475; J3480; J3490; J7030; J7070; P9016; P9046; P9047; Q3014